=== PATIENT | female | born 1995 | race Caucasian/White ===

== ENCOUNTER → 2018-01-23 | Outpatient (CLI) | payer MEDICAID ==
--- NOTE | 2018-01-23 13:01 | Diagnostic Imaging Report ---
PROCEDURE: US OB SINGLE FETUS <14 WKS. TECHNIQUE: Multiple limited real-time grayscale images were obtained over the gravid uterus in various projections. INDICATION: Bleeding during . FINDINGS: Single intrauterine , currently in variable presentation. The cardiac activity is demonstrated at 176 beats per minute. No abnormal perigestational fluid collections. Imaging of the adnexa demonstrates nonvisualization of either ovary. Impression: Limited obstetrical sonogram imaging demonstrates a single viable intrauterine in variable presentation. No abnormal perigestational fluid collections or findings to account for the bleeding. Dictated by: Dictated on workstation # [id number]
== END ==
LOC: RAD 11:32
PROVIDERS: ATTEND Family Medicine
DX: O20.9 Hemorrhage in early pregnancy, unspecified (principal); Z3A.00 Weeks of gestation of pregnancy not specified
CPT/HCPCS: 76801

== ENCOUNTER → 2018-02-12 | Outpatient (CLI) | payer MEDICAID ==
--- NOTE | 2018-02-12 18:04 | Diagnostic Imaging Report ---
PROCEDURE: US Gallbladder. TECHNIQUE: Multiple real-time grayscale images were obtained over the right upper quadrant in various projections. INDICATION: Abdominal pain. FINDINGS: There are no prior studies available for comparison. There is no evidence for cholelithiasis or acute cholecystitis. The common bile duct is obscured by bowel gas as is the pancreas. The liver does not appear to be enlarged. There is no focal mass involving the liver and the biliary tree is not abnormally dilated. The right kidney is unremarkable. IMPRESSION: 1. There is no evidence for cholelithiasis or acute cholecystitis. The common bile duct was not visualized however. 2. If clinical concern regarding an underlying abnormality of the gallbladder persists and further imaging is desired, then a nuclear medicine hepatobiliary scan will be recommended. Dictated by: Dictated on workstation # [id number]
== END ==
LOC: RAD 09:17
PROVIDERS: ATTEND Family Medicine
DX: R10.11 Right upper quadrant pain (principal)
CPT/HCPCS: 76705

== ENCOUNTER → 2018-04-08 | Outpatient (CLI) | payer MEDICAID ==
--- NOTE | 2018-04-08 15:20 | Diagnostic Imaging Report ---
INDICATION: survey. TECHNIQUE: Multiple real-time grayscale images were obtained over the gravid uterus. COMPARISON: 01/23/2018. FINDINGS: There is a single live fetus in a vertex presentation. heart rate was recorded at 152 beats per minute. Placenta is posterior. The amniotic fluid volume is normal. survey demonstrates the bladder and stomach to be unremarkable. brain is unremarkable. Kidneys were not well visualized. In addition, the four-chamber heart view, three vessel cord and spine were not well seen. Followup would be recommended. Biometrical measurements are as follows: Biparietal 5.10 cm, age 21 weeks 4 days. Head circumference 18.64 cm, age 21 weeks 0 days. Abdominal circumference 15.84 cm, age 21 weeks 0 days. Femur length 3.79 cm, age 22 weeks 1 days. Sonographic estimate age: 21 weeks 3 days. Sonographic estimated date of delivery: 08/16/18. Estimated Weight: 424 gm (+/- 62 gm). LMP percentile: 37%. heart rate: 152 beats per minute. number: 1 of 1. IMPRESSION: Single live IUP 21 weeks 3 days gestational age demonstrating normal interval growth compared with prior exam from 01/23/2018. survey is somewhat limited and followup would be recommended. Dictated by: Dictated on workstation # [id number]
== END ==
LOC: RAD 10:44
PROVIDERS: ATTEND Family Medicine
DX: Z36.89 Encounter for other specified antenatal screening (principal); Z3A.21 21 weeks gestation of pregnancy
CPT/HCPCS: 76805

== ENCOUNTER 2018-06-01 14:36 | Outpatient (CLI) | payer MEDICAID ==
--- NOTE | 2018-06-01 14:36 | NUR ---
BLAINE IVAN presented to unit via ambulation from home, accompanied by S.o. and mother, with c/o DECREASED MOVEMENT. BLAINE IVAN weighed, gowned, voided, and to bed. EFHM and TOCO applied, VS taken. BLAINE IVAN oriented to bed controls, call light, TV, heat, and A/C controls.
--- NOTE | 2018-06-01 15:08 | NUR ---
Dr. Ricci called and notified of pt arrival, c/o decreased movement. notified of fhr status, ctx pattern, vs, other assessment findings. OK to d/c pt home once reactive NST. .
[2018-06-01 15:30] VITALS: BP 127/60
--- NOTE | 2018-06-01 15:41 | NUR ---
Pt discharged, copy of discharge paperwork provided. Pt verbalizes understanding. Denies needs and concerns at this time. Ambulates off unit accompanied by family to private vehicle.
== END 2018-06-01 15:41 | disposition home or self-care (01) ==
LOC: LDRP 14:36 → WSo 14:36
PROVIDERS: ATTEND Family Medicine
DX: O36.8130 Decreased fetal movements, third trimester, not applicable or unspecified (principal); Z3A.29 29 weeks gestation of pregnancy
CPT/HCPCS: 59025; 99212

== ENCOUNTER 2018-06-14 14:43 | Outpatient (CLI) | payer MEDICAID ==
[~2018-06-14] VITALS: Ht 162.6 cm; Wt 126.1 kg
--- NOTE | 2018-06-14 14:50 | NUR ---
Arrived to unit via wheelchair per family from ED. Pt holding abd and grimacing. pt c/o " diarrhea every 20-30min since 0130 with abd cramping and back pain that started this afternoon. wt obtained and pt ambulates to room 315. Gowned and urine sample obtained. To bed and monitors on. oriented to room, call light and surroundings. pt's mother answering questions for pt. plan of care reviewed with pt and family at bedside.
[2018-06-14] MEDS ORDERED: RANI150T46 PO (15:03)
[2018-06-14] MEDS ORDERED: ASPI-999 PO (15:03)
[2018-06-14] MEDS ORDERED: PREN-37 PO (15:03)
[2018-06-14 15:05] VITALS: BP 131/76
[2018-06-14] MEDS ORDERED: NS IV 1000 ML 1,000 ML ONE (15:24)
--- NOTE | 2018-06-14 15:27 | NUR ---
Dr. Rosales called and notified of pt c/o, assessment, few contractions noted 40-50 sec duration, fhr pattern reactive, urine dipstick. New orders received and plan of care reviewed with pt.
[2018-06-14] MEDS ORDERED: NS IV 1000 ML 1,000 ML IV ONE ×2 (15:30→16:15)
[2018-06-14 16:50] VITALS: BP 132/60
--- NOTE | 2018-06-14 17:08 | NUR ---
Dr Rosales notified of iv fluids completed, pt reports "feeling better." No diarrhea stool or vomitting. New orders for discharge received
--- NOTE | 2018-06-14 17:15 | NUR ---
Discharge instructions explained, signed and copy to patient. pt verbalized understanding of instructions and denied questions.
--- NOTE | 2018-06-14 17:20 | NUR ---
Discharged off unit accompanied by s.o. ambulates self off unit to private vehicle with belongings in hand.
--- NOTE | 2018-06-15 14:57 | Physician Query-Final Dx ---
Clinic Account Progress/Dx Physician Query: Please give diagnosis Date of Service Jun 14, 2018 at 14:43 ROQUE FULLER Jun 15, 2018 14:57
== END 2018-06-14 17:20 | disposition home or self-care (01) ==
LOC: WSo 14:43 → LDRP 14:44 → WSo 17:20
PROVIDERS: ATTEND Family Medicine
CPT/HCPCS: 96360; 96361; 99214

== ENCOUNTER → 2018-07-22 | Outpatient (CLI) | payer MEDICAID ==
[~2018-07-22] MED LIST: ASPI-999 PO; PREN-37 PO; RANI150T46 PO
[2018-07-22 15:34] LABS: HEMOGLOBIN 12.5 G/DL (11.5-16.0); MEAN PLATELET VOLUME 8.3 FL (7.4-10.4); RED CELL DISTRIBUTION WIDTH 13.1 % (10.0-14.5); WHITE BLOOD COUNT 15.2 10^3/uL (4.3-11.0)
[2018-07-22 16:00] LABS: ALANINE AMINOTRANSFERASE 42 U/L (0-55); ALBUMIN 3.3 GM/DL (3.2-4.5); ALKALINE PHOSPHATASE 126 U/L (40-136); BILIRUBIN,TOTAL 0.2 MG/DL (0.1-1.0); BUN/CREATININE RATIO 21; CALCIUM 9.4 MG/DL (8.5-10.1); CARBON DIOXIDE 21 MMOL/L (21-32); CHLORIDE 111 MMOL/L (98-107); CREATININE SERUM 0.67 MG/DL (0.60-1.30); GFR ESTIMATED > 60; GLUCOSE 120 MG/DL (70-105); SODIUM 139 MMOL/L (135-145); TOTAL PROTEIN 6.7 GM/DL (6.4-8.2); URIC ACID 6.5 MG/DL (2.6-7.2)
== END ==
LOC: LAB 15:10
PROVIDERS: ATTEND Family Medicine
DX: O10.913 Unspecified pre-existing hypertension complicating pregnancy, third trimester (principal); O12.13 Gestational proteinuria, third trimester
CPT/HCPCS: 36415; 80053; 82570; 83615; 84156; 84550; 85027

== ENCOUNTER 2018-07-26 17:23 | Outpatient (CLI) | payer MEDICAID ==
[~2018-07-26] VITALS: Ht 162.6 cm; Wt 126.6 kg
--- NOTE | 2018-07-26 16:57 | NUR ---
Arrived to unit ambulates self accompanied by family. Pt c/o falling this afternoon on butt. Wt obtained and to room 318. Gowned and urine sample obtained. to bed and monitors on. Oriented to room, plan of care. pt verbalized understanding.
[2018-07-26 17:11] VITALS: BP 134/84
--- NOTE | 2018-07-26 18:36 | NUR ---
Dr Larsen notified of pt arrival, gestation, c/o, fhr reactive, some uterine irritability noted. Rn to increase pt oral fluid intake and check cervix.
--- NOTE | 2018-07-26 19:29 | NUR ---
Pt completed drinking 2 500 ml cups of water and denies UC, Dr Larsen called with report and discharge instructions given.
[2018-07-26 19:38] VITALS: BP 134/84
--- NOTE | 2018-07-27 17:32 | Physician Query-Final Dx ---
ROQUE FULLER 07/27/18 1732: Clinic Account Progress/Dx Physician Query: Please give diagnosis Date of Service Jul 26, 2018 at 17:23 GAVINO MADRID MD 08/09/18 1001: Clinic Account Progress/Dx DIAGNOSIS: Diagnosis Fall during third trimester ROQUE FULLER Jul 27, 2018 17:32 GAVINO MADRID MD Aug 09, 2018 10:01
== END 2018-07-26 19:34 | disposition home or self-care (01) ==
LOC: WSo 17:23 → LDRP 17:23 → WSo 19:34
PROVIDERS: ATTEND Family Medicine
DX: Z04.3 Encounter for examination and observation following other accident (principal)
CPT/HCPCS: 90471; 99213

== ENCOUNTER → 2018-07-30 | Outpatient (CLI) | payer MEDICAID ==
[2018-07-30 15:52] LABS: HEMOGLOBIN 12.5 G/DL (11.5-16.0); MEAN PLATELET VOLUME 8.2 FL (7.4-10.4); RED CELL DISTRIBUTION WIDTH 13.1 % (10.0-14.5); WHITE BLOOD COUNT 12.9 10^3/uL (4.3-11.0)
[2018-07-30 16:12] LABS: ALANINE AMINOTRANSFERASE 28 U/L (0-55); ALBUMIN 3.3 GM/DL (3.2-4.5); ALKALINE PHOSPHATASE 130 U/L (40-136); BILIRUBIN,TOTAL 0.2 MG/DL (0.1-1.0); BUN/CREATININE RATIO 16; CALCIUM 9.5 MG/DL (8.5-10.1); CARBON DIOXIDE 21 MMOL/L (21-32); CHLORIDE 109 MMOL/L (98-107); CREATININE SERUM 0.73 MG/DL (0.60-1.30); GFR ESTIMATED > 60; GLUCOSE 100 MG/DL (70-105); POTASSIUM 4.1 MMOL/L (3.6-5.0); SODIUM 138 MMOL/L (135-145); TOTAL PROTEIN 6.5 GM/DL (6.4-8.2); URIC ACID 6.8 MG/DL (2.6-7.2)
== END ==
LOC: LAB 15:36
PROVIDERS: ATTEND Family Medicine
DX: O10.919 Unspecified pre-existing hypertension complicating pregnancy, unspecified trimester (principal)
CPT/HCPCS: 36415; 80053; 82570; 83615; 84156; 84550; 85027

== ENCOUNTER 2018-08-01 20:56 | Inpatient (IN) | payer MEDICARE, MEDICAID ==
[~2018-08-01] VITALS: Ht 162.6 cm; Wt 129.4 kg
[2018-08-01] VITALS (17 sets, daily range): BP systolic 103–207; BP diastolic 56–99
--- NOTE | 2018-08-01 21:03 | NUR ---
BLAINE IVAN presented to unit via W/C from ED, accompanied by mother and SO, with c/o CONTRACTIONS. BLAINE IVAN weighed, gowned, voided, and to bed. EFHM and TOCO applied, VS taken. BLAINE IVAN oriented to bed controls, call light, TV, heat, and A/C controls.
[2018-08-01] MEDS ORDERED: D5 LR IV SOLUTION 1,000 ML IV ONE (21:27)
--- NOTE | 2018-08-01 21:27 | NUR ---
call to Dr Madrid and change of status ordered with labs.
[2018-08-01] MEDS ORDERED: MINERAL OIL CONCENTRATE 99.9% 15 ML UDC TOP PRN (21:30)
[2018-08-01] MEDS ORDERED: LIDOCAINE/EPI 1%-1:100,000 (XYLOCAINE) 20ML INJ ONE (21:30)
--- OUTSIDE RECORDS SUMMARY | 2018-08-01 21:37 | XMS REPORT ---
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 046482633 Problem Depression, unspecified depression type F32.9 Active 67850679 Problem Chronic hypertension affecting O10.919 Active 95065355 Problem Elevated blood pressure affecting in first trimester, antepartum O16.1 Active 70512252 Problem Miscarriage O03.9 Active 13551369 Problem Seasonal allergic rhinitis, unspecified allergic rhinitis trigger J30.2 Active 739506465 Problem BCP ( control pills) initiation Z30.011 Active 91545962 Problem Well woman exam with routine gynecological exam Z01.419 Active 869571259 Problem Essential hypertension I10 Active 23168596 Problem BMI 40.0-44.9, adult Z68.41 Active 422802756 Problem Mixed hyperlipidemia E78.2 Active 108145215 Problem Migraine without aura and without status migrainosus, not intractable G43.009 Active 640570847 Problem Generalized anxiety disorder F41.1 Active 605073496 Problem Female hirsutism L68.0 Active 24810514 ALLERGIES Substance Reaction Event Type Date Status Metformin HCl BS drops Drug Allergy Apr, Active ENCOUNTERS Encounter Location Date Diagnosis [facility] [address] [facility] [id number] [address] May, [facility] [address] [facility] [id number], [place] [address] Apr, 26 weeks gestation of Z3A.26 ; Chronic hypertension affecting O10.919 ; Depression, unspecified depression type F32.9 and Generalized anxiety disorder F41.1 [place] [id number] [place] [address] 39178- 2264 Apr, [place] [address] [address]- [address] Mar, Second trimester Z34.92 ; Evaluate anatomy not seen on prior sonogram Z04.89 and 23 weeks gestation of Z3A.23 [place] [address] [address]- [address] Mar, [facility] [id number] [place] [address] 56046- 3207 Mar, Second trimester Z34.92 ; Evaluate anatomy not seen on prior sonogram Z04.89 ; 23 weeks gestation of Z3A.23 and BMI 40.0-44.9, adult Z68.[address] [address]- [address] Feb, Second trimester Z34.92 ; BMI 40.0-44.9, adult Z68.41 ; Encounter for immunization Z23 and 18 weeks gestation of Z3A.18 [place] [address] [address]- [address]24 22 Feb, 2018 Normal in multigravida Z34.80 [facility] [id number] [place] [address] 23327- 4501 Feb, [facility] [id number] [place] [address] 81603- 9125 Jan, Second trimester Z34.92 ; BMI 40.0-44.9, adult Z68.41 and 14 weeks gestation of Z3A.14 [place] [address] 50154- 9566 Jan, [facility] [id number] [place] [address] 64809- 6680 Jan, Second trimester Z34.92 ; BMI 40.0-44.9, adult Z68.41 ; 12 weeks gestation of Z3A.12 ; Chronic hypertension affecting O10.919 ; Syncope, unspecified syncope type R55 ; Right upper quadrant pain R10.11 and First trimester bleeding O20.9 [place] [address] [address]- 7373 Jan, [facility] [address] 39966- 4872 Dec, [facility] [address] 6[address]25- 5636 Dec, Threatened miscarriage O20.[address] 24456- 1838 Dec, Normal in multigravida Z34.80 ; Prediabetes R73.03 ; Elevated blood pressure affecting in first trimester, antepartum O16.1 ; 12 weeks gestation of Z3A.12 and BMI 40.0-44.9, adult Z68.41 [place] [address] 45828- 6363 Dec, [address] [address]- 6276 Dec, Female hirsutism L68.0 ; Mixed hyperlipidemia E78.2 and Encounter for test, result unknown Z32.[address] 9[address]34- 3267 Oct, LGSIL on Pap smear of cervix R87.612 ; Exposure to STD Z20.2 and BMI 40.0-44.9, adult Z68.41 [place] [address] 38331- 6308 September, [facility] [address] 40455- 8880 September, Mixed hyperlipidemia E78.[address] 75509- 8933 September, Well woman exam with routine gynecological exam Z01.419 ; BCP ( control pills) initiation Z30.011 ; Essential hypertension I10 ; Miscarriage O03.9 and BMI 40.0-44.9, adult Z68.41 [facility] [id number] [place] [id number] Dec, Dental examination Z01.20 [facility] [address] [address] Dec, Acute non-recurrent pansinusitis J01.40 [facility] [address] [id number] Nov, Dental examination Z01.20 [facility] [address] [address] -3605 Oct, Missed period N92.6 ; Dysuria R30.0 and Seasonal allergic rhinitis, unspecified allergic rhinitis trigger J30.[address] 97736- 8054 Jul, Generalized anxiety disorder F41.1 ; BMI 40.0-44.9, adult Z68.41 ; Female hirsutism L68.0 ; Encounter for routine adult health examination with abnormal findings Z00.01 and Legg-Perthes disease, 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 [address]164- 3277 Jun, [address] 32406- 4016 Jun, Routine gynecological examination Z01.419 and Contraception , device intrauterine, checking Z30.[address] 01844- 2497 Jun, Morbid (severe) obesity due to excess calories E66.[address] 31580- 1043 May, Generalized anxiety disorder F41.1 ; Bipolar mood disorder F31.9 ; BMI 40.0-44.9, adult Z68.41 and Female hirsutism L68.0 [place] [id number] [place] [address] 18864- 5385 09 Apr, 2016 Morbid (severe) obesity due to excess calories E66.01 and Acute non-recurrent frontal sinusitis J01.10 [facility] [id number] [place] [address] 60294- 1134 11 Mar, 2016 Acute bronchitis, unspecified organism J20.9 ; Bipolar mood disorder F31.9 ; BMI 40.0-44.9, adult Z68.41 and Female hirsutism L68.0 [facility] [id number] [place] [address] 40149 -4106 04 Mar, 2016 Bronchitis J40 [facility] [id number] [place] [address] 47696- 2250 14 Feb, 2016 Morbid (severe) obesity due to excess calories E66.01 ; Bipolar mood disorder F31.9 and Female hirsutism L68.0 [facility] [id number] [place] [address] 61576- 6722 16 Jan, 2016 Morbid (severe) obesity due to excess calories E66.01 [facility] [id number] [place] [address] 86865- 9049 Dec, BMI 40.0-44.9, adult Z68.41 ; Bipolar mood disorder F31.9 ; Generalized anxiety disorder F41.1 ; Female hirsutism L68.0 and Non-compliant behavior R46.89 [facility] [id number] [place] [address] 73352- 8656 Nov, Morbid (severe) obesity due to excess calories E66.01 [facility] [facility] [address] 62029- 4226 Oct, BMI 40.0-44.9, adult Z68.41 ; Morbid (severe) obesity due to excess calories E66.01 and Bipolar mood disorder F31.9 [facility] [id number] [place] [address] 50269- 0197 September, [place] [facility] [address] 03816- 5705 September, Morbid (severe) obesity due to excess calories E66.01 [facility] [id number] [place] [address] 20251- 9074 Aug, Generalized anxiety disorder F41.1 ; Nondependent tobacco use disorder Z72.0 and BMI 40.0-44.9, adult Z68.41 [place] [id number] [place] [address] 18997- 4614 Aug, [place] [address] 98202- 8897 Jul, Bipolar mood disorder F31.9 [place] [address] 26508- 7193 Jul, Back pain M54.9 [facility] [id number] [place] [address] 67418 -9957 Jul, Pain in right knee M25.561 [facility] [id number] [place] [address] 66712- 5095 Jul, [facility] [id number] [place] [address] 86891- 1859 Jul, Generalized anxiety disorder F41.1 ; BMI 40.0-44.9, adult Z68.41 ; Female hirsutism L68.0 ; Morbid (severe) obesity due to excess calories E66.01 and Back injury, initial encounter S39.92XA [facility] [facility] [address] 30664- 9324 Jul, Female hirsutism L68.0 ; BMI 40.0-44.9, adult Z68.41 and Tobacco use Z72.0 [facility] [address] 64001- 7194 Jun, Family history of diabetes mellitus Z83.3 [facility] [place] [address] [place] [id number] [place] [address] 35649- 9687 Jun, Tobacco use Z72.0 ; Family history of hypertension Z82.49 ; BMI 40.0-44.9, adult Z68.41 ; Female hirsutism L68.0 ; Elevated blood pressure I10 ; Family history of diabetes mellitus Z83.3 ; High risk sexual behavior Z72.51 ; History of self-harm Z91.5 ; Family history of thalassemia Z83.2 and Anxiety F41.9 [place] [id number] [place] [address] 67359- 3643 Jun, Well woman exam Z01.419 ; BMI 40.0-44.9, adult Z68.41 ; Family history of diabetes mellitus Z83.3 and Other fatigue R53.83 [place] [id number] [place] [address] 66939- 1832 May, Well woman exam Z01.419 ; Surveillance for control, intrauterine device Z30.431 ; Tobacco use Z72.0 ; Routine screening for STI ( sexually transmitted infection) Z11.3 ; Family history of hypertension Z82.49 ; Elevated blood pressure I10 ; BMI 40.0-44.9, adult Z68.41 ; Female hirsutism L68.0 ; Migraine without aura and without status migrainosus, not intractable G43.009 ; Anxiety F41.9 ; Depression, unspecified depression type F32.9 ; Family history of diabetes mellitus Z83.3 ; Other fatigue R53.83 ; Morbid ( severe) obesity due to excess calories E66.01 ; Unprotected sexual intercourse Z72.51 ; High risk sexual behavior Z72.51 ; History of self-harm Z91.5 and Family history of thalassemia Z83.2 [place] [id number] [place] [address] 61974- 8981 May, Bipolar affective disorder F31.9 and NICHOLAS (generalized anxiety disorder) F41.1 [place] [id number] [place] [address] 00455- 8475 Mar, Bipolar affective disorder F31.9 ; Generalized anxiety disorder F41.1 and ADHD (attention deficit hyperactivity disorder), combined type F90.2 [facility] [address] [id number] Feb, Dental examination Z01.20 [facility] [address] [address]- [address] Jan, [facility] [id number] [place] [address] 67034- 2546 Jan, Rash 782.1 [facility] [id number] [place] [address] 856544- 8077 Jan, Bipolar mood disorder 296.80 ; Generalized anxiety disorder 300.02 and ADHD, 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 [facility] [id number] [address]- 0306 Nov, URI, acute 465.9 [facility] [id number] [place] [address] 56252- 9499 14 Aug, 2014 [facility] [id number] [place] [address] 67362- 1753 Aug, [facility] [id number] [place] [address] 59062- 2894 Jul, [facility] [address] [address]- 5722 Jul, [facility] [id number] [place] [address] 45153- 1347 Jul, [facility] [address] [place] [address]- 0760 Jul, [facility] [id number] [place] [address] 398260- 3042 Jul, [facility] [address] [address]82 Jul, [facility] [id number] [place] [address]- 3148 Jul, [facility] [place] [facility] [address] [id number] [place] [address]- 7055 Jul, [facility] [place] [facility] [address] [id number] [place] [address]- 5795 Jul, [facility] [place] [facility] [address] [id number] [place] [address]- 5563 Jul, [facility] [place] [facility] [address] [id number] [place] [address]- 1793 Jun, [facility] [place] [facility] [address] [id number] [place] [address]- 4793 Jun, [facility] [place] [facility] [address] [id number] [place] [address]- 1522 Jun, [facility] [place] [facility] [address] [id number] [place] [address]- 4816 Jun, [facility] [place] [facility] [address] [id number] [place] [address]- 3158 May, [facility] [place] [facility] [address] [id number] [place] [address]- 0685 May, [facility] [place] [facility] [address] [facility] [id number] [place] [address]- 0570 May, [facility] [place] [facility] [address] [id number] [place] [address]- 8717 May, [facility] [place] [facility] [address] [id number] [place] [address]- 9368 May, [facility] [place] [facility] [address] [id number] [place] [address]- 5082 May, [facility] [place] [facility] [address] [id number] [place] [address]- 8282 May, [facility] [place] [facility] [address] [id number] [place] [address]- 6634 May, [facility] [place] [facility] [address] [id number] [place] [address]- 1602 May, [facility] [place] [facility] [address] [id number] [place] [address]- 9501 May, [facility] [place] [facility] [address] [id number] [place] [address]- 7973 May, [facility] [place] [facility] [address] [id number] [place] [address]- 4515 May, [facility] [place] [facility] [address] [id number] [place] [address]- 3830 May, [facility] [place] [facility] [address] [id number] [place] [address]- 2541 May, [facility] [place] [facility] [address] [id number] [place] [address]- 5039 May, [facility] [place] [facility] [address] [id number] [place] [address]- 4283 May, [facility] [place] [facility] [address] [id number] [place] [address]- 1639 May, [facility] [place] [facility] [address] [id number] [place] [address]- 5108 May, [facility] [place] [facility] [address] [id number] [place] [address]- 6809 Apr, [facility] [place] [facility] [address] [id number], [place] [address]- 5854 Apr, [facility] [place] [facility] [address] [id number] [place] [address]- 0362 Mar, [facility] [place] [facility] [address] [id number] [place] [address]- 7896 Mar, [facility] [place] [facility] [address] [id number], [place] [address]- 1864 Mar, [facility] [place] [facility] [address] [id number], [place] [address]- 2611 Mar, [facility] [place] [facility] [address] [id number] [place] [address]- 8511 Mar, [facility] [place] [facility] [address] [id number] [place] [address]- 6721 Mar, [facility] [place] [facility] [address] [facility] [id number] [place] [address]- 6774 Mar, [facility] [place] [facility] [address] [id number] [place] [address]- 9394 Mar, [facility] [place] [facility] [address] [id number] [place] [address]- 8007 Mar, [facility] [place] [facility] [address] [id number] [place] [address]- 7685 Mar, [facility] [place] [facility] [address] [facility] [id number] [place] [address]- 6471 Feb, [facility] [place] [facility] [address] [facility] [id number] [place] [address]- 5679 Feb, [facility] [place] [facility] [address] [facility] [id number] [place] [address]- 1358 Feb, [facility] [place] [facility] [address] [facility] [id number] [place] [address]- 5926 Feb, [facility] [place] [facility] [address] [facility] [id number], [place] [address]- 3067 Dec, [facility] [place] [facility] [address] [id number], [place] [address]- 9273 Dec, [facility] [place] [facility] [address] [id number] [place] [address]- 5848 Oct, [facility] [place] [facility] [address] [id number] [place] [address]- 0492 Oct, [facility] [place] [facility] [address] [facility] [id number] [place] [address]- 3137 Oct, [facility] [place] [facility] [address] [id number] [place] [address]- 3086 Oct, [facility] [address] [id number] [place] [address]- 3768 September, [facility] [place] [facility] [address] [id number] [place] [address]- 4796 September, [facility] [place] [facility] [address] [id number] [place] [address]- 0795 Aug, [facility] [place] [facility] [address] [id number] [place] [address]- 8828 Aug, [facility] [place] [facility] [address] [id number] [place] [address]- 1800 Mar, [facility] [place] [facility] [address] [id number] [place] [address]- 7870 Mar, [facility] [place] [facility] [address] [id number] [place] [address]- 2224 Dec, [facility] [place] [facility] [address] [id number] [place] [address]- 6661 Nov, [facility] [place] [facility] [address] [id number] [place] [address]- 5246 Oct, [facility] [place] [facility] [address] [id number] [place] [address]- 8956 September, [facility] [place] [facility] [address] [id number] [place] [address]- 3696 September, [facility] [place] [facility] [address] [id number] [place] [address]- 1438 September, [facility] [place] [facility] [address] [id number] [place] [address]- 0906 Aug, [facility] [place] [facility] [address] [id number] [place] [address]- 2806 Aug, [facility] [place] [facility] [address] [id number] [place] [address]- 7000 Jul, [facility] [id number] [address]- 4094 05 Jul, 2012 [facility] [address], [place] [address]- 9586 Jul, [facility] [address], [place] [address]- 7861 Jun, [facility] [id number] [place] [address] 72559- 4187 May, [facility] [id number] [place] [address] 352041- 0211 Apr, [facility] [id number] [place] [address] 66471- 6251 Apr, [facility] [address], [place] [address]- 7473 Feb, IMMUNIZATIONS No Known Immunizations SOCIAL HISTORY Never Assessed REASON FOR VISIT OB 4wk f/u--tcuppettRN, bilateral ear drainage/pain x 2 weeks PLAN OF CARE Activity Details Follow Up 2 Weeks Reason: VITAL SIGNS Height 65 in 2018-05-14 Weight 270.7 lbs 2018-05-14 Temperature 98.3 degrees Fahrenheit 2018-05-14 Heart Rate 96 bpm 2018-05-14 Respiratory Rate 20 2018-05-14 BMI 45.047 kg/m2 2018-05-14 Blood pressure systolic 148 mmHg 2018-05-14 Blood pressure diastolic 82 mmHg 2018-05-14 MEDICATIONS Medication Instructions Dosage Frequency Start Date End Date Duration Status Vitamin 27-0.8 mg Orally Once a day 1 tablet 24h Mar, 30 day(s) Active Aspirin 81 MG Orally Once a day 1 tablet 24h Jan, 30 day(s) Active Ranitidine HCl 150 MG Orally Twice a day 1 tablet 12h Jan, 30 day(s) Active RESULTS Name Result Date Reference Range UA OB DIP (IN HOUSE) 2018-05-14 Glucose negative Protein trace PROCEDURES Procedure Date Ordered Result Body Site URINE-NO MICRO May 14, 2018 LAB NOT BILLED BY [facility] May 14, 2018 VENIPUNCT, ROUTINE* May 14, 2018 INSTRUCTIONS MEDICATIONS ADMINISTERED No Known Medications MEDICAL (GENERAL) HISTORY Type Description Date Medical History hypertension Medical History anger issues Medical History depression Medical History anxiety Medical History perthes disease Medical History Family history of hypertension Medical History Family history of diabetes mellitus Medical History High risk sexual behavior Medical History History of self-harm Medical History Family history of thalassemia Medical History miscarrige-march 2017 Surgical History left hip surgery x 2 2009/2010 Surgical History right knee surgery 2013 Surgical History wisdom teeth extraction Surgical History tonsilectomy Hospitalization History surgeries
--- OUTSIDE RECORDS SUMMARY | 2018-08-01 21:38 | XMS REPORT ---
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 385821094 Problem Depression, unspecified depression type F32.9 Active 75365875 Problem Chronic hypertension affecting O10.919 Active 88067879 Problem Elevated blood pressure affecting in first trimester, antepartum O16.1 Active 19667329 Problem Miscarriage O03.9 Active 20274436 Problem Seasonal allergic rhinitis, unspecified allergic rhinitis trigger J30.2 Active 651414686 Problem BCP ( control pills) initiation Z30.011 Active 47304236 Problem Well woman exam with routine gynecological exam Z01.419 Active 707816065 Problem Essential hypertension I10 Active 50284490 Problem BMI 40.0-44.9, adult Z68.41 Active 521549382 Problem Mixed hyperlipidemia E78.2 Active 541438772 Problem Migraine without aura and without status migrainosus, not intractable G43.009 Active 465233164 Problem Generalized anxiety disorder F41.1 Active 166699102 Problem Female hirsutism L68.0 Active 74453603 ALLERGIES No Information ENCOUNTERS Encounter Location Date Diagnosis [facility], [place] [address] [facility] [id number], [place] [address] Apr, [facility], [place] [address], [place] [address] Mar, [facility] [place] [address] [facility] [id number], [place] [address] Mar, Second trimester Z34.92 ; Evaluate anatomy not seen on prior sonogram Z04.89 and 23 weeks gestation of Z3A.23 [facility] [id number] [place] [address]- 5032 Feb, Second trimester Z34.92 ; BMI 40.0-44.9, adult Z68.41 ; Encounter for immunization Z23 and 18 weeks gestation of Z3A.18 [facility] [id number] [place] [address] 48080- 4604 Feb, Normal in multigravida Z34.80 [place] [address] [address]- [address]67 Feb, [facility] [address] [address]- [address] 27 Jan, 2018 Second trimester Z34.92 ; BMI 40.0-44.9, adult Z68.41 and 14 weeks gestation of Z3A.14 [place] [place] [id number] [place] [address] 10281- 5892 12 Jan, 2018 [place] [place] [id number] [place] [address] 23590- 3176 11 Jan, 2018 Second trimester Z34.92 ; BMI 40.0-44.9, adult Z68.41 ; 12 weeks gestation of Z3A.12 ; Chronic hypertension affecting O10.919 ; Syncope, unspecified syncope type R55 ; Right upper quadrant pain R10.11 and First trimester bleeding O20.9 [place] [place] [id number] [place] [address] 37651- 1762 Jan, [facility] [id number] [place] [address] 00657- 9967 Dec, [facility] [facility] [address] 16426- 1454 Dec, Threatened miscarriage O20.0 [place] [id number] [place] [address] 70833- 7386 Dec, Normal in multigravida Z34.80 ; Prediabetes R73.03 ; Elevated blood pressure affecting in first trimester, antepartum O16.1 ; 12 weeks gestation of Z3A.12 and BMI 40.0-44.9, adult Z68.[address] [address]- [address] Dec, [address] [address]- 9995 Dec, Female hirsutism L68.0 ; Mixed hyperlipidemia E78.2 and Encounter for test, result unknown Z32.[address] [address]- 2855 11 Oct, 2017 LGSIL on Pap smear of cervix R87.612 ; Exposure to STD Z20.2 and BMI 40.0-44.9, adult Z68.[address] [address]- [address]99 September, [address] 08[address]- 1817 September, Mixed hyperlipidemia E78.[address] [address]- 9277 September, Well woman exam with routine gynecological exam Z01.419 ; BCP ( control pills) initiation Z30.011 ; Essential hypertension I10 ; Miscarriage O03.9 and BMI 40.0-44.9, adult Z68.41 [facility] [id number] [place] [id number] Dec, Dental examination Z01.20 [facility] [address] [place] [address] -5041 Dec, Acute non-recurrent pansinusitis J01.40 [facility] [address] [id number] Nov, Dental examination Z01.20 [facility] [address] [address] Oct, Missed period N92.6 ; Dysuria R30.0 and Seasonal allergic rhinitis, unspecified allergic rhinitis trigger J30.2 [facility] [address] 53762- 8116 Jul, Generalized anxiety disorder F41.1 ; BMI 40.0-44.9, adult Z68.41 ; Female hirsutism L68.0 ; Encounter for routine adult health examination with abnormal findings Z00.01 and Legg-Perthes disease, 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 [place] [address] 29843- 3844 15 Jun, [address] 86865- 0051 07 Jun, 2016 Routine gynecological examination Z01.419 and Contraception , device intrauterine, checking Z30.[address] 68753- 1791 03 Jun, 2016 Morbid (severe) obesity due to excess calories E66.01 [place] [address] 40316- 5393 May, Generalized anxiety disorder F41.1 ; Bipolar mood disorder F31.9 ; BMI 40.0-44.9, adult Z68.41 and Female hirsutism L68.0 [place] [address] 93352- 3976 Apr, Morbid (severe) obesity due to excess calories E66.01 and Acute non-recurrent frontal sinusitis J01.10 [place] [address] 38424- 8604 11 Mar, 2016 Acute bronchitis, unspecified organism J20.9 ; Bipolar mood disorder F31.9 ; BMI 40.0-44.9, adult Z68.41 and Female hirsutism L68.0 [facility] [address] [address] 04 Mar, 2016 Bronchitis J40 [place] [address], [place] [address] 14 Feb, 2016 Morbid (severe) obesity due to excess calories E66.01 ; Bipolar mood disorder F31.9 and Female hirsutism L68.0 [facility] [place] [address], [place] [address] 16 Jan, 2016 Morbid (severe) obesity due to excess calories E66.01 [place] [id number] [place] [address] 73212- 1626 Dec, BMI 40.0-44.9, adult Z68.41 ; Bipolar mood disorder F31.9 ; Generalized anxiety disorder F41.1 ; Female hirsutism L68.0 and Non-compliant behavior R46.89 [place] [address], [place] [address] 90[address] Nov, Morbid (severe) obesity due to excess calories E66.01 [facility] [id number] [place] [address] 07572- 0259 Oct, BMI 40.0-44.9, adult Z68.41 ; Morbid (severe) obesity due to excess calories E66.01 and Bipolar mood disorder F31.9 [place] [address], [place] [address] September, [place] [id number] [place] [address] 95502- 7319 September, Morbid (severe) obesity due to excess calories E66.01 [facility] [address], [place] [address] 7067 Aug, Generalized anxiety disorder F41.1 ; Nondependent tobacco use disorder Z72.0 and BMI 40.0-44.9, adult Z68.41 [place] [address], [place] [address] Aug, [place] [id number] [place] [address] 75330- 4259 Jul, Bipolar mood disorder F31.9 [facility] [place] [id number] [place] [address] 28340- 8645 Jul, Back pain M54.9 [facility] [id number] [place] [address] 98867 -8129 Jul, Pain in right knee M25.561 [place] [address] 11452- 7177 Jul, [place] [id number] [place] [address] 24283- 7807 Jul, Generalized anxiety disorder F41.1 ; BMI 40.0-44.9, adult Z68.41 ; Female hirsutism L68.0 ; Morbid (severe) obesity due to excess calories E66.01 and Back injury, initial encounter S39.92XA [address] [address]88- 4719 Jul, Female hirsutism L68.0 ; BMI 40.0-44.9, adult Z68.41 and Tobacco use Z72.[address] 63967- 2921 Jun, Family history of diabetes mellitus Z83.3 [facility] [id number] [place] [address] 75989- 5193 Jun, Tobacco use Z72.0 ; Family history of hypertension Z82.49 ; BMI 40.0-44.9, adult Z68.41 ; Female hirsutism L68.0 ; Elevated blood pressure I10 ; Family history of diabetes mellitus Z83.3 ; High risk sexual behavior Z72.51 ; History of self-harm Z91.5 ; Family history of thalassemia Z83.2 and Anxiety F41.9 [place] [id number] [place] [address]15- 1937 Jun, Well woman exam Z01.419 ; BMI 40.0-44.9, adult Z68.41 ; Family history of diabetes mellitus Z83.3 and Other fatigue R53.83 [facility], [place] [id number] [place] [address] 19319- 8754 28 May, 2016 Well woman exam Z01.419 ; Surveillance for [...] Z91.5 and Family history of thalassemia Z83.2 [place] [id number] [place] [address] 32589- 4451 28 May, 2015 Bipolar affective disorder F31.9 and NICHOLAS (generalized anxiety disorder) F41.1 [place] [address] 495[address]- 3403 Mar, Bipolar affective disorder F31.9 ; Generalized anxiety disorder F41.1 and ADHD (attention deficit hyperactivity disorder), combined type F90.2 [facility] [id number] [place] [address] [id number] Feb, Dental examination Z01.20 [facility], [place] [id number] [place] [address] 42174- 5820 Jan, [place] [address] 67922- 4468 Jan, Rash 782.1 [facility], [place] [id number] [place] [address] 62812- 0868 Jan, Bipolar mood disorder 296.80 ; Generalized anxiety disorder 300.02 and ADHD, 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 [place] [address] [id number] [place] [address]- 8901 29 Nov, 2014 URI, acute 465.9 [facility] [place] [facility] [address] [id number] [place] [address]- 0716 14 Aug, 2014 [facility] [place] [facility] [address] [id number] [place] [address]- 7696 Aug, [facility] [place] [facility] [address] [id number] [place] [address]- 2604 Jul, [facility] [place] [facility] [address] [id number] [place] [address]- 8682 Jul, [facility] [place] [facility] [address] [id number] [place] [address]- 5283 Jul, [facility] [place] [facility] [address] [id number] [place] [address]- 0075 Jul, [facility] [place] [facility] [address] [id number] [place] [address]- 0994 Jul, [facility] [place] [facility] [address] [id number] [place] [address]- 6715 Jul, [facility] [place] [facility] [address] [facility] [id number] [place] [address]- 2644 Jul, [facility] [place] [facility] [address] [id number] [place] [address]- 9261 Jul, [facility] [place] [facility] [address] [id number] [place] [address]- 1431 Jul, [facility] [place] [facility] [address] [id number] [place] [address]- 7245 Jul, [facility] [place] [facility] [address] [id number] [place] [address]- 2509 Jun, [facility] [place] [facility] [address] [facility] [id number] [place] [address]- 5776 Jun, [facility] [place] [facility] [address] [facility] [id number] [place] [address]- 6918 Jun, [facility] [address] [id number] [place] [address]- 7542 Jun, [facility] [place] [facility] [address] [id number] [place] [address]- 3489 May, [facility] [place] [facility] [address] [id number] [place] [address]- 0769 May, [facility] [place] [facility] [address] [id number] [place] [address]- 6052 May, [facility] [place] [facility] [address] [id number] [place] [address]- 9951 May, [facility] [place] [facility] [address] [id number] [place] [address]- 2642 May, [facility] [place] [facility] [address] [id number] [place] [address]- 4623 May, [facility] [place] [facility] [address] [id number] [place] [address]- 8106 May, [facility] [place] [facility] [address] [id number] [place] [address]- 9764 May, [facility] [place] [facility] [address] [id number] [place] [address]- 6126 May, [facility] [place] [facility] [address] [id number] [place] [address]- 3665 May, [facility] [place] [facility] [address] [id number] [place] [address]- 4415 May, [facility] [place] [facility] [address] [id number] [place] [address]- 6722 May, [facility] [place] [facility] [address] [id number] [place] [address]- 2686 May, [facility] [place] [facility] [address] [id number] [place] [address]- 5600 May, [facility] [place] [facility] [address] [id number] [place] [address]- 5377 May, [facility] [place] [facility] [address] [id number] [place] [address]- 5845 May, [facility] [place] [facility] [address] [id number] [place] [address]- 1475 May, [facility] [place] [facility] [address] [id number] [place] [address]- 4061 May, [facility] [place] [facility] [address] [id number] [place] [address]- 9313 Apr, [facility] [place] [facility] [address] [id number] [place] [address]- 6540 Apr, [facility] [place] [facility] [address] [id number] [place] [address]- 1359 Mar, [facility] [place] [facility] [address] [id number] [place] [address]- 3061 Mar, [facility] [place] [facility] [address] [id number] [place] [address]- 3599 Mar, [facility] [place] [facility] [address] [id number] [place] [address]- 5787 Mar, [facility] [place] [facility] [address] [id number] [place] [address]- 7658 Mar, [facility] [place] [facility] [address] [id number] [place] [address]- 7787 Mar, [facility] [place] [facility] [address] [id number] [place] [address]- 6233 Mar, [facility] [place] [facility] [address] [id number] [place] [address]- 2874 Mar, [facility] [place] [facility] [address] [id number] [place] [address]- 0577 Mar, [facility] [place] [facility] [address] [id number] [place] [address]- 8427 Mar, [facility] [place] [facility] [address] [id number] [place] [address]- 2163 Feb, [facility] [place] [facility] [address] [id number] [place] [address]- 7979 Feb, [facility] [place] [facility] [address] [id number] [place] [address]- 8602 Feb, [facility] [place] [facility] [address] [id number] [place] [address]- 5184 Feb, [facility] [place] [facility] [address] [id number] [place] [address]- 0254 Dec, [facility] [place] [facility] [address] [id number] [place] [address]- 3356 Dec, [facility] [place] [facility] [address] [id number] [place] [address]- 8493 Oct, [facility] [place] [facility] [address] [id number] [place] [address]- 3393 Oct, [facility] [place] [facility] [address] [id number] [place] [address]- 5151 Oct, [facility] [place] [facility] [address] [id number] [place] [address]- 6020 Oct, [facility] [place] [facility] [address] [id number] [place] [address]- 9903 September, [facility] [place] [facility] [address] [id number] [place] [address]- 5496 September, [facility] [place] [facility] [address] [id number] [place] [address]- 5380 Aug, [facility] [place] [facility] [address] [id number] [place] [address]- 3715 Aug, [facility] [place] [facility] [address] [id number] [place] [address] Mar, [facility] [place] [facility] [address] [id number] [place] [address]- 2546 Mar, [facility] [address] [id number] [place] [address]- 8436 Dec, [facility] [address] [id number] [place] [address]- 2546 Nov, [facility] [address] [id number] [place] [address]- 2546 Oct, [facility] [address] [id number] [place] [address]- 2546 September, [facility] [address] [id number] [place] [address]- 2066 September, [facility] [address] [id number] [place] [address]- 7396 September, [facility] [address] [id number] [place] [address]- 4326 Aug, [facility] [address] [id number] [place] [address]- 4076 Aug, [facility] [address] [id number] [place] [address]- 4386 Jul, [facility] [address] [id number] [place] [address]- 2546 Jul, [facility] [address] [id number] [place] [address]- 2546 Jul, [facility] [address] [id number] [place] [address]- 2546 Jun, [facility] [address] [id number] [place] [address]- 2546 May, [facility] [address] [id number] [place] [address]- 2546 Apr, [facility] [address] [id number] [place] [address]- 2546 Apr, [facility] [place] [address] [facility] [id number] [place] [address]- 2640 Feb, IMMUNIZATIONS No Known Immunizations SOCIAL HISTORY Never Assessed REASON FOR VISIT PLAN OF CARE VITAL SIGNS MEDICATIONS Unknown Medications RESULTS No Results PROCEDURES No Known procedures INSTRUCTIONS MEDICATIONS ADMINISTERED No Known Medications MEDICAL (GENERAL) HISTORY Type Description Date Medical History hypertension Medical History anger issues Medical History depression Medical History anxiety Medical History perthes disease Medical History Family history of hypertension Medical History Family history of diabetes mellitus Medical History High risk sexual behavior Medical History History of self-harm Medical History Family history of thalassemia Medical History miscarrig-march 2017 Surgical History left hip surgery x 2 Surgical History right knee surgery 2013 Surgical History wisdom teeth extraction Surgical History tonsilectomy Hospitalization History surgeries
--- OUTSIDE RECORDS SUMMARY | 2018-08-01 21:38 | XMS REPORT ---
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 537805601 Problem Depression, unspecified depression type F32.9 Active 42488799 Problem Chronic hypertension affecting O10.919 Active 04514716 Problem Elevated blood pressure affecting in first trimester, antepartum O16.1 Active 55955770 Problem Miscarriage O03.9 Active 29352969 Problem Seasonal allergic rhinitis, unspecified allergic rhinitis trigger J30.2 Active 115838791 Problem BCP ( control pills) initiation Z30.011 Active 35250179 Problem Well woman exam with routine gynecological exam Z01.419 Active 901992994 Problem Essential hypertension I10 Active 84248410 Problem BMI 40.0-44.9, adult Z68.41 Active 455679099 Problem Mixed hyperlipidemia E78.2 Active 312667601 Problem Migraine without aura and without status migrainosus, not intractable G43.009 Active 773246860 Problem Generalized anxiety disorder F41.1 Active 223485484 Problem Female hirsutism L68.0 Active 86599995 ALLERGIES Substance Reaction Event Type Date Status Metformin HCl BS drops Drug Allergy Mar, Active ENCOUNTERS Encounter Location Date Diagnosis [facility] [address] [facility] [id number], [place] [address] Apr, [facility] [address] [facility] [id number], [place] [address] Mar, Second trimester Z34.92 ; Evaluate anatomy not seen on prior sonogram Z04.89 and 23 weeks gestation of Z3A.23 [place] [address] [id number] [place] [address]- 1185 Mar, [place] [address] [address] Mar, Second trimester Z34.92 ; Evaluate anatomy not seen on prior sonogram Z04.89 ; 23 weeks gestation of Z3A.23 and BMI 40.0-44.9, adult Z68.41 [place] [address] [address] Feb, Second trimester Z34.92 ; BMI 40.0-44.9, adult Z68.41 ; Encounter for immunization Z23 and 18 weeks gestation of Z3A.18 [place] [address] [address]- [address] 22 Feb, 2018 Normal in multigravida Z34.[address] [address]- [address] 16 Feb, 2018 [place] [address] [address]- [address] 27 Jan, 2018 Second trimester Z34.92 ; BMI 40.0-44.9, adult Z68.41 and 14 weeks gestation of Z3A.14 [place] [id number] [place] [address]273- 4680 Jan, [place] [address] 8[address]- [address] 11 Jan, 2018 Second trimester Z34.92 ; BMI 40.0-44.9, adult Z68.41 ; 12 weeks gestation of Z3A.12 ; Chronic hypertension affecting O10.919 ; Syncope, unspecified syncope type R55 ; Right upper quadrant pain R10.11 and First trimester bleeding O20.9 [place] [id number] [place] [address]64- 65[address] 10 Jan, [address] [address]- [address] Dec, [place] [address] [address]- [address] Dec, Threatened miscarriage O20.[address] [address]- 5800 Dec, Normal in multigravida Z34.80 ; Prediabetes R73.03 ; Elevated blood pressure affecting in first trimester, antepartum O16.1 ; 12 weeks gestation of Z3A.12 and BMI 40.0-44.9, adult Z68.[address] [address]- [address] Dec, [address] [address]- [address] Dec, Female hirsutism L68.0 ; Mixed hyperlipidemia E78.2 and Encounter for test, result unknown Z32.[address] [address]- [address] Oct, LGSIL on Pap smear of cervix R87.612 ; Exposure to STD Z20.2 and BMI 40.0-44.9, adult Z68.[address] [address]- 5728 September, [address] [address]- 6747 September, Mixed hyperlipidemia E78.[address] 9[address]- 14[address] September, Well woman exam with routine gynecological exam Z01.419 ; BCP ( control pills) initiation Z30.011 ; Essential hypertension I10 ; Miscarriage O03.9 and BMI 40.0-44.9, adult Z68.41 [facility] [address] [id number] Dec, 2016 Dental examination Z01.20 [facility] [address] [address] Dec, Acute non-recurrent pansinusitis J01.40 [facility] [address] [id number] Nov, Dental examination Z01.20 [facility] [id number] [place] [address]73 -3074 Oct, Missed period N92.6 ; Dysuria R30.0 and Seasonal allergic rhinitis, unspecified allergic rhinitis trigger J30.2 [place] [address] [address]- [address] 02 Jul, 2016 Generalized anxiety disorder F41.1 ; BMI 40.0-44.9, adult Z68.41 ; Female hirsutism L68.0 ; Encounter for routine adult health examination with abnormal findings Z00.01 and Legg-Perthes disease, 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 [place] [address] 13258- 4188 15 Jun, 2016 [place] [address] [address]- [address] 07 Jun, 2016 Routine gynecological examination Z01.419 and Contraception , device intrauterine, checking Z30.431 [place] [address] 13192- 1603 03 Jun, 2016 Morbid (severe) obesity due to excess calories E66.01 [place] [address] 98663- 4739 May, Generalized anxiety disorder F41.1 ; Bipolar mood disorder F31.9 ; BMI 40.0-44.9, adult Z68.41 and Female hirsutism L68.0 [place] [address] 86656- 3652 Apr, Morbid (severe) obesity due to excess calories E66.01 and Acute non-recurrent frontal sinusitis J01.10 [place] [address] 02[address]- 7[address] Mar, Acute bronchitis, unspecified organism J20.9 ; Bipolar mood disorder F31.9 ; BMI 40.0-44.9, adult Z68.41 and Female hirsutism L68.0 [facility] [address] [place] [address] -8270 04 Mar, 2016 Bronchitis J40 [facility] [address] [id number] [place] [address] 43182- 0138 14 Feb, 2016 Morbid (severe) obesity due to excess calories E66.01 ; Bipolar mood disorder F31.9 and Female hirsutism L68.0 [facility] [address] [id number] [place] [address] 75437- 8382 Jan, Morbid (severe) obesity due to excess calories E66.01 [facility] [address] [id number] [place] [address] 42835- 8868 Dec, BMI 40.0-44.9, adult Z68.41 ; Bipolar mood disorder F31.9 ; Generalized anxiety disorder F41.1 ; Female hirsutism L68.0 and Non-compliant behavior R46.89 [place] [id number] [place] [address] 19754- 7300 Nov, Morbid (severe) obesity due to excess calories E66.01 [facility] [address] [place] [address] 89011- 6478 Oct, BMI 40.0-44.9, adult Z68.41 ; Morbid (severe) obesity due to excess calories E66.01 and Bipolar mood disorder F31.9 [facility] [address] [address] September, [place] [address] [id number] [place] [address] 49931- 5590 September, Morbid (severe) obesity due to excess calories E66.01 [facility] [address] [id number] [place] [address] 92027- 3402 Aug, Generalized anxiety disorder F41.1 ; Nondependent tobacco use disorder Z72.0 and BMI 40.0-44.9, adult Z68.[address] 6[address]- 3179 Aug, [place] [address] [address] [id number] [place] [address] 83663- 6905 Jul, Bipolar mood disorder F31.[address] 05685- 4989 Jul, Back pain M54.9 [facility] [address] [place] [address] -0187 Jul, Pain in right knee M25.[address] 4[address]- 4473 Jul, [address] 70[address]- 9667 Jul, Generalized anxiety disorder F41.1 ; BMI 40.0-44.9, adult Z68.41 ; Female hirsutism L68.0 ; Morbid (severe) obesity due to excess calories E66.01 and Back injury, initial encounter S39.92XA [place] [id number] [place] [address] 46601- 7804 Jul, Female hirsutism L68.0 ; BMI 40.0-44.9, adult Z68.41 and Tobacco use Z72.0 [place] [id number] [place] [address] 96406- 4312 Jun, Family history of diabetes mellitus Z83.[address] 07194- 3556 05 Jun, 2015 Tobacco use Z72.0 ; Family history of hypertension Z82.49 ; BMI 40.0-44.9, adult Z68.41 ; Female hirsutism L68.0 ; Elevated blood pressure I10 ; Family history of diabetes mellitus Z83.3 ; High risk sexual behavior Z72.51 ; History of self-harm Z91.5 ; Family history of thalassemia Z83.2 and Anxiety F41.9 [place] [address] [place] [address] 94175- 5827 02 Jun, 2015 Well woman exam Z01.419 ; BMI 40.0-44.9, adult Z68.41 ; Family history of diabetes mellitus Z83.3 and Other fatigue R53.83 [place] [id number] [place] [address] 03748- 9563 28 May, 2015 Well woman exam Z01.419 ; Surveillance for [...] Z91.5 and Family history of thalassemia Z83.2 [place] [id number] [place] [address] 85580- 8744 May, Bipolar affective disorder F31.9 and NICHOLAS (generalized anxiety disorder) F41.1 [place] [id number] [place] [address] 22800- 4957 Mar, Bipolar affective disorder F31.9 ; Generalized anxiety disorder F41.1 and ADHD (attention deficit hyperactivity disorder), combined type F90.2 [facility] [address] [place] [address] [id number] Feb, Dental examination Z01.20 [place] [id number] [place] [address] 12780- 3213 Jan, [place] [address] [address]- 36[address] Jan, Rash 782.1 [facility] [id number] [place] [address] 99202- 3046 22 Jan, 2015 Bipolar mood disorder 296.80 ; Generalized anxiety disorder 300.02 and ADHD, 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 [facility] [address] [place] [address] 13102- 7800 Nov, URI, acute 465.9 [facility] [id number] [place] [address] 73739- 7082 Aug, [facility] [id number] [place] [address] 36613- 4456 Aug, [facility] [id number] [place] [address] 94819- 8861 Jul, [facility] [id number] [place] [address] 07036- 2690 Jul, [facility] [address] [address]- [address] Jul, [facility] [address], [place] [address]- 4454 Jul, [facility] [address] [address]- 0567 Jul, [facility] [address] [address]- 1451 Jul, [facility] [address], [place] [address]- 7959 Jul, [facility] [id number] [address]- 2926 Jul, [facility] [address], [place] [address]- 9316 Jul, [facility] [address] [address]- [address]28 Jul, [facility] [place] [facility] [address] [id number] [place] [address]- 3387 Jun, [facility] [place] [facility] [address] [id number] [place] [address]- 1826 Jun, [facility] [place] [facility] [address] [id number] [place] [address]- 8266 Jun, [facility] [place] [facility] [address] [id number] [place] [address]- 9668 Jun, [facility] [place] [facility] [address] [id number] [place] [address]- 6363 May, [facility] [place] [facility] [address] [id number] [place] [address]- 3033 May, [facility] [place] [facility] [address] [id number] [place] [address]- 1310 May, [facility] [place] [facility] [address] [id number] [place] [address]- 1150 May, [facility] [place] [facility] [address] [id number] [place] [address]- 6767 May, [facility] [place] [facility] [address] [id number] [place] [address]- 7040 May, [facility] [place] [facility] [address] [id number] [place] [address]- 5310 May, [facility] [place] [facility] [address] [id number], [place] [address]- 6611 May, [facility] [place] [facility] [address] [id number] [place] [address]- 7754 May, [facility] [place] [facility] [address] [id number] [place] [address]- 6378 May, [facility] [place] [facility] [address] [id number] [place] [address]- 0889 May, [facility] [place] [facility] [address] [id number] [place] [address]- 7439 May, [facility] [place] [facility] [address] [id number] [place] [address]- 3759 May, [facility] [place] [facility] [address] [id number] [place] [address]- 8969 May, [facility] [place] [facility] [address] [id number] [place] [address]- 9867 May, [facility] [place] [facility] [address] [id number] [place] [address]- 3272 May, [facility] [place] [facility] [address] [id number] [place] [address]- 6265 May, [facility] [place] [facility] [address] [id number] [place] [address]- 8390 May, [facility] [place] [facility] [address] [id number] [place] [address]- 1609 Apr, [facility] [place] [facility] [address] [id number] [place] [address]- 3245 Apr, [facility] [place] [facility] [address] [id number] [place] [address]- 0737 Mar, [facility] [place] [facility] [address] [id number] [place] [address]- 4916 Mar, [facility] [place] [facility] [address] [id number] [place] [address]- 0742 Mar, [facility] [place] [facility] [address] [id number] [place] [address]- 0234 Mar, [facility] [place] [facility] [address] [id number] [place] [address]- 5747 Mar, [facility] [place] [facility] [address] [id number] [place] [address]- 1567 Mar, [facility] [place] [facility] [address] [id number] [place] [address]- 0120 Mar, [facility] [place] [facility] [address] [id number] [place] [address]- 1529 Mar, [facility] [place] [facility] [address] [id number] [place] [address]- 6022 Mar, [facility] [place] [facility] [address] [id number] [place] [address]- 3286 Mar, [facility] [place] [facility] [address] [id number] [place] [address]- 4919 Feb, [facility] [place] [facility] [address] [id number] [place] [address]- 1715 Feb, [facility] [place] [facility] [address] [id number] [place] [address]- 2032 Feb, [facility] [place] [facility] [address] [id number] [place] [address]- 3487 Feb, [facility] [place] [facility] [address] [id number] [place] [address]- 8120 Dec, [facility] [place] [facility] [address] [id number] [place] [address]- 3345 Dec, [facility] [place] [facility] [address] [id number] [place] [address]- 3886 Oct, [facility] [place] [facility] [address] [id number], [place] [address]- 9752 Oct, [facility] [place] [facility] [address] [id number], [place] [address]- 2403 Oct, [facility] [place] [facility] [address] [id number] [place] [address]- 2291 Oct, [facility] [place] [facility] [address] [id number], [place] [address]- 2072 September, [facility] [place] [facility] [address] [id number] [place] [address]- 3552 September, [facility] [place] [facility] [address] [id number] [place] [address]- 9936 Aug, [facility] [address] [id number] [place] [address]- 8392 Aug, [facility] [address] [id number] [place] [address]- 0064 Mar, [facility] [address] [id number] [place] [address]- 9506 Mar, [facility] [address] [id number] [place] [address]- 3075 Dec, [facility] [address] [id number] [place] [address]- 9358 Nov, [facility] [address] [id number] [place] [address]- 6930 Oct, [facility] [address] [id number] [place] [address]- 5187 September, [facility] [address] [id number] [place] [address]- 0194 September, [facility] [address] [id number] [place] [address]- 1008 September, [facility] [address] [id number] [place] [address]- 7298 Aug, [facility] [address] [id number] [place] [address]- 7680 Aug, [facility] [address] [id number] [place] [address]- 8887 Jul, [facility] [place] [facility] [address] [id number] [place] [address]- 2241 Jul, [facility] [place] [facility] [address] [id number] [place] [address]- 2541 Jul, [facility] [address] [id number] [place] [address]- 6484 Jun, [facility] [address] [facility] [id number], [place] [address]- 2058 May, [facility] [address] [facility] [id number], [place] [address]- 1585 Apr, [facility] [address] [facility] [id number], [place] [address]- 1424 Apr, [facility] [address] [facility] [id number] [address]2 Feb, IMMUNIZATIONS No Known Immunizations SOCIAL HISTORY Never Assessed REASON FOR VISIT OB 4wk f/u. KBoleRN PLAN OF CARE Activity Details Follow Up 4 Weeks Reason: VITAL SIGNS Height 65 in 2018-04-20 Weight 265.7 lbs 2018-04-20 Temperature 98.1 degrees Fahrenheit 2018-04-20 Heart Rate 92 bpm 2018-04-20 Respiratory Rate 20 2018-04-20 BMI 44.215 kg/m2 2018-04-20 Blood pressure systolic 124 mmHg 2018-04-20 Blood pressure diastolic 72 mmHg 2018-04-20 MEDICATIONS Medication Instructions Dosage Frequency Start Date End Date Duration Status Ranitidine HCl 150 MG Orally Twice a day 1 tablet 12h Jan, 30 day(s) Active Vitamin 27-0.8 mg Orally Once a day 1 tablet 24h Mar, 30 day(s) Active Aspirin 81 MG Orally Once a day 1 tablet 24h Jan, 30 day(s) Active RESULTS Name Result Date Reference Range UA OB DIP (IN HOUSE) 2018-04-20 Glucose negative Protein negative PROCEDURES Procedure Date Ordered Result Body Site URINE-NO MICRO Apr 20, 2018 INSTRUCTIONS MEDICATIONS ADMINISTERED No Known Medications [...] x 2 Surgical History right knee surgery 2014 Surgical History wisdom teeth extraction Surgical History tonsilectomy Hospitalization History surgeries
--- OUTSIDE RECORDS SUMMARY | 2018-08-01 21:38 | XMS REPORT ---
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 096623586 Problem Depression, unspecified depression type F32.9 Active 39711225 Problem Chronic hypertension affecting O10.919 Active 07121162 Problem Elevated blood pressure affecting in first trimester, antepartum O16.1 Active 13156266 Problem Miscarriage O03.9 Active 37079726 Problem Seasonal allergic rhinitis, unspecified allergic rhinitis trigger J30.2 Active 208021742 Problem BCP ( control pills) initiation Z30.011 Active 40389146 Problem Well woman exam with routine gynecological exam Z01.419 Active 627907915 Problem Essential hypertension I10 Active 95620621 Problem BMI 40.0-44.9, adult Z68.41 Active 807209216 Problem Mixed hyperlipidemia E78.2 Active 978191384 Problem Migraine without aura and without status migrainosus, not intractable G43.009 Active 281520280 Problem Generalized anxiety disorder F41.1 Active 488960314 Problem Female hirsutism L68.0 Active 59454447 ALLERGIES No Information ENCOUNTERS Encounter Location Date Diagnosis [facility] [address] [facility] [id number] [address] Apr, [facility] [address] [address] Apr, [facility] [address] [facility] [id number] [address] Mar, Second trimester Z34.92 ; Evaluate anatomy not seen on prior sonogram Z04.89 and 23 weeks gestation of Z3A.23 [facility] [address] [id number] [place] [address] 76577- 4615 Mar, [facility] [id number] [place] [address] 83269- 1789 26 Mar, 2018 Second trimester Z34.92 ; Evaluate anatomy not seen on prior sonogram Z04.89 ; 23 weeks gestation of Z3A.23 and BMI 40.0-44.9, adult Z68.41 [facility] [id number] [place] [address] 82976- 8306 25 Feb, 2018 Second trimester Z34.92 ; BMI 40.0-44.9, adult Z68.41 ; Encounter for immunization Z23 and 18 weeks gestation of Z3A.18 [facility] [place] [id number] [place] [address] 72125- 5917 22 Feb, 2018 Normal in multigravida Z34.80 [facility] [address] 98956- 8461 16 Feb, 2018 [place] [place] [id number] [place] [address] 44853- 7589 27 Jan, 2018 Second trimester Z34.92 ; BMI 40.0-44.9, adult Z68.41 and 14 weeks gestation of Z3A.14 [place] [place] [id number] [place] [address] 30118- 8577 Jan, [facility] [address] 73313- 8874 11 Jan, 2018 Second trimester Z34.92 ; BMI 40.0-44.9, adult Z68.41 ; 12 weeks gestation of Z3A.12 ; Chronic hypertension affecting O10.919 ; Syncope, unspecified syncope type R55 ; Right upper quadrant pain R10.11 and First trimester bleeding O20.9 [place] [id number] [place] [address] 26121- 5012 10 Jan, 2018 [place] [place] [id number] [place] [address] 82321- 2016 Dec, [facility] [place] [address] 29301- 7230 Dec, Threatened miscarriage O20.0 [place] [address] 17038- 5412 Dec, Normal in multigravida Z34.80 ; Prediabetes R73.03 ; Elevated blood pressure affecting in first trimester, antepartum O16.1 ; 12 weeks gestation of Z3A.12 and BMI 40.0-44.9, adult Z68.41 [place] [address] 80359- 9574 Dec, [place] [address] 08055- 4892 Dec, Female hirsutism L68.0 ; Mixed hyperlipidemia E78.2 and Encounter for test, result unknown Z32.00 [facility] [id number] [place] [address] 33194- 0814 11 Oct, 2017 LGSIL on Pap smear of cervix R87.612 ; Exposure to STD Z20.2 and BMI 40.0-44.9, adult Z68.41 [facility] [place] [id number] [place] [address] 92771- 3050 September, [facility] [place] [address] 25259- 0627 September, Mixed hyperlipidemia E78.2 [facility] [place] [id number] [place] [address] 43629- 8108 September, Well woman exam with routine gynecological exam Z01.419 ; BCP ( control pills) initiation Z30.011 ; Essential hypertension I10 ; Miscarriage O03.9 and BMI 40.0-44.9, adult Z68.41 [facility] [address] [place] [address] [id number] 15 Aug, 2017 Dental examination Z01.20 [facility] [address] [place] [address] 44556 -2049 Dec, Acute non-recurrent pansinusitis J01.40 [facility] [address] [place] [address] [id number] Nov, Dental examination Z01.20 [facility] [id number] [place] [address] 78274 -9948 Oct, Missed period N92.6 ; Dysuria R30.0 and Seasonal allergic rhinitis, unspecified allergic rhinitis trigger J30.2 [place] [address] 70796- 8120 02 Jul, 2016 Generalized anxiety disorder F41.1 ; BMI 40.0-44.9, adult Z68.41 ; Female hirsutism L68.0 ; Encounter for routine adult health examination with abnormal findings Z00.01 and Legg-Perthes disease, 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 [place] [address] 73521- 9982 15 Jun, [address] 99463- 8670 07 Jun, 2016 Routine gynecological examination Z01.419 and Contraception , device intrauterine, checking Z30.[address] 32423- 5071 03 Jun, 2016 Morbid (severe) obesity due to excess calories E66.01 [place] [id number] [place] [address] 42753- 4411 May, Generalized anxiety disorder F41.1 ; Bipolar mood disorder F31.9 ; BMI 40.0-44.9, adult Z68.41 and Female hirsutism L68.0 [place] [address] 30317- 5597 Apr, Morbid (severe) obesity due to excess calories E66.01 and Acute non-recurrent frontal sinusitis J01.10 [place] [id number] [place] [address] 52173- 3121 11 Mar, 2016 Acute bronchitis, unspecified organism J20.9 ; Bipolar mood disorder F31.9 ; BMI 40.0-44.9, adult Z68.41 and Female hirsutism L68.0 [facility] [id number] [place] [address] 87662 -5399 04 Mar, 2016 Bronchitis J40 [facility] [address] 87290- 0331 14 Feb, 2016 Morbid (severe) obesity due to excess calories E66.01 ; Bipolar mood disorder F31.9 and Female hirsutism L68.0 [place] [id number] [place] [address] 06589- 4958 Jan, Morbid (severe) obesity due to excess calories E66.01 [place] [address] 42550- 6921 Dec, BMI 40.0-44.9, adult Z68.41 ; Bipolar mood disorder F31.9 ; Generalized anxiety disorder F41.1 ; Female hirsutism L68.0 and Non-compliant behavior R46.89 [place] [id number] [place] [address] 59785- 2365 Nov, Morbid (severe) obesity due to excess calories E66.01 [place] [id number] [place] [address] 80003- 3858 Oct, BMI 40.0-44.9, adult Z68.41 ; Morbid (severe) obesity due to excess calories E66.01 and Bipolar mood disorder F31.9 [place] [address] 05292- 1860 September, [place] [address] 93270- 9552 September, Morbid (severe) obesity due to excess calories E66.01 [place] [address] [place] [address]- 0267 Aug, Generalized anxiety disorder F41.1 ; Nondependent tobacco use disorder Z72.0 and BMI 40.0-44.9, adult Z68.41 [place] [id number] [place] [address] 06491- 1490 Aug, [place] [id number] [place] [address] 65642- 0925 Jul, Bipolar mood disorder F31.9 [place] [id number] [place] [address] 12966- 9759 Jul, Back pain M54.9 [facility] [place] [address] 44956 -9646 Jul, Pain in right knee M25.561 [facility] [place] [id number] [place] [address] 40221- 4083 Jul, [place] [id number] [place] [address] 42690- 4399 Jul, Generalized anxiety disorder F41.1 ; BMI 40.0-44.9, adult Z68.41 ; Female hirsutism L68.0 ; Morbid (severe) obesity due to excess calories E66.01 and Back injury, initial encounter S39.92XA [place] [id number] [place] [address] 20783- 1845 Jul, Female hirsutism L68.0 ; BMI 40.0-44.9, adult Z68.41 and Tobacco use Z72.0 [place] [id number] [place] [address] 91306- 9517 Jun, Family history of diabetes mellitus Z83.3 [place] [id number] [place] [address] 10948- 2446 Jun, Tobacco use Z72.0 ; Family history of hypertension Z82.49 ; BMI 40.0-44.9, adult Z68.41 ; Female hirsutism L68.0 ; Elevated blood pressure I10 ; Family history of diabetes mellitus Z83.3 ; High risk sexual behavior Z72.51 ; History of self-harm Z91.5 ; Family history of thalassemia Z83.2 and Anxiety F41.9 [place] [address] [place] [address] 82199- 1007 02 Jun, 2015 Well woman exam Z01.419 ; BMI 40.0-44.9, adult Z68.41 ; Family history of diabetes mellitus Z83.3 and Other fatigue R53.83 [place] [id number] [place] [address] 25850- 6908 28 May, 2015 Well woman exam Z01.419 [...] Z91.5 and Family history of thalassemia Z83.2 [place] [address] [place] [address] 17156- 9333 May, Bipolar affective disorder F31.9 and [place] (generalized anxiety disorder) F41.1 [address] [place] [address] 52910- 5870 Mar, Bipolar affective disorder F31.9 ; Generalized anxiety disorder F41.1 and ADHD (attention deficit hyperactivity disorder), combined type F90.2 [facility] [address] [place] [address] [id number] Feb, Dental examination Z01.20 [place] [id number] [place] [address] 51915- 3577 Jan, [facility] [address] [address]- 1336 Jan, Rash 782.1 [facility] [address] [address]- 0506 Jan, Bipolar mood disorder 296.80 ; Generalized anxiety disorder 300.02 and ADHD, 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 [facility] [address] [address]- 4428 Nov, URI, acute 465.9 [facility] [id number] [place] [address] 36416- 0226 14 Aug, 2014 [facility] [id number] [place] [address] 09005- 9044 Aug, [facility] [address] [address]- 0175 Jul, [facility] [address] [address]- 6415 Jul, [facility] [address] [address]- 6688 Jul, [facility] [address] [address]- 0736 Jul, [facility] [address] [address]- 3300 Jul, [facility] [address] [address] 2549 Jul, [facility] [address] [address]- 7021 Jul, [facility] [address] [address]- 7386 Jul, [facility] [address] [address]- 6396 Jul, [facility] [place] [facility] [address] [id number] [place] [address]- 6935 Jul, [facility] [place] [facility] [address] [id number] [place] [address]- 9559 Jun, [facility] [place] [facility] [address] [id number] [place] [address]- 3218 Jun, [facility] [place] [facility] [address] [id number] [place] [address]- 2215 Jun, [facility] [place] [facility] [address] [id number] [place] [address]- 0053 Jun, [facility] [place] [facility] [address] [id number] [place] [address]- 7286 May, [facility] [place] [facility] [address] [id number] [place] [address]- 0959 May, [facility] [place] [facility] [address] [id number] [place] [address]- 0879 May, [facility] [place] [facility] [address] [id number] [place] [address]- 7258 May, [facility] [place] [facility] [address] [id number] [place] [address]- 1005 May, [facility] [place] [facility] [address] [id number] [place] [address]- 9456 May, [facility] [place] [facility] [address] [id number] [place] [address]- 5074 May, [facility] [place] [facility] [address] [id number] [place] [address]- 0506 May, [facility] [place] [facility] [address] [id number] [place] [address]- 9797 May, [facility] [place] [facility] [address] [id number] [place] [address]- 2886 May, [facility] [place] [facility] [address] [id number] [address]- 8734 May, [facility] [place] [facility] [address] [id number] [place] [address]- 5107 May, [facility] [place] [facility] [address] [id number] [place] [address]- 3421 May, [facility] [place] [facility] [address] [id number] [place] [address]- 4055 May, [facility] [place] [facility] [address] [id number] [place] [address]- 7188 May, [facility] [place] [facility] [address] [id number] [place] [address]- 7757 May, [facility] [place] [facility] [address] [id number] [place] [address]- 0832 May, [facility] [place] [facility] [address] [id number] [place] [address]- 2996 May, [facility] [place] [facility] [address] [id number] [place] [address]- 0190 Apr, [facility] [place] [facility] [address] [id number] [place] [address]- 0365 Apr, [facility] [place] [facility] [address] [id number] [place] [address]- 1076 Mar, [facility] [place] [facility] [address] [id number] [address]- 1239 Mar, [facility] [place] [facility] [address] [id number] [place] [address]- 2281 Mar, [facility] [place] [facility] [address] [id number] [place] [address]- 2414 Mar, [facility] [place] [facility] [address] [id number] [place] [address]- 8279 Mar, [facility] [place] [facility] [address] [id number] [place] [address]- 5071 Mar, [facility] [place] [facility] [address] [id number] [place] [address]- 6458 Mar, [facility] [place] [facility] [address] [id number] [place] [address]- 9654 Mar, [facility] [place] [facility] [address] [id number] [place] [address]- 3902 Mar, [facility] [place] [facility] [address] [id number] [place] [address]- 0551 Mar, [facility] [place] [facility] [address] [id number] [place] [address]- 1201 Feb, [facility] [place] [facility] [address] [id number] [place] [address]- 2119 Feb, [facility] [place] [facility] [address] [id number] [place] [address]- 9849 Feb, [facility] [place] [facility] [address] [id number] [place] [address]- 1335 Feb, [facility] [place] [facility] [address] [id number] [place] [address]- 1189 Dec, [facility] [place] [facility] [address] [id number] [place] [address]- 8183 Dec, [facility] [place] [facility] [address] [id number] [place] [address]- 8004 Oct, [facility] [place] [facility] [address] [id number] [place] [address]- 5051 Oct, [facility] [place] [facility] [address] [id number] [place] [address]- 2173 Oct, [facility] [place] [facility] [address] [id number] [place] [address]- 5606 Oct, [facility] [place] [facility] [address] [id number] [place] [address]- 4338 September, [facility] [place] [facility] [address] [id number] [place] [address]- 1545 September, [facility] [address] [id number] [place] [address]- 0034 Aug, [facility] [place] [facility] [address] [id number] [place] [address]- 0832 Aug, [facility] [place] [facility] [address] [id number] [place] 0819 Mar, [facility] [place] [facility] [address] [id number] [place] [address]- 9408 Mar, [facility] [place] [facility] [address] [id number] [place] [address]- 9041 Dec, [facility] [place] [facility] [address] [id number] [place] [address]- 0888 Nov, [facility] [place] [facility] [address] [id number] [place] [address]- 4115 Oct, [facility] [place] [facility] [address] [id number] [place] [address]- 8811 September, [facility] [place] [facility] [address] [id number] [place] [address]- 6214 September, [facility] [place] [facility] [address] [id number] [place] [address]- 7957 September, [facility] [place] [facility] [address] [id number] [place] [address]- 2993 Aug, [facility] [place] [facility] [address] [id number] [address]- 6257 Aug, [facility] [place] [facility] [address] [id number] [place] [address]- 3297 Jul, [facility] [place] [facility] [address] [id number] [place] [address]- 4109 Jul, [facility] [place] [facility] [address] [id number] [place] [address]- 6996 Jul, [facility] [place] [facility] [address] [facility] [id number] [place] [address]- 7896 Jun, [facility] [address] [facility] [id number] [address]141 May, [facility] [address] [facility] [id number] [place] [address]- 2157 Apr, [facility] [address] [facility] [id number] [place] [address]- 3218 Apr, [facility] [address] [facility] [id number] [place] 6869 Feb, IMMUNIZATIONS No Known Immunizations SOCIAL HISTORY Never Assessed REASON FOR VISIT Requests return call PLAN OF CARE VITAL SIGNS MEDICATIONS Unknown [...]
--- OUTSIDE RECORDS SUMMARY | 2018-08-01 21:39 | XMS REPORT ---
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 209609987 Problem Depression, unspecified depression type F32.9 Active 35813122 Problem Chronic hypertension affecting O10.919 Active 87524082 Problem Elevated blood pressure affecting in first trimester, antepartum O16.1 Active 60481823 Problem Miscarriage O03.9 Active 22790724 Problem Seasonal allergic rhinitis, unspecified allergic rhinitis trigger J30.2 Active 769134766 Problem BCP ( control pills) initiation Z30.011 Active 02694106 Problem Well woman exam with routine gynecological exam Z01.419 Active 276979414 Problem Essential hypertension I10 Active 32797480 Problem BMI 40.0-44.9, adult Z68.41 Active 083507675 Problem Mixed hyperlipidemia E78.2 Active 118619560 Problem Migraine without aura and without status migrainosus, not intractable G43.009 Active 047585432 Problem Generalized anxiety disorder F41.1 Active 582515672 Problem Female hirsutism L68.0 Active 31552053 ALLERGIES No Information ENCOUNTERS Encounter Location Date Diagnosis [place] [id number] [facility] [id number] [address] Mar, [place] [address] [id number] Feb, Second trimester Z34.92 ; BMI 40.0-44.9, adult Z68.41 ; Encounter for immunization Z23 and 18 weeks gestation of Z3A.18 [place] [address] [place] [id number] [place] [address] 26918- 7376 Feb, Normal in multigravida Z34.80 [place] [address] [address]- 9448 16 Feb, 2018 [place] [address] [place] [id number] [place] [address] 16925- 4397 27 Jan, 2018 Second trimester Z34.92 ; BMI 40.0-44.9, adult Z68.41 and 14 weeks gestation of Z3A.14 [place] [address] [place] [id number] [place] [address] 94308- 3002 12 Jan, 2018 [place] [address] [address]- 6481 11 Jan, 2018 Second trimester Z34.92 ; BMI 40.0-44.9, adult Z68.41 ; 12 weeks gestation of Z3A.12 ; Chronic hypertension affecting O10.919 ; Syncope, unspecified syncope type R55 ; Right upper quadrant pain R10.11 and First trimester bleeding O20.9 [place] [address] [place] [id number] [place] [address] 69406- 5649 Jan, [place] [address] [place] [id number] [place] [address] 16514- 8933 Dec, [place] [address] [place] [id number] [place] [address] 76876- 4127 Dec, Threatened miscarriage O20.0 [place] [address] 09136- 3214 Dec, Normal in multigravida Z34.80 ; Prediabetes R73.03 ; Elevated blood pressure affecting in first trimester, antepartum O16.1 ; 12 weeks gestation of Z3A.12 and BMI 40.0-44.9, adult Z68.41 [place] [address] [place] [id number] [place] [address] 95247- 9731 Dec, [place] [address] [address]73- 2591 Dec, Female hirsutism L68.0 ; Mixed hyperlipidemia E78.2 and Encounter for test, result unknown Z32.00 [place] [address] 75886- 0198 Oct, LGSIL on Pap smear of cervix R87.612 ; Exposure to STD Z20.2 and BMI 40.0-44.9, adult Z68.41 [place] [address] 11680- 3703 September, [address] [address]- 9838 September, Mixed hyperlipidemia E78.[address] 17201- 8979 September, Well woman exam with routine gynecological exam Z01.419 ; BCP ( control pills) initiation Z30.011 ; Essential hypertension I10 ; Miscarriage O03.9 and BMI 40.0-44.9, adult Z68.41 [facility] [address] [id number] Dec, Dental examination Z01.20 [facility] [address] [address]2779 Dec, Acute non-recurrent pansinusitis J01.40 [facility] [address] [id number] Nov, Dental examination Z01.20 [facility] [address] 43[address]85 Oct, Missed period N92.6 ; Dysuria R30.0 and Seasonal allergic rhinitis, unspecified allergic rhinitis trigger J30.[address] 09709- 2398 Jul, Generalized anxiety disorder F41.1 ; BMI 40.0-44.9, adult Z68.41 ; Female hirsutism L68.0 ; Encounter for routine adult health examination with abnormal findings Z00.01 and Legg-Perthes disease, 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 [place] [address] [place] [id number] [place] [address] 20090- 8922 15 Jun, 2016 [place] [address] 91980- 0512 07 Jun, 2016 Routine gynecological examination Z01.419 and Contraception , device intrauterine, checking Z30.[address] 92686- 6197 03 Jun, 2016 Morbid (severe) obesity due to excess calories E66.01 [place] [address] 16917- 1525 May, Generalized anxiety disorder F41.1 ; Bipolar mood disorder F31.9 ; BMI 40.0-44.9, adult Z68.41 and Female hirsutism L68.0 [place] [address] 52202- 9486 09 Apr, 2016 Morbid (severe) obesity due to excess calories E66.01 and Acute non-recurrent frontal sinusitis J01.10 [place] [address] [place] [id number] [place] [address] 48023- 6791 11 Mar, 2016 Acute bronchitis, unspecified organism J20.9 ; Bipolar mood disorder F31.9 ; BMI 40.0-44.9, adult Z68.41 and Female hirsutism L68.0 [facility] [address] [place] [id number] [place] [address] 49237 -5610 04 Mar, 2016 Bronchitis J40 [place] [address] [place] [id number] [place] [address] 68899- 2268 14 Feb, 2016 Morbid (severe) obesity due to excess calories E66.01 ; Bipolar mood disorder F31.9 and Female hirsutism L68.0 [place] [address] [place] [id number] [place] [address] 54985- 1050 16 Jan, 2016 Morbid (severe) obesity due to excess calories E66.01 [facility] [address], [place] [address] 8[address] Dec, BMI 40.0-44.9, adult Z68.41 ; Bipolar mood disorder F31.9 ; Generalized anxiety disorder F41.1 ; Female hirsutism L68.0 and Non-compliant behavior R46.89 [place] [address] [place] [id number] [place] [address] 44220- 2001 Nov, Morbid (severe) obesity due to excess calories E66.01 [place] [address] [place] [id number] [place] [address] 75671- 3742 Oct, BMI 40.0-44.9, adult Z68.41 ; Morbid (severe) obesity due to excess calories E66.01 and Bipolar mood disorder F31.9 [place] [address] [place] [id number] [place] [address] 18001- 4934 September, [place] [address] [place] [id number] [place] [address] 10598- 7326 September, Morbid (severe) obesity due to excess calories E66.01 [place] [address] [place] [id number] [place] [address] 95678- 6935 Aug, Generalized anxiety disorder F41.1 ; Nondependent tobacco use disorder Z72.0 and BMI 40.0-44.9, adult Z68.41 [place] [address] [place] [id number] [place] [address] 25119- 2690 Aug, [facility] [address] [place] [id number] [place] [address] 96047- 7238 Jul, Bipolar mood disorder F31.9 [place] [address] [place] [id number] [place] [address] 27942- 2303 Jul, Back pain M54.9 [facility] [address], [place] [address] Jul, Pain in right knee M25.561 [place] [address] [place] [id number] [place] [address] 53014- 6668 Jul, [address] 33113- 8020 Jul, Generalized anxiety disorder F41.1 ; BMI 40.0-44.9, adult Z68.41 ; Female hirsutism L68.0 ; Morbid (severe) obesity due to excess calories E66.01 and Back injury, initial encounter S39.92XA [address] 56037- 9390 Jul, Female hirsutism L68.0 ; BMI 40.0-44.9, adult Z68.41 and Tobacco use Z72.[address] 02118- 1167 Jun, Family history of diabetes mellitus Z83.[address] 45520- 0068 Jun, Tobacco use Z72.0 ; Family history of hypertension Z82.49 ; BMI 40.0-44.9, adult Z68.41 ; Female hirsutism L68.0 ; Elevated blood pressure I10 ; Family history of diabetes mellitus Z83.3 ; High risk sexual behavior Z72.51 ; History of self-harm Z91.5 ; Family history of thalassemia Z83.2 and Anxiety F41.[address] 80772- 9546 Jun, Well woman exam Z01.419 ; BMI 40.0-44.9, adult Z68.41 ; Family history of diabetes mellitus Z83.3 and Other fatigue R53.83 [place] [id number] [place] [address] 38001- 7093 May, Well woman exam Z01.419 ; Surveillance [...] Z91.5 and Family history of thalassemia Z83.2 [place] [address] 87826- 1248 28 May, 2015 Bipolar affective disorder F31.9 and NICHOLAS (generalized anxiety disorder) F41.[address] 12567- 7667 Mar, Bipolar affective disorder F31.9 ; Generalized anxiety disorder F41.1 and ADHD (attention deficit hyperactivity disorder), combined type F90.2 [facility] [address] [id number] Feb, Dental examination Z01.[address] 74156- 7839 Jan, [place] [address] 65458- 9552 Jan, Rash 782.[address] 11676- 6979 Jan, Bipolar mood disorder 296.80 ; Generalized anxiety disorder 300.02 and ADHD, 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 45354- 3250 Nov, URI, acute 465.9 [place] [address] 73256- 8793 Aug, [address] 52168- 0963 Aug, [facility] [place] [facility] [address] [id number] [place] [address]- 5507 Jul, [facility] [place] [facility] [address] [id number] [place] [address]- 6390 Jul, [facility] [place] [facility] [address] [id number] [place] [address]- 5407 Jul, [facility] [place] [facility] [address] [id number] [place] [address]- 8353 Jul, [facility] [place] [facility] [address] [id number] [place] [address]- 1125 Jul, [facility] [place] [facility] [address] [id number] [place] [address]- 6813 Jul, [facility] [place] [facility] [address] [facility] [id number] [place] [address]- 5918 Jul, [facility] [place] [facility] [address] [id number] [place] [address]- 4462 Jul, [facility] [place] [facility] [address] [id number] [place] [address]- 3637 Jul, [facility] [place] [facility] [address] [facility] [id number] [place] [address]- 6944 Jul, [facility] [place] [facility] [address] [id number] [place] [address]- 5144 Jun, [facility] [place] [facility] [address] [id number], [place] [address]- 2203 Jun, [facility] [place] [facility] [address] [id number] [place] [address]- 8759 Jun, [facility] [place] [facility] [address] [id number] [place] [address]- 4619 Jun, [facility] [place] [facility] [address] [facility] [id number] [place] [address]- 0689 May, [facility] [place] [facility] [address] [id number] [place] [address]- 6686 May, [facility] [address] [id number] [place] [address]- 5712 May, [facility] [address] [id number] [place] [address]- 9407 May, [facility] [address] [id number] [place] [address]- 7959 May, [facility] [address] [id number] [place] [address]- 2773 May, [facility] [address] [id number] [place] [address]- 7262 May, [facility] [address] [id number] [place] [address]- 1504 May, [facility] [address] [id number] [place] [address]- 3836 May, [facility] [address] [id number] [place] [address]- 4406 May, [facility] [address] [id number] [place] [address]- 4853 May, [facility] [address] [id number] [place] [address]- 5898 May, [facility] [place] [facility] [address] [id number] [place] [address]- 4015 May, [facility] [address] [id number] [place] [address]- 5973 May, [facility] [place] [facility] [address] [id number] [place] [address]- 7013 May, [facility] [place] [facility] [address] [id number] [place] [address]- 2596 May, [facility] [place] [facility] [address] [id number] [place] [address]- 8858 May, [facility] [place] [facility] [address] [id number] [place] [address]- 5866 May, [facility] [place] [facility] [address] [id number] [place] [address]- 8737 Apr, [facility] [place] [facility] [address] [id number] [place] [address]- 6858 Apr, [facility] [place] [facility] [address] [id number] [place] [address]- 3361 Mar, [facility] [place] [facility] [address] [id number] [place] [address]- 7380 Mar, [facility] [place] [facility] [address] [id number] [place] [address]- 9134 Mar, [facility] [place] [facility] [address] [id number] [place] [address]- 8807 Mar, [facility] [place] [facility] [address] [id number] [place] [address]- 8865 Mar, [facility] [place] [facility] [address] [id number] [place] [address]- 4866 Mar, [facility] [place] [facility] [address] [id number], [place] [address]- 2660 Mar, [facility] [place] [facility] [address] [id number], [place] [address]- 5593 Mar, [facility] [place] [facility] [address] [id number], [place] [address]- 9465 Mar, [facility] [place] [facility] [address] [id number], [place] [address]- 2192 Mar, [facility] [place] [facility] [address] [id number], [place] [address]- 5198 Feb, [facility] [place] [facility] [address] [id number], [place] [address]- 1938 Feb, [facility] [place] [facility] [address] [id number], [place] [address]- 0499 Feb, [facility] [place] [facility] [address] [id number] [place] [address]- 0643 Feb, [facility] [place] [facility] [address] [id number] [place] [address]- 8821 Dec, [facility] [place] [facility] [address] [id number] [place] [address]- 6963 Dec, [facility] [place] [facility] [address] [id number] [place] [address]- 6678 Oct, [facility] [place] [facility] [address] [id number] [place] [address]- 9758 Oct, [facility] [place] [facility] [address] [id number] [place] [address]- 6174 Oct, [facility] [place] [facility] [address] [id number] [place] [address]- 3648 Oct, [facility] [place] [facility] [address] [id number] [place] [address]- 9650 September, [facility] [place] [facility] [address] [id number] [place] [address]- 7079 September, [facility] [place] [facility] [address] [facility] [id number] [place] [address]- 3103 Aug, [facility] [place] [facility] [address] [id number] [place] [address]- 8192 Aug, [facility] [place] [facility] [address] [id number] [place] [address]- 2848 Mar, [facility] [place] [facility] [address] [id number] [place] [address]- 8330 Mar, [facility] [place] [facility] [address] [id number] [place] [address]- 4691 Dec, [facility] [place] [facility] [address] [facility] [id number] [place] [address]- 2116 Nov, [facility] [place] [facility] [address] [place] [id number], [place] [address]- 2546 Oct, [facility] [address], [place] [address]- 1636 September, [facility] [address], [place] [address]- 2546 September, [facility] [address], [place] [address]- 0666 September, [facility] [address], [place] [address]- 4511 Aug, [facility] [address], [place] [address]- 7766 Aug, [facility] [address], [place] [address]- 7056 Jul, [facility] [address], [place] [address]- 2716 Jul, [facility] [address], [place] [address]- 6572 Jul, [facility] [address], [place] [address]- 6426 Jun, [facility] [address], [place] [address]- 0254 May, [facility] [address] [place] [id number], [place] [address]- 3726 Apr, [facility] [id number], [place] [address]- 4962 Apr, [facility] [address] [place] [id number], [place] [address]- 4416 Feb, IMMUNIZATIONS Vaccine Route Administration Date Status FLULAVAL QUAD 0.5ML (6 MO & UP) 2018 IM Intramuscular Mar 19, 2018 Administered SOCIAL HISTORY Never Assessed REASON FOR VISIT OB 4wk f/u, ob urine dip, flu shot-awoods PLAN OF CARE Activity Details Follow Up 4 Weeks Reason: Pending Test Ultrasound : OB, Complete >14 WEEKS Pending Test PENTA SCREEN VITAL SIGNS Height 65 in 2018-03-19 Weight 262.5 lbs 2018-03-19 Temperature 98.6 degrees Fahrenheit 2018-03-19 Heart Rate 90 bpm 2018-03-19 Respiratory Rate 20 2018-03-19 BMI 43.682 kg/m2 2018-03-19 Blood pressure systolic 138 mmHg 2018-03-19 Blood pressure diastolic 78 mmHg 2018-03-19 MEDICATIONS Medication Instructions Dosage Frequency Start Date End Date Duration Status + Complete Multi Orally Once a day 1 tablet 24h Active Ranitidine HCl 150 MG Orally Twice a day 1 tablet 12h Jan, 30 day(s) Active Aspirin 81 MG Orally Once a day 1 tablet 24h Jan, 30 day(s) Active RESULTS Name Result Date Reference Range UA OB DIP (IN HOUSE) 2018-03-19 Glucose neg Protein neg PROCEDURES Procedure Date Ordered Result Body Site URINE-NO MICRO Mar 19, 2018 CHEMILUMINESCENT ASSAY Mar 19, 2018 [facility] Mar 19, 2018 SINGLE IMMUNIZATION ADMIN Mar 19, 2018 FLULAVAL QUAD 0.5ML (6 MO AND UP) 2017Mar 19, 2018 INSTRUCTIONS MEDICATIONS ADMINISTERED No Known Medications [...] 2 2009/2010 Surgical History right knee surgery 2014 Surgical History wisdom teeth extraction Surgical History tonsilectomy Hospitalization History surgeries
--- OUTSIDE RECORDS SUMMARY | 2018-08-01 21:39 | XMS REPORT ---
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 440627003 Problem Depression, unspecified depression type F32.9 Active 81166240 Problem Chronic hypertension affecting O10.919 Active 92449452 Problem Elevated blood pressure affecting in first trimester, antepartum O16.1 Active 20843377 Problem Miscarriage O03.9 Active 37165923 Problem Seasonal allergic rhinitis, unspecified allergic rhinitis trigger J30.2 Active 438376079 Problem BCP ( control pills) initiation Z30.011 Active 05278274 Problem Well woman exam with routine gynecological exam Z01.419 Active 571476857 Problem Essential hypertension I10 Active 77954982 Problem BMI 40.0-44.9, adult Z68.41 Active 229354993 Problem Mixed hyperlipidemia E78.2 Active 312047372 Problem Migraine without aura and without status migrainosus, not intractable G43.009 Active 528236036 Problem Generalized anxiety disorder F41.1 Active 473509034 Problem Female hirsutism L68.0 Active 19090064 ALLERGIES No Information ENCOUNTERS Encounter Location Date Diagnosis [facility] [address] [facility] [id number] [address] Feb, [facility] [address] [id number] [address] Jan, Second trimester Z34.92 ; BMI 40.0-44.9, adult Z68.41 and 14 weeks gestation of Z3A.14 [facility] [address] [place] [address] 19917- 6947 Jan, [place] [address] [place] [address] 94932- 6673 11 Jan, 2018 Second trimester Z34.92 ; BMI 40.0-44.9, adult Z68.41 ; 12 weeks gestation of Z3A.12 ; Chronic hypertension affecting O10.919 ; Syncope, unspecified syncope type R55 ; Right upper quadrant pain R10.11 and First trimester bleeding O20.9 [place] [id number] [place] [address]21- 1974 Jan, [place] [id number] [place] [address] 75566- 4870 Dec, [place] [id number] [place] [address] 92665- 5321 Dec, Threatened miscarriage O20.0 [place] [id number] [place] [address] 93706- 5842 Dec, Normal in multigravida Z34.80 ; Prediabetes R73.03 ; Elevated blood pressure affecting in first trimester, antepartum O16.1 ; 12 weeks gestation of Z3A.12 and BMI 40.0-44.9, adult Z68.41 [place] [id number] [place] [address] 29364- 1939 Dec, [place] [id number] [place] [address] 54292- 0142 Dec, Female hirsutism L68.0 ; Mixed hyperlipidemia E78.2 and Encounter for test, result unknown Z32.00 [place] [id number] [place] [address] 64070- 7605 Oct, LGSIL on Pap smear of cervix R87.612 ; Exposure to STD Z20.2 and BMI 40.0-44.9, adult Z68.41 [place] [id number] [place] [address] 72033- 7157 September, [place] [id number] [place] [address] 84763- 0960 September, Mixed hyperlipidemia E78.[address] [address]- [address] September, Well woman exam with routine gynecological exam Z01.419 ; BCP ( control pills) initiation Z30.011 ; Essential hypertension I10 ; Miscarriage O03.9 and BMI 40.0-44.9, adult Z68.41 [facility] [address] [id number] Dec, Dental examination Z01.20 [facility] [address] [address] Dec, Acute non-recurrent pansinusitis J01.40 [facility] [address] [id number] Nov, Dental examination Z01.20 [facility] [address] [address] Oct, Missed period N92.6 ; Dysuria R30.0 and Seasonal allergic rhinitis, unspecified allergic rhinitis trigger J30.[address] [address]- 2456 Jul, Generalized anxiety disorder F41.1 ; BMI 40.0-44.9, adult Z68.41 ; Female hirsutism L68.0 ; Encounter for routine adult health examination with abnormal findings Z00.01 and Legg-Perthes disease, 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 [address]- 9481 Jun, [address] 76992- 1869 Jun, Routine gynecological examination Z01.419 and Contraception , device intrauterine, checking Z30.[address] [address]77- 5084 Jun, Morbid (severe) obesity due to excess calories E66.01 [place] [address] [place] [address] 63314- 3147 May, Generalized anxiety disorder F41.1 ; Bipolar mood disorder F31.9 ; BMI 40.0-44.9, adult Z68.41 and Female hirsutism L68.0 [place] [id number] [place] [address] 17267- 9368 Apr, Morbid (severe) obesity due to excess calories E66.01 and Acute non-recurrent frontal sinusitis J01.10 [place] [id number] [place] [address] 00237- 3284 Mar, Acute bronchitis, unspecified organism J20.9 ; Bipolar mood disorder F31.9 ; BMI 40.0-44.9, adult Z68.41 and Female hirsutism L68.0 [facility] [id number] [place] [address] 27015 -1835 Mar, Bronchitis J40 [place] [id number] [place] [address] 56171- 4795 14 Feb, 2016 Morbid (severe) obesity due to excess calories E66.01 ; Bipolar mood disorder F31.9 and Female hirsutism L68.0 [place] [id number] [place] [address] 21003- 1910 Jan, Morbid (severe) obesity due to excess calories E66.01 [place] [id number] [place] [address] 11604- 5907 Dec, BMI 40.0-44.9, adult Z68.41 ; Bipolar mood disorder F31.9 ; Generalized anxiety disorder F41.1 ; Female hirsutism L68.0 and Non-compliant behavior R46.89 [facility] [id number] [place] [address] 21768- 2184 Nov, Morbid (severe) obesity due to excess calories E66.01 [place] [address] [address] 1091 Oct, BMI 40.0-44.9, adult Z68.41 ; Morbid (severe) obesity due to excess calories E66.01 and Bipolar mood disorder F31.9 [place] [address] [address] September, [place] [id number] [place] [address] 97809- 4895 September, Morbid (severe) obesity due to excess calories E66.01 [place] [id number] [place] [address] 82572- 9003 Aug, Generalized anxiety disorder F41.1 ; Nondependent tobacco use disorder Z72.0 and BMI 40.0-44.9, adult Z68.41 [place] [id number] [place] [address] 16389- 4164 Aug, [place] [id number] [place] [address] 18598- 1846 Jul, Bipolar mood disorder F31.9 [place] [id number] [place] [address] 17217- 8915 Jul, Back pain M54.9 [facility] [address] [place] [address] 27587 -3463 Jul, Pain in right knee M25.561 [place] [id number] [place] [address] 65771- 7071 Jul, [place] [address] [place] [address] 03699- 1132 Jul, Generalized anxiety disorder F41.1 ; BMI 40.0-44.9, adult Z68.41 ; Female hirsutism L68.0 ; Morbid (severe) obesity due to excess calories E66.01 and Back injury, initial encounter S39.92XA [facility] [id number] [place] [address] 04291- 6404 Jul, Female hirsutism L68.0 ; BMI 40.0-44.9, adult Z68.41 and Tobacco use Z72.[address] 14280- 7958 Jun, Family history of diabetes mellitus Z83.[address] 01397- 3786 Jun, Tobacco use Z72.0 ; Family history of hypertension Z82.49 ; BMI 40.0-44.9, adult Z68.41 ; Female hirsutism L68.0 ; Elevated blood pressure I10 ; Family history of diabetes mellitus Z83.3 ; High risk sexual behavior Z72.51 ; History of self-harm Z91.5 ; Family history of thalassemia Z83.2 and Anxiety F41.[address] [address]269- 6626 02 Jun, 2015 Well woman exam Z01.419 ; BMI 40.0-44.9, adult Z68.41 ; Family history of diabetes mellitus Z83.3 and Other fatigue R53.[address] 27760- 4483 May, Well woman exam Z01.419 ; Surveillance [...] Z91.5 and Family history of thalassemia Z83.[address] [place] [address]- 4208 May, Bipolar affective disorder F31.9 and NICHOLAS (generalized anxiety disorder) F41.1 [facility] [id number] [place] [address] 74385- 0009 Mar, Bipolar affective disorder F31.9 ; Generalized anxiety disorder F41.1 and ADHD (attention deficit hyperactivity disorder), combined type F90.2 [facility] [id number] [place] [address] [id number] Feb, Dental examination Z01.20 [facility] [id number] [place] [address] 58117- 3317 Jan, [facility] [id number] [place] [address] 16233- 9771 Jan, Rash 782.1 [facility] [id number] [place] [address] 82016- 2421 Jan, Bipolar mood disorder 296.80 ; Generalized anxiety disorder 300.02 and ADHD, 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 [facility] [id number] [place] [address] 09263- 4089 Nov, URI, acute 465.9 [facility] [id number] [place] [address] 50220- 2951 14 Aug, 2014 [facility] [address] [address]- 5671 Aug, [facility] [id number] [place] [address] 33462- 8590 Jul, [facility] [id number] [place] [address] 45910- 8663 Jul, [facility] [id number] [place] [address] 049837- 7868 Jul, [facility] [address] [address] 0692 Jul, [facility] [id number] [place] [address]- 3063 Jul, [facility] [place] [facility] [address] [id number] [place] [address]- 2663 Jul, [facility] [place] [facility] [address] [id number] [place] [address]- 8610 Jul, [facility] [place] [facility] [address] [id number] [place] [address]- 1597 Jul, [facility] [place] [facility] [address] [id number] [place] [address]- 7273 Jul, [facility] [place] [facility] [address] [id number] [place] [address]- 4254 Jul, [facility] [place] [facility] [address] [id number] [place] [address]- 8424 Jun, [facility] [place] [facility] [address] [id number] [place] [address]- 9139 Jun, [facility] [place] [facility] [address] [id number] [place] [address]- 2893 Jun, [facility] [place] [facility] [address] [id number] [place] [address]- 8436 Jun, [facility] [place] [facility] [address] [id number] [place] [address]- 5808 May, [facility] [place] [facility] [address] [id number] [place] [address]- 8031 May, [facility] [place] [facility] [address] [id number] [place] [address]- 1827 May, [facility] [place] [facility] [address] [id number] [place] [address]- 2383 May, [facility] [place] [facility] [address] [id number] [place] [address]- 8669 May, [facility] [place] [facility] [address] [id number] [place] [address]- 5255 May, [facility] [place] [facility] [address] [id number] [place] [address]- 7552 May, [facility] [place] [facility] [address] [id number] [place] [address]- 5400 May, [facility] [place] [facility] [address] [id number] [place] [address]- 5987 May, [facility] [place] [facility] [address] [id number] [place] [address]- 9383 May, [facility] [place] [facility] [address] [id number] [place] [address]- 6613 May, [facility] [place] [facility] [address] [id number] [place] [address]- 4123 May, [facility] [place] [facility] [address] [id number] [place] [address]- 9783 May, [facility] [place] [facility] [address] [id number] [place] [address]- 6182 May, [facility] [place] [facility] [address] [id number] [place] [address]- 4509 May, [facility] [place] [facility] [address] [id number] [place] [address]- 8580 May, [facility] [place] [facility] [address] [id number] [place] [address]- 8485 May, [facility] [place] [facility] [address] [id number] [place] [address]- 9740 May, [facility] [place] [facility] [address] [id number] [place] [address]- 3786 Apr, [facility] [place] [facility] [address] [id number] [place] [address]- 4434 Apr, [facility] [place] [facility] [address] [id number] [place] [address]- 5197 Mar, [facility] [place] [facility] [address] [id number] [place] [address]- 2215 Mar, [facility] [place] [facility] [address] [id number] [place] [address]- 4856 Mar, [facility] [place] [facility] [address] [id number] [place] [address]- 6991 Mar, [facility] [place] [facility] [address] [id number] [place] [address]- 0345 Mar, [facility] [place] [facility] [address] [id number] [place] [address]- 5967 Mar, [facility] [place] [facility] [address] [id number] [place] [address]- 1733 Mar, [facility] [place] [facility] [address] [id number] [place] [address]- 1197 Mar, [facility] [place] [facility] [address] [id number] [place] [address]- 8936 Mar, [facility] [place] [facility] [address] [id number] [place] [address]- 8123 Mar, [facility] [place] [facility] [address] [id number] [place] [address]- 9521 Feb, [facility] [place] [facility] [address] [facility] [id number] [place] [address]- 7600 Feb, [facility] [place] [facility] [address] [id number] [place] [address]- 7228 Feb, [facility] [place] [facility] [address] [id number] [address]- 7756 Feb, [facility] [place] [facility] [address] [id number] [place] [address]- 0099 Dec, [facility] [place] [facility] [address] [id number] [place] [address]- 4244 Dec, [facility] [place] [facility] [address] [id number], [place] [address]- 1406 Oct, [facility] [place] [facility] [address] [id number] [place] [address]- 8184 Oct, [facility] [place] [facility] [address] [id number] [place] [address]- 4324 Oct, [facility] [place] [facility] [address] [id number] [place] [address]- 6384 Oct, [facility] [place] [facility] [address] [id number] [place] [address]- 6264 September, [facility] [place] [facility] [address] [id number] [place] [address]- 3978 September, [facility] [place] [facility] [address] [id number] [place] [address]- 5734 Aug, [facility] [place] [facility] [address] [id number] [place] [address]- 4019 Aug, [facility] [place] [facility] [address] [id number] [place] [address]- 5780 Mar, [facility] [place] [facility] [address] [id number] [place] [address]- 3917 Mar, [facility] [place] [facility] [address] [id number] [place] [address]- 2224 Dec, [facility] [place] [facility] [address] [id number] [place] [address]- 0630 Nov, [facility] [place] [facility] [address] [id number] [place] [address]- 4385 Oct, [facility] [place] [facility] [address] [id number] [place] [address]- 3462 September, [facility] [place] [facility] [address] [id number] [place] [address]- 4702 September, [facility] [place] [facility] [address] [id number] [place] [address]- 0276 September, [facility] [place] [facility] [address] [id number] [place] [address]- 7119 Aug, [facility] [id number] [address]- 0016 Aug, [facility] [address] [address]- 2546 Jul, [facility] [address] [place] [address] 50466 2546 Jul, [facility] [id number] [place] [address] 71563 2546 Jul, [facility] [address] [place] [address] 18344- 6052 Jun, [facility] [address] [place] [address] 93273- 3886 May, [facility] [address] [place] [address] 40667- 7316 Apr, [facility] [address] [place] [address] 28984- 5476 Apr, [facility] [address] [address]- 4464 Feb, IMMUNIZATIONS No Known Immunizations SOCIAL HISTORY Never Assessed REASON FOR VISIT Abdominal pain/spotting-awoods PLAN OF CARE Activity Details Follow Up 4 Weeks Reason: VITAL SIGNS Height 65 in 2018-02-03 Weight 254.3 lbs 2018-02-03 Temperature 98.6 degrees Fahrenheit 2018-02-03 Heart Rate standin bpm 2018-02-03 Respiratory Rate 18 2018-02-03 BMI 42.318 kg/m2 2018-02-03 Blood pressure systolic 118 mmHg 2018-02-03 Blood pressure diastolic 84 mmHg 2018-02-03 MEDICATIONS Medication Instructions Dosage Frequency Start Date End Date Duration Status Ranitidine HCl 150 MG Orally Twice a day 1 tablet 12h Jan, 30 day(s) Active + Complete Multi Orally Once a day 1 tablet 24h Active Aspirin 81 MG Orally Once a day 1 tablet 24h Jan, 30 day(s) Active RESULTS Name Result Date Reference Range UA OB DIP (IN HOUSE) 2018-02-03 Glucose neg Protein neg Ultrasound : Gallbladder 2018-02-12 PROCEDURES Procedure Date Ordered Result Body Site EKG, TRACING (IN-HOUSE) 2018-02-03 N/A URINE-NO MICRO Feb 03, 2018 ELECTROCARDIOGRAM, TRACING Feb 03, 2018 INSTRUCTIONS MEDICATIONS ADMINISTERED No Known Medications [...]
--- OUTSIDE RECORDS SUMMARY | 2018-08-01 21:40 | XMS REPORT ---
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 616202222 Problem Depression, unspecified depression type F32.9 Active 90465444 Problem Chronic hypertension affecting O10.919 Active 42619223 Problem Elevated blood pressure affecting in first trimester, antepartum O16.1 Active 38078409 Problem Miscarriage O03.9 Active 59547799 Problem Seasonal allergic rhinitis, unspecified allergic rhinitis trigger J30.2 Active 429804437 Problem BCP ( control pills) initiation Z30.011 Active 99891272 Problem Well woman exam with routine gynecological exam Z01.419 Active 532275834 Problem Essential hypertension I10 Active 38771506 Problem BMI 40.0-44.9, adult Z68.41 Active 651795916 Problem Mixed hyperlipidemia E78.2 Active 531968395 Problem Migraine without aura and without status migrainosus, not intractable G43.009 Active 773895702 Problem Generalized anxiety disorder F41.1 Active 569376313 Problem Female hirsutism L68.0 Active 32226493 ALLERGIES No Information ENCOUNTERS Encounter Location Date Diagnosis [facility] [address] [facility] [id number] [address] Feb, [facility] [address] [id number] [address] Jan, Second trimester Z34.92 ; BMI 40.0-44.9, adult Z68.41 and 14 weeks gestation of Z3A.14 [facility] [id number] [place] [address]50- 1701 Jan, [place] [address] [place] [address] 58544- 3808 11 Jan, 2018 Second trimester Z34.92 ; BMI 40.0-44.9, adult Z68.41 ; 12 weeks gestation of Z3A.12 ; Chronic hypertension affecting O10.919 ; Syncope, unspecified syncope type R55 ; Right upper quadrant pain R10.11 and First trimester bleeding O20.9 [place] [id number] [place] [address] 84662- 8758 Jan, [place] [id number] [place] [address] 24742- 5714 Dec, [place] [id number] [place] [address] 19349- 7051 Dec, Threatened miscarriage O20.0 [place] [id number] [place] [address] 53233- 3048 Dec, Normal in multigravida Z34.80 ; Prediabetes R73.03 ; Elevated blood pressure affecting in first trimester, antepartum O16.1 ; 12 weeks gestation of Z3A.12 and BMI 40.0-44.9, adult Z68.41 [place] [address] [place] [address] 79345- 3552 Dec, [place] [id number] [place] [address] 06661- 9260 Dec, Female hirsutism L68.0 ; Mixed hyperlipidemia E78.2 and Encounter for test, result unknown Z32.00 [place] [id number] [place] [address] 78880- 2815 Oct, LGSIL on Pap smear of cervix R87.612 ; Exposure to STD Z20.2 and BMI 40.0-44.9, adult Z68.41 [place] [id number] [place] [address] 50706- 2993 September, [place] [id number] [place] [address] 63025- 9279 September, Mixed hyperlipidemia E78.[address] [address]- 0008 September, Well woman exam with routine gynecological exam Z01.419 ; BCP ( control pills) initiation Z30.011 ; Essential hypertension I10 ; Miscarriage O03.9 and BMI 40.0-44.9, adult Z68.41 [facility] [address] [id number] Dec, Dental examination Z01.20 [facility] [address] [address] Dec, Acute non-recurrent pansinusitis J01.40 [facility] [address] [id number] Nov, Dental examination Z01.20 [facility] [address] [address] Oct, Missed period N92.6 ; Dysuria R30.0 and Seasonal allergic rhinitis, unspecified allergic rhinitis trigger J30.[address] 72226- 8873 Jul, Generalized anxiety disorder F41.1 ; BMI 40.0-44.9, adult Z68.41 ; Female hirsutism L68.0 ; Encounter for routine adult health examination with abnormal findings Z00.01 and Legg-Perthes disease, 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 [address]- 7613 Jun, [address] [address]04- 3451 Jun, Routine gynecological examination Z01.419 and Contraception , device intrauterine, checking Z30.[address] 64539- 0733 Jun, Morbid (severe) obesity due to excess calories E66.01 [place] [address] [place] [address] 74843- 3808 May, Generalized anxiety disorder F41.1 ; Bipolar mood disorder F31.9 ; BMI 40.0-44.9, adult Z68.41 and Female hirsutism L68.0 [place] [id number] [place] [address] 06595- 1883 Apr, Morbid (severe) obesity due to excess calories E66.01 and Acute non-recurrent frontal sinusitis J01.10 [place] [id number] [place] [address] 03550- 7753 Mar, Acute bronchitis, unspecified organism J20.9 ; Bipolar mood disorder F31.9 ; BMI 40.0-44.9, adult Z68.41 and Female hirsutism L68.0 [facility] [id number] [place] [address] 38138 -9766 Mar, Bronchitis J40 [place] [id number] [place] [address] 63014- 7612 14 Feb, 2016 Morbid (severe) obesity due to excess calories E66.01 ; Bipolar mood disorder F31.9 and Female hirsutism L68.0 [place] [id number] [place] [address] 90462- 2455 Jan, Morbid (severe) obesity due to excess calories E66.01 [place] [id number] [place] [address] 00828- 9721 Dec, BMI 40.0-44.9, adult Z68.41 ; Bipolar mood disorder F31.9 ; Generalized anxiety disorder F41.1 ; Female hirsutism L68.0 and Non-compliant behavior R46.89 [facility] [id number] [place] [address] 88673- 8883 Nov, Morbid (severe) obesity due to excess calories E66.01 [place] [address] [address] 9714 Oct, BMI 40.0-44.9, adult Z68.41 ; Morbid (severe) obesity due to excess calories E66.01 and Bipolar mood disorder F31.9 [place] [address] [address] September, [place] [id number] [place] [address] 94294- 0787 September, Morbid (severe) obesity due to excess calories E66.01 [place] [id number] [place] [address] 13399- 7437 Aug, Generalized anxiety disorder F41.1 ; Nondependent tobacco use disorder Z72.0 and BMI 40.0-44.9, adult Z68.41 [place] [id number] [place] [address] 09710- 7226 Aug, [place] [id number] [place] [address] 46939- 3666 Jul, Bipolar mood disorder F31.9 [place] [id number] [place] [address] 41133- 8499 Jul, Back pain M54.9 [facility] [address] [place] [address] 33866 -2049 Jul, Pain in right knee M25.561 [place] [id number] [place] [address] 00528- 0985 Jul, [place] [address] [place] [address] 19576- 6401 Jul, Generalized anxiety disorder F41.1 ; BMI 40.0-44.9, adult Z68.41 ; Female hirsutism L68.0 ; Morbid (severe) obesity due to excess calories E66.01 and Back injury, initial encounter S39.92XA [facility] [id number] [place] [address] 02007- 1902 Jul, Female hirsutism L68.0 ; BMI 40.0-44.9, adult Z68.41 and Tobacco use Z72.[address] 91089- 6172 Jun, Family history of diabetes mellitus Z83.[address] 81802- 3841 Jun, Tobacco use Z72.0 ; Family history of hypertension Z82.49 ; BMI 40.0-44.9, adult Z68.41 ; Female hirsutism L68.0 ; Elevated blood pressure I10 ; Family history of diabetes mellitus Z83.3 ; High risk sexual behavior Z72.51 ; History of self-harm Z91.5 ; Family history of thalassemia Z83.2 and Anxiety F41.[address] 68218- 8351 02 Jun, 2015 Well woman exam Z01.419 ; BMI 40.0-44.9, adult Z68.41 ; Family history of diabetes mellitus Z83.3 and Other fatigue R53.[address] 13771- 3306 May, Well woman exam Z01.419 ; Surveillance [...] Z91.5 and Family history of thalassemia Z83.2 [address] [place] [address]- 4065 May, Bipolar affective disorder F31.9 and NICHOLAS (generalized anxiety disorder) F41.1 [facility] [id number] [place] [address] 56668- 6524 Mar, Bipolar affective disorder F31.9 ; Generalized anxiety disorder F41.1 and ADHD (attention deficit hyperactivity disorder), combined type F90.2 [facility] [id number] [place] [address] [id number] Feb, Dental examination Z01.20 [facility] [id number] [place] [address] 74290- 4217 Jan, [facility] [id number] [place] [address] 90546- 1312 Jan, Rash 782.1 [facility] [id number] [place] [address] 87194- 1519 Jan, Bipolar mood disorder 296.80 ; Generalized anxiety disorder 300.02 and ADHD, 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 [facility] [id number] [place] [address] 32571- 1904 Nov, URI, acute 465.9 [facility] [id number] [place] [address] 64915- 3775 14 Aug, 2014 [facility] [address] [address]- 7255 Aug, [facility] [id number] [place] [address] 95724- 1043 Jul, [facility] [id number] [place] [address] 01962- 9450 Jul, [facility] [id number] [place] [address] 744217- 4439 Jul, [facility] [address] 4637 Jul, [facility] [id number] [place] [address]- 9176 Jul, [facility] [place] [facility] [address] [id number] [place] [address]- 0612 Jul, [facility] [place] [facility] [address] [id number] [place] [address]- 0164 Jul, [facility] [place] [facility] [address] [id number] [place] [address]- 9343 Jul, [facility] [place] [facility] [address] [id number] [place] [address]- 8590 Jul, [facility] [place] [facility] [address] [id number] [place] [address]- 9621 Jul, [facility] [place] [facility] [address] [id number] [place] [address]- 6160 Jun, [facility] [place] [facility] [address] [id number] [place] [address]- 8834 Jun, [facility] [place] [facility] [address] [id number] [place] [address]- 9779 Jun, [facility] [place] [facility] [address] [id number] [place] [address]- 7540 Jun, [facility] [place] [facility] [address] [id number] [place] [address]- 7512 May, [facility] [place] [facility] [address] [id number] [place] [address]- 8893 May, [facility] [place] [facility] [address] [id number] [place] [address]- 0443 May, [facility] [place] [facility] [address] [id number] [place] [address]- 6252 May, [facility] [place] [facility] [address] [id number] [place] [address]- 2521 May, [facility] [place] [facility] [address] [id number] [place] [address]- 2415 May, [facility] [place] [facility] [address] [id number] [place] [address]- 1080 May, [facility] [place] [facility] [address] [id number] [place] [address]- 5093 May, [facility] [place] [facility] [address] [id number] [place] [address]- 3976 May, [facility] [place] [facility] [address] [id number] [place] [address]- 4215 May, [facility] [place] [facility] [address] [id number] [place] [address]- 6500 May, [facility] [place] [facility] [address] [id number] [place] [address]- 8859 May, [facility] [place] [facility] [address] [id number] [place] [address]- 7858 May, [facility] [place] [facility] [address] [id number] [place] [address]- 6027 May, [facility] [place] [facility] [address] [id number] [place] [address]- 6896 May, [facility] [place] [facility] [address] [id number] [place] [address]- 3304 May, [facility] [place] [facility] [address] [id number] [place] [address]- 8247 May, [facility] [place] [facility] [address] [id number] [place] [address]- 9624 May, [facility] [place] [facility] [address] [id number] [place] [address]- 8551 Apr, [facility] [place] [facility] [address] [id number] [place] [address]- 9996 Apr, [facility] [place] [facility] [address] [id number] [place] [address]- 4283 Mar, [facility] [place] [facility] [address] [id number] [place] [address]- 2732 Mar, [facility] [place] [facility] [address] [id number] [place] [address]- 5035 Mar, [facility] [place] [facility] [address] [id number] [place] [address]- 8678 Mar, [facility] [place] [facility] [address] [id number] [place] [address]- 7684 Mar, [facility] [place] [facility] [address] [id number] [place] [address]- 5590 Mar, [facility] [place] [facility] [address] [id number] [place] [address]- 0172 Mar, [facility] [place] [facility] [address] [id number] [place] [address]- 1091 Mar, [facility] [place] [facility] [address] [id number] [place] [address]- 5190 Mar, [facility] [place] [facility] [address] [id number] [place] [address]- 8628 Mar, [facility] [place] [facility] [address] [id number] [place] [address]- 4782 Feb, [facility] [place] [facility] [address] [facility] [id number] [place] [address]- 1515 Feb, [facility] [place] [facility] [address] [id number] [place] [address]- 5830 Feb, [facility] [place] [facility] [address] [id number], [place] [address]- 5639 Feb, [facility] [place] [facility] [address] [id number] [place] [address]- 8962 Dec, [facility] [place] [facility] [address] [id number] [place] [address]- 4659 Dec, [facility] [place] [facility] [address] [id number], [place] [address]- 8225 Oct, [facility] [place] [facility] [address] [id number] [place] [address]- 7680 Oct, [facility] [place] [facility] [address] [id number] [place] [address]- 9712 Oct, [facility] [place] [facility] [address] [id number] [place] [address]- 8130 Oct, [facility] [place] [facility] [address] [id number] [place] [address]- 8197 September, [facility] [place] [facility] [address] [id number] [place] [address]- 7504 September, [facility] [place] [facility] [address] [id number] [place] [address]- 3390 Aug, [facility] [place] [facility] [address] [id number] [place] [address]- 1350 Aug, [facility] [place] [facility] [address] [id number] [place] [address]- 3575 Mar, [facility] [place] [facility] [address] [id number] [place] [address]- 0405 Mar, [facility] [place] [facility] [address] [id number] [place] [address]- 2018 Dec, [facility] [place] [facility] [address] [id number] [place] [address]- 8540 Nov, [facility] [place] [facility] [address] [id number] [place] [address]- 0078 Oct, [facility] [place] [facility] [address] [id number] [place] [address]- 6277 September, [facility] [place] [facility] [address] [id number] [place] [address]- 5023 September, [facility] [place] [facility] [address] [id number] [place] [address]- 0686 September, [facility] [place] [facility] [address] [id number] [place] [address]- 7158 Aug, [facility] [id number] [address]- 2893 Aug, [facility] [address], [place] [address]- 2546 Jul, [facility] [address], [place] [address]- 2546 05 Jul, 2012 [facility] [address], [place] [address]- 2546 Jul, [facility] [address] [address]- 0389 Jun, [facility] [id number] [place] [address] 67430- 7816 May, [facility] [address], [place] [address]- 5726 Apr, [facility] [address], [place] [address]- 7745 Apr, [facility] [id number] [address]- 6043 Feb, IMMUNIZATIONS No Known Immunizations SOCIAL HISTORY Never Assessed REASON FOR VISIT bleeding PLAN OF CARE VITAL SIGNS MEDICATIONS Unknown Medications RESULTS Name Result Date Reference Range Ultrasound : OB, Early <14 WEEKS 2018-01-23 PROCEDURES No Known procedures INSTRUCTIONS MEDICATIONS ADMINISTERED [...]
--- OUTSIDE RECORDS SUMMARY | 2018-08-01 21:40 | XMS REPORT ---
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 995128800 Problem Depression, unspecified depression type F32.9 Active 82229852 Problem Chronic hypertension affecting O10.919 Active 87563697 Problem Elevated blood pressure affecting in first trimester, antepartum O16.1 Active 27075074 Problem Miscarriage O03.9 Active 97918030 Problem Seasonal allergic rhinitis, unspecified allergic rhinitis trigger J30.2 Active 274845384 Problem BCP ( control pills) initiation Z30.011 Active 91712198 Problem Well woman exam with routine gynecological exam Z01.419 Active 564636275 Problem Essential hypertension I10 Active 07667028 Problem BMI 40.0-44.9, adult Z68.41 Active 163947230 Problem Mixed hyperlipidemia E78.2 Active 357171906 Problem Migraine without aura and without status migrainosus, not intractable G43.009 Active 650487712 Problem Generalized anxiety disorder F41.1 Active 418293034 Problem Female hirsutism L68.0 Active 70348176 ALLERGIES No Information ENCOUNTERS Encounter Location Date Diagnosis [facility] [place] [address] [facility] [id number], [place] [address] Feb, [facility] [place] [address] [id number] [address] Jan, Second trimester Z34.92 ; BMI 40.0-44.9, adult Z68.41 and 14 weeks gestation of Z3A.14 [facility] [place] [id number] [place] [address]105- 2326 Jan, [place] [address] [place] [address] 29476- 0473 11 Jan, 2018 Second trimester Z34.92 ; BMI 40.0-44.9, adult Z68.41 ; 12 weeks gestation of Z3A.12 ; Chronic hypertension affecting O10.919 ; Syncope, unspecified syncope type R55 ; Right upper quadrant pain R10.11 and First trimester bleeding O20.9 [place] [address] [place] [id number] [place] [address] 04766- 6608 Jan, [place] [id number] [place] [address] 34069- 3263 Dec, [place] [id number] [place] [address] 66522- 3190 Dec, Threatened miscarriage O20.0 [place] [id number] [place] [address] 13934- 6387 Dec, Normal in multigravida Z34.80 ; Prediabetes R73.03 ; Elevated blood pressure affecting in first trimester, antepartum O16.1 ; 12 weeks gestation of Z3A.12 and BMI 40.0-44.9, adult Z68.41 [place] [address] [place] [address] 73837- 9032 Dec, [place] [address] [address] [id number] [place] [address] 46061- 2678 Dec, Female hirsutism L68.0 ; Mixed hyperlipidemia E78.2 and Encounter for test, result unknown Z32.00 [place] [address] [id number] [place] [address] 49044- 7778 Oct, LGSIL on Pap smear of cervix R87.612 ; Exposure to STD Z20.2 and BMI 40.0-44.9, adult Z68.41 [place] [address] [address] [id number] [place] [address] 76323- 8154 September, [place] [address] [id number] [place] [address] 87553- 1776 September, Mixed hyperlipidemia E78.[address] [address]21- 2567 September, Well woman exam with routine gynecological exam Z01.419 ; BCP ( control pills) initiation Z30.011 ; Essential hypertension I10 ; Miscarriage O03.9 and BMI 40.0-44.9, adult Z68.41 [facility] [address] [id number] Dec, Dental examination Z01.20 [facility] [address] [address] Dec, Acute non-recurrent pansinusitis J01.40 [facility] [address] [id number] Nov, Dental examination Z01.20 [facility] [address] [address] Oct, Missed period N92.6 ; Dysuria R30.0 and Seasonal allergic rhinitis, unspecified allergic rhinitis trigger J30.[address] 17047- 9651 Jul, Generalized anxiety disorder F41.1 ; BMI 40.0-44.9, adult Z68.41 ; Female hirsutism L68.0 ; Encounter for routine adult health examination with abnormal findings Z00.01 and Legg-Perthes disease, 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 43677- 8461 Jun, [address] 67[address]- 1509 Jun, Routine gynecological examination Z01.419 and Contraception , device intrauterine, checking Z30.[address] 92923- 1654 Jun, Morbid (severe) obesity due to excess calories E66.01 [place] [address] [address] 31746- 3269 May, Generalized anxiety disorder F41.1 ; Bipolar mood disorder F31.9 ; BMI 40.0-44.9, adult Z68.41 and Female hirsutism L68.0 [place] [address] [address] [id number] [place] [address] 12320- 3312 Apr, Morbid (severe) obesity due to excess calories E66.01 and Acute non-recurrent frontal sinusitis J01.10 [place] [address] [address] [id number] [address] 19413- 6940 Mar, Acute bronchitis, unspecified organism J20.9 ; Bipolar mood disorder F31.9 ; BMI 40.0-44.9, adult Z68.41 and Female hirsutism L68.0 [facility] [id number] [place] [address] 19986 -0504 Mar, Bronchitis J40 [place] [address] [address] [id number] [place] [address] 64177- 1050 14 Feb, 2016 Morbid (severe) obesity due to excess calories E66.01 ; Bipolar mood disorder F31.9 and Female hirsutism L68.0 [place] [address] [address] [id number] [place] [address] 76419- 4435 Jan, Morbid (severe) obesity due to excess calories E66.01 [place] [address] [address] [id number] [place] [address] 84450- 4979 Dec, BMI 40.0-44.9, adult Z68.41 ; Bipolar mood disorder F31.9 ; Generalized anxiety disorder F41.1 ; Female hirsutism L68.0 and Non-compliant behavior R46.89 [facility] [place] [address] [id number] [place] [address] 48872- 8731 Nov, Morbid (severe) obesity due to excess calories E66.01 [place] [address] [address] 9007 Oct, BMI 40.0-44.9, adult Z68.41 ; Morbid (severe) obesity due to excess calories E66.01 and Bipolar mood disorder F31.9 [place] [address], [place] [address]- 4777 September, [place] [address] [address] [id number] [place] [address] 43729- 7405 September, Morbid (severe) obesity due to excess calories E66.01 [place] [address] [address] [id number] [place] [address] 27096- 7949 Aug, Generalized anxiety disorder F41.1 ; Nondependent tobacco use disorder Z72.0 and BMI 40.0-44.9, adult Z68.41 [place] [address] [place] [id number] [place] [address] 26008- 5942 Aug, [place] [address] [address] [id number] [place] [address] 96978- 9450 Jul, Bipolar mood disorder F31.9 [place] [address] [address] [id number] [place] [address] 23975- 9061 Jul, Back pain M54.9 [facility] [address] [place] [address] 50843 -9338 Jul, Pain in right knee M25.561 [place] [address] [place] [id number] [place] [address] 53225- 0658 Jul, [place] [address] [facility] [place] [address] 17184- 0052 Jul, Generalized anxiety disorder F41.1 ; BMI 40.0-44.9, adult Z68.41 ; Female hirsutism L68.0 ; Morbid (severe) obesity due to excess calories E66.01 and Back injury, initial encounter S39.92XA [facility] [place] [id number] [place] [address] 83378- 5845 Jul, Female hirsutism L68.0 ; BMI 40.0-44.9, adult Z68.41 and Tobacco use Z72.[address] 80072- 5144 Jun, Family history of diabetes mellitus Z83.[address] 13703- 0224 Jun, Tobacco use Z72.0 ; Family history of hypertension Z82.49 ; BMI 40.0-44.9, adult Z68.41 ; Female hirsutism L68.0 ; Elevated blood pressure I10 ; Family history of diabetes mellitus Z83.3 ; High risk sexual behavior Z72.51 ; History of self-harm Z91.5 ; Family history of thalassemia Z83.2 and Anxiety F41.[address] 38471- 7704 02 Jun, 2015 Well woman exam Z01.419 ; BMI 40.0-44.9, adult Z68.41 ; Family history of diabetes mellitus Z83.3 and Other fatigue R53.[address] 66015- 2860 May, Well woman exam Z01.419 ; Surveillance [...] Z91.5 and Family history of thalassemia Z83.[address] [place] [address]- 4116 May, Bipolar affective disorder F31.9 and NICHOLAS (generalized anxiety disorder) F41.1 [facility] [place] [id number] [place] [address] 41495- 5438 Mar, Bipolar affective disorder F31.9 ; Generalized anxiety disorder F41.1 and ADHD (attention deficit hyperactivity disorder), combined type F90.2 [facility] [id number] [place] [address] [id number] Feb, Dental examination Z01.20 [facility] [place] [address] [address] [id number] [place] [address] 53549- 5496 Jan, [facility] [place] [address] [id number] [place] [address] 11105- 0000 Jan, Rash 782.1 [facility] [place] [address] [address] [id number] [place] [address] 68618- 7297 Jan, Bipolar mood disorder 296.80 ; Generalized anxiety disorder 300.02 and ADHD, 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 [facility] [place] [address] [address] [id number] [place] [address] 39912- 2622 Nov, URI, acute 465.9 [facility] [place] [address] [id number] [place] [address] 31933- 9993 14 Aug, 2014 [facility] [place] [address] [address]- 6978 Aug, [facility] [place] [id number] [place] [address] 38844- 3255 Jul, [facility] [place] [id number] [place] [address] 42463- 3970 Jul, [facility] [place] [id number] [place] [address] 942434- 5383 Jul, [facility] [place] [address]- 1211 Jul, [facility] [place] [id number] [address]- 5084 Jul, [facility] [place] [facility] [address] [id number] [place] [address]- 6867 Jul, [facility] [place] [facility] [address] [id number] [place] [address]- 6728 Jul, [facility] [place] [facility] [address] [id number] [place] [address]- 0525 Jul, [facility] [place] [facility] [address] [id number] [place] [address]- 1119 Jul, [facility] [place] [facility] [address] [id number] [place] [address]- 0537 Jul, [facility] [place] [facility] [address] [id number] [place] [address]- 1948 Jun, [facility] [place] [facility] [address] [id number] [place] [address]- 6300 Jun, [facility] [place] [facility] [address] [id number] [place] [address]- 9176 Jun, [facility] [place] [facility] [address] [id number] [place] [address]- 5918 Jun, [facility] [place] [facility] [address] [id number] [place] [address]- 4060 May, [facility] [place] [facility] [address] [id number] [place] [address]- 9745 May, [facility] [place] [facility] [address] [id number] [place] [address]- 3700 May, [facility] [place] [facility] [address] [id number] [place] [address]- 2635 May, [facility] [place] [facility] [address] [id number] [place] [address]- 6018 May, [facility] [place] [facility] [address] [id number] [place] [address]- 5298 May, [facility] [place] [facility] [address] [id number] [place] [address]- 7877 May, [facility] [place] [facility] [address] [id number] [place] [address]- 6643 May, [facility] [place] [facility] [address] [id number] [place] [address]- 9768 May, [facility] [place] [facility] [address] [id number] [place] [address]- 5821 May, [facility] [place] [facility] [address] [id number] [place] [address]- 7126 May, [facility] [place] [facility] [address] [id number] [place] [address]- 8145 May, [facility] [place] [facility] [address] [id number] [place] [address]- 9618 May, [facility] [place] [facility] [address] [id number] [place] [address]- 5464 May, [facility] [place] [facility] [address] [id number] [place] [address]- 9282 May, [facility] [place] [facility] [address] [id number] [place] [address]- 3901 May, [facility] [place] [facility] [address] [id number] [place] [address]- 7148 May, [facility] [place] [facility] [address] [id number] [place] [address]- 7184 May, [facility] [place] [facility] [address] [id number] [place] [address]- 1481 Apr, [facility] [place] [facility] [address] [id number] [place] [address]- 7241 Apr, [facility] [place] [facility] [address] [id number] [place] [address]- 6273 Mar, [facility] [place] [facility] [address] [id number] [place] [address]- 7855 Mar, [facility] [place] [facility] [address] [id number] [place] [address]- 5407 Mar, [facility] [place] [facility] [address] [id number] [place] [address]- 6393 Mar, [facility] [place] [facility] [address] [id number] [place] [address]- 4937 Mar, [facility] [place] [facility] [address] [id number] [place] [address]- 3973 Mar, [facility] [place] [facility] [address] [id number] [place] [address]- 0829 Mar, [facility] [place] [facility] [address] [id number] [place] [address]- 1086 Mar, [facility] [place] [facility] [address] [id number] [place] [address]- 2014 Mar, [facility] [place] [facility] [address] [id number] [place] [address]- 4654 Mar, [facility] [place] [facility] [address] [id number] [place] [address]- 3649 Feb, [facility] [place] [facility] [address] [facility] [id number] [place] [address]- 6035 Feb, [facility] [place] [facility] [address] [id number] [place] [address]- 0642 Feb, [facility] [place] [facility] [address] [id number], [place] [address]- 4929 Feb, [facility] [place] [facility] [address] [id number] [place] [address]- 1570 Dec, [facility] [place] [facility] [address] [id number] [place] [address]- 2643 Dec, [facility] [place] [facility] [address] [id number], [place] [address]- 7484 Oct, [facility] [place] [facility] [address] [id number] [place] [address]- 7619 Oct, [facility] [place] [facility] [address] [id number] [place] [address]- 8725 Oct, [facility] [place] [facility] [address] [id number] [place] [address]- 5233 Oct, [facility] [place] [facility] [address] [id number] [place] [address]- 8457 September, [facility] [place] [facility] [address] [id number] [place] [address]- 8839 September, [facility] [place] [facility] [address] [id number] [place] [address]- 2148 Aug, [facility] [place] [facility] [address] [id number] [place] [address]- 6720 Aug, [facility] [place] [facility] [address] [id number] [place] [address]- 7712 Mar, [facility] [place] [facility] [address] [id number] [place] [address]- 6623 Mar, [facility] [place] [facility] [address] [id number] [place] [address]- 7041 Dec, [facility] [place] [facility] [address] [id number] [place] [address]- 7781 Nov, [facility] [place] [facility] [address] [id number] [place] [address]- 5524 Oct, [facility] [place] [facility] [address] [id number] [place] [address]- 0613 September, [facility] [place] [facility] [address] [id number] [place] [address]- 5864 September, [facility] [place] [facility] [address] [id number] [place] [address]- 6395 September, [facility] [place] [facility] [address] [id number] [place] [address]- 2565 Aug, [facility] [place] [id number], [place] [address]- 7208 Aug, [facility] [place] [address], [place] [address]- 3596 Jul, [facility] [place] [address], [place] [address]- 2546 Jul, [facility] [place] [address], [place] [address]- 2546 Jul, [facility] [place] [address], [place] [address]- 6473 Jun, [facility] [place] [id number] [place] [address] 68142- 3520 May, [facility] [place] [address], [place] [address]- 7252 Apr, [facility] [place] [address], [place] [address]- 7924 Apr, [facility] [place] [address], [place] [address]- 4609 Feb, IMMUNIZATIONS No Known Immunizations SOCIAL HISTORY Never Assessed REASON FOR VISIT Returned call/labs PLAN OF CARE VITAL SIGNS MEDICATIONS Unknown [...]
--- OUTSIDE RECORDS SUMMARY | 2018-08-01 21:40 | XMS REPORT ---
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 430055898 Problem Depression, unspecified depression type F32.9 Active 48443206 Problem Chronic hypertension affecting O10.919 Active 04130674 Problem Elevated blood pressure affecting in first trimester, antepartum O16.1 Active 92093985 Problem Miscarriage O03.9 Active 15292064 Problem Seasonal allergic rhinitis, unspecified allergic rhinitis trigger J30.2 Active 113250880 Problem BCP ( control pills) initiation Z30.011 Active 56221063 Problem Well woman exam with routine gynecological exam Z01.419 Active 131146886 Problem Essential hypertension I10 Active 07285857 Problem BMI 40.0-44.9, adult Z68.41 Active 269714916 Problem Mixed hyperlipidemia E78.2 Active 420745659 Problem Migraine without aura and without status migrainosus, not intractable G43.009 Active 033845276 Problem Generalized anxiety disorder F41.1 Active 413906857 Problem Female hirsutism L68.0 Active 09138604 ALLERGIES No Information ENCOUNTERS Encounter Location Date Diagnosis [facility] [address] [facility] [id number] [address] Feb, [facility] [address] [id number], [place] [address] Jan, Second trimester Z34.92 ; BMI 40.0-44.9, adult Z68.41 and 14 weeks gestation of Z3A.14 [facility] [address] [place] [address] 98159- 0516 Jan, [place] [address] [place] [address] 70375- 8103 11 Jan, 2018 Second trimester Z34.92 ; BMI 40.0-44.9, adult Z68.41 ; 12 weeks gestation of Z3A.12 ; Chronic hypertension affecting O10.919 ; Syncope, unspecified syncope type R55 ; Right upper quadrant pain R10.11 and First trimester bleeding O20.9 [place] [id number] [place] [address] 41901- 8058 Jan, [place] [id number] [place] [address] 98471- 8598 Dec, [place] [id number] [place] [address] 77352- 4275 Dec, Threatened miscarriage O20.0 [place] [id number] [place] [address] 17526- 5634 Dec, Normal in multigravida Z34.80 ; Prediabetes R73.03 ; Elevated blood pressure affecting in first trimester, antepartum O16.1 ; 12 weeks gestation of Z3A.12 and BMI 40.0-44.9, adult Z68.41 [place] [address] [place] [address] 90647- 4189 Dec, [place] [id number] [place] [address] 06349- 0189 Dec, Female hirsutism L68.0 ; Mixed hyperlipidemia E78.2 and Encounter for test, result unknown Z32.00 [place] [id number] [place] [address] 76786- 6771 Oct, LGSIL on Pap smear of cervix R87.612 ; Exposure to STD Z20.2 and BMI 40.0-44.9, adult Z68.41 [place] [id number] [place] [address] 50199- 3390 September, [place] [id number] [place] [address] 12570- 4017 September, Mixed hyperlipidemia E78.[address] [address]- [address] September, Well woman exam with routine gynecological exam Z01.419 ; BCP ( control pills) initiation Z30.011 ; Essential hypertension I10 ; Miscarriage O03.9 and BMI 40.0-44.9, adult Z68.41 [facility] [place] [facility] [address] [id number] Dec, Dental examination Z01.20 [facility] [address] [address] Dec, Acute non-recurrent pansinusitis J01.40 [facility] [address] [id number] Nov, Dental examination Z01.20 [facility] [address] [address] Oct, Missed period N92.6 ; Dysuria R30.0 and Seasonal allergic rhinitis, unspecified allergic rhinitis trigger J30.[address] 96240- 8859 Jul, Generalized anxiety disorder F41.1 ; BMI 40.0-44.9, adult Z68.41 ; Female hirsutism L68.0 ; Encounter for routine adult health examination with abnormal findings Z00.01 and Legg-Perthes disease, 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 [address]- [address]353 Jun, [address] [address] Jun, Routine gynecological examination Z01.419 and Contraception , device intrauterine, checking Z30.[address] 7[address]63- 5778 Jun, Morbid (severe) obesity due to excess calories E66.01 [place] [address] [place] [address] 86396- 8553 May, Generalized anxiety disorder F41.1 ; Bipolar mood disorder F31.9 ; BMI 40.0-44.9, adult Z68.41 and Female hirsutism L68.0 [place] [id number] [place] [address] 85481- 1253 Apr, Morbid (severe) obesity due to excess calories E66.01 and Acute non-recurrent frontal sinusitis J01.10 [place] [id number] [place] [address] 55127- 8716 Mar, Acute bronchitis, unspecified organism J20.9 ; Bipolar mood disorder F31.9 ; BMI 40.0-44.9, adult Z68.41 and Female hirsutism L68.0 [facility] [id number] [place] [address] 98964 -5019 Mar, Bronchitis J40 [place] [id number] [place] [address] 18120- 4274 14 Feb, 2016 Morbid (severe) obesity due to excess calories E66.01 ; Bipolar mood disorder F31.9 and Female hirsutism L68.0 [place] [id number] [place] [address] 46102- 0031 Jan, Morbid (severe) obesity due to excess calories E66.01 [place] [id number] [place] [address] 65891- 2917 Dec, BMI 40.0-44.9, adult Z68.41 ; Bipolar mood disorder F31.9 ; Generalized anxiety disorder F41.1 ; Female hirsutism L68.0 and Non-compliant behavior R46.89 [facility] [id number] [place] [address] 91634- 6789 Nov, Morbid (severe) obesity due to excess calories E66.01 [place] [address], [place] [address] Oct, BMI 40.0-44.9, adult Z68.41 ; Morbid (severe) obesity due to excess calories E66.01 and Bipolar mood disorder F31.9 [place] [address], [place] [address] September, [place] [id number] [place] [address] 46490- 5005 September, Morbid (severe) obesity due to excess calories E66.01 [place] [id number] [place] [address] 28326- 2497 Aug, Generalized anxiety disorder F41.1 ; Nondependent tobacco use disorder Z72.0 and BMI 40.0-44.9, adult Z68.41 [place] [id number] [place] [address] 90653- 8656 Aug, [place] [id number] [place] [address] 78589- 3924 Jul, Bipolar mood disorder F31.9 [place] [id number] [place] [address] 99742- 7825 Jul, Back pain M54.9 [facility] [address] [place] [address] 68714 -8023 Jul, Pain in right knee M25.561 [place] [id number] [place] [address] 68403- 1724 Jul, [place] [address] [place] [address] 02792- 1229 Jul, Generalized anxiety disorder F41.1 ; BMI 40.0-44.9, adult Z68.41 ; Female hirsutism L68.0 ; Morbid (severe) obesity due to excess calories E66.01 and Back injury, initial encounter S39.92XA [facility] [id number] [place] [address] 76561- 2736 Jul, Female hirsutism L68.0 ; BMI 40.0-44.9, adult Z68.41 and Tobacco use Z72.[address] 38241- 0151 Jun, Family history of diabetes mellitus Z83.[address] 32674- 4457 Jun, Tobacco use Z72.0 ; Family history of hypertension Z82.49 ; BMI 40.0-44.9, adult Z68.41 ; Female hirsutism L68.0 ; Elevated blood pressure I10 ; Family history of diabetes mellitus Z83.3 ; High risk sexual behavior Z72.51 ; History of self-harm Z91.5 ; Family history of thalassemia Z83.2 and Anxiety F41.[address] 68960- 8273 02 Jun, 2015 Well woman exam Z01.419 ; BMI 40.0-44.9, adult Z68.41 ; Family history of diabetes mellitus Z83.3 and Other fatigue R53.[address] 22473- 4128 May, Well woman exam Z01.419 ; Surveillance [...] Z91.5 and Family history of thalassemia Z83.[address] [place] [address]- 3275 May, Bipolar affective disorder F31.9 and NICHOLAS (generalized anxiety disorder) F41.1 [facility] [id number] [place] [address] 21310- 5099 Mar, Bipolar affective disorder F31.9 ; Generalized anxiety disorder F41.1 and ADHD (attention deficit hyperactivity disorder), combined type F90.2 [facility] [place] [id number] [place] [address] [id number] Feb, Dental examination Z01.20 [facility] [id number] [place] [address] 42251- 4221 Jan, [facility] [id number] [place] [address] 88603- 1689 Jan, Rash 782.1 [facility] [id number] [place] [address] 94088- 8289 Jan, Bipolar mood disorder 296.80 ; Generalized anxiety disorder 300.02 and ADHD, 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 [facility] [id number] [place] [address] 67221- 9190 Nov, URI, acute 465.9 [facility] [id number] [place] [address] 92476- 5593 14 Aug, 2014 [facility] [address], [place] [address]- 6261 Aug, [facility] [id number] [place] [address] 70387- 4900 Jul, [facility] [id number] [place] [address] 84477- 8199 Jul, [facility] [id number] [place] [address] 423692- 0238 Jul, [facility] [address] 3[address] Jul, [facility] [id number] [place] [address]- 0609 Jul, [facility] [place] [facility] [address] [id number] [place] [address]- 9958 Jul, [facility] [place] [facility] [address] [id number] [place] [address]- 4177 Jul, [facility] [place] [facility] [address] [id number] [place] [address]- 4788 Jul, [facility] [place] [facility] [address] [id number] [place] [address]- 7332 Jul, [facility] [place] [facility] [address] [id number] [place] [address]- 0035 Jul, [facility] [place] [facility] [address] [id number] [place] [address]- 6663 Jun, [facility] [place] [facility] [address] [id number] [place] [address]- 0300 Jun, [facility] [place] [facility] [address] [id number] [place] [address]- 8644 Jun, [facility] [place] [facility] [address] [id number] [place] [address]- 1107 Jun, [facility] [place] [facility] [address] [id number] [place] [address]- 9325 May, [facility] [place] [facility] [address] [id number] [place] [address]- 3088 May, [facility] [place] [facility] [address] [id number] [place] [address]- 0832 May, [facility] [place] [facility] [address] [id number] [place] [address]- 2881 May, [facility] [place] [facility] [address] [id number] [place] [address]- 1031 May, [facility] [place] [facility] [address] [id number] [place] [address]- 0266 May, [facility] [place] [facility] [address] [id number] [place] [address]- 8235 May, [facility] [place] [facility] [address] [id number] [place] [address]- 4479 May, [facility] [place] [facility] [address] [id number] [place] [address]- 9226 May, [facility] [place] [facility] [address] [id number] [place] [address]- 6218 May, [facility] [place] [facility] [address] [id number] [place] [address]- 7068 May, [facility] [place] [facility] [address] [id number] [place] [address]- 8765 May, [facility] [place] [facility] [address] [id number] [place] [address]- 2901 May, [facility] [place] [facility] [address] [id number] [place] [address]- 2386 May, [facility] [place] [facility] [address] [id number] [place] [address]- 4166 May, [facility] [place] [facility] [address] [id number] [place] [address]- 6824 May, [facility] [place] [facility] [address] [id number] [place] [address]- 7905 May, [facility] [place] [facility] [address] [id number] [place] [address]- 9291 May, [facility] [place] [facility] [address] [id number] [place] [address]- 0410 Apr, [facility] [place] [facility] [address] [id number] [place] [address]- 9493 Apr, [facility] [place] [facility] [address] [id number] [place] [address]- 3364 Mar, [facility] [place] [facility] [address] [id number] [place] [address]- 0594 Mar, [facility] [place] [facility] [address] [id number] [place] [address]- 1044 Mar, [facility] [place] [facility] [address] [id number] [place] [address]- 5708 Mar, [facility] [place] [facility] [address] [id number] [place] [address]- 0259 Mar, [facility] [place] [facility] [address] [id number] [place] [address]- 5731 Mar, [facility] [place] [facility] [address] [id number] [place] [address]- 5594 Mar, [facility] [place] [facility] [address] [id number] [place] [address]- 8286 Mar, [facility] [place] [facility] [address] [id number] [place] [address]- 1957 Mar, [facility] [place] [facility] [address] [id number] [place] [address]- 3839 Mar, [facility] [place] [facility] [address] [id number] [place] [address]- 1166 Feb, [facility] [place] [facility] [address] [facility] [id number] [place] [address]- 9812 Feb, [facility] [place] [facility] [address] [id number] [place] [address]- 7025 Feb, [facility] [place] [facility] [address] [id number], [place] [address]- 7098 Feb, [facility] [place] [facility] [address] [id number] [place] [address]- 4430 Dec, [facility] [place] [facility] [address] [id number] [place] [address]- 1954 Dec, [facility] [place] [facility] [address] [id number], [place] [address]- 3376 Oct, [facility] [place] [facility] [address] [id number] [place] [address]- 4640 Oct, [facility] [place] [facility] [address] [id number] [place] [address]- 5648 Oct, [facility] [place] [facility] [address] [id number] [place] [address]- 4513 Oct, [facility] [place] [facility] [address] [id number] [place] [address]- 8341 September, [facility] [place] [facility] [address] [id number] [place] [address]- 9192 September, [facility] [place] [facility] [address] [id number] [place] [address]- 8460 Aug, [facility] [place] [facility] [address] [id number] [place] [address]- 4686 Aug, [facility] [place] [facility] [address] [id number] [place] [address]- 7669 Mar, [facility] [place] [facility] [address] [id number] [place] [address]- 9013 Mar, [facility] [place] [facility] [address] [id number] [place] [address]- 3680 Dec, [facility] [place] [facility] [address] [id number] [place] [address]- 8557 Nov, [facility] [place] [facility] [address] [id number] [place] [address]- 4042 Oct, [facility] [place] [facility] [address] [id number] [place] [address]- 2266 September, [facility] [place] [facility] [address] [id number] [place] [address]- 4182 September, [facility] [place] [facility] [address] [id number] [place] [address]- 7201 September, [facility] [place] [facility] [address] [id number] [place] [address]- 4776 Aug, [facility] [id number] [address]- 3085 Aug, [facility] [address], [place] [address]- 2356 Jul, [facility] [address], [place] [address] 2541 Jul, [facility] [address], [place] [address]- 2540 Jul, [facility] [address], [place] [address]- 5274 Jun, [facility] [address] [place] [address] 65676- 8030 May, [facility] [address], [place] [address]- 8729 Apr, [facility] [address], [place] [address]- 2778 Apr, [facility] [address], [place] [address]- 2336 Feb, IMMUNIZATIONS No Known Immunizations SOCIAL HISTORY Never Assessed REASON FOR VISIT Phone call PLAN OF CARE VITAL SIGNS MEDICATIONS [...]
--- OUTSIDE RECORDS SUMMARY | 2018-08-01 21:41 | XMS REPORT ---
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 112735515 Problem Depression, unspecified depression type F32.9 Active 78998297 Problem Chronic hypertension affecting O10.919 Active 31317807 Problem Elevated blood pressure affecting in first trimester, antepartum O16.1 Active 66701428 Problem Miscarriage O03.9 Active 15057980 Problem Seasonal allergic rhinitis, unspecified allergic rhinitis trigger J30.2 Active 110374120 Problem BCP ( control pills) initiation Z30.011 Active 28501459 Problem Well woman exam with routine gynecological exam Z01.419 Active 341624695 Problem Essential hypertension I10 Active 01989742 Problem BMI 40.0-44.9, adult Z68.41 Active 605659620 Problem Mixed hyperlipidemia E78.2 Active 246482669 Problem Migraine without aura and without status migrainosus, not intractable G43.009 Active 424174885 Problem Generalized anxiety disorder F41.1 Active 794919182 Problem Female hirsutism L68.0 Active 53453558 ALLERGIES No Information ENCOUNTERS Encounter Location Date Diagnosis [facility] [address] [facility] [id number] [address] Jan, [facility] [address] [id number] [address] Jan, [facility] [address] [id number], [place] [address] Jan, Second trimester Z34.92 ; BMI 40.0-44.9, adult Z68.41 ; 12 weeks gestation of Z3A.12 ; Chronic hypertension affecting O10.919 ; Syncope, unspecified syncope type R55 ; Right upper quadrant pain R10.11 and First trimester bleeding O20.9 [place] [address] [address] Jan, [place] [address] [address] Dec, [place] [address] [address] Dec, Threatened miscarriage O20.[address] [address] Dec, Normal in multigravida Z34.80 ; Prediabetes R73.03 ; Elevated blood pressure affecting in first trimester, antepartum O16.1 ; 12 weeks gestation of Z3A.12 and BMI 40.0-44.9, adult Z68.41 [place] [address] [address] Dec, [address] [address] Dec, Female hirsutism L68.0 ; Mixed hyperlipidemia E78.2 and Encounter for test, result unknown Z32.[address] [address] Oct, LGSIL on Pap smear of cervix R87.612 ; Exposure to STD Z20.2 and BMI 40.0-44.9, adult Z68.[address] [address] September, [address] [address] September, Mixed hyperlipidemia E78.[address] [address]- [address] September, Well woman exam with routine gynecological exam Z01.419 ; BCP ( control pills) initiation Z30.011 ; Essential hypertension I10 ; Miscarriage O03.9 and BMI 40.0-44.9, adult Z68.41 [facility] [id number] [place] [id number] Dec, Dental examination Z01.20 [facility] [address] [address] Dec, Acute non-recurrent pansinusitis J01.40 [facility] [address] [id number] Nov, Dental examination Z01.20 [facility] [id number] [place] [address] Oct, Missed period N92.6 ; Dysuria R30.0 and Seasonal allergic rhinitis, unspecified allergic rhinitis trigger J30.[address] [address]- [address] Jul, Generalized anxiety disorder F41.1 ; BMI 40.0-44.9, adult Z68.41 ; Female hirsutism L68.0 ; Encounter for routine adult health examination with abnormal findings Z00.01 and Legg-Perthes disease, 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 [place] [id number] [place] [address]- 4770 Jun, [address] [address] Jun, Routine gynecological examination Z01.419 and Contraception , device intrauterine, checking Z30.[address] [address]- [address] Jun, Morbid (severe) obesity due to excess calories E66.[address] [address]- [address] May, Generalized anxiety disorder F41.1 ; Bipolar mood disorder F31.9 ; BMI 40.0-44.9, adult Z68.41 and Female hirsutism L68.0 [place] [id number] [place] [address]- 4134 09 Apr, 2016 Morbid (severe) obesity due to excess calories E66.01 and Acute non-recurrent frontal sinusitis J01.10 [place] [id number] [place] [address]88- 1878 11 Mar, 2016 Acute bronchitis, unspecified organism J20.9 ; Bipolar mood disorder F31.9 ; BMI 40.0-44.9, adult Z68.41 and Female hirsutism L68.0 [facility] [id number] [place] [address] 04 Mar, 2016 Bronchitis J40 [place] [address] [address]- [address] 14 Feb, 2016 Morbid (severe) obesity due to excess calories E66.01 ; Bipolar mood disorder F31.9 and Female hirsutism L68.0 [place] [id number] [place] [address]- 2849 Jan, Morbid (severe) obesity due to excess calories E66.01 [place] [id number] [place] [address]143- 9480 Dec, BMI 40.0-44.9, adult Z68.41 ; Bipolar mood disorder F31.9 ; Generalized anxiety disorder F41.1 ; Female hirsutism L68.0 and Non-compliant behavior R46.89 [place] [id number] [place] [address]676- 6204 Nov, Morbid (severe) obesity due to excess calories E66.01 [place] [id number] [place] [address]16- 3151 Oct, BMI 40.0-44.9, adult Z68.41 ; Morbid (severe) obesity due to excess calories E66.01 and Bipolar mood disorder F31.9 [place] [id number] [place] [address]- [address] September, [facility] [address] [address]- [address] September, Morbid (severe) obesity due to excess calories E66.01 [place] [id number] [place] [address]- 7158 Aug, Generalized anxiety disorder F41.1 ; Nondependent tobacco use disorder Z72.0 and BMI 40.0-44.9, adult Z68.41 [place] [address] [address]- 7[address] Aug, [place] [address] [address]- 9[address] Jul, Bipolar mood disorder F31.9 [place] [address] [address]- 74[address] Jul, Back pain M54.9 [facility] [id number] [place] [address] -0741 Jul, Pain in right knee M25.561 [place] [address] 16432- 305[address] Jul, [place] [id number] [place] [address] 10968- 5774 Jul, Generalized anxiety disorder F41.1 ; BMI 40.0-44.9, adult Z68.41 ; Female hirsutism L68.0 ; Morbid (severe) obesity due to excess calories E66.01 and Back injury, initial encounter S39.92XA [place] [address] [address]- [address] Jul, Female hirsutism L68.0 ; BMI 40.0-44.9, adult Z68.41 and Tobacco use Z72.0 [place] [address] [address]- [address] Jun, Family history of diabetes mellitus Z83.3 [place] [address] [place] [address]- 3851 Jun, Tobacco use Z72.0 ; Family history of hypertension Z82.49 ; BMI 40.0-44.9, adult Z68.41 ; Female hirsutism L68.0 ; Elevated blood pressure I10 ; Family history of diabetes mellitus Z83.3 ; High risk sexual behavior Z72.51 ; History of self-harm Z91.5 ; Family history of thalassemia Z83.2 and Anxiety F41.9 [place] [id number] [place] [address]56- 4553 Jun, Well woman exam Z01.419 ; BMI 40.0-44.9, adult Z68.41 ; Family history of diabetes mellitus Z83.3 and Other fatigue R53.83 [place] [id number] [place] [address]3714- 6634 May, Well woman exam Z01.419 ; Surveillance [...] Z91.5 and Family history of thalassemia Z83.[address] [place] [address] 04778- 5629 May, Bipolar affective disorder F31.9 and NICHOLAS (generalized anxiety disorder) F41.[address] [place] [address] 18431- 5149 Mar, Bipolar affective disorder F31.9 ; Generalized anxiety disorder F41.1 and ADHD (attention deficit hyperactivity disorder), combined type F90.2 [facility] [address] [id number] Feb, Dental examination Z01.20 [facility] [address], [place] [address] Jan, [facility] [id number] [place] [address]01- 5056 Jan, Rash 782.1 [facility] [id number] [place] [address] 666748- 4446 Jan, Bipolar mood disorder 296.80 ; Generalized anxiety disorder 300.02 and ADHD, 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 [facility] [address] [id number] [address] Nov, URI, acute 465.9 [facility] [id number] [place] [address] 39097- 9371 Aug, [facility] [id number] [place] [address] 32860- 7356 Aug, [facility] [id number] [place] [address] 58050- 2135 Jul, [facility] [address], [place] [address]- [address] Jul, [facility] [id number] [place] [address] 03339553- 4916 Jul, [facility] [address], [place] [address]- 4116 Jul, [facility] [id number] [place] [address] 35050- 6136 Jul, [facility] [address] [address] Jul, [facility] [address] [place] [address]- [address] Jul, [facility] [place] [facility] [address] [id number] [place] [address]- 6941 Jul, [facility] [place] [facility] [address] [id number] [place] [address]- 5685 Jul, [facility] [place] [facility] [address] [id number] [place] [address]- 0697 Jul, [facility] [place] [facility] [address] [id number] [place] [address]- 1271 Jun, [facility] [place] [facility] [address] [id number] [place] [address]- 2722 Jun, [facility] [place] [facility] [address] [id number] [place] [address]- 2081 Jun, [facility] [place] [facility] [address] [id number] [place] [address]- 1512 Jun, [facility] [place] [facility] [address] [id number] [place] [address]- 9490 May, [facility] [place] [facility] [address] [id number] [place] [address]- 2703 May, [facility] [place] [facility] [address] [id number] [place] [address]- 9561 May, [facility] [place] [facility] [address] [id number] [place] [address]- 8012 May, [facility] [place] [facility] [address] [id number] [place] [address]- 6788 May, [facility] [place] [facility] [address] [id number] [place] [address]- 6231 May, [facility] [place] [facility] [address] [id number] [place] [address]- 6190 May, [facility] [place] [facility] [address] [id number] [place] [address]- 5725 May, [facility] [place] [facility] [address] [id number] [place] [address]- 3357 May, [facility] [place] [facility] [address] [id number] [place] [address]- 5573 May, [facility] [place] [facility] [address] [id number] [place] [address]- 4416 May, [facility] [place] [facility] [address] [id number] [place] [address]- 4211 May, [facility] [place] [facility] [address] [id number] [place] [address]- 7360 May, [facility] [place] [facility] [address] [id number] [place] [address]- 6888 May, [facility] [place] [facility] [address] [id number] [place] [address]- 5894 May, [facility] [place] [facility] [address] [id number] [place] [address]- 2693 May, [facility] [place] [facility] [address] [id number] [place] [address]- 3491 May, [facility] [place] [facility] [address] [id number], [place] [address]- 9950 May, [facility] [place] [facility] [address] [id number], [place] [address]- 3407 Apr, [facility] [place] [facility] [address] [id number], [place] [address]- 9558 Apr, [facility] [place] [facility] [address] [id number] [place] [address]- 6620 Mar, [facility] [place] [facility] [address] [id number] [place] [address] [address] Mar, [facility] [place] [facility] [address] [id number] [address] Mar, [facility] [place] [facility] [address] [id number], [place] [address]- 0741 Mar, [facility] [place] [facility] [address] [id number] [place] [address]- 2030 Mar, [facility] [place] [facility] [address] [id number] [place] [address]- 5664 Mar, [facility] [place] [facility] [address] [facility] [id number] [place] [address]- 0125 Mar, [facility] [place] [facility] [address] [id number] [place] [address]- 9061 Mar, [facility] [place] [facility] [address] [id number] [place] [address]- 8850 Mar, [facility] [place] [facility] [address] [facility] [id number] [place] [address]- 6409 Mar, [facility] [place] [facility] [address] [facility] [id number], [place] [address]- 6630 Feb, [facility] [place] [facility] [address] [facility] [id number] [place] [address]- 2845 Feb, [facility] [place] [facility] [address] [facility] [id number] [place] [address]- 4087 Feb, [facility] [place] [facility] [address] [facility] [id number], [place] [address]- 4838 Feb, [facility] [place] [facility] [address] [facility] [id number], [place] [address]- 4379 Dec, [facility] [place] [facility] [address] [id number], [place] [address]- 8991 Dec, [facility] [place] [facility] [address] [id number], [place] [address]- 0372 Oct, [facility] [place] [facility] [address] [facility] [id number], [place] [address]- 6451 Oct, [facility] [place] [facility] [address] [facility] [id number], [place] [address]- 1521 Oct, [facility] [place] [facility] [address] [id number] [place] [address]- 6185 Oct, [facility] [place] [facility] [address] [id number] [place] [address]- 8343 September, [facility] [place] [facility] [address] [id number] [place] [address]- 5716 September, [facility] [place] [facility] [address] [id number] [place] [address]- 9835 Aug, [facility] [place] [facility] [address] [id number] [place] [address]- 7035 Aug, [facility] [place] [facility] [address] [id number] [place] [address]- 6046 Mar, [facility] [place] [facility] [address] [id number] [place] [address]- 1119 Mar, [facility] [place] [facility] [address] [id number] [place] [address]- 6086 Dec, [facility] [place] [facility] [address] [id number] [place] [address]- 6894 Nov, [facility] [place] [facility] [address] [id number] [place] [address]- 2805 Oct, [facility] [place] [facility] [address] [id number] [place] [address]- 5874 September, [facility] [place] [facility] [address] [id number] [place] [address]- 3329 September, [facility] [place] [facility] [address] [id number] [place] [address]- 3544 September, [facility] [place] [facility] [address] [id number] [place] [address]- 6938 Aug, [facility] [place] [facility] [address] [id number] [place] [address]- 3006 Aug, [facility] [place] [facility] [address] [id number] [place] [address]- 8423 Jul, [facility] [address] [facility] [id number], [place] [address]- 6927 Jul, [facility] [id number], [place] [address]- 4[address] Jul, [facility] [id number], [place] [address]- 90[address] Jun, [facility] [address], [place] [address]- 8765 May, [facility] [id number], [place] [address]- 7297 Apr, [facility] [id number], [place] [address]- 4062 Apr, [facility] [id number], [place] [address]- 8457 Feb, IMMUNIZATIONS No Known Immunizations SOCIAL HISTORY Never Assessed REASON FOR VISIT ER Call PLAN OF CARE VITAL SIGNS MEDICATIONS Unknown [...]
--- OUTSIDE RECORDS SUMMARY | 2018-08-01 21:41 | XMS REPORT ---
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 452089435 Problem Depression, unspecified depression type F32.9 Active 91924955 Problem Chronic hypertension affecting O10.919 Active 98063788 Problem Elevated blood pressure affecting in first trimester, antepartum O16.1 Active 68933587 Problem Miscarriage O03.9 Active 61131684 Problem Seasonal allergic rhinitis, unspecified allergic rhinitis trigger J30.2 Active 588781507 Problem BCP ( control pills) initiation Z30.011 Active 74005765 Problem Well woman exam with routine gynecological exam Z01.419 Active 487437323 Problem Essential hypertension I10 Active 64273452 Problem BMI 40.0-44.9, adult Z68.41 Active 011499692 Problem Mixed hyperlipidemia E78.2 Active 507342064 Problem Migraine without aura and without status migrainosus, not intractable G43.009 Active 390122595 Problem Generalized anxiety disorder F41.1 Active 996454591 Problem Female hirsutism L68.0 Active 99048997 ALLERGIES No Information ENCOUNTERS Encounter Location Date Diagnosis [facility] [address] [facility] [id number] [address] Jan, [facility] [id number] [place] [address] Jan, [facility] [address] [id number], [place] [address] Jan, Second trimester Z34.92 ; BMI 40.0-44.9, adult Z68.41 ; 12 weeks gestation of Z3A.12 ; Chronic hypertension affecting O10.919 ; Syncope, unspecified syncope type R55 ; Right upper quadrant pain R10.11 and First trimester bleeding O20.9 [place] [id number] [place] [address]14- 7893 Jan, [place] [address] [address] Dec, [place] [address] [address]- [address]21 Dec, Threatened miscarriage O20.[address] [address]- [address] Dec, Normal in multigravida Z34.80 ; Prediabetes R73.03 ; Elevated blood pressure affecting in first trimester, antepartum O16.1 ; 12 weeks gestation of Z3A.12 and BMI 40.0-44.9, adult Z68.41 [place] [address] [address]- 8696 Dec, [place] [address] [address]- [address] Dec, Female hirsutism L68.0 ; Mixed hyperlipidemia E78.2 and Encounter for test, result unknown Z32.00 [place] [id number] [place] [address] 99420- 7759 Oct, LGSIL on Pap smear of cervix R87.612 ; Exposure to STD Z20.2 and BMI 40.0-44.9, adult Z68.41 [place] [address] [address]- 4768 September, [place] [address] [address]- 6641 September, Mixed hyperlipidemia E78.[address] [address]- [address] September, Well woman exam with routine gynecological exam Z01.419 ; BCP ( control pills) initiation Z30.011 ; Essential hypertension I10 ; Miscarriage O03.9 and BMI 40.0-44.9, adult Z68.41 [facility] [address] [id number] Dec, Dental examination Z01.20 [facility] [address] [address] Dec, Acute non-recurrent pansinusitis J01.40 [facility] [address] [id number] Nov, Dental examination Z01.20 [facility] [address] [place] [address] Oct, Missed period N92.6 ; Dysuria R30.0 and Seasonal allergic rhinitis, unspecified allergic rhinitis trigger J30.[address] [address] Jul, Generalized anxiety disorder F41.1 ; BMI 40.0-44.9, adult Z68.41 ; Female hirsutism L68.0 ; Encounter for routine adult health examination with abnormal findings Z00.01 and Legg-Perthes disease, 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 [address]- [address] Jun, [address] [address]- 6062 Jun, Routine gynecological examination Z01.419 and Contraception , device intrauterine, checking Z30.[address] [address]- 7076 Jun, Morbid (severe) obesity due to excess calories E66.[address] [address]- 5592 May, Generalized anxiety disorder F41.1 ; Bipolar mood disorder F31.9 ; BMI 40.0-44.9, adult Z68.41 and Female hirsutism L68.0 [place] [id number] [place] [address] 67198- 7509 09 Apr, 2016 Morbid (severe) obesity due to excess calories E66.01 and Acute non-recurrent frontal sinusitis J01.10 [place] [id number] [place] [address] 33552- 4806 11 Mar, 2016 Acute bronchitis, unspecified organism J20.9 ; Bipolar mood disorder F31.9 ; BMI 40.0-44.9, adult Z68.41 and Female hirsutism L68.0 [facility] [id number] [place] [address]35 -5695 04 Mar, 2016 Bronchitis J40 [place] [address] [address]- 8954 14 Feb, 2016 Morbid (severe) obesity due to excess calories E66.01 ; Bipolar mood disorder F31.9 and Female hirsutism L68.0 [place] [id number] [place] [address] 31934- 5099 16 Jan, 2016 Morbid (severe) obesity due to excess calories E66.01 [place] [id number] [place] [address] 14623- 6284 Dec, BMI 40.0-44.9, adult Z68.41 ; Bipolar mood disorder F31.9 ; Generalized anxiety disorder F41.1 ; Female hirsutism L68.0 and Non-compliant behavior R46.89 [place] [id number] [place] [address]34- 1980 Nov, Morbid (severe) obesity due to excess calories E66.01 [place] [address] [address]- 0821 Oct, BMI 40.0-44.9, adult Z68.41 ; Morbid (severe) obesity due to excess calories E66.01 and Bipolar mood disorder F31.9 [place] [id number] [place] [address] 84330- 6842 September, [place] [address] 23[address]- 5684 September, Morbid (severe) obesity due to excess calories E66.01 [place] [id number] [place] [address] 18617- 2177 Aug, Generalized anxiety disorder F41.1 ; Nondependent tobacco use disorder Z72.0 and BMI 40.0-44.9, adult Z68.41 [place] [id number] [place] [address] 95384- 2743 Aug, [place] [address] 9[address]63- 3920 Jul, Bipolar mood disorder F31.9 [place] [id number] [place] [address] 27594- 2693 Jul, Back pain M54.9 [facility] [id number] [place] [address] 21655 -2386 Jul, Pain in right knee M25.561 [place] [id number] [place] [address] 23739- 4555 Jul, [place] [id number] [place] [address] 56375- 6411 Jul, Generalized anxiety disorder F41.1 ; BMI 40.0-44.9, adult Z68.41 ; Female hirsutism L68.0 ; Morbid (severe) obesity due to excess calories E66.01 and Back injury, initial encounter S39.92XA [place] [address] 8[address]- 3167 Jul, Female hirsutism L68.0 ; BMI 40.0-44.9, adult Z68.41 and Tobacco use Z72.0 [place] [id number] [place] [address] 53974- 9499 Jun, Family history of diabetes mellitus Z83.3 [place] [address] [place] [address] 13063- 3918 Jun, Tobacco use Z72.0 ; Family history of hypertension Z82.49 ; BMI 40.0-44.9, adult Z68.41 ; Female hirsutism L68.0 ; Elevated blood pressure I10 ; Family history of diabetes mellitus Z83.3 ; High risk sexual behavior Z72.51 ; History of self-harm Z91.5 ; Family history of thalassemia Z83.2 and Anxiety F41.9 [place] [id number] [place] [address] 38218- 7704 Jun, Well woman exam Z01.419 ; BMI 40.0-44.9, adult Z68.41 ; Family history of diabetes mellitus Z83.3 and Other fatigue R53.83 [place] [id number] [place] [address] 42100- 1596 May, Well woman exam Z01.419 ; Surveillance [...] Z91.5 and Family history of thalassemia Z83.2 [place] [id number] [place] [address] 03258- 9666 May, Bipolar affective disorder F31.9 and NICHOLAS (generalized anxiety disorder) F41.1 [place] [id number] [place] [address] 28635- 9704 Mar, Bipolar affective disorder F31.9 ; Generalized anxiety disorder F41.1 and ADHD (attention deficit hyperactivity disorder), combined type F90.2 [facility] [address] [address] Feb, Dental examination Z01.20 [facility] [address], [place] [address] Jan, [facility] [id number] [place] [address] 54792- 2026 Jan, Rash 782.1 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 [address] [id number], [place] [address]- 2358 Nov, URI, acute 465.9 [facility] [id number] [place] [address] 70121- 3405 Aug, [facility] [id number] [place] [address] 54064- 3511 Aug, [facility] [id number] [place] [address] 02212- 3589 Jul, [facility] [address] [address]12 Jul, [facility] [address], [place] [address]- 1472 Jul, [facility] [address], [place] [address]- 7351 Jul, [facility] [id number] [place] [address] 221236- 3600 Jul, [facility] [address]489- [address] Jul, [facility] [id number] [place] [address], [place] [address]- 2738 Jul, [facility] [place] [facility] [address] [id number] [place] [address]- 8291 Jul, [facility] [place] [facility] [address] [id number] [place] [address]- 0612 Jul, [facility] [place] [facility] [address] [id number] [place] [address]- 5836 Jul, [facility] [place] [facility] [address] [id number] [place] [address]- 0471 Jun, [facility] [place] [facility] [address] [id number] [place] [address]- 5536 Jun, [facility] [place] [facility] [address] [id number] [place] [address]- 9640 Jun, [facility] [place] [facility] [address] [id number] [place] [address]- 9377 Jun, [facility] [place] [facility] [address] [id number] [place] [address]- 7454 May, [facility] [place] [facility] [address] [id number] [place] [address]- 9948 May, [facility] [place] [facility] [address] [id number] [place] [address]- 9732 May, [facility] [place] [facility] [address] [id number] [place] [address]- 7759 May, [facility] [place] [facility] [address] [id number] [place] [address]- 2503 May, [facility] [place] [facility] [address] [id number] [place] [address]- 3672 May, [facility] [place] [facility] [address] [id number] [place] [address]- 4933 May, [facility] [place] [facility] [address] [id number] [place] [address]- 9257 May, [facility] [place] [facility] [address] [id number] [place] [address]- 7991 May, [facility] [place] [facility] [address] [id number] [place] [address]- 0321 May, [facility] [place] [facility] [address] [id number] [place] [address]- 0438 May, [facility] [place] [facility] [address] [id number] [place] [address]- 4649 May, [facility] [place] [facility] [address] [id number] [place] [address]- 0436 May, [facility] [place] [facility] [address] [id number] [place] [address]- 5495 May, [facility] [place] [facility] [address] [id number] [place] [address]- 9555 May, [facility] [place] [facility] [address] [id number] [place] [address]- 7286 May, [facility] [place] [facility] [address] [id number] [place] [address]- 5891 May, [facility] [place] [facility] [address] [id number] [place] [address]- 8381 May, [facility] [place] [facility] [address] [id number] [place] [address]- 7798 Apr, [facility] [place] [facility] [address] [id number] [place] [address]- 5578 Apr, [facility] [place] [facility] [address] [id number] [place] [address]- 2597 Mar, [facility] [place] [facility] [address] [id number] [place] [address]- 8619 Mar, [facility] [place] [facility] [address] [id number] [place] [address]- 1346 Mar, [facility] [place] [facility] [address] [id number], [place] [address]- 2214 Mar, [facility] [place] [facility] [address] [id number] [place] [address]- 5242 Mar, [facility] [place] [facility] [address] [id number] [place] [address]- 2884 Mar, [facility] [place] [facility] [address] [id number] [place] [address]- 3773 Mar, [facility] [place] [facility] [address] [id number] [place] [address]- 2816 Mar, [facility] [place] [facility] [address] [id number] [place] [address]- 9459 Mar, [facility] [place] [facility] [address] [id number] [place] [address]- 0870 Mar, [facility] [place] [facility] [address] [id number] [place] [address]- 5483 Feb, [facility] [place] [facility] [address] [id number] [place] [address]- 9302 Feb, [facility] [place] [facility] [address] [id number] [place] [address]- 7525 Feb, [facility] [place] [facility] [address] [id number] [place] [address]- 7573 Feb, [facility] [place] [facility] [address] [id number], [place] [address]- 0177 Dec, [facility] [place] [facility] [address] [id number], [place] [address]- 1785 Dec, [facility] [place] [facility] [address] [id number] [place] [address]- 9590 Oct, [facility] [place] [facility] [address] [id number] [place] [address]- 4144 Oct, [facility] [place] [facility] [address] [id number] [place] [address]- 3822 Oct, [facility] [place] [facility] [address] [id number] [place] [address]- 8276 Oct, [facility] [address] [id number] [place] [address]- 2187 September, [facility] [address] [id number] [place] [address]- 5046 September, [facility] [address] [id number] [place] [address]- 5933 Aug, [facility] [address] [id number] [place] [address]- 5993 Aug, [facility] [address] [id number] [place] [address]- 8106 Mar, [facility] [address] [id number] [place] [address]- 4351 Mar, [facility] [address] [id number] [place] [address]- 6514 Dec, [facility] [address] [id number] [place] [address]- 4108 Nov, [facility] [address] [id number] [place] [address]- 4433 Oct, [facility] [address] [id number] [place] [address]- 5432 September, [facility] [address] [id number] [place] [address]- 8026 September, [facility] [address] [id number] [place] [address]- 1984 September, [facility] [place] [facility] [address] [id number] [place] [address]- 1706 Aug, [facility] [place] [facility] [address] [id number] [place] [address]- 2546 Aug, [facility] [place] [facility] [address] [id number] [place] [address]- 6816 Jul, [facility] [address] [facility] [id number] [address]- 2546 Jul, [facility] [address] [id number] [address] 2546 04 Jul, [address] [facility] [address] [id number] [address] 1416 Jun, [facility] [address] [address] 2546 May, [facility] [id number] [address] 3146 Apr, [facility] [address], [place] [address]- 4866 Apr, [facility] [address] [id number], [place] [address]- 8296 Feb, IMMUNIZATIONS No Known Immunizations SOCIAL HISTORY Never Assessed REASON FOR VISIT Lab (walk-in) PLAN OF CARE VITAL SIGNS MEDICATIONS Unknown Medications RESULTS Name Result Date Reference Range TEST, URINE (IN HOUSE) 2018-01-09 RESULTS Positive Lot # [id number] Control + Exp date 05/2019 PROCEDURES Procedure Date Ordered Result Body Site URINE TEST Jan 09, 2018 INSTRUCTIONS MEDICATIONS ADMINISTERED No Known Medications [...]
--- OUTSIDE RECORDS SUMMARY | 2018-08-01 21:41 | XMS REPORT ---
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 418044214 Problem Depression, unspecified depression type F32.9 Active 43453725 Problem Chronic hypertension affecting O10.919 Active 83622392 Problem Elevated blood pressure affecting in first trimester, antepartum O16.1 Active 53918047 Problem Miscarriage O03.9 Active 80563205 Problem Seasonal allergic rhinitis, unspecified allergic rhinitis trigger J30.2 Active 801151438 Problem BCP ( control pills) initiation Z30.011 Active 57782668 Problem Well woman exam with routine gynecological exam Z01.419 Active 855470887 Problem Essential hypertension I10 Active 25884561 Problem BMI 40.0-44.9, adult Z68.41 Active 608445366 Problem Mixed hyperlipidemia E78.2 Active 155766334 Problem Migraine without aura and without status migrainosus, not intractable G43.009 Active 148976451 Problem Generalized anxiety disorder F41.1 Active 249372809 Problem Female hirsutism L68.0 Active 13896492 ALLERGIES Substance Reaction Event Type Date Status Metformin HCl BS drops Drug Allergy Dec, Active ENCOUNTERS Encounter Location Date Diagnosis [facility] [address] [facility] [id number] [address] Jan, [facility] [address] [id number] [address] Jan, [facility] [address] [facility] [id number] [address] Jan, Second trimester Z34.92 ; BMI 40.0-44.9, adult Z68.41 ; 12 weeks gestation of Z3A.12 ; Chronic hypertension affecting O10.919 ; Syncope, unspecified syncope type R55 ; Right upper quadrant pain R10.11 and First trimester bleeding O20.9 [place] [id number] [place] [address]- [address] Jan, [place] [address] [address] Dec, [place] [address] [address]227 Dec, Threatened miscarriage O20.[address] [address] Dec, Normal in multigravida Z34.80 ; Prediabetes R73.03 ; Elevated blood pressure affecting in first trimester, antepartum O16.1 ; 12 weeks gestation of Z3A.12 and BMI 40.0-44.9, adult Z68.[address] [address]- [address] Dec, [place] [id number] [place] [address]- 9985 Dec, Female hirsutism L68.0 ; Mixed hyperlipidemia E78.2 and Encounter for test, result unknown Z32.00 [place] [id number] [place] [address]- [address] Oct, LGSIL on Pap smear of cervix R87.612 ; Exposure to STD Z20.2 and BMI 40.0-44.9, adult Z68.41 [place] [id number] [place] [address]23- 1532 September, [address] [address]- [address] September, Mixed hyperlipidemia E78.2 [place] [id number] [place] [address] September, Well woman exam with routine gynecological exam Z01.419 ; BCP ( control pills) initiation Z30.011 ; Essential hypertension I10 ; Miscarriage O03.9 and BMI 40.0-44.9, adult Z68.41 [facility] [place] [facility] [address] [id number] Dec, Dental examination Z01.20 [facility] [address] [address] Dec, Acute non-recurrent pansinusitis J01.40 [facility] [place] [facility] [address] [id number] Nov, Dental examination Z01.20 [facility] [address] [address] Oct, Missed period N92.6 ; Dysuria R30.0 and Seasonal allergic rhinitis, unspecified allergic rhinitis trigger J30.[address] [address]- 8913 Jul, Generalized anxiety disorder F41.1 ; BMI 40.0-44.9, adult Z68.41 ; Female hirsutism L68.0 ; Encounter for routine adult health examination with abnormal findings Z00.01 and Legg-Perthes disease, 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 [address]- [address] 15 Jun, [address] [address]- 289[address] 07 Jun, 2016 Routine gynecological examination Z01.419 and Contraception , device intrauterine, checking Z30.[address] [address]- [address] 03 Jun, 2016 Morbid (severe) obesity due to excess calories E66.[address] [address]- 91[address] May, Generalized anxiety disorder F41.1 ; Bipolar mood disorder F31.9 ; BMI 40.0-44.9, adult Z68.41 and Female hirsutism L68.0 [facility] [address] [address] [id number] [place] [address]74- 4003 Apr, Morbid (severe) obesity due to excess calories E66.01 and Acute non-recurrent frontal sinusitis J01.10 [place] [address] [address] Mar, Acute bronchitis, unspecified organism J20.9 ; Bipolar mood disorder F31.9 ; BMI 40.0-44.9, adult Z68.41 and Female hirsutism L68.0 [facility] [address] [address] 04 Mar, 2016 Bronchitis J40 [place] [address] [address]- [address] 14 Feb, 2016 Morbid (severe) obesity due to excess calories E66.01 ; Bipolar mood disorder F31.9 and Female hirsutism L68.0 [place] [address] [address]- 12[address] Jan, Morbid (severe) obesity due to excess calories E66.01 [place] [id number] [place] [address]2499- 7987 Dec, BMI 40.0-44.9, adult Z68.41 ; Bipolar mood disorder F31.9 ; Generalized anxiety disorder F41.1 ; Female hirsutism L68.0 and Non-compliant behavior R46.89 [place] [address] [address]- 2668 Nov, Morbid (severe) obesity due to excess calories E66.01 [place] [address] [address]- 9388 Oct, BMI 40.0-44.9, adult Z68.41 ; Morbid (severe) obesity due to excess calories E66.01 and Bipolar mood disorder F31.9 [facility] [id number] [place] [address]19- 5215 September, [facility] [address] [address]- 3[address] September, Morbid (severe) obesity due to excess calories E66.01 [place] [address] 58[address]- 0798 Aug, Generalized anxiety disorder F41.1 ; Nondependent tobacco use disorder Z72.0 and BMI 40.0-44.9, adult Z68.41 [place] [address] [address]- 12[address] Aug, [place] [address] [id number] [place] [address] 30206- 6360 Jul, Bipolar mood disorder F31.9 [place] [address] [address] [id number] [place] [address] 83898- 9358 Jul, Back pain M54.9 [facility] [id number] [place] [address]60 -8038 Jul, Pain in right knee M25.561 [place] [address] [address] [id number] [place] [address] 64647- 0323 Jul, [place] [address] [address] [id number] [place] [address] 61534- 2651 Jul, Generalized anxiety disorder F41.1 ; BMI 40.0-44.9, adult Z68.41 ; Female hirsutism L68.0 ; Morbid (severe) obesity due to excess calories E66.01 and Back injury, initial encounter S39.92XA [place] [address] [address]- [address] Jul, Female hirsutism L68.0 ; BMI 40.0-44.9, adult Z68.41 and Tobacco use Z72.0 [address] [place] [address]- [address] 09 Jun, 2015 Family history of diabetes mellitus Z83.3 [place] [address] [address] [id number] [place] [address] 01210- 2777 05 Jun, 2015 Tobacco use Z72.0 ; Family history of hypertension Z82.49 ; BMI 40.0-44.9, adult Z68.41 ; Female hirsutism L68.0 ; Elevated blood pressure I10 ; Family history of diabetes mellitus Z83.3 ; High risk sexual behavior Z72.51 ; History of self-harm Z91.5 ; Family history of thalassemia Z83.2 and Anxiety F41.[address] [address]- [address] 02 Jun, 2015 Well woman exam Z01.419 ; BMI 40.0-44.9, adult Z68.41 ; Family history of diabetes mellitus Z83.3 and Other fatigue R53.83 [place] [id number] [place] [address] 67397- 7579 May, Well woman exam Z01.419 ; Surveillance [...] Z91.5 and Family history of thalassemia Z83.[address] [place] [address] 98553- 4556 May, Bipolar affective disorder F31.9 and NICHOLAS (generalized anxiety disorder) F41.[address] [place] [address] Mar, Bipolar affective disorder F31.9 ; Generalized anxiety disorder F41.1 and ADHD (attention deficit hyperactivity disorder), combined type F90.2 [facility] [place] [facility] [address] [id number] Feb, Dental examination Z01.20 [facility] [id number] [place] [address] 82566- 9236 Jan, [facility] [id number] [place] [address] 19467- 254 Jan, Rash 782.1 [facility] [address] 135730- 9153 Jan, Bipolar mood disorder 296.80 ; Generalized anxiety disorder 300.02 and ADHD, 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 [facility] [id number] [place] [address]60- 4930 Nov, URI, acute 465.9 [facility] [id number] [place] [address] 84284- 4855 14 Aug, 2014 [facility] [id number] [place] [address] 11577- 0777 Aug, [facility] [id number] [place] [address] 19597- 3667 Jul, [facility] [id number] [place] [address] 46786 2543 Jul, [facility] [id number] [place] [address] 28835 2543 Jul, [facility] [id number] [place] [address] 97395- 0256 Jul, [facility] [id number] [place] [address] 68808 2546 Jul, [facility] [id number] [place] [address] 90633- 1450 Jul, [facility] [place] [facility] [address] [id number] [place] [address]- 8875 Jul, [facility] [place] [facility] [address] [id number] [place] [address]- 2118 Jul, [facility] [place] [facility] [address] [id number] [place] [address]- 4788 Jul, [facility] [place] [facility] [address] [id number] [place] [address]- 9573 Jul, [facility] [place] [facility] [address] [id number] [place] [address]- 1509 Jun, [facility] [place] [facility] [address] [id number] [place] [address]- 3665 Jun, [facility] [place] [facility] [address] [id number] [place] [address]- 7933 Jun, [facility] [place] [facility] [address] [id number] [place] [address]- 4934 Jun, [facility] [place] [facility] [address] [id number] [place] [address]- 5174 May, [facility] [place] [facility] [address] [id number] [place] [address]- 7915 May, [facility] [place] [facility] [address] [id number] [place] [address]- 9958 May, [facility] [place] [facility] [address] [id number] [place] [address]- 3585 May, [facility] [place] [facility] [address] [id number] [place] [address]- 9216 May, [facility] [place] [facility] [address] [id number] [place] [address]- 9184 May, [facility] [place] [facility] [address] [id number] [place] [address]- 6188 May, [facility] [place] [facility] [address] [id number] [place] [address]- 6408 May, [facility] [address] [id number] [place] [address]- 5350 May, [facility] [place] [facility] [address] [id number] [place] [address]- 3387 May, [facility] [place] [facility] [address] [id number] [place] [address]- 8096 May, [facility] [place] [facility] [address] [id number] [place] [address]- 8654 May, [facility] [place] [facility] [address] [id number] [place] [address]- 6364 May, [facility] [place] [facility] [address] [id number] [place] [address]- 8625 May, [facility] [place] [facility] [address] [id number] [place] [address]- 4551 May, [facility] [place] [facility] [address] [id number] [place] [address]- 1719 May, [facility] [place] [facility] [address] [id number] [place] [address]- 7473 May, [facility] [place] [facility] [address] [id number] [place] [address]- 6040 May, [facility] [place] [facility] [address] [id number] [place] [address]- 8748 Apr, [facility] [place] [facility] [address] [id number] [place] [address]- 8931 Apr, [facility] [place] [facility] [address] [id number] [place] [address]- 8966 Mar, [facility] [place] [facility] [address] [id number] [place] [address] [address]134 Mar, [facility] [place] [facility] [address] [id number] [place] [address]- 3594 Mar, [facility] [place] [facility] [address] [id number] [place] [address]- 1645 Mar, [facility] [place] [facility] [address] [id number] [place] [address]- 3786 Mar, [facility] [place] [facility] [address] [id number] [place] [address]- 7586 Mar, [facility] [place] [facility] [address] [id number] [place] [address]- 8164 Mar, [facility] [place] [facility] [address] [id number] [place] [address]- 7044 Mar, [facility] [place] [facility] [address] [id number] [place] [address]- 9127 Mar, [facility] [place] [facility] [address] [id number] [place] [address]- 9417 Mar, [facility] [place] [facility] [address] [id number] [place] [address]- 7245 Feb, [facility] [place] [facility] [address] [id number] [place] [address]- 2023 Feb, [facility] [place] [facility] [address] [id number] [place] [address]- 1790 Feb, [facility] [place] [facility] [address] [id number] [place] [address]- 0488 Feb, [facility] [place] [facility] [address] [id number] [address]- 0326 Dec, [facility] [place] [facility] [address] [id number] [place] [address]- 7584 Dec, [facility] [place] [facility] [address] [id number] [place] [address]- 9419 Oct, [facility] [place] [facility] [address] [id number] [place] [address]- 1428 Oct, [facility] [place] [facility] [address] [id number], [place] [address]- 7538 Oct, [facility] [place] [facility] [address] [id number] [place] [address]- 1149 Oct, [facility] [place] [facility] [address] [id number] [place] 5945 September, [facility] [place] [facility] [address] [id number] [place] [address]- 9707 September, [facility] [place] [facility] [address] [id number] [place] [address]- 4087 Aug, [facility] [place] [facility] [address] [id number] [place] [address]- 2156 Aug, [facility] [place] [facility] [address] [id number] [place] [address]- 1227 Mar, [facility] [place] [facility] [address] [id number] [place] [address]- 7214 Mar, [facility] [place] [facility] [address] [id number] [place] [address]- 8849 Dec, [facility] [place] [facility] [address] [id number] [place] [address]- 4669 Nov, [facility] [place] [facility] [address] [id number] [place] [address]- 9123 Oct, [facility] [place] [facility] [address] [id number] [place] [address]- 2291 September, [facility] [place] [facility] [address] [id number] [place] [address]- 3101 September, [facility] [place] [facility] [address] [id number] [place] [address] September, [facility] [place] [facility] [address] [id number] [place]- 2150 Aug, [facility] [place] [facility] [address] [id number] [place]- 8780 Aug, [facility] [place] [facility] [address] [facility] [id number] [address]- 2266 Jul, [facility] [address] [id number] [address]- 6253 05 Jul, 2012 [facility] [address] [id number] [address]- 7906 Jul, [facility] [address] [id number] [address]- 9144 Jun, [facility] [address] [address]- 4517 May, [facility] [address] [address]- 6360 Apr, [facility] [address] [address]- 0205 Apr, [facility] [address] [id number] [address]- 4509 Feb, IMMUNIZATIONS No Known Immunizations SOCIAL HISTORY Never Assessed REASON FOR VISIT OB-intake PLAN OF CARE Activity Details Follow Up 4W, 4 Weeks, 4 Weeks Reason: VITAL SIGNS Height 65 in 2018-01-20 Weight 256.8 lbs 2018-01-20 Temperature 98.4 degrees Fahrenheit 2018-01-20 Heart Rate 84 bpm 2018-01-20 Respiratory Rate 18 2018-01-20 BMI 42.734 kg/m2 2018-01-20 Blood pressure systolic 156 mmHg 2018-01-20 Blood pressure diastolic 80 , 138 mmHg 2018-01-20 MEDICATIONS Medication Instructions Dosage Frequency Start Date End Date Duration Status + Complete Multi Orally Once a day 1 tablet 24h Active RESULTS No Results PROCEDURES Procedure Date Ordered Result Body Site CULTURE, BACTERIA, OTHER Jan 20, 2018 COMPLETE CBC W/AUTO DIFF WBC Jan 20, 2018 ASSAY THYROID STIM HORMONE Jan 20, 2018 URINE CULTURE/COLONY COUNT Jan 20, 2018 RBC ANTIBODY SCREEN Jan 20, 2018 BLOOD TYPING, ABO Jan 20, 2018 BLOOD TYPING, RH (D) Jan 20, 2018 RUBELLA ANTIBODY Jan 20, 2018 COMPREHEN METABOLIC PANEL Jan 20, 2018 No Charge Jan 20, 2018 LACTATE (LD) (LDH) ENZYME Jan 20, 2018 ASSAY OF BLOOD/URIC ACID Jan 20, 2018 TRICHOMONAS ASSAY W/OPTIC Jan 20, 2018 Hemoglobin Test Send Out 0 dollar Jan 20, 2018 VENIPUNCT, ROUTINE* Jan 20, 2018 URINALYSIS, AUTO, W/O SCOPE Jan 20, 2018 DRUG TEST PRSMV DIR OPT OBS Jan 20, 2018 INSTRUCTIONS MEDICATIONS ADMINISTERED No Known [...]
--- OUTSIDE RECORDS SUMMARY | 2018-08-01 21:42 | XMS REPORT ---
Author Author MARGARET RIZVI [facility] Address [address] [place] [address] Care Team Providers Care Automotive Manager Name Role Phone MARGARET RIZVI Unavailable PROBLEMS Type Condition ICD9-CM Code GYM58-EA Code Onset Dates Condition Status SNOMED Code Problem Migraine without aura and without status migrainosus, not intractable G43.009 Active 991311446 Problem Bipolar mood disorder F31.9 Active 64935024 Problem Female hirsutism L68.0 Active 96240308 Problem Mixed hyperlipidemia E78.2 Active 856319179 Problem Generalized anxiety disorder F41.1 Active 762334226 Problem Essential hypertension I10 Active 29296028 Problem BMI 40.0-44.9, adult Z68.41 Active 735270538 Problem Well woman exam with routine gynecological exam Z01.419 Active 711395592 Problem Miscarriage O03.9 Active 08291280 Problem Legg-Perthes disease, 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 464161959 Problem Depression, unspecified depression type F32.9 Active 22176906 Problem BCP ( control pills) initiation Z30.011 Active 23165579 Problem Seasonal allergic rhinitis, unspecified allergic rhinitis trigger J30.2 Active 051712066 ALLERGIES Substance Reaction Event Type Date Status Metformin HCl BS drops Drug Allergy September, Active ENCOUNTERS Encounter Location Date Diagnosis [facility] [id number] [place] [address]1394- 6561 Jan, [facility] [id number] [place] [address] 54149- 3374 Oct, LGSIL on Pap smear of cervix R87.612 ; Exposure to STD Z20.2 and BMI 40.0-44.9, adult Z68.41 [facility] [id number] [place] [address] 80198- 0831 September, [place] [id number] [place] [address] 83478- 1950 September, Mixed hyperlipidemia E78.[address] [address] September, Well woman exam with routine gynecological exam Z01.419 ; BCP ( control pills) initiation Z30.011 ; Essential hypertension I10 ; Miscarriage O03.9 and BMI 40.0-44.9, adult Z68.41 [facility] [address] [id number] Dec, Dental examination Z01.20 [facility] [address] [address] Dec, Acute non-recurrent pansinusitis J01.40 [facility] [address] [id number] Nov, Dental examination Z01.20 [facility] [address] [address] Oct, Missed period N92.6 ; Dysuria R30.0 and Seasonal allergic rhinitis, unspecified allergic rhinitis trigger J30.[address] [address]- 3293 Jul, Generalized anxiety disorder F41.1 ; BMI 40.0-44.9, adult Z68.41 ; Female hirsutism L68.0 ; Encounter for routine adult health examination with abnormal findings Z00.01 and Legg-Perthes disease, 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 [place] [id number] [place] [address] 02546- 5558 Jun, [address] [address]- [address] Jun, Routine gynecological examination Z01.419 and Contraception , device intrauterine, checking Z30.[address] [address]- 6485 Jun, Morbid (severe) obesity due to excess calories E66.01 [facility] [address] [place] [address] 88325- 2029 May, Generalized anxiety disorder F41.1 ; Bipolar mood disorder F31.9 ; BMI 40.0-44.9, adult Z68.41 and Female hirsutism L68.0 [place] [id number] [place] [address] 16016- 0679 Apr, Morbid (severe) obesity due to excess calories E66.01 and Acute non-recurrent frontal sinusitis J01.10 [place] [id number] [place] [address] 15901- 2421 Mar, Acute bronchitis, unspecified organism J20.9 ; Bipolar mood disorder F31.9 ; BMI 40.0-44.9, adult Z68.41 and Female hirsutism L68.0 [facility] [id number] [place] [address]81 -4377 Mar, Bronchitis J40 [place] [id number] [place] [address] 79015- 8751 14 Feb, 2016 Morbid (severe) obesity due to excess calories E66.01 ; Bipolar mood disorder F31.9 and Female hirsutism L68.0 [place] [address] [place] [address] 05121- 6320 Jan, Morbid (severe) obesity due to excess calories E66.01 [place] [id number] [place] [address] 04012- 9065 Dec, BMI 40.0-44.9, adult Z68.41 ; Bipolar mood disorder F31.9 ; Generalized anxiety disorder F41.1 ; Female hirsutism L68.0 and Non-compliant behavior R46.89 [facility] [address] [place] [address] 12814- 0521 Nov, Morbid (severe) obesity due to excess calories E66.01 [place] [id number] [address] 0343 Oct, BMI 40.0-44.9, adult Z68.41 ; Morbid (severe) obesity due to excess calories E66.01 and Bipolar mood disorder F31.9 [place] [address] [address] 49[address] September, [place] [id number] [place] [address] 70846- 8471 September, Morbid (severe) obesity due to excess calories E66.01 [place] [id number] [place] [address] 55838- 4409 Aug, Generalized anxiety disorder F41.1 ; Nondependent tobacco use disorder Z72.0 and BMI 40.0-44.9, adult Z68.41 [place] [id number] [place] [address] 29815- 0020 Aug, [place] [id number] [place] [address] 61973- 7270 Jul, Bipolar mood disorder F31.9 [place] [id number] [place] [address] 28431- 9930 Jul, Back pain M54.9 [facility] [address] [place] [address] 39781 -5381 Jul, Pain in right knee M25.561 [place] [id number] [place] [address] 54305- 7026 Jul, [place] [address] [place] [address] 46779- 6787 Jul, Generalized anxiety disorder F41.1 ; BMI 40.0-44.9, adult Z68.41 ; Female hirsutism L68.0 ; Morbid (severe) obesity due to excess calories E66.01 and Back injury, initial encounter S39.92XA [facility] [id number] [place] [address] 13953- 8580 Jul, Female hirsutism L68.0 ; BMI 40.0-44.9, adult Z68.41 and Tobacco use Z72.[address] 83065- 2844 Jun, Family history of diabetes mellitus Z83.[address] 75274- 8108 Jun, Tobacco use Z72.0 ; Family history of hypertension Z82.49 ; BMI 40.0-44.9, adult Z68.41 ; Female hirsutism L68.0 ; Elevated blood pressure I10 ; Family history of diabetes mellitus Z83.3 ; High risk sexual behavior Z72.51 ; History of self-harm Z91.5 ; Family history of thalassemia Z83.2 and Anxiety F41.[address] 60219- 3437 Jun, Well woman exam Z01.419 ; BMI 40.0-44.9, adult Z68.41 ; Family history of diabetes mellitus Z83.3 and Other fatigue R53.[address] 43540- 9336 May, Well woman exam Z01.419 ; Surveillance [...] Z91.5 and Family history of thalassemia Z83.[address] [place] [address]- 4383 May, Bipolar affective disorder F31.9 and NICHOLAS (generalized anxiety disorder) F41.1 [facility] [id number] [place] [address] 47180- 5239 Mar, Bipolar affective disorder F31.9 ; Generalized anxiety disorder F41.1 and ADHD (attention deficit hyperactivity disorder), combined type F90.2 [facility] [address] [id number] Feb, Dental examination Z01.20 [facility] [id number] [place] [address] 32412- 6540 Jan, [facility] [id number] [place] [address] 26831- 1532 Jan, Rash 782.1 [facility] [id number] [place] [address] 59618- 4552 Jan, Bipolar mood disorder 296.80 ; Generalized anxiety disorder 300.02 and ADHD, 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 [facility] [id number] [place] [address] 89956- 6914 Nov, URI, acute 465.9 [facility] [id number] [place] [address] 58745- 4848 14 Aug, 2014 [facility] [address] [id number] [address]- 7823 Aug, [facility] [id number] [place] [address] 73802- 3078 Jul, [facility] [id number] [address]- 5511 Jul, [facility] [id number] [place] [address] 645778- 9224 Jul, [facility] [id number] [address] 3963 Jul, [facility] [address] [address] [place] [address]- 7426 Jul, [facility] [place] [facility] [address] [id number] [place] [address]- 7592 Jul, [facility] [place] [facility] [address] [id number] [place] [address]- 0371 Jul, [facility] [place] [facility] [address] [id number] [place] [address]- 7561 Jul, [facility] [place] [facility] [address] [id number] [place] [address]- 8467 Jul, [facility] [place] [facility] [address] [id number] [place] [address]- 4962 Jul, [facility] [place] [facility] [address] [id number] [place] [address]- 5737 Jun, [facility] [place] [facility] [address] [id number] [place] [address]- 6433 Jun, [facility] [place] [facility] [address] [id number] [place] [address]- 7511 Jun, [facility] [place] [facility] [address] [id number] [place] [address]- 3725 Jun, [facility] [place] [facility] [address] [id number] [place] [address]- 5232 May, [facility] [place] [facility] [address] [id number] [place] [address]- 6675 May, [facility] [place] [facility] [address] [id number] [place] [address]- 6599 May, [facility] [place] [facility] [address] [id number] [place] 9259 May, [facility] [place] [facility] [address] [id number] [place] 7813 May, [facility] [place] [facility] [address] [id number] [place] 7090 May, [facility] [place] [facility] [address] [id number] [place] [address]- 0542 May, [facility] [place] [facility] [address] [id number] [place] [address]- 5354 May, [facility] [place] [facility] [address] [id number] [place] [address]- 5269 May, [facility] [place] [facility] [address] [id number] [place] [address]- 6422 May, [facility] [place] [facility] [address] [id number] [place] [address]- 8165 May, [facility] [place] [facility] [address] [id number] [place] [address]- 6417 May, [facility] [place] [facility] [address] [id number] [place] [address]- 0444 May, [facility] [place] [facility] [address] [id number] [place] [address]- 8703 May, [facility] [place] [facility] [address] [id number] [place] [address]- 5225 May, [facility] [place] [facility] [address] [id number] [place] [address]- 9731 May, [facility] [place] [facility] [address] [id number] [place] [address]- 9198 May, [facility] [place] [facility] [address] [id number] [place] [address]- 1547 May, [facility] [place] [facility] [address] [id number] [place] [address]- 1930 Apr, [facility] [place] [facility] [address] [id number] [place] [address]- 7367 Apr, [facility] [place] [facility] [address] [id number] [place] [address]- 9280 Mar, [facility] [place] [facility] [address] [id number] [place] [address]- 4501 Mar, [facility] [place] [facility] [address] [id number] [place] [address]- 3006 Mar, [facility] [place] [facility] [address] [id number] [place] [address]- 3331 Mar, [facility] [place] [facility] [address] [id number] [place] [address]- 3645 Mar, [facility] [place] [facility] [address] [id number] [place] [address]- 1147 Mar, [facility] [place] [facility] [address] [id number] [place] [address]- 7627 Mar, [facility] [place] [facility] [address] [id number] [place] [address]- 3042 Mar, [facility] [place] [facility] [address] [id number] [place] [address]- 8185 Mar, [facility] [place] [facility] [address] [id number] [address]- 1952 Mar, [facility] [place] [facility] [address] [id number] [place] [address]- 7194 Feb, [facility] [place] [facility] [address] [id number] [address]- 7828 Feb, [facility] [place] [facility] [address] [id number] [address]- 0550 Feb, [facility] [place] [facility] [address] [id number] [address]- 6125 Feb, [facility] [place] [facility] [address] [id number] [address]- 1612 Dec, [facility] [place] [facility] [address] [id number] [address]- 3384 Dec, [facility] [place] [facility] [address] [id number], [place] [address]- 8837 Oct, [facility] [place] [facility] [address] [id number] [place] [address]- 1916 Oct, [facility] [place] [facility] [address] [id number] [place] [address]- 9846 Oct, [facility] [place] [facility] [address] [id number] [place] [address]- 7166 Oct, [facility] [place] [facility] [address] [id number] [place] [address]- 8644 September, [facility] [place] [facility] [address] [id number] [place] [address]- 7182 September, [facility] [place] [facility] [address] [id number] [place] [address]- 5636 Aug, [facility] [place] [facility] [address] [id number] [place] [address]- 9027 Aug, [facility] [place] [facility] [address] [id number] [place] [address]- 3439 Mar, [facility] [place] [facility] [address] [id number] [place] [address]- 9063 Mar, [facility] [place] [facility] [address] [id number] [place] [address]- 7715 Dec, [facility] [place] [facility] [address] [id number] [place] [address]- 1554 Nov, [facility] [place] [facility] [address] [id number] [place] [address]- 4622 Oct, [facility] [place] [facility] [address] [id number] [place] [address]- 8566 September, [facility] [place] [facility] [address] [id number] [place] [address]- 6565 September, [facility] [place] [facility] [address] [id number] [place] [address]- 0417 September, [facility] [place] [facility] [address] [id number] [place] [address]- 5875 Aug, [facility] [id number] [address]- 7776 Aug, [facility] [address] [address]- 6286 Jul, [facility] [address] [address] 2546 Jul, [facility] [id number] [place] [address] 11617- 0786 Jul, [facility] [address] [address]- 3926 Jun, [facility] [address] [place] [address] 37883- 8216 May, [facility] [address] [address]- 6946 Apr, [facility] [address] [address]- 4356 Apr, [facility] [address] [address]- 0536 Feb, IMMUNIZATIONS No Known Immunizations SOCIAL HISTORY Never Assessed REASON FOR VISIT Annual physical (female) - Due for Pap today - [place], am, requesting control PLAN OF CARE Activity Details Follow Up 3 Months, prn Reason:HTN VITAL SIGNS Height 65 in 2017-09-29 Weight 251.4 lbs 2017-09-29 Temperature 97.9 degrees Fahrenheit 2017-09-29 Heart Rate 81 bpm 2017-09-29 Respiratory Rate 20 2017-09-29 BMI 41.83 kg/m2 2017-09-29 Blood pressure systolic 150 mmHg 2017-09-29 Blood pressure diastolic 88 mmHg 2017-09-29 MEDICATIONS Medication Instructions Dosage Frequency Start Date End Date Duration Status Ortho Tri-Cyclen (28) 0.18/0.215/0.25 MG-35 MCG Orally Once a day 1 tablet 24h September, 28 day(s) Active Ibuprofen 800 MG Orally Three times a day 1 tablet 8h Jul, Active Spironolactone 100 MG Orally Once a day 1 tablet 24h 28 May, 2015 Active RESULTS No Results PROCEDURES Procedure Date Ordered Result Body Site CULTURE, BACTERIA, OTHER September 29, 2017 No Charge September 29, 2017 URINE TEST September 29, 2017 SPECIMEN HANDLING September 29, 2017 Bacterial Vaginosis In House September 29, 2017 TRICHOMONAS ASSAY W/OPTIC September 29, 2017 CHORIONIC GONADOTROPIN TEST September 29, 2017 ASSAY THYROID STIM HORMONE September 29, 2017 VENIPUNCT, ROUTINE* September 29, 2017 COMPREHEN METABOLIC PANEL September 29, 2017 Hemoglobin Test Send Out 0 dollar September 29, 2017 LIPID PANEL September 29, 2017 COMPLETE CBC W/AUTO DIFF WBC September 29, 2017 INSTRUCTIONS MEDICATIONS ADMINISTERED No Known Medications MEDICAL [...]
--- OUTSIDE RECORDS SUMMARY | 2018-08-01 21:42 | XMS REPORT ---
Author Author TRICE [place] [facility] Address [address] [place] [address] Care Team Providers Care Flight Service Agent Name Role Phone ADRIANOESCOBARTRICE Unavailable PROBLEMS Type Condition ICD9-CM Code FJR08-QH Code Onset Dates Condition Status SNOMED Code Problem Migraine without aura and without status migrainosus, not intractable G43.009 Active 179341226 Problem Bipolar mood disorder F31.9 Active 07876645 Problem Female hirsutism L68.0 Active 47835684 Problem Mixed hyperlipidemia E78.2 Active 753430278 Problem Generalized anxiety disorder F41.1 Active 802430965 Problem Essential hypertension I10 Active 67269852 Problem BMI 40.0-44.9, adult Z68.41 Active 239538132 Problem Well woman exam with routine gynecological exam Z01.419 Active 444621810 Problem Miscarriage O03.9 Active 96901581 Problem Legg-Perthes disease, 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 056439793 Problem Depression, unspecified depression type F32.9 Active 75874413 Problem BCP ( control pills) initiation Z30.011 Active 14595163 Problem Seasonal allergic rhinitis, unspecified allergic rhinitis trigger J30.2 Active 554107322 ALLERGIES Substance Reaction Event Type Date Status Metformin HCl BS drops Drug Allergy Oct, Active ENCOUNTERS Encounter Location Date Diagnosis [facility] [address] [facility] [id number] [address] Jan, [facility] [address] [id number] [address] Dec, [facility] [id number] [address] Dec, [facility] [address] [id number] [address] Dec, Female hirsutism L68.0 ; Mixed hyperlipidemia E78.2 and Encounter for test, result unknown Z32.[address] [address] 11 Oct, 2017 LGSIL on Pap smear of cervix R87.612 ; Exposure to STD Z20.2 and BMI 40.0-44.9, adult Z68.[address] [address] September, [place] [address] [address] September, Mixed hyperlipidemia E78.[address] [address] September, Well woman exam with routine gynecological exam Z01.419 ; BCP ( control pills) initiation Z30.011 ; Essential hypertension I10 ; Miscarriage O03.9 and BMI 40.0-44.9, adult Z68.41 [facility] [address] [id number] Dec, Dental examination Z01.20 [facility] [address] [address] Dec, Acute non-recurrent pansinusitis J01.40 [facility] [address] [id number] Nov, Dental examination Z01.20 [facility] [address] [address] Oct, Missed period N92.6 ; Dysuria R30.0 and Seasonal allergic rhinitis, unspecified allergic rhinitis trigger J30.[address] [address] 02 Jul, 2016 Generalized anxiety disorder F41.1 ; BMI 40.0-44.9, adult Z68.41 ; Female hirsutism L68.0 ; Encounter for routine adult health examination with abnormal findings Z00.01 and Legg-Perthes disease, 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 [place] [address] [place] [id number] [place] [address] 15 Jun, 2016 [place] [address] [address] 07 Jun, 2016 Routine gynecological examination Z01.419 and Contraception , device intrauterine, checking Z30.[address] [address] 03 Jun, 2016 Morbid (severe) obesity due to excess calories E66.01 [place] [address] [address] May, Generalized anxiety disorder F41.1 ; Bipolar mood disorder F31.9 ; BMI 40.0-44.9, adult Z68.41 and Female hirsutism L68.[address] [address] Apr, Morbid (severe) obesity due to excess calories E66.01 and Acute non-recurrent frontal sinusitis J01.10 [place] [address] [address] 11 Mar, 2016 Acute bronchitis, unspecified organism J20.9 ; Bipolar mood disorder F31.9 ; BMI 40.0-44.9, adult Z68.41 and Female hirsutism L68.0 [facility] [id number] [place] [address] 04 Mar, 2016 Bronchitis J40 [place] [address] [address] [id number] [place] [address] 14 Feb, 2016 Morbid (severe) obesity due to excess calories E66.01 ; Bipolar mood disorder F31.9 and Female hirsutism L68.0 [place] [address] [address] [id number] [place] [address] 16 Jan, 2016 Morbid (severe) obesity due to excess calories E66.01 [place] [address] [place] [place] [address] Dec, BMI 40.0-44.9, adult Z68.41 ; Bipolar mood disorder F31.9 ; Generalized anxiety disorder F41.1 ; Female hirsutism L68.0 and Non-compliant behavior R46.89 [place] [id number] [place] [address] Nov, Morbid (severe) obesity due to excess calories E66.01 [place] [address] [place] [address] [id number] [place] [address] Oct, BMI 40.0-44.9, adult Z68.41 ; Morbid (severe) obesity due to excess calories E66.01 and Bipolar mood disorder F31.9 [place] [address] [place] [id number] [place] [address] September, [place] [address] [place] [address] [id number] [place] [address] September, Morbid (severe) obesity due to excess calories E66.01 [place] [address] [place] [address] [id number] [place] [address] Aug, Generalized anxiety disorder F41.1 ; Nondependent tobacco use disorder Z72.0 and BMI 40.0-44.9, adult Z68.41 [place] [address] [address] Aug, [facility] [address] [place] [address] [id number] [place] [address] Jul, Bipolar mood disorder F31.9 [facility] [address] [place] [id number] [place] [address] Jul, Back pain M54.9 [facility] [address] [place] [address] Jul, Pain in right knee M25.561 [facility] [address] [place] [id number] [place] [address] Jul, [place] [id number] [place] [address] Jul, Generalized anxiety disorder F41.1 ; BMI 40.0-44.9, adult Z68.41 ; Female hirsutism L68.0 ; Morbid (severe) obesity due to excess calories E66.01 and Back injury, initial encounter S39.92XA [address] [address] Jul, Female hirsutism L68.0 ; BMI 40.0-44.9, adult Z68.41 and Tobacco use Z72.[address] [address] Jun, Family history of diabetes mellitus Z83.[address] [address] Jun, Tobacco use Z72.0 ; Family history of hypertension Z82.49 ; BMI 40.0-44.9, adult Z68.41 ; Female hirsutism L68.0 ; Elevated blood pressure I10 ; Family history of diabetes mellitus Z83.3 ; High risk sexual behavior Z72.51 ; History of self-harm Z91.5 ; Family history of thalassemia Z83.2 and Anxiety F41.9 [place] [id number] [place] [address] Jun, Well woman exam Z01.419 ; BMI 40.0-44.9, adult Z68.41 ; Family history of diabetes mellitus Z83.3 and Other fatigue R53.[address] [address] May, Well woman exam Z01.419 ; Surveillance [...] Z91.5 and Family history of thalassemia Z83.2 [place] [address] [address] 28 May, 2015 Bipolar affective disorder F31.9 and NICHOLAS (generalized anxiety disorder) F41.1 [place] [address] [address] Mar, Bipolar affective disorder F31.9 ; Generalized anxiety disorder F41.1 and ADHD (attention deficit hyperactivity disorder), combined type F90.2 [facility] [address] [id number] Feb, Dental examination Z01.20 [facility] [address] [address] Jan, [place] [address] [address] Jan, Rash 782.1 [place] [address] [address] Jan, Bipolar mood disorder 296.80 ; Generalized anxiety disorder 300.02 and ADHD, 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 [facility] [address] [place] [id number] [place] [address] Nov, URI, acute 465.9 [facility] [address] [address] Aug, [facility] [address] [address] Aug, [facility] [address] [place] [address] Jul, [facility] [place] [facility] [address] [id number] [place] [address] Jul, [facility] [place] [facility] [address] [id number] [place] [address] Jul, [facility] [place] [facility] [address] [id number] [place] [address]- [address]35 Jul, [facility] [place] [facility] [address] [id number] [place] [address] Jul, [facility] [place] [facility] [address] [id number] [place] [address]- 6[address] Jul, [facility] [place] [facility] [address] [id number] [place] [address]- 6741 Jul, [facility] [place] [facility] [address] [id number] [place] [address]- 2139 Jul, [facility] [place] [facility] [address] [id number] [place] [address]- 9084 Jul, [facility] [place] [facility] [address] [id number] [place] [address]- [address] Jul, [facility] [place] [facility] [address] [id number] [place] [address]- 65[address] Jun, [facility] [place] [facility] [address] [id number] [place] [address]- 4603 Jun, [facility] [place] [facility] [address] [id number] [place] [address]- 3102 Jun, [facility] [place] [facility] [address] [id number] [place] [address]- 1996 Jun, [facility] [place] [facility] [address] [id number] [place] [address]- 37[address] May, [facility] [place] [facility] [address] [id number] [place] [address]- 04[address] May, [facility] [place] [facility] [address] [id number] [place] [address]- 7254 May, [facility] [place] [facility] [address] [id number] [place] [address]- 3275 May, [facility] [place] [facility] [address] [id number] [place] [address]- 9211 May, [facility] [place] [facility] [address] [id number] [place] [address]- 8042 May, [facility] [address] [id number] [place] [address]- 3397 May, [facility] [place] [facility] [address] [id number] [place] [address]- 2189 May, [facility] [place] [facility] [address] [id number] [place] [address]- 2178 May, [facility] [place] [facility] [address] [id number] [place] [address]- 5722 May, [facility] [place] [facility] [address] [id number] [place] [address]- 9146 May, [facility] [place] [facility] [address] [id number] [place] [address]- 9218 May, [facility] [place] [facility] [address] [id number] [place] [address]- 7823 May, [facility] [place] [facility] [address] [id number] [place] [address]- 1750 May, [facility] [place] [facility] [address] [id number] [place] [address]- 3659 May, [facility] [place] [facility] [address] [id number] [place] [address]- 6701 May, [facility] [place] [facility] [address] [id number] [place] [address]- 5276 May, [facility] [place] [facility] [address] [id number] [place] [address]- [address]993 May, [facility] [place] [facility] [address] [id number] [place] [address]- 2917 Apr, [facility] [place] [facility] [address] [id number] [place] [address]- 5298 Apr, [facility] [place] [facility] [address] [id number] [place] [address]- 2941 Mar, [facility] [place] [facility] [address] [id number] [place] [address]- 3124 Mar, [facility] [place] [facility] [address] [id number] [place] [address]- 0850 Mar, [facility] [place] [facility] [address] [id number] [place] [address]- 8319 Mar, [facility] [place] [facility] [address] [id number] [place] [address]- 8313 Mar, [facility] [place] [facility] [address] [id number] [place] [address]- 4110 Mar, [facility] [place] [facility] [address] [id number] [place] [address]- 0774 Mar, [facility] [place] [facility] [address] [id number] [place] [address]- 7263 Mar, [facility] [place] [facility] [address] [id number] [place] [address]- 3328 Mar, [facility] [place] [facility] [address] [id number] [place] [address]- 3828 Mar, [facility] [place] [facility] [address] [id number] [place] [address]- 1661 Feb, [facility] [place] [facility] [address] [id number] [place] [address]- 6569 Feb, [facility] [place] [facility] [address] [id number] [place] [address]- 0839 Feb, [facility] [place] [facility] [address] [id number] [place] [address]- 1421 Feb, [facility] [place] [facility] [address] [id number] [place] [address]- 3710 Dec, [facility] [place] [facility] [address] [id number] [place] [address]- 1206 Dec, [facility] [place] [facility] [address] [id number] [place] [address]- 3111 Oct, [facility] [place] [facility] [address] [id number] [place] [address]- 0937 Oct, [facility] [place] [facility] [address] [id number] [place] [address]- 7707 Oct, [facility] [place] [facility] [address] [id number] [place] [address]- 1937 Oct, [facility] [place] [facility] [address] [id number] [place] [address]- 1185 September, [facility] [place] [facility] [address] [id number] [place] [address]- 4962 September, [facility] [place] [facility] [address] [id number] [place] [address]- 1954 Aug, [facility] [place] [facility] [address] [id number] [place] [address]- 3376 Aug, [facility] [place] [facility] [address] [id number] [place] [address]- 4616 Mar, [facility] [place] [facility] [address] [id number] [place] [address]- 0377 Mar, [facility] [place] [facility] [address] [id number] [place] [address]- 7335 Dec, [facility] [place] [facility] [address] [id number] [place] [address]- 2246 Nov, [facility] [place] [facility] [address] [id number] [place] [address]- 7231 Oct, [facility] [address] [id number] [address]- [address] September, [facility] [address] [address]- 25[address] September, [facility] [address] [id number] [address]- 25[address] September, [facility] [address] [address]- [address] Aug, [facility] [id number] [address]- 9106 Aug, [facility] [address] [address]- [address] Jul, [facility] [address] [address]- 2546 Jul, [facility] [address] [address]- 85[address] Jul, [facility] [id number] [address]- [address] Jun, [facility] [address] [address]- 6[address] May, [facility] [id number] [address]- 7226 Apr, [facility] [id number] [address]- 1756 Apr, [facility] [id number] [address]- 1366 Feb, IMMUNIZATIONS No Known Immunizations SOCIAL HISTORY Never Assessed REASON FOR VISIT colposcopy LSIL -- migue butterfield, consent signed PLAN OF CARE Activity Details Follow Up 1 Year Reason:repeat pap VITAL SIGNS Height 65 in 2017-11-03 Weight 250.0 lbs 2017-11-03 Temperature 98.0 degrees Fahrenheit 2017-11-03 Heart Rate 80 bpm 2017-11-03 Respiratory Rate 22 2017-11-03 BMI 41.60 kg/m2 2017-11-03 Blood pressure systolic 166 mmHg 2017-11-03 Blood pressure diastolic 92 mmHg 2017-11-03 MEDICATIONS Medication Instructions Dosage Frequency Start Date End Date Duration Status Ortho Tri-Cyclen (28) 0.18/0.215/0.25 MG-35 MCG Orally Once a day 1 tablet 24h September, 28 day(s) Active Spironolactone 100 MG Orally Once a day 1 tablet 24h May, Active Ibuprofen 800 MG Orally Three times a day 1 tablet 8h Jul, Active RESULTS Name Result Date Reference Range HEP C ANTIBODY (STATE) 2017-11-03 RESULTS non-reactive SYPHILIS (STATE) 2017-11-03 HIV (STATE) 2017-11-03 HEP B SURFACE ANTIGEN (STATE) 2017-11-03 HEP B ANTIBODY non-reactive HEP B ANTIBODY (RML) HEP B ANTIBODY (STATE) PROCEDURES Procedure Date Ordered Result Body Site No Charge November 03, 2017 VENIPUNCT, ROUTINE* November 03, 2017 INSTRUCTIONS MEDICATIONS ADMINISTERED No Known Medications MEDICAL (GENERAL) HISTORY Type Description Date Medical History hypertension Medical History anger issues Medical History depression Medical History anxiety Medical History perthes disease Medical History Family history of hypertension Medical History Family history of diabetes mellitus Medical History High risk sexual behavior Medical History History of self-harm Medical History Family history of thalassemia Medical History -march 2017 Surgical History left hip surgery x 2 2009/2010 Surgical History right knee surgery 2013 Surgical History wisdom teeth extraction Surgical History tonsilectomy Hospitalization History surgeries
--- OUTSIDE RECORDS SUMMARY | 2018-08-01 21:42 | XMS REPORT ---
Author Author NIMA DEL ANGEL Organization [facility] Address [address] [place] [address] Care Team Providers Care Chief Operator Name Role Phone DEL ANGELYANIRA MckeonELE Unavailable PROBLEMS Type Condition ICD9-CM Code JNT01-YI Code Onset Dates Condition Status SNOMED Code Problem Migraine without aura and without status migrainosus, not intractable G43.009 Active 190043894 Problem Bipolar mood disorder F31.9 Active 45872712 Problem Female hirsutism L68.0 Active 10385164 Problem Mixed hyperlipidemia E78.2 Active 740785788 Problem Generalized anxiety disorder F41.1 Active 979366572 Problem Essential hypertension I10 Active 00082881 Problem BMI 40.0-44.9, adult Z68.41 Active 286892370 Problem Well woman exam with routine gynecological exam Z01.419 Active 631645179 Problem Miscarriage O03.9 Active 38338907 Problem Legg-Perthes disease, 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 821209519 Problem Depression, unspecified depression type F32.9 Active 21163273 Problem BCP ( control pills) initiation Z30.011 Active 71482242 Problem Seasonal allergic rhinitis, unspecified allergic rhinitis trigger J30.2 Active 100780771 ALLERGIES No Information ENCOUNTERS Encounter Location Date Diagnosis [facility] [address] [place] [address] 1155 Jan, [facility] [address] [place] [id number] [place] [address] 69792- 2898 Oct, LGSIL on Pap smear of cervix R87.612 ; Exposure to STD Z20.2 and BMI 40.0-44.9, adult Z68.41 [facility] [address] [id number] [address] September, [facility] [address] [place] [address] 89368- 9076 September, Mixed hyperlipidemia E78.2 [place] [address] [address] September, Well woman exam with routine gynecological exam Z01.419 ; BCP ( control pills) initiation Z30.011 ; Essential hypertension I10 ; Miscarriage O03.9 and BMI 40.0-44.9, adult Z68.41 [facility] [address] [id number] Dec, Dental examination Z01.20 [facility] [place] [address] [address] Dec, Acute non-recurrent pansinusitis J01.40 [facility] [address] [id number] Nov, Dental examination Z01.20 [facility] [address] [address] Oct, Missed period N92.6 ; Dysuria R30.0 and Seasonal allergic rhinitis, unspecified allergic rhinitis trigger J30.[address] [address] Jul, Generalized anxiety disorder F41.1 ; BMI 40.0-44.9, adult Z68.41 ; Female hirsutism L68.0 ; Encounter for routine adult health examination with abnormal findings Z00.01 and Legg-Perthes disease, 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 [place] [address] [place] [id number] [place] [address] 19859- 9809 15 Jun, [address] [address] 84[address] Jun, Routine gynecological examination Z01.419 and Contraception , device intrauterine, checking Z30.[address] [address] 03 Jun, 2016 Morbid (severe) obesity due to excess calories E66.01 [place] [address] [place] [address]17- 8839 May, Generalized anxiety disorder F41.1 ; Bipolar mood disorder F31.9 ; BMI 40.0-44.9, adult Z68.41 and Female hirsutism L68.0 [place] [id number] [place] [address] 11239- 1131 Apr, Morbid (severe) obesity due to excess calories E66.01 and Acute non-recurrent frontal sinusitis J01.10 [place] [id number] [place] [address] 31992- 7552 11 Mar, 2016 Acute bronchitis, unspecified organism J20.9 ; Bipolar mood disorder F31.9 ; BMI 40.0-44.9, adult Z68.41 and Female hirsutism L68.0 [facility] [id number] [place] [address] 19776 -0563 04 Mar, 2016 Bronchitis J40 [place] [id number] [place] [address] 80980- 0998 14 Feb, 2016 Morbid (severe) obesity due to excess calories E66.01 ; Bipolar mood disorder F31.9 and Female hirsutism L68.0 [place] [address] [place] [address] 26387- 0333 16 Jan, 2016 Morbid (severe) obesity due to excess calories E66.01 [place] [id number] [place] [address] 92393- 8671 Dec, BMI 40.0-44.9, adult Z68.41 ; Bipolar mood disorder F31.9 ; Generalized anxiety disorder F41.1 ; Female hirsutism L68.0 and Non-compliant behavior R46.89 [place] [id number] [place] [address] 27171- 6838 Nov, Morbid (severe) obesity due to excess calories E66.01 [place] [id number] [place] [address] 20615- 0127 Oct, BMI 40.0-44.9, adult Z68.41 ; Morbid (severe) obesity due to excess calories E66.01 and Bipolar mood disorder F31.9 [place] [address] [place] [address] 82336- 6296 September, [facility] [id number] [place] [address] 97947- 4423 September, Morbid (severe) obesity due to excess calories E66.01 [place] [id number] [place] [address] 07245- 8335 Aug, Generalized anxiety disorder F41.1 ; Nondependent tobacco use disorder Z72.0 and BMI 40.0-44.9, adult Z68.41 [place] [id number] [place] [address] 49061- 1904 Aug, [place] [id number] [place] [address] 17367- 0047 Jul, Bipolar mood disorder F31.9 [place] [id number] [place] [address] 60263- 1946 Jul, Back pain M54.9 [facility] [address] [place] [address]46 -0534 Jul, Pain in right knee M25.561 [place] [address] [place] [address] 92149- 5890 Jul, [facility] [address] [place] [address] 43108- 6982 Jul, Generalized anxiety disorder F41.1 ; BMI 40.0-44.9, adult Z68.41 ; Female hirsutism L68.0 ; Morbid (severe) obesity due to excess calories E66.01 and Back injury, initial encounter S39.92XA [facility] [address] [place] [address] 85779- 2384 Jul, Female hirsutism L68.0 ; BMI 40.0-44.9, adult Z68.41 and Tobacco use Z72.0 [address] [place] [address] 39480- 4775 09 Jun, 2015 Family history of diabetes mellitus Z83.3 [place] [id number] [place] [address] 44835- 0717 05 Jun, 2015 Tobacco use Z72.0 ; Family history of hypertension Z82.49 ; BMI 40.0-44.9, adult Z68.41 ; Female hirsutism L68.0 ; Elevated blood pressure I10 ; Family history of diabetes mellitus Z83.3 ; High risk sexual behavior Z72.51 ; History of self-harm Z91.5 ; Family history of thalassemia Z83.2 and Anxiety F41.9 [place] [id number] [place] [address] 39358- 7854 02 Jun, 2015 Well woman exam Z01.419 ; BMI 40.0-44.9, adult Z68.41 ; Family history of diabetes mellitus Z83.3 and Other fatigue R53.83 [place] [id number] [place] [address] 22816- 9783 May, Well woman exam Z01.419 ; Surveillance [...] Z91.5 and Family history of thalassemia Z83.2 [place] [id number] [place] [address] 32880- 7340 May, Bipolar affective disorder F31.9 and NICHOLAS (generalized anxiety disorder) F41.1 [facility] [id number] [place] [address] 43989- 4012 Mar, Bipolar affective disorder F31.9 ; Generalized anxiety disorder F41.1 and ADHD (attention deficit hyperactivity disorder), combined type F90.2 [facility] [address] [address] Feb, Dental examination Z01.20 [facility] [id number] [place] [address] 67950- 9996 Jan, [facility] [id number] [place] [address] 67683- 9526 Jan, Rash 782.1 [facility] [id number] [place] [address] 20300- 1174 Jan, Bipolar mood disorder 296.80 ; Generalized anxiety disorder 300.02 and ADHD, 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 [facility] [id number] [place] [address] 48406- 1905 Nov, URI, acute 465.9 [facility] [id number] [place] [address] 12734- 9706 14 Aug, 2014 [facility] [id number] [place] [address] 99078- 5108 Aug, [facility] [id number] [place] [address] 66429- 4466 Jul, [facility] [id number] [place] [address] 57666 2544 Jul, [facility] [id number] [place] [address] 40296- 5636 Jul, [facility] [id number] [place] [address] 547481- 0826 Jul, [facility] [id number] [place] [address] 09130- 9796 Jul, [facility] [place] [facility] [address] [id number] [place] [address]- 5554 Jul, [facility] [place] [facility] [address] [id number] [place] [address]- 7451 Jul, [facility] [place] [facility] [address] [id number] [place] [address]- 6985 Jul, [facility] [place] [facility] [address] [id number] [place] [address]- 8279 Jul, [facility] [place] [facility] [address] [id number] [place] [address]- 8739 Jul, [facility] [place] [facility] [address] [id number] [place] [address]- 6088 Jun, [facility] [place] [facility] [address] [id number] [place] [address]- 0340 Jun, [facility] [place] [facility] [address] [id number] [place] [address]- 2080 Jun, [facility] [place] [facility] [address] [id number] [place] [address]- 4451 Jun, [facility] [place] [facility] [address] [id number] [place] [address]- 9330 May, [facility] [place] [facility] [address] [id number] [place] [address]- 8903 May, [facility] [place] [facility] [address] [id number] [place] [address]- 3502 May, [facility] [place] [facility] [address] [id number] [place] [address]- 0521 May, [facility] [place] [facility] [address] [id number] [place] [address]- 3232 May, [facility] [place] [facility] [address] [id number] [place] [address]- 7530 May, [facility] [place] [facility] [address] [id number] [place] [address]- 1759 May, [facility] [place] [facility] [address] [id number] [place] [address]- 6790 May, [facility] [place] [facility] [address] [id number] [place] [address]- 3051 May, [facility] [place] [facility] [address] [id number] [place] [address]- 2831 May, [facility] [place] [facility] [address] [id number] [place] [address]- 1285 May, [facility] [place] [facility] [address] [id number] [place] [address]- 2847 May, [facility] [place] [facility] [address] [id number] [place] [address]- 3033 May, [facility] [place] [facility] [address] [id number] [place] [address]- 0858 May, [facility] [place] [facility] [address] [id number] [place] [address]- 2942 May, [facility] [place] [facility] [address] [id number] [place] [address]- 2557 May, [facility] [place] [facility] [address] [id number] [place] [address]- 9624 May, [facility] [place] [facility] [address] [id number] [place] [address]- 2966 May, [facility] [place] [facility] [address] [id number] [place] [address]- 2070 Apr, [facility] [place] [facility] [address] [id number] [place] [address]- 7280 Apr, [facility] [place] [facility] [address] [id number] [place] 7159 Mar, [facility] [place] [facility] [address] [id number] [place] [address]- 4423 Mar, [facility] [place] [facility] [address] [id number] [place] [address]- 7336 Mar, [facility] [place] [facility] [address] [id number] [place] [address]- 9342 Mar, [facility] [place] [facility] [address] [id number] [place] [address]- 2604 Mar, [facility] [place] [facility] [address] [id number] [place] [address]- 0835 Mar, [facility] [place] [facility] [address] [id number] [place] [address]- 6125 Mar, [facility] [place] [facility] [address] [id number] [place] [address]- 2197 Mar, [facility] [place] [facility] [address] [id number] [place] [address]- 5157 Mar, [facility] [place] [facility] [address] [id number] [place] [address]- 5753 Mar, [facility] [place] [facility] [address] [id number] [place] [address]- 4595 Feb, [facility] [place] [facility] [address] [id number] [place] [address]- 0071 Feb, [facility] [place] [facility] [address] [id number] [place] [address]- 5138 Feb, [facility] [place] [facility] [address] [id number] [address]- 4705 Feb, [facility] [place] [facility] [address] [id number] [place] [address]- 0327 Dec, [facility] [place] [facility] [address] [id number] [place] [address]- 5091 Dec, [facility] [place] [facility] [address] [id number] [place] [address]- 8233 Oct, [facility] [place] [facility] [address] [id number] [place] [address]- 9376 Oct, [facility] [place] [facility] [address] [id number] [place] [address]- 7489 Oct, [facility] [place] [facility] [address] [id number] [place] [address]93 Oct, [facility] [place] [facility] [address] [id number] [place] [address]- 6344 September, [facility] [place] [facility] [address] [id number] [place] [address]- 7800 September, [facility] [place] [facility] [address] [id number] [place] [address]- 5593 Aug, [facility] [place] [facility] [address] [id number] [place] [address]- 3328 Aug, [facility] [place] [facility] [address] [id number] [place] [address]- 0298 Mar, [facility] [place] [facility] [address] [id number] [place] [address]- 0310 Mar, [facility] [place] [facility] [address] [id number] [place] [address]- 3333 Dec, [facility] [place] [facility] [address] [id number] [place] [address]- 3369 Nov, [facility] [place] [facility] [address] [id number] [place] [address]- 7020 Oct, [facility] [place] [facility] [address] [id number] [place] [address]- 4723 September, [facility] [place] [facility] [address] [id number] [place] [address]- 1197 September, [facility] [place] [facility] [address] [id number] [place] [address]- 3874 September, [facility] [place] [facility] [address] [id number] [place] [address]- 2636 Aug, [facility] [place] [facility] [address] [id number] [address]- 2546 05 Aug, 2012 [facility] [id number] [address]- 5412 18 Jul, 2012 [facility] [address] [address]- 2546 05 Jul, 2012 [facility] [id number] [address]- 4850 Jul, [facility] [address] [address]- 6057 Jun, [facility] [id number] [place] [address] 77786- 9805 May, [facility] [address] [place] [address]- 3702 Apr, [facility] [address] [address]- 1983 Apr, [facility] [id number] [address]- 5362 Feb, IMMUNIZATIONS No Known Immunizations SOCIAL HISTORY Never Assessed REASON FOR VISIT Requests return call/labs PLAN OF CARE VITAL SIGNS MEDICATIONS [...]
--- OUTSIDE RECORDS SUMMARY | 2018-08-01 21:43 | XMS REPORT ---
Author Author NIMA DEL ANGEL [facility] e[employer] Address Unknown Phone Unavailable Care Team Providers Care Municipal Maintenance Worker Name Role Phone NIMA DEL ANGEL CP Unavailable Allergies, Adverse Reactions, Alerts Substance Reaction Event Type Metformin HCl BS drops Drug Allergy Problems Problem Type Condition Code Onset Dates Condition Status Problem Migraine without aura and without status migrainosus, not intractable G43.009 Active Problem BMI 40.0-44.9, adult Z68.41 Active Problem Female hirsutism L68.0 Active Problem Non-compliant behavior R46.89 Active Problem Essential hypertension I10 Active Problem Legg-Perthes disease, 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 Problem Bipolar mood disorder F31.9 Active Problem Surveillance for control, intrauterine device Z30.431 Active Problem Nondependent tobacco use disorder Z72.0 Active Problem Generalized anxiety disorder F41.1 Active Assessment Bipolar mood disorder F31.9 Active Assessment Morbid (severe) obesity due to excess calories E66.01 Active Problem Morbid (severe) obesity due to excess calories E66.01 Active Assessment Female hirsutism L68.0 Active Problem Depression, unspecified depression type F32.9 Active Medications Medication Code System Code Instructions Start Date End Date Status Dosage Mirena NDC 0 20 mcg/24 hr (5 years) Jun 16, 2014 not defined Vitamin B Complex [facility] [address] Jun 08, 2014 1 capsule by Oral route 1 time per day Diethylpropion HCl [facility] [address]-48 75 MG Orally Once a day Jan 11, 2016 Take one tablet mid morning after sensible breakfast Sertraline HCl [facility] [address]-17 25 MG Orally Once a day November 16, 2015 1 tablet Multi-Vitamin Daily [facility] 86209-07260 Orally Once a day 1 tablet Spironolactone [facility] [address]-84 100 MG Orally Once a day Jun 22, 2015 1 tablet Wellbutrin NDC 0 100 MG Orally Twice a day 1 tablet Procedures Procedure Coding System Code Date Office Visit, Est Pt., Level 3 CPT-4 60644 Mar 08, 2016 Vital Signs Date/Time: Mar 08, 2016 Cardiac Monitoring Heart Rate 70 bpm Weight 249.4 lbs Height 65 in Wt Percentile 99.39 % BMI 41.50 Index Blood Pressure Diastolic 82 mmHg Blood Pressure Systolic 128 mmHg BMIPercentile 98.57 % Results No Known Results Summary Purpose eClinicalWorks Submission
--- OUTSIDE RECORDS SUMMARY | 2018-08-01 21:43 | XMS REPORT ---
Author BERNARD Kauffman e[employer] Address Unknown Phone Unavailable Care Team Providers Care Back Stayer Name Role Phone BERNARD ROOT CP Unavailable Allergies No Known Allergies Problems Problem Type Condition Code Onset Dates Condition Status Problem Contact dermatitis and other eczema, due to unspecified cause 692.9 Active Problem Other general counseling and advice for contraceptive management V25.09 Active Problem Encounter for insertion of intrauterine contraceptive device V25.11 Active Problem Encounter for long-term (current) use of other medications V58.69 Active Problem Routine or child health check V20.2 Active Problem Bipolar mood disorder 296.80 Active Problem Surveillance of previously prescribed intrauterine contraceptive device V25.42 Active Problem Screening examination for venereal disease V74.5 Active Problem Essential hypertension, benign 401.1 Active Problem Acute sinusitis, unspecified 461.9 Active Assessment Generalized anxiety disorder F41.1 Active Assessment Bipolar affective disorder F31.9 Active Problem Generalized anxiety disorder 300.02 Active Assessment ADHD (attention deficit hyperactivity disorder), combined type F90.2 Active Problem Nondependent tobacco use disorder 305.1 Active Medications Medication Code System Code Instructions Start Date End Date Status Dosage Zoloft [facility] [address]-92 50 MG Orally Once a day Apr 19, 2014 1 Tablet by Oral route 1 time per day Mirena [facility] [address]-89 20 mcg/24 hr (5 years) Jun 16, 2014 not defined Vitamin B Complex [facility] 97653-[address]882 Jun 08, 2014 1 capsule by Oral route 1 time per day Lamictal [facility] [address]-21 100 MG Orally at HS August 11, 2014 1 Tablets Procedures Procedure Coding System Code Date Office Visit, Est Pt., Level 4 CPT-4 13562 Mar 30, 2015 Vital Signs Date/Time: Mar 30, 2015 Cardiac Monitoring Heart Rate 74 bpm Weight 260.6 lbs Height 65 in Wt Percentile 99.45 % BMI 43.36 Index Blood Pressure Diastolic 72 mmHg Blood Pressure Systolic 138 mmHg BMIPercentile 98.98 % Results No Known Results Summary Purpose eClinicalWorks Submission
--- OUTSIDE RECORDS SUMMARY | 2018-08-01 21:43 | XMS REPORT ---
Author Author LUTHER PINZON Organization [facility] Address [address] [place] [address] Care Team Providers Care Air Traffic Controller Name Role Phone LYDIA PINZONICE Unavailable PROBLEMS Type Condition ICD9-CM Code [id number] Code Onset Dates Condition Status SNOMED Code Problem Bipolar mood disorder F31.9 Active 87417755 Problem BMI 40.0-44.9, adult Z68.41 Active 866249150 Problem Depression, unspecified depression type F32.9 Active 94436092 Problem Missed period N92.6 Active 65765134 Problem Seasonal allergic rhinitis, unspecified allergic rhinitis trigger J30.2 Active 246071004 Problem Legg-Perthes disease, 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 103380698 Problem Surveillance for control, intrauterine device Z30.431 Active 668232397 Problem Encounter for routine adult health examination with abnormal findings Z00.01 Active 742725141 Problem Non-compliant behavior R46.89 Active 016936175 Problem Female hirsutism L68.0 Active 18474486 Problem Essential hypertension I10 Active 38445610 Problem Nondependent tobacco use disorder Z72.0 Active 79676329 Problem Generalized anxiety disorder F41.1 Active 456736054 Problem Migraine without aura and without status migrainosus, not intractable G43.009 Active 100949477 Problem Morbid (severe) obesity due to excess calories E66.01 Active 538721210 ALLERGIES Substance Reaction Event Type Date Status Metformin HCl BS drops Drug Allergy Oct, Active SOCIAL HISTORY Never Assessed PLAN OF CARE Activity Details Follow Up prn Reason: VITAL SIGNS Height 65 in 2016-10-24 Weight 255.8 lbs 2016-10-24 Temperature 97.6 degrees Fahrenheit 2016-10-24 Heart Rate 88 bpm 2016-10-24 Respiratory Rate 20 2016-10-24 BMI 42.56 kg/m2 2016-10-24 Blood pressure systolic 124 mmHg 2016-10-24 Blood pressure diastolic 78 mmHg 2016-10-24 MEDICATIONS Medication Instructions Dosage Frequency Start Date End Date Duration Status Wellbutrin 100 MG Orally Twice a day 1 tablet 12h 90 days Active Spironolactone 100 MG Orally Once a day 1 tablet 24h May, 90 days Active Microgestin 1/20 1-20 MG-MCG as directed Jun, 28 days Active Sertraline HCl 25 MG Orally Once a day 1 tablet 24h 23 Oct, 2015 90 days Active RESULTS Name Result Date Reference Range TEST, URINE (IN HOUSE) 2016-10-24 RESULTS negative Lot # [id number] Control + Exp date 2017 10 31 UA LONG DIP (IN HOUSE) 2016-10-24 Lot # [id number] Exp date 2017 04 30 Clarity clear Color yellow Odor none GLU negative BRETT negative KET negative SG 1.020 BLO negative pH 5.5 Protein negative URO 0.2 NIT negative MAGDY 1+ Lot # [id number] Exp date 2017 02 PROCEDURES Procedure Date Ordered Result Body Site URINE TEST October 24, 2016 DEPO MEDROL 40 MG/ML October 24, 2016 DEXAMETHASONE 4MG/ML (PER 1 MG) October 24, 2016 THER/PROPH/DIAG INJ, SC/IM October 24, 2016 IMMUNIZATIONS Vaccine Route Administration Date Status DEXAMETHASONE 4MG/ML (PER 1 MG) IM Intramuscular October 24, 2016 Administered DEPO MEDROL 40 MG/ML IM Intramuscular October 24, 2016 Administered MEDICAL (GENERAL) HISTORY Type Description Date Medical History hypertension Medical History anger issues Medical History depression Medical History anxiety Medical History perthes disease Medical History Family history of hypertension Medical History Family history of diabetes mellitus Medical History High risk sexual behavior Medical History History of self-harm Medical History Family history of thalassemia Surgical History left hip surgery x 2 2009/2010 Surgical History right knee surgery 2014 Surgical History wisdom teeth extraction Surgical History tonsilectomy Hospitalization History surgeries
--- OUTSIDE RECORDS SUMMARY | 2018-08-01 21:43 | XMS REPORT ---
Author Author SUJIT Leal Organization [facility] Address [address] [place] [address] Care Team Providers Care Civil Process Server Name Role Phone SUJIT Leal Unavailable PROBLEMS Type Condition ICD9-CM Code AEH77-UR Code Onset Dates Condition Status SNOMED Code Problem Bipolar mood disorder F31.9 Active 11261450 Problem BMI 40.0-44.9, adult Z68.41 Active 184687181 Problem Depression, unspecified depression type F32.9 Active 42410916 Problem Missed period N92.6 Active 44726127 Problem Seasonal allergic rhinitis, unspecified allergic rhinitis trigger J30.2 Active 804490717 Problem Legg-Perthes disease, 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 376885239 Problem Surveillance for control, intrauterine device Z30.431 Active 397977851 Problem Encounter for routine adult health examination with abnormal findings Z00.01 Active 186195095 Problem Non-compliant behavior R46.89 Active 175514354 Problem Female hirsutism L68.0 Active 74006428 Problem Essential hypertension I10 Active 72942215 Problem Nondependent tobacco use disorder Z72.0 Active 37297242 Problem Generalized anxiety disorder F41.1 Active 106968229 Problem Migraine without aura and without status migrainosus, not intractable G43.009 Active 948209891 Problem Morbid (severe) obesity due to excess calories E66.01 Active 798455842 ALLERGIES Substance Reaction Event Type Date Status Metformin HCl BS drops Drug Allergy Dec, Active ENCOUNTERS Encounter Location Date Diagnosis [facility] [id number] [id number] Dec, Dental examination Z01.20 [facility] [id number], [place] [address] Dec, Acute non-recurrent pansinusitis J01.40 [facility] [address] [id number] [id number] Nov, Dental examination Z01.20 [facility] [id number] [place] [address] Oct, Missed period N92.6 ; Dysuria R30.0 and Seasonal allergic rhinitis, unspecified allergic rhinitis trigger J30.2 [id number] [place] [address]85[address] 39[address] Jul, Generalized anxiety disorder F41.1 ; BMI 40.0-44.9, adult Z68.41 ; Female hirsutism L68.0 ; Encounter for routine adult health examination with abnormal findings Z00.01 and Legg-Perthes disease, 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 [place] [id number] [place] [address]138- 9013 15 Jun, [address] [address] 07 Jun, 2016 Routine gynecological examination Z01.419 and Contraception , device intrauterine, checking Z30.431 [id number] [place] [address]- [address] 03 Jun, 2016 Morbid (severe) obesity due to excess calories E66.01 [facility] [address] [place] [address] 27878- 6797 May, Generalized anxiety disorder F41.1 ; Bipolar mood disorder F31.9 ; BMI 40.0-44.9, adult Z68.41 and Female hirsutism L68.0 [id number] [place] [address] 80391- 0[address] Apr, Morbid (severe) obesity due to excess calories E66.01 and Acute non-recurrent frontal sinusitis J01.10 [place] [address] [place] [address]402- 0189 Mar, Acute bronchitis, unspecified organism J20.9 ; Bipolar mood disorder F31.9 ; BMI 40.0-44.9, adult Z68.41 and Female hirsutism L68.0 [facility] [address], [place] [address] 04 Mar, 2016 Bronchitis J40 [facility] [address] [place] [address] 31141- 6568 14 Feb, 2016 Morbid (severe) obesity due to excess calories E66.01 ; Bipolar mood disorder F31.9 and Female hirsutism L68.0 [facility] [address] [place] [address] 88154- 0100 16 Jan, 2016 Morbid (severe) obesity due to excess calories E66.01 [place] [address] [place] [address] 25235- 4789 Dec, BMI 40.0-44.9, adult Z68.41 ; Bipolar mood disorder F31.9 ; Generalized anxiety disorder F41.1 ; Female hirsutism L68.0 and Non-compliant behavior R46.89 [facility] [address] [place] [address] 41265- 8024 Nov, Morbid (severe) obesity due to excess calories E66.01 [place] [address] [place] [address]60- 2392 Oct, BMI 40.0-44.9, adult Z68.41 ; Morbid (severe) obesity due to excess calories E66.01 and Bipolar mood disorder F31.9 [place] [address], [place] [address] September, [place] [address] [place] [address] 88991- 8290 September, Morbid (severe) obesity due to excess calories E66.01 [place] [address] [place] [address] 85845[address] 4259 Aug, Generalized anxiety disorder F41.1 ; Nondependent tobacco use disorder Z72.0 and BMI 40.0-44.9, adult Z68.41 [place] [address] [place] [address] 08602- 5909 Aug, [place] [id number] [place] [address] 52061- 2648 Jul, Bipolar mood disorder F31.9 [place] [id number] [place] [address] 45195- 7938 Jul, Back pain M54.9 [facility] [id number] [place] [address] Jul, Pain in right knee M25.561 [place] [id number] [place] [address] 20803- 9862 Jul, [place] [id number] [place] [address] 39683- 4361 Jul, Generalized anxiety disorder F41.1 ; BMI 40.0-44.9, adult Z68.41 ; Female hirsutism L68.0 ; Morbid (severe) obesity due to excess calories E66.01 and Back injury, initial encounter S39.92XA [place] [id number] [place] [address] 65881- 7454 Jul, Female hirsutism L68.0 ; BMI 40.0-44.9, adult Z68.41 and Tobacco use Z72.0 [place] [id number] [place] [address] 02189- 0275 Jun, Family history of diabetes mellitus Z83.3 [place] [id number] [place] [address] 99027- 0580 05 Jun, 2016 Tobacco use Z72.0 ; Family history of hypertension Z82.49 ; BMI 40.0-44.9, adult Z68.41 ; Female hirsutism L68.0 ; Elevated blood pressure I10 ; Family history of diabetes mellitus Z83.3 ; High risk sexual behavior Z72.51 ; History of self-harm Z91.5 ; Family history of thalassemia Z83.2 and Anxiety F41.9 [place] [address] [place] [address] 17632- 5445 02 Jun, 2015 Well woman exam Z01.419 ; BMI 40.0-44.9, adult Z68.41 ; Family history of diabetes mellitus Z83.3 and Other fatigue R53.83 [facility] [id number] [place] [address] 35392- 0442 28 May, 2015 Well woman exam Z01.419 [...] Z91.5 and Family history of thalassemia Z83.2 [place] [id number] [place] [address] 25516- 8499 May, Bipolar affective disorder F31.9 and NICHOLAS (generalized anxiety disorder) F41.1 [place] [id number] [place] [address] 10245- 9375 Mar, Bipolar affective disorder F31.9 ; Generalized anxiety disorder F41.1 and ADHD (attention deficit hyperactivity disorder), combined type F90.2 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 [facility] [address] [address] 29 Nov, 2014 URI, acute 465.9 [facility] [id number] [place] [address], [place] [address] 80[address] 14 Aug, 2014 [facility] [address] [facility] [id number] [place] [address] Aug, [facility] [id number] [place] [address], [place] [address] Jul, [facility] [id number] Jul, [facility] [id number] [place] [address] 30677- 6778 Jul, [facility] [address], [place] [address] Jul, [facility] [address], [place] [address] Jul, [facility] [address], [place] [address] Jul, [facility] [address], [place] [address] 8[address] Jul, [facility] [address], [place] [address] Jul, [facility] [id number] [address] 6[address] Jul, [facility] [id number], [place] [address] Jul, [facility] [address], [place] [address] Jun, [facility] [place] [facility] [address] [id number] [place] [address] 8[address] Jun, [facility] [place] [facility] [address] [id number] [place] [address] 4831 Jun, [facility] [place] [facility] [address] [id number] [place] [address]- 7363 Jun, [facility] [place] [facility] [address] [id number] [place] [address]- 4187 May, [facility] [place] [facility] [address] [id number] [place] [address]- 0632 May, [facility] [place] [facility] [address] [id number] [place] [address]- 2422 May, [facility] [place] [facility] [address] [id number] [place] [address]- 5475 May, [facility] [place] [facility] [address] [id number] [place] [address] May, [facility] [place] [facility] [address] [id number] [place] [address]- 8969 May, [facility] [place] [facility] [address] [id number] [place] [address]- 5946 May, [facility] [place] [facility] [address] [id number] [place] [address]- 4146 May, [facility] [place] [facility] [address] [id number] [place] [address]- 4012 May, [facility] [place] [facility] [address] [id number] [place] [address]- 7645 May, [facility] [place] [facility] [address] [id number] [place] [address]- 8405 May, [facility] [place] [facility] [address] [id number] [place] [address]- 6117 May, [facility] [place] [facility] [address] [id number] [place] [address]- 2708 May, [facility] [address] [id number] [place] [address]- 7774 May, [facility] [place] [facility] [address] [id number] [place] [address]- 5326 May, [facility] [place] [facility] [address] [id number] [place] [address]- 2045 May, [facility] [place] [facility] [address] [id number] [place] [address]- 7281 May, [facility] [place] [facility] [address] [id number] [place] [address]- 8988 May, [facility] [place] [facility] [address] [id number] [place] [address]- 9040 Apr, [facility] [place] [facility] [address] [id number] [place] [address]- 6359 Apr, [facility] [place] [facility] [address] [id number] [place] [address]- 5011 Mar, [facility] [place] [facility] [address] [id number] [place] [address]- 1039 Mar, [facility] [place] [facility] [address] [id number] [place] [address]- 7237 Mar, [facility] [place] [facility] [address] [id number] [place] [address]- 1920 Mar, [facility] [place] [facility] [address] [id number] [place] [address]- 9866 Mar, [facility] [place] [facility] [address] [id number] [place] [address]- 6703 Mar, [facility] [place] [facility] [address] [id number] [place] [address]- 0249 Mar, [facility] [place] [facility] [address] [id number] [place] [address]- 5391 Mar, [facility] [place] [facility] [address] [id number] [place] [address]- 3089 Mar, [facility] [place] [facility] [address] [id number] [place] [address]- 1210 Mar, [facility] [place] [facility] [address] [id number] [place] [address]- 3114 Feb, [facility] [place] [facility] [address] [id number] [place] [address]- 4694 Feb, [facility] [place] [facility] [address] [id number] [place] [address] Feb, [facility] [place] [facility] [address] [id number] [place] [address]- 7540 Feb, [facility] [place] [facility] [address] [id number] [place] [address]- 2301 Dec, [facility] [place] [facility] [address] [id number] [place] [address]- 8082 Dec, [facility] [place] [facility] [address] [id number] [place] [address]- 7497 Oct, [facility] [place] [facility] [address] [id number] [place] [address]- 0923 Oct, [facility] [place] [facility] [address] [id number] [place] [address]- 4017 Oct, [facility] [place] [facility] [address] [id number], [place] [address]- 6531 Oct, [facility] [place] [facility] [address] [id number] [place] [address]- 0696 September, [facility] [place] [facility] [address] [id number] [place] [address]- 6631 September, [facility] [place] [facility] [address] [id number] [place] [address] Aug, [facility] [place] [facility] [address] [id number] [place] [address]- 0951 Aug, [facility] [address] [id number] [place] [address]- 1869 Mar, [facility] [address] [id number] [place] [address]- 3689 Mar, [facility] [address] [id number] [place] [address]- 8756 Dec, [facility] [address] [id number] [place] [address]- 8812 Nov, [facility] [address] [id number] [place] [address]- 2899 Oct, [facility] [address] [id number] [place] [address]- 6106 September, [facility] [address] [id number] [place] [address]- 8725 September, [facility] [address] [id number] [place] [address]- 2352 September, [facility] [address] [id number] [place] [address]- 3628 Aug, [facility] [address] [id number] [place] [address]- 8338 Aug, [facility] [address] [id number] [place] [address]- 1369 Jul, [facility] [place] [facility] [address] [id number] [place] [address]- 2545 Jul, [facility] [place] [facility] [address] [id number] [place] [address]- 5827 Jul, [facility] [place] [facility] [address] [id number] [place] [address]- 6266 Jun, [facility] [place] [facility] [address] [id number] [place] [address]- 5845 May, [facility] [address] [facility] [id number] [place] [address]- 8961 Apr, [facility] [address] [facility] [id number], [place] [address]- 3243 Apr, [facility] [address] [facility] [id number] [place] [address]- 4312 Feb, IMMUNIZATIONS No Known Immunizations SOCIAL HISTORY Never Assessed REASON FOR VISIT Left ear pain for over 1 week JStrasserRN PLAN OF CARE Activity Details Follow Up 2 - 3 Days, prn Reason: VITAL SIGNS Height 65 in 2017-01-04 Weight 244.8 lbs 2017-01-04 Temperature 98.7 degrees Fahrenheit 2017-01-04 Heart Rate 100 bpm 2017-01-04 Respiratory Rate 20 2017-01-04 BMI 40.73 kg/m2 2017-01-04 Blood pressure systolic 122 mmHg 2017-01-04 Blood pressure diastolic 84 mmHg 2017-01-04 MEDICATIONS Medication Instructions Dosage Frequency Start Date End Date Duration Status Wellbutrin 100 MG Orally Twice a day 1 tablet 12h 90 days Active Amoxicillin 875 MG Orally every 12 hrs 1 tablet 12h 12 Dec, 2016 Dec, 10 day(s) Active PredniSONE 20 mg Orally twice a day 1 tablet 12h 12 Dec, 2016 Dec, 05 days Active Spironolactone 100 MG Orally Once a day 1 tablet 24h 28 May, 2015 90 days Active Sertraline HCl 25 MG Orally Once a day 1 tablet 24h Oct, 90 days Active RESULTS No Results PROCEDURES No Known procedures [...]
--- OUTSIDE RECORDS SUMMARY | 2018-08-01 21:43 | XMS REPORT ---
Author Author NIMA DEL ANGEL Organization [facility] Address [address] [place] [address] Care Team Providers Care Washer And Capper Machine Operator Name Role Phone NIMA DEL ANGEL Unavailable PROBLEMS Type Condition ICD9-CM Code AWH30-ZG Code Onset Dates Condition Status SNOMED Code Problem Bipolar mood disorder F31.9 Active 80354678 Problem BMI 40.0-44.9, adult Z68.41 Active 610140294 Problem Depression, unspecified depression type F32.9 Active 31883751 Problem Missed period N92.6 Active 94221844 Problem Seasonal allergic rhinitis, unspecified allergic rhinitis trigger J30.2 Active 934255296 Problem Legg-Perthes disease, 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 119074405 Problem Surveillance for control, intrauterine device Z30.431 Active 827944489 Problem Encounter for routine adult health examination with abnormal findings Z00.01 Active 564029463 Problem Non-compliant behavior R46.89 Active 493115151 Problem Female hirsutism L68.0 Active 23633688 Problem Essential hypertension I10 Active 52641544 Problem Nondependent tobacco use disorder Z72.0 Active 07909479 Problem Generalized anxiety disorder F41.1 Active 399467751 Problem Migraine without aura and without status migrainosus, not intractable G43.009 Active 156346597 Problem Morbid (severe) obesity due to excess calories E66.01 Active 998710992 ALLERGIES Substance Reaction Event Type Date Status Metformin HCl BS drops Drug Allergy Jun, Active SOCIAL HISTORY Never Assessed PLAN OF CARE Activity Details Follow Up 4 Weeks Reason:weight management VITAL SIGNS Height 65 in 2016-06-28 Weight 257.0 lbs 2016-06-28 Temperature 98.0 degrees Fahrenheit 2016-06-28 BMI 42.76 kg/m2 2016-06-28 Blood pressure systolic 136 mmHg 2016-06-28 Blood pressure diastolic 86 mmHg 2016-06-28 MEDICATIONS Medication Instructions Dosage Frequency Start Date End Date Duration Status Spironolactone 100 MG Orally Once a day 1 tablet 24h May, 90 days Active Wellbutrin 100 MG Orally Twice a day 1 tablet 12h 90 days Active Sertraline HCl 25 MG Orally Once a day 1 tablet 24h Oct, 90 days Active Mirena 20 mcg/24 hr (5 years) May, Active Diethylpropion HCl ER 75 MG Orally Once a day 1 tablet 24h Jun, Jul, 30 days Active RESULTS No Results PROCEDURES No Known procedures IMMUNIZATIONS No Known Immunizations MEDICAL (GENERAL) HISTORY Type Description Date Medical [...]
--- OUTSIDE RECORDS SUMMARY | 2018-08-01 21:43 | XMS REPORT ---
Author Author ROBYN MCDONALD e[employer] Address Unknown Phone Unavailable Care Team Providers Care Latrine Cleaner Name Role Phone ROBYN MCDONALD Unavailable Allergies, Adverse Reactions, Alerts Substance Reaction Event Type Metformin HCl BS drops Drug Allergy Problems Problem Type Condition Code Onset Dates Condition Status Assessment Unprotected sexual intercourse Z72.51 Active Assessment High risk sexual behavior Z72.51 Active Assessment Other fatigue R53.83 Active Assessment Morbid (severe) obesity due to excess calories E66.01 Active Assessment Family history of diabetes mellitus Z83.3 Active Assessment Depression, unspecified depression type F32.9 Active Assessment Anxiety F41.9 Active Assessment Migraine without aura and without status migrainosus, not intractable G43.009 Active Assessment Female hirsutism L68.0 Active Problem Anxiety F41.9 Active Assessment BMI 40.0-44.9, adult Z68.41 Active Problem Migraine without aura and without status migrainosus, not intractable G43.009 Active Assessment Elevated blood pressure I10 Active Problem Female hirsutism L68.0 Active Problem Family history of hypertension Z82.49 Active Problem BMI 40.0-44.9, adult Z68.41 Active Problem Nondependent tobacco use disorder Z72.0 Active Problem Generalized anxiety disorder F41.1 Active Assessment Tobacco use Z72.0 Active Assessment Routine screening for STI (sexually transmitted infection) Z11.3 Active Problem Essential hypertension I10 Active Assessment Family history of hypertension Z82.49 Active Problem Surveillance for control, intrauterine device Z30.431 Active Problem Tobacco use Z72.0 Active Problem Bipolar mood disorder F31.9 Active Problem Elevated blood pressure I10 Active Assessment Family history of thalassemia Z83.2 Active Problem Family history of thalassemia Z83.2 Active Assessment History of self-harm Z91.5 Active Problem History of self-harm Z91.5 Active Assessment Surveillance for control, intrauterine device Z30.431 Active Assessment Well woman exam Z01.419 Active Problem Family history of diabetes mellitus Z83.3 Active Problem Depression, unspecified depression type F32.9 Active Problem High risk sexual behavior Z72.51 Active Problem Morbid (severe) obesity due to excess calories E66.01 Active Medications Medication Code System Code Instructions Start Date End Date Status Dosage Mirena [facility] [address]-85 20 mcg/24 hr (5 years) Jun 16, 2014 not defined Vitamin B Complex [facility] [address] Jun 08, 2014 1 capsule by Oral route 1 time per day Lamictal [facility] [address]-14 100 MG Orally at HS August 11, 2014 1 Tablets Spironolactone [facility] [address]-25 50 MG Orally Once a day Jun 22, 2015 1 tablet Zoloft [facility] [address]-86 50 MG Orally Once a day at bedtime Apr 19, 2014 1 Tablet by Oral route 1 time per day Procedures Procedure Coding System Code Date TRICHOMONAS ASSAY W/OPTIC CPT-4 20689 Jun 22, 2015 Preventive Care Est Pt. Age 18-39 CPT-4 98763 Jun 22, 2015 No Charge CPT-4 97979 Jun 22, 2015 Vital Signs Date/Time: Jun 22, 2015 Temperature 98.0 F Weight 265.2 lbs Height 65 in BMI 44.13 Index Blood Pressure Diastolic 90 mmHg Blood Pressure Systolic 120 mmHg Cardiac Monitoring Heart Rate 104 bpm BMIPercentile 98.99 % Wt Percentile 99.52 % Results No Known Results Summary Purpose eClinicalWorks Submission
--- OUTSIDE RECORDS SUMMARY | 2018-08-01 21:43 | XMS REPORT ---
Author Author NIMA DEL ANGEL [facility] eClinicalWorks Address Unknown Phone Unavailable Care Team Providers Care Rod Puller Name Role Phone NIMA DEL ANGEL CP Unavailable Allergies, Adverse Reactions, Alerts Substance Reaction Event Type Metformin HCl BS drops Drug Allergy Problems Problem Type Condition Code Onset Dates Condition Status Assessment Anxiety F41.9 Active Assessment Family history of thalassemia Z83.2 Active Assessment History of self-harm Z91.5 Active Problem Anxiety F41.9 Active Assessment High risk sexual behavior Z72.51 Active Problem Migraine without aura and without status migrainosus, not intractable G43.009 Active Assessment Family history of diabetes mellitus Z83.3 Active Problem Female hirsutism L68.0 Active Problem Family history of hypertension Z82.49 Active Problem BMI 40.0-44.9, adult Z68.41 Active Problem Nondependent tobacco use disorder Z72.0 Active Problem Generalized anxiety disorder F41.1 Active Assessment BMI 40.0-44.9, adult Z68.41 Active Assessment Female hirsutism L68.0 Active Problem Essential hypertension I10 Active Assessment Elevated blood pressure I10 Active Problem Surveillance for control, intrauterine device Z30.431 Active Problem Tobacco use Z72.0 Active Problem Bipolar mood disorder F31.9 Active Problem Elevated blood pressure I10 Active Problem Family history of thalassemia Z83.2 Active Problem History of self-harm Z91.5 Active Assessment Family history of hypertension Z82.49 Active Assessment Tobacco use Z72.0 Active Problem Family history of diabetes mellitus Z83.3 Active Problem Depression, unspecified depression type F32.9 Active Problem High risk sexual behavior Z72.51 Active Problem Morbid (severe) obesity due to excess calories E66.01 Active Medications Medication Code System Code Instructions Start Date End Date Status Dosage Lamictal [facility] [address]-20 100 MG Orally at HS August 11, 2014 1 Tablets Vitamin B Complex [facility] [address] Jun 08, 2014 1 capsule by Oral route 1 time per day Zoloft [facility] [address]-28 50 MG Orally Once a day at bedtime Apr 19, 2014 1 Tablet by Oral route 1 time per day Spironolactone [facility] [address]-74 50 MG Orally Once a day Jun 22, 2015 1 tablet Mirena [facility] [address]-84 20 mcg/24 hr (5 years) Jun 16, 2014 not defined Procedures Procedure Coding System Code Date Office Visit, Est Pt., Level 3 CPT-4 13364 Jun 30, 2015 Vital Signs Date/Time: Jun 30, 2015 Temperature 98.1 F Weight 256.4 lbs Height 65 in BMI 42.66 Index Blood Pressure Diastolic 84 mmHg Blood Pressure Systolic 122 mmHg Cardiac Monitoring Heart Rate 92 bpm BMIPercentile 98.87 % Wt Percentile 99.43 % Results No Known Results Summary Purpose eClinicalWorks Submission
--- OUTSIDE RECORDS SUMMARY | 2018-08-01 21:43 | XMS REPORT ---
Author Author SUNNY TERRELL Organization e[employer] Address Unknown Phone Unavailable Care Team Providers Care Parts Cataloger Name Role Phone SUNNY TERRELL CP Unavailable Allergies, Adverse Reactions, Alerts Substance Reaction Event Type Metformin HCl pt passes out Drug Allergy Problems Problem Type Condition Code Onset Dates Condition Status Problem Contact dermatitis and other eczema, due to unspecified cause 692.9 Active Problem Other general counseling and advice for contraceptive management V25.09 Active Problem Encounter for insertion of intrauterine contraceptive device V25.11 Active Problem Encounter for long-term (current) use of other medications V58.69 Active Problem Routine infant or child health check V20.2 Active Problem Bipolar mood disorder 296.80 Active Problem Surveillance of previously prescribed intrauterine contraceptive device V25.42 Active Problem Screening examination for venereal disease V74.5 Active Problem Essential hypertension, benign 401.1 Active Problem Acute sinusitis, unspecified 461.9 Active Assessment Dental examination Z01.20 Active Problem Generalized anxiety disorder 300.02 Active Problem Nondependent tobacco use disorder 305.1 Active Medications Medication Code System Code Instructions Start Date End Date Status Dosage Lamictal [facility] [address]-04 25 MG Orally 2 tabs at HS August 11, 2014 2 Tablets Mirena [facility] [address]-64 20 mcg/24 hr (5 years) Jun 16, 2014 not defined Procedures Procedure Coding System Code Date INTRAORL-PERIAPICAL 1 FILM 27509 CPT-4 D0220 Mar 22, 2015 BITEWING - SINGLE FILM CPT-4 D0270 Mar 22, 2015 LTD ORAL EVALUATION - PROBLEM FOCUS CPT-4 D0140 Mar 22, 2015 OCCLUSAL ADJUSTMENT - LIMITED CPT-4 D9951 Mar 22, 2015 Vital Signs Date/Time: Mar 22, 2015 Blood Pressure Diastolic 82 mmHg Blood Pressure Systolic 132 mmHg Height 65 in Results No Known Results Summary Purpose eClinicalWorks Submission
--- OUTSIDE RECORDS SUMMARY | 2018-08-01 21:44 | XMS REPORT ---
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 Name Role Phone ELIEZER LOZANO Unavailable Unavailable PROBLEMS Type Condition ICD9-CM Code UXM65-ZT Code Onset Dates Condition Status SNOMED Code Problem Bipolar mood disorder F31.9 Active 15480855 Problem BMI 40.0-44.9, adult Z68.41 Active 925307934 Problem Depression, unspecified depression type F32.9 Active 52883914 Problem Missed period N92.6 Active 61011447 Problem Seasonal allergic rhinitis, unspecified allergic rhinitis trigger J30.2 Active 265996708 Problem Legg-Perthes disease, 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 732699165 Problem Surveillance for control, intrauterine device Z30.431 Active 604503470 Problem Encounter for routine adult health examination with abnormal findings Z00.01 Active 655080674 Problem Non-compliant behavior R46.89 Active 207443950 Problem Female hirsutism L68.0 Active 20355505 Problem Essential hypertension I10 Active 13298860 Problem Nondependent tobacco use disorder Z72.0 Active 51110690 Problem Generalized anxiety disorder F41.1 Active 568393996 Problem Migraine without aura and without status migrainosus, not intractable G43.009 Active 609087403 Problem Morbid (severe) obesity due to excess calories E66.01 Active 521167932 ALLERGIES Substance Reaction Event Type Date Status Metformin HCl BS drops Drug Allergy Nov, Active ENCOUNTERS Encounter Location Date Diagnosis [facility] [address] [facility] [id number] [id number] Dec, Dental examination Z01.20 [facility] [address] [facility] [id number] [id number] Dec, Acute non-recurrent pansinusitis J01.40 [facility] [address] [id number] [id number] Nov, Dental examination Z01.20 [facility] [place] [id number] [place] [address] Oct, Missed period N92.6 ; Dysuria R30.0 and Seasonal allergic rhinitis, unspecified allergic rhinitis trigger J30.[address] [address] Jul, Generalized anxiety disorder F41.1 ; BMI 40.0-44.9, adult Z68.41 ; Female hirsutism L68.0 ; Encounter for routine adult health examination with abnormal findings Z00.01 and Legg-Perthes disease, 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 [place] [address] [address] 15 Jun, [address] [address] 07 Jun, 2016 Routine gynecological examination Z01.419 and Contraception , device intrauterine, checking Z30.[address] [address] 03 Jun, 2016 Morbid (severe) obesity due to excess calories E66.01 [place] [address] [address] May, Generalized anxiety disorder F41.1 ; Bipolar mood disorder F31.9 ; BMI 40.0-44.9, adult Z68.41 and Female hirsutism L68.0 [place] [address] [address] Apr, Morbid (severe) obesity due to excess calories E66.01 and Acute non-recurrent frontal sinusitis J01.10 [place] [address] [address] Mar, Acute bronchitis, unspecified organism J20.9 ; Bipolar mood disorder F31.9 ; BMI 40.0-44.9, adult Z68.41 and Female hirsutism L68.0 [facility] [place] [address] [address] 04 Mar, 2016 Bronchitis J40 [place] [id number] [place] [address] 14 Feb, 2016 Morbid (severe) obesity due to excess calories E66.01 ; Bipolar mood disorder F31.9 and Female hirsutism L68.0 [place] [id number] [place] [address] 16 Jan, 2016 Morbid (severe) obesity due to excess calories E66.01 [place] [id number] [place] [address]847[address] 0[address] Dec, BMI 40.0-44.9, adult Z68.41 ; Bipolar mood disorder F31.9 ; Generalized anxiety disorder F41.1 ; Female hirsutism L68.0 and Non-compliant behavior R46.89 [place] [id number] [place] [address] 6[address] Nov, Morbid (severe) obesity due to excess calories E66.01 [place] [id number] [place] [address] Oct, BMI 40.0-44.9, adult Z68.41 ; Morbid (severe) obesity due to excess calories E66.01 and Bipolar mood disorder F31.9 [place] [address] [place] [address] September, [place] [id number] [place] [address] September, Morbid (severe) obesity due to excess calories E66.01 [place] [id number] [place] [address]- 69[address] Aug, Generalized anxiety disorder F41.1 ; Nondependent tobacco use disorder Z72.0 and BMI 40.0-44.9, adult Z68.41 [place] [id number] [place] [address]- [address] Aug, [place] [address] [place] [address]- 360[address] Jul, Bipolar mood disorder F31.9 [place] [id number] [place] [address] 18555- 5172 Jul, Back pain M54.9 [facility] [address] [address] Jul, Pain in right knee M25.561 [place] [address] [address]- [address] Jul, [place] [address] [address]- [address] Jul, Generalized anxiety disorder F41.1 ; BMI 40.0-44.9, adult Z68.41 ; Female hirsutism L68.0 ; Morbid (severe) obesity due to excess calories E66.01 and Back injury, initial encounter S39.92XA [place] [id number] [place] [address]- 98[address] Jul, Female hirsutism L68.0 ; BMI 40.0-44.9, adult Z68.41 and Tobacco use Z72.0 [place] [id number] [place] [address]96- [address]142 Jun, Family history of diabetes mellitus Z83.3 [place] [id number] [place] [address]- 4147 Jun, Tobacco use Z72.0 ; Family history of hypertension Z82.49 ; BMI 40.0-44.9, adult Z68.41 ; Female hirsutism L68.0 ; Elevated blood pressure I10 ; Family history of diabetes mellitus Z83.3 ; High risk sexual behavior Z72.51 ; History of self-harm Z91.5 ; Family history of thalassemia Z83.2 and Anxiety F41.9 [place] [address] [address]- [address] Jun, Well woman exam Z01.419 ; BMI 40.0-44.9, adult Z68.41 ; Family history of diabetes mellitus Z83.3 and Other fatigue R53.83 [facility] [address] [place] [address] May, Well woman exam Z01.419 ; Surveillance [...] Z91.5 and Family history of thalassemia Z83.2 [facility] [address] [address]- [address] May, Bipolar affective disorder F31.9 and NICHOLAS (generalized anxiety disorder) F41.1 [place] [id number] [place] [address] Mar, Bipolar affective disorder F31.9 ; Generalized anxiety disorder F41.1 and ADHD (attention deficit hyperactivity disorder), combined type F90.2 [facility] [address] [place] [id number] Feb, Dental examination Z01.20 [facility] [address] [address] Jan, [place] [id number] [place] [address]80[address] Jan, Rash 782.[address] [address]- [address] Jan, Bipolar mood disorder 296.80 ; Generalized anxiety disorder 300.02 and ADHD, 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 [facility] [address] [id number] [address] Nov, URI, acute 465.9 [facility] [address] [address] Aug, [facility] [id number] [place] [address]90- 7716 Aug, [facility] [address] [address] Jul, [facility] [id number] [place] [address] 76606- 7556 Jul, [facility] [address] [address]- [address] Jul, [facility] [address] [place] [address]90- 5536 Jul, [facility] [address] [address]- 8[address] Jul, [facility] [address] [id number] [address] Jul, [facility] [address] [address] Jul, [facility] [address] [address] Jul, [facility] [address] [address]- [address] Jul, [facility] [address] [address]- [address] Jul, [facility] [address] [id number] [address] Jun, [facility] [id number] [place] [address]- [address] Jun, [facility] [address] [id number] [place] [address]- 3926 Jun, [facility] [place] [facility] [address] [id number] [place] [address]- 2546 Jun, [facility] [place] [facility] [address] [id number] [place] [address]- 9326 May, [facility] [place] [facility] [address] [id number] [place] [address]- 5426 May, [facility] [place] [facility] [address] [id number] [place] [address]- 2301 May, [facility] [place] [facility] [address] [id number] [place] [address]- 0405 May, [facility] [place] [facility] [address] [id number] [place] [address]- 4052 May, [facility] [address] [id number] [place] [address]- 5566 May, [facility] [place] [facility] [address] [id number] [place] [address]- 1811 May, [facility] [place] [facility] [address] [id number] [place] [address]- 3758 May, [facility] [place] [facility] [address] [id number] [place] [address]- 4827 May, [facility] [place] [facility] [address] [id number] [place] [address]- 1332 May, [facility] [place] [facility] [address] [id number] [place] [address]- 8004 May, [facility] [place] [facility] [address] [id number] [place] [address]- 1476 May, [facility] [place] [facility] [address] [id number] [place] [address]- 4288 May, [facility] [place] [facility] [address] [id number] [place] [address]- 4137 May, [facility] [place] [facility] [address] [id number] [place] [address]- 7657 May, [facility] [place] [facility] [address] [id number] [place] [address]- 5231 May, [facility] [place] [facility] [address] [id number] [place] [address]- 8875 May, [facility] [place] [facility] [address] [id number] [place] [address]- 8653 May, [facility] [place] [facility] [address] [id number] [place] [address]- 4133 Apr, [facility] [place] [facility] [address] [id number] [place] [address]- 4494 Apr, [facility] [place] [facility] [address] [id number] [place] [address]- 5833 Mar, [facility] [place] [facility] [address] [id number] [place] [address]- 9272 Mar, [facility] [place] [facility] [address] [id number] [place] [address]- 9384 Mar, [facility] [place] [facility] [address] [id number] [place] [address]- 5000 Mar, [facility] [place] [facility] [address] [id number] [place] [address]- 3960 Mar, [facility] [place] [facility] [address] [id number] [place] [address]- 3879 Mar, [facility] [place] [facility] [address] [id number] [place] [address]- 0948 Mar, [facility] [place] [facility] [address] [id number] [place] [address]- 3778 Mar, [facility] [place] [facility] [address] [id number] [place] [address]- 8899 Mar, [facility] [place] [facility] [address] [id number] [place] [address]- 0922 Mar, [facility] [place] [facility] [address] [id number] [place] [address]- 8021 Feb, [facility] [place] [facility] [address] [id number] [place] [address]- 6616 Feb, [facility] [place] [facility] [address] [id number] [place] [address]- 2616 Feb, [facility] [place] [facility] [address] [id number] [place] [address]- 8809 Feb, [facility] [place] [facility] [address] [id number] [place] [address]- 2632 Dec, [facility] [place] [facility] [address] [id number] [place] [address]- 8605 Dec, [facility] [place] [facility] [address] [id number] [place] [address]- 6463 Oct, [facility] [place] [facility] [address] [id number] [place] [address]- 1966 Oct, [facility] [place] [facility] [address] [id number] [place] [address]- 2780 Oct, [facility] [place] [facility] [address] [id number] [place] [address]- 1076 Oct, [facility] [place] [facility] [address] [id number] [address]- 9290 September, [facility] [place] [facility] [address] [id number] [place] [address]- 9796 September, [facility] [place] [facility] [address] [id number] [place] [address]- 8169 Aug, [facility] [place] [facility] [address] [id number] [place] [address]- 2934 Aug, [facility] [place] [facility] [address] [id number] [place] [address]- 6454 Mar, [facility] [address] [id number] [place] [address]- 8165 Mar, [facility] [place] [facility] [address] [id number] [place] [address]- 8226 Dec, [facility] [place] [facility] [address] [id number] [place] [address]- 6521 Nov, [facility] [place] [facility] [address] [id number] [place] [address]- 1876 Oct, [facility] [place] [facility] [address] [id number] [place] [address]- 4777 September, [facility] [address] [id number] [place] [address]- 7442 September, [facility] [address] [id number] [place] [address]- 5398 September, [facility] [address] [id number] [place] [address]- 2466 Aug, [facility] [address] [id number] [place] [address]- 2663 Aug, [facility] [address] [id number] [place] [address]- 0908 Jul, [facility] [place] [facility] [address] [id number] [place] [address]- 6839 Jul, [facility] [place] [facility] [address] [id number] [place] [address]- 3592 Jul, [facility] [place] [facility] [address] [id number] [place] [address]- 3533 Jun, [facility] [place] [facility] [address] [id number] [place] [address]- 2545 May, [facility] [place] [facility] [address] [id number] [place] [address]- 6008 Apr, [facility] [address] [facility] [id number] [place] [address]- 2546 Apr, [facility] [address] [facility] [id number] [place] [address]- 2546 Feb, IMMUNIZATIONS No Known Immunizations SOCIAL HISTORY Never Assessed REASON FOR VISIT prophy renato PLAN OF CARE Activity Details Follow Up lucero Reason:renato VITAL SIGNS Blood pressure systolic 126 mmHg 2016-12-18 Blood pressure diastolic 90 mmHg 2016-12-18 MEDICATIONS Medication Instructions Dosage Frequency Start Date End Date Duration Status Sertraline HCl 25 MG Orally Once a day 1 tablet 24h 23 Oct, 2015 90 days Active Spironolactone 100 MG Orally Once a day 1 tablet 24h May, 90 days Active Wellbutrin 100 MG Orally Twice a day 1 tablet 12h 90 days Active RESULTS No Results PROCEDURES Procedure Date Ordered Result Body Site INTRAORL-PERIAPICAL 1 FILM 79933 December 18, 2016 INTRAORL-PERIAPICAL EA ADD FILM December 18, 2016 BITEWINGS - FOUR FILMS December 18, 2016 INTRAORL-PERIAPICAL EA ADD FILM December 18, 2016 TOPICAL FLUORIDE VARNISH December 18, 2016 PROPHYLAXIS - ADULT December 18, 2016 INSTRUCTIONS MEDICATIONS ADMINISTERED No Known Medications MEDICAL [...]
--- OUTSIDE RECORDS SUMMARY | 2018-08-01 21:44 | XMS REPORT ---
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 Problem Nondependent tobacco use disorder 305.1 Active Medications Medication Code System Code Instructions Start Date End Date Status Dosage Mirena [facility] [address]-26 20 mcg/24 hr (5 years) Jun 16, 2014 not defined Lamictal [facility] [address]-22 25 MG Orally 1 tab at HS for 14 nights, then increase to 2 tabs at HS and continue August 11, 2014 1 Tablet Procedures Procedure Coding System Code Date Office Visit, Est Pt., Level 4 CPT-4 31560 Feb 14, 2015 Vital Signs Date/Time: Feb 14, 2015 Temperature 98.0 F Weight 261.6 lbs Height 65 in BMI 43.53 Index Blood Pressure Diastolic 82 mmHg Blood Pressure Systolic 142 mmHg Cardiac Monitoring Heart Rate 92 bpm BMIPercentile 99.01 % Wt Percentile 99.46 % Results No Known Results Summary Purpose [employer] Submission
--- OUTSIDE RECORDS SUMMARY | 2018-08-01 21:44 | XMS REPORT ---
Author Author FRANCISCA JIMENEZ 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 670702173 Problem Surveillance for control, intrauterine device Z30.431 Active 433072714 Problem Encounter for routine adult health examination with abnormal findings Z00.01 Active 081799509 Problem Non-compliant behavior R46.89 Active 824630876 Problem Female hirsutism L68.0 Active 38740438 Problem Essential hypertension I10 Active 69145429 Problem Nondependent tobacco use disorder Z72.0 Active 12289089 Problem Generalized anxiety disorder F41.1 Active 687844873 Problem Migraine without aura and without status migrainosus, not intractable G43.009 Active 681579020 Problem Morbid (severe) obesity due to excess calories E66.01 Active 945188487 ALLERGIES No Information ENCOUNTERS Encounter Location Date Diagnosis [facility] [address], [place] [address] September, [facility] [address] [place] [id number] [place] [address] Aug, [facility] [address] [id number] Dec, Dental examination Z01.20 [facility] [address] [place] [address] Dec, Acute non-recurrent pansinusitis J01.40 [facility] [address] [place] [id number] Nov, Dental examination Z01.20 [facility] [address] [place] [address] Oct, Missed period N92.6 ; Dysuria R30.0 and Seasonal allergic rhinitis, unspecified allergic rhinitis trigger J30.2 [place] [address] [address] 02 Jul, 2016 Generalized anxiety disorder F41.1 ; BMI 40.0-44.9, adult Z68.41 ; Female hirsutism L68.0 ; Encounter for routine adult health examination with abnormal findings Z00.01 and Legg-Perthes disease, 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 [address] 15 Jun, [address] [address] 07 Jun, 2016 Routine gynecological examination Z01.419 and Contraception , device intrauterine, checking Z30.431 [place] [id number] [place] [address] 23[address]- 6[address] 03 Jun, 2016 Morbid (severe) obesity due to excess calories E66.01 [place] [id number] [place] [address] 25741- 7367 May, Generalized anxiety disorder F41.1 ; Bipolar mood disorder F31.9 ; BMI 40.0-44.9, adult Z68.41 and Female hirsutism L68.[address] [address] Apr, Morbid (severe) obesity due to excess calories E66.01 and Acute non-recurrent frontal sinusitis J01.[address] [address] Mar, Acute bronchitis, unspecified organism J20.9 ; Bipolar mood disorder F31.9 ; BMI 40.0-44.9, adult Z68.41 and Female hirsutism L68.0 [facility] [address] [place] [address] 04 Mar, 2016 Bronchitis J40 [facility] [id number] [place] [address] 47573- 4651 14 Feb, 2016 Morbid (severe) obesity due to excess calories E66.01 ; Bipolar mood disorder F31.9 and Female hirsutism L68.0 [facility] [id number] [place] [address] 26400- 3935 16 Jan, 2016 Morbid (severe) obesity due to excess calories E66.01 [place] [id number] [place] [address] 31178- 7277 Dec, BMI 40.0-44.9, adult Z68.41 ; Bipolar mood disorder F31.9 ; Generalized anxiety disorder F41.1 ; Female hirsutism L68.0 and Non-compliant behavior R46.89 [place] [id number] [place] [address] 89541- 9738 Nov, Morbid (severe) obesity due to excess calories E66.01 [facility] [id number] [place] [address] 87832- 4301 Oct, BMI 40.0-44.9, adult Z68.41 ; Morbid (severe) obesity due to excess calories E66.01 and Bipolar mood disorder F31.9 [facility] [address], [place] [address] September, [place] [id number] [place] [address] 97346- 9[address] September, Morbid (severe) obesity due to excess calories E66.01 [facility] [id number] [place] [address] 45892- 0715 Aug, Generalized anxiety disorder F41.1 ; Nondependent tobacco use disorder Z72.0 and BMI 40.0-44.9, adult Z68.41 [place] [address] [address]- [address] Aug, [place] [address] [address] Jul, Bipolar mood disorder F31.9 [place] [address] [address] Jul, Back pain M54.9 [facility] [address] [address] Jul, Pain in right knee M25.561 [place] [address] [address] 6[address] Jul, [address] [address] Jul, Generalized anxiety disorder F41.1 ; BMI 40.0-44.9, adult Z68.41 ; Female hirsutism L68.0 ; Morbid (severe) obesity due to excess calories E66.01 and Back injury, initial encounter S39.92XA [place] [id number] [place] [address] 29141- 3731 Jul, Female hirsutism L68.0 ; BMI 40.0-44.9, adult Z68.41 and Tobacco use Z72.0 [place] [id number] [place] [address] 45692- 3049 Jun, Family history of diabetes mellitus Z83.[address] [address]- 1349 Jun, 2016 Tobacco use Z72.0 ; Family history of hypertension Z82.49 ; BMI 40.0-44.9, adult Z68.41 ; Female hirsutism L68.0 ; Elevated blood pressure I10 ; Family history of diabetes mellitus Z83.3 ; High risk sexual behavior Z72.51 ; History of self-harm Z91.5 ; Family history of thalassemia Z83.2 and Anxiety F41.9 [place] [address] [place] [address] 05228- 7381 02 Jun, 2015 Well woman exam Z01.419 ; BMI 40.0-44.9, adult Z68.41 ; Family history of diabetes mellitus Z83.3 and Other fatigue R53.83 [place] [id number] [place] [address] 31753- 2067 28 May, 2015 Well woman exam Z01.419 [...] Z91.5 and Family history of thalassemia Z83.[address] [place] [address] 09056- 8275 May, Bipolar affective disorder F31.9 and NICHOLAS (generalized anxiety disorder) F41.1 [address] [place] [address] 24717- 6731 Mar, Bipolar affective disorder F31.9 ; Generalized anxiety disorder F41.1 and ADHD (attention deficit hyperactivity disorder), combined type F90.2 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 [facility] [address], [place] [address] Nov, URI, acute 465.9 [facility] [id number] [place] [address] 82203 2546 14 Aug, 2014 [facility] [id number] [place] [address] 68128- 7096 Aug, [facility] [id number] [place] [address] Jul, [facility] [id number] [place] [address] 43667- 0726 Jul, [facility] [address], [place] [address] Jul, [facility] [address] [place] [address] Jul, [facility] [address], [place] [address] Jul, [facility] [address], [place] [address] Jul, [facility] [address], [place] [address] Jul, [facility] [address] [place] [address] Jul, [facility] [address], [place] [address] Jul, [facility] [address], [place] [address] Jul, [facility] [place] [facility] [address] [id number] [place] [address] 3[address] Jun, [facility] [place] [facility] [address] [id number] [place] [address]- 2212 Jun, [facility] [place] [facility] [address] [id number] [place] [address]- 5566 Jun, [facility] [place] [facility] [address] [id number] [place] [address]- 5924 Jun, [facility] [place] [facility] [address] [id number] [place] [address]- 6428 May, [facility] [place] [facility] [address] [id number] [place] [address]- 0892 May, [facility] [place] [facility] [address] [id number] [place] [address]- 6338 May, [facility] [place] [facility] [address] [id number] [place] [address]- 4525 May, [facility] [place] [facility] [address] [id number] [place] [address]- 8910 May, [facility] [place] [facility] [address] [id number] [place] [address]- 2469 May, [facility] [place] [facility] [address] [id number] [place] [address]- 2524 May, [facility] [place] [facility] [address] [id number] [place] [address]- 7605 May, [facility] [place] [facility] [address] [id number] [place] [address]- 2861 May, [facility] [place] [facility] [address] [id number] [place] [address]- 0777 May, [facility] [place] [facility] [address] [id number] [place] [address]- 6135 May, [facility] [place] [facility] [address] [id number] [place] [address]- 2166 May, [facility] [place] [facility] [address] [id number] [place] [address]- 9855 May, [facility] [place] [facility] [address] [id number] [place] [address]- 0306 May, [facility] [place] [facility] [address] [id number] [place] [address]- 2605 May, [facility] [place] [facility] [address] [id number] [place] [address]- 1076 May, [facility] [place] [facility] [address] [id number] [place] [address]- 6546 May, [facility] [place] [facility] [address] [id number] [place] [address]- 5568 May, [facility] [place] [facility] [address] [id number] [place] [address]- 0994 Apr, [facility] [place] [facility] [address] [id number] [place] [address]- 1922 Apr, [facility] [place] [facility] [address] [id number] [place] [address]- 3540 Mar, [facility] [place] [facility] [address] [id number] [place] [address]- 1519 Mar, [facility] [place] [facility] [address] [id number] [place] [address]- 0523 Mar, [facility] [place] [facility] [address] [id number] [place] [address]- 3384 Mar, [facility] [place] [facility] [address] [id number] [place] [address]- 5960 Mar, [facility] [place] [facility] [address] [id number] [place] [address]- 7174 Mar, [facility] [place] [facility] [address] [id number] [place] [address]- 1901 Mar, [facility] [place] [facility] [address] [id number] [place] [address]- 7564 Mar, [facility] [place] [facility] [address] [id number] [place] [address]- 1170 Mar, [facility] [place] [facility] [address] [id number] [place] [address]- 3452 Mar, [facility] [place] [facility] [address] [id number] [place] [address]- 0047 Feb, [facility] [place] [facility] [address] [id number] [place] [address]- 8859 Feb, [facility] [place] [facility] [address] [id number] [place] [address]- 5589 Feb, [facility] [place] [facility] [address] [id number] [place] [address]- 1749 Feb, [facility] [place] [facility] [address] [id number] [place] [address]- 1856 Dec, [facility] [place] [facility] [address] [id number] [place] [address]- 8506 Dec, [facility] [place] [facility] [address] [id number] [place] [address]- 3574 Oct, [facility] [place] [facility] [address] [id number] [place] [address]- 7991 Oct, [facility] [place] [facility] [address] [id number] [place] [address]- 0708 Oct, [facility] [place] [facility] [address] [id number] [place] [address]- 1735 Oct, [facility] [place] [facility] [address] [id number] [place] [address]- 2816 September, [facility] [place] [facility] [address] [id number] [place] [address]- 7242 September, [facility] [place] [facility] [address] [id number] [place] [address]- 0110 Aug, [facility] [address] [id number] [place] [address]- 4293 Aug, [facility] [place] [facility] [address] [id number] [place] [address]- 1342 Mar, [facility] [place] [facility] [address] [id number] [place] [address]- 0053 Mar, [facility] [place] [facility] [address] [id number] [place] [address]- 6627 Dec, [facility] [place] [facility] [address] [id number] [place] [address] Nov, [facility] [place] [facility] [address] [id number] [place] [address]- 6933 Oct, [facility] [place] [facility] [address] [id number] [place] [address]- 7006 September, [facility] [place] [facility] [address] [id number] [place] [address]- 4778 September, [facility] [place] [facility] [address] [id number] [place] [address]- 6541 September, [facility] [place] [facility] [address] [id number] [place] [address]- 1703 Aug, [facility] [place] [facility] [address] [id number] [place] [address]- 5401 Aug, [facility] [place] [facility] [address] [id number] [place] [address]- 9875 Jul, [facility] [place] [facility] [address] [id number] [place] [address]- 1856 Jul, [facility] [place] [facility] [address] [id number] [place] [address]- 4863 Jul, [facility] [place] [facility] [address] [id number] [place] [address]- 4560 Jun, [facility] [place] [facility] [address] [facility] [id number] [place] [address]- 5053 May, [facility] [address] [facility] [id number] [place] [address] Apr, [facility] [address] [facility] [id number] [place] [address]- 9391 Apr, [facility] [address] [facility] [id number] Feb, IMMUNIZATIONS No Known Immunizations SOCIAL HISTORY Never Assessed REASON FOR VISIT EMORY PLAN OF CARE VITAL SIGNS MEDICATIONS Unknown Medications RESULTS No Results PROCEDURES Procedure Date Ordered Result Body Site COMP ORAL EVALUATION - NEW/EST PT Jan 07, 2017 INSTRUCTIONS MEDICATIONS ADMINISTERED No Known Medications [...]
--- OUTSIDE RECORDS SUMMARY | 2018-08-01 21:44 | XMS REPORT ---
Author Author NIMA DEL ANGEL [facility] eClinicalWorks Address Unknown Phone Unavailable Care Team Providers Care Interpretative Dancer Name Role Phone NIMA DEL ANGEL CP [...] Problem Generalized anxiety disorder F41.1 Active Assessment Non-compliant behavior R46.89 Active Assessment Bipolar mood disorder F31.9 Active Assessment BMI 40.0-44.9, adult Z68.41 Active Assessment Female hirsutism L68.0 Active Problem Morbid (severe) obesity due to excess calories E66.01 Active Assessment Generalized anxiety disorder F41.1 Active Problem Depression, unspecified depression type F32.9 Active Medications Medication Code System Code Instructions Start Date End Date Status Dosage Diethylpropion HCl [facility] [address]-28 75 MG Orally Once a day Jan 11, 2016 Take one tablet mid morning after sensible breakfast Vitamin B Complex [facility] 44869-81548 Jun 08, 2014 1 capsule by Oral route 1 time per day Multi-Vitamin Daily [facility] 54909-28379 Orally Once a day 1 tablet Spironolactone [facility] [address]-11 100 MG Orally Once a day Jun 22, 2015 1 tablet Sertraline HCl [facility] [address]-89 25 MG Orally Once a day November 16, 2015 1 tablet Mirena ND 0 20 mcg/24 hr (5 years) Jun 16, 2014 not defined Wellbutrin [facility] [address]-98 100 MG Orally Twice a day 1 tablet Procedures Procedure Coding System Code Date Office Visit, Est Pt., Level 3 CPT-4 76697 Jan 11, 2016 Vital Signs Date/Time: Jan 11, 2016 Blood Pressure Systolic 140 mmHg Weight 255.1 lbs Height 65 in BMIPercentile 98.72 % Wt Percentile 99.46 % BMI 42.45 Index Blood Pressure Diastolic 86 mmHg Results No Known Results Summary Purpose eClinicalWorks Submission
--- OUTSIDE RECORDS SUMMARY | 2018-08-01 21:44 | XMS REPORT ---
Author Author GEOVANY GREEN [facility] eClinicalWorks Address Unknown Phone Unavailable Care Team Providers Care Legal Recovery Specialist Name Role Phone GEOVANY GREEN CP Unavailable Allergies, Adverse Reactions, Alerts Substance [...] Problem Generalized anxiety disorder F41.1 Active Assessment Bronchitis J40 Active Problem Morbid (severe) obesity due to excess calories E66.01 Active Problem Depression, unspecified depression type F32.9 Active Medications Medication Code System Code Instructions Start Date End Date Status Dosage Vitamin B Complex [facility] [address]898 Jun 08, 2014 1 capsule by Oral route 1 time per day Wellbutrin NDC 0 100 MG Orally Twice a day 1 tablet Sertraline HCl [facility] [address]-07 25 MG Orally Once a day November 16, 2015 1 tablet Mirena NDC 0 20 mcg/24 hr (5 years) Jun 16, 2014 not defined PredniSONE [facility] [address]-92 20 MG Orally Once a day Mar 29, 2016 Apr 03, 2016 2 tablet Multi-Vitamin Daily [facility] 85097-46081 Orally Once a day 1 tablet Diethylpropion HCl [facility] [address]-47 75 MG Orally Once a day Jan 11, 2016 Take one tablet mid morning after sensible breakfast Spironolactone [facility] [address]-07 100 MG Orally Once a day Jun 22, [address] [facility] [address]-69 250 MG Orally Once a day Mar 29, 2016 Apr 03, 2016 2 tablets on the first day, then 1 tablet daily for 4 days Procedures Procedure Coding System Code Date Office Visit, Est Pt., Level 3 CPT-4 91473 Mar 29, 2016 Vital Signs Date/Time: Mar 29, 2016 Cardiac Monitoring Heart Rate 108 bpm Weight 248.8 lbs Height 65 in Wt Percentile 99.38 % BMI 41.40 Index Blood Pressure Diastolic 92 mmHg Blood Pressure Systolic 128 mmHg BMIPercentile 98.56 % Results No Known Results Summary Purpose eClinicalWorks Submission
--- OUTSIDE RECORDS SUMMARY | 2018-08-01 21:44 | XMS REPORT ---
Author Author NIMA DEL ANGEL Organization [facility] [place] [facility] Address [address] [place] [address] Care Team Providers Care Cleaning Staff Supervisor Name Role Phone NIMA DEL ANGEL Unavailable PROBLEMS Type Condition ICD9-CM Code UQO04-MX Code Onset Dates Condition Status SNOMED Code Problem Bipolar mood disorder F31.9 Active 51892585 Problem BMI 40.0-44.9, adult Z68.41 Active 337258517 Problem Depression, unspecified depression type F32.9 Active 24673458 Problem Missed period N92.6 Active 01761177 Problem Seasonal allergic rhinitis, unspecified allergic rhinitis trigger J30.2 Active 566955660 Problem Legg-Perthes disease, 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 199361077 Problem Surveillance for control, intrauterine device Z30.431 Active 532793505 Problem Encounter for routine adult health examination with abnormal findings Z00.01 Active 106080415 Problem Non-compliant behavior R46.89 Active 731476899 Problem Female hirsutism L68.0 Active 28697064 Problem Essential hypertension I10 Active 59810697 Problem Nondependent tobacco use disorder Z72.0 Active 06965204 Problem Generalized anxiety disorder F41.1 Active 090669018 Problem Migraine without aura and without status migrainosus, not intractable G43.009 Active 014945146 Problem Morbid (severe) obesity due to excess calories E66.01 Active 790376670 ALLERGIES Substance Reaction Event Type Date Status Metformin HCl BS drops Drug Allergy May, Active SOCIAL HISTORY No smoking Hx information available PLAN OF CARE Activity Details Follow Up 4 Weeks Reason:weight management VITAL SIGNS Height 65 in 2016-05-31 Weight 259 lbs 2016-05-31 Temperature 97.7 degrees Fahrenheit 2016-05-31 Heart Rate 90 bpm 2016-05-31 Respiratory Rate 20 2016-05-31 BMI 43.10 kg/m2 2016-05-31 Blood pressure systolic 130 mmHg 2016-05-31 Blood pressure diastolic 80 mmHg 2016-05-31 MEDICATIONS Medication Instructions Dosage Frequency Start Date End Date Duration Status Diethylpropion HCl 75 MG Orally Once a day Take one tablet mid morning after sensible breakfast 24h Dec, Jun, 30 days Active Spironolactone 100 MG Orally Once a day 1 tablet 24h May, 90 days Active Mirena 20 mcg/24 hr (5 years) May, Active Sertraline HCl 25 MG Orally Once a day 1 tablet 24h Oct, 90 days Active Wellbutrin 100 MG Orally Twice a day 1 tablet 12h 90 days Active RESULTS No Results PROCEDURES Procedure Date Ordered Related Diagnosis Body Site Office Visit, Est Pt., Level 3 May 31, 2016 IMMUNIZATIONS No Known Immunizations
--- OUTSIDE RECORDS SUMMARY | 2018-08-01 21:45 | XMS REPORT ---
Author Author NILA GALVAN Organization [facility] Address [address] [place] [address] Care Team Providers Care Wildlife Technician Name Role Phone NILA GALVAN Unavailable PROBLEMS Type Condition ICD9-CM Code LYX13-TD Code Onset Dates Condition Status SNOMED Code Problem Bipolar mood disorder F31.9 Active 42469929 Problem BMI 40.0-44.9, adult Z68.41 Active 429882580 Problem Depression, unspecified depression type F32.9 Active 73781038 Problem Missed period N92.6 Active 31138881 Problem Seasonal allergic rhinitis, unspecified allergic rhinitis trigger J30.2 Active 455623944 Problem Legg-Perthes disease, 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 305295417 Problem Surveillance for control, intrauterine device Z30.431 Active 124616786 Problem Encounter for routine adult health examination with abnormal findings Z00.01 Active 615837402 Problem Non-compliant behavior R46.89 Active 546993288 Problem Female hirsutism L68.0 Active 27112629 Problem Essential hypertension I10 Active 22308669 Problem Nondependent tobacco use disorder Z72.0 Active 94348616 Problem Generalized anxiety disorder F41.1 Active 252350274 Problem Migraine without aura and without status migrainosus, not intractable G43.009 Active 578397957 Problem Morbid (severe) obesity due to excess calories E66.01 Active 630532885 ALLERGIES Substance Reaction Event Type Date Status Metformin HCl BS drops Drug Allergy Jul, Active ENCOUNTERS Encounter Location Date Diagnosis [facility] [address] [id number] Dec, Dental examination Z01.20 [facility] [id number], [place] [address] 12 Dec, 2016 Acute non-recurrent pansinusitis J01.40 [facility] [address] [place] [id number] Nov, Dental examination Z01.20 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 [id number] [place] [address] 15 Jun, [address] [address] 07 Jun, 2016 Routine gynecological examination Z01.419 and Contraception , device intrauterine, checking Z30.[address] [address] 03 Jun, 2016 Morbid (severe) obesity due to excess calories E66.01 [address] [place] [address] May, Generalized anxiety disorder F41.1 ; Bipolar mood disorder F31.9 ; BMI 40.0-44.9, adult Z68.41 and Female hirsutism L68.0 [id number] [place] [address] Apr, Morbid (severe) obesity due to excess calories E66.01 and Acute non-recurrent frontal sinusitis J01.10 [place] [id number] [place] [address] Mar, Acute bronchitis, unspecified organism J20.9 ; Bipolar mood disorder F31.9 ; BMI 40.0-44.9, adult Z68.41 and Female hirsutism L68.0 [facility] [address], [place] [address] 04 Mar, 2016 Bronchitis J40 [facility] [address] [place] [address] 14 Feb, 2016 Morbid (severe) obesity due to excess calories E66.01 ; Bipolar mood disorder F31.9 and Female hirsutism L68.0 [facility] [address] [place] [address]- 2014 16 Jan, 2016 Morbid (severe) obesity due to excess calories E66.01 [place] [address] [place] [address] Dec, BMI 40.0-44.9, adult Z68.41 ; Bipolar mood disorder F31.9 ; Generalized anxiety disorder F41.1 ; Female hirsutism L68.0 and Non-compliant behavior R46.89 [facility] [address], [place] [address] Nov, Morbid (severe) obesity due to excess calories E66.01 [address] [address], [place] [address] Oct, BMI 40.0-44.9, adult Z68.41 ; Morbid (severe) obesity due to excess calories E66.01 and Bipolar mood disorder F31.9 [place] [address], [place] [address] September, [place] [address] [place] [address] September, Morbid (severe) obesity due to excess calories E66.01 [address] [address] [place] [address] 110[address] Aug, Generalized anxiety disorder F41.1 ; Nondependent tobacco use disorder Z72.0 and BMI 40.0-44.9, adult Z68.41 [place] [id number] [place] [address] Aug, [place] [id number] [place] [address] Jul, Bipolar mood disorder F31.9 [place] [id number] [place] [address]15[address] Jul, Back pain M54.9 [facility] [address] [address] Jul, Pain in right knee M25.561 [place] [address] [address] Jul, [place] [address] [address] Jul, Generalized anxiety disorder F41.1 ; BMI 40.0-44.9, adult Z68.41 ; Female hirsutism L68.0 ; Morbid (severe) obesity due to excess calories E66.01 and Back injury, initial encounter S39.92XA [place] [id number] [place] [address] Jul, Female hirsutism L68.0 ; BMI 40.0-44.9, adult Z68.41 and Tobacco use Z72.0 [place] [id number] [place] [address]- 77[address] Jun, Family history of diabetes mellitus Z83.3 [place] [id number] [place] [address]27- 68[address] 05 Jun, 2015 Tobacco use Z72.0 ; Family history of hypertension Z82.49 ; BMI 40.0-44.9, adult Z68.41 ; Female hirsutism L68.0 ; Elevated blood pressure I10 ; Family history of diabetes mellitus Z83.3 ; High risk sexual behavior Z72.51 ; History of self-harm Z91.5 ; Family history of thalassemia Z83.2 and Anxiety F41.9 [place] [id number] [place] [address] 02 Jun, 2015 Well woman exam Z01.419 ; BMI 40.0-44.9, adult Z68.41 ; Family history of diabetes mellitus Z83.3 and Other fatigue R53.83 [place] [id number] [place] [address] May, Well woman exam Z01.419 ; Surveillance [...] Z91.5 and Family history of thalassemia Z83.2 [place] [address] [address] May, Bipolar affective disorder F31.9 and NICHOLAS (generalized anxiety disorder) F41.1 [id number] [place] [address] Mar, Bipolar affective disorder F31.9 ; Generalized anxiety disorder F41.1 and ADHD (attention deficit hyperactivity disorder), combined type F90.2 [facility] [address] [place] [id number] Feb, Dental examination Z01.20 [place] [id number] [place] [address] Jan, [place] [id number] [place] [address]- [address] Jan, Rash 782.1 [place] [address] [place] [address] 22 Jan, 2015 Bipolar mood disorder 296.80 ; Generalized anxiety disorder 300.02 and ADHD, 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 [facility] [address] [address] 29 Nov, 2014 URI, acute 465.9 [facility] [address] [place] [address] 14 Aug, 2014 [facility] [id number] [place] [address] 2546 Aug, [facility] [id number] [place] [address], [place] [address] Jul, [facility] [address], [place] [address] Jul, [facility] [address], [place] [address] Jul, [facility] [address], [place] [address] Jul, [facility] [address], [place] [address] Jul, [facility] [address], [place] [address] Jul, [facility] [address], [place] [address] Jul, [facility] [address], [place] [address] Jul, [facility] [id number], [place] [address] Jul, [facility] [address], [place] [address] Jul, [facility] [address], [place] [address] Jun, [facility] [place] [facility] [address] [id number] [place] [address] Jun, [facility] [place] [facility] [address] [id number] [place] [address] 0151 Jun, [facility] [place] [facility] [address] [id number] [place] [address]- 3087 Jun, [facility] [place] [facility] [address] [id number] [place] [address]- 6131 May, [facility] [place] [facility] [address] [id number] [place] [address]- 1477 May, [facility] [place] [facility] [address] [id number] [place] [address]- 5273 May, [facility] [place] [facility] [address] [id number] [place] [address]- 7803 May, [facility] [place] [facility] [address] [id number] [place] [address]- 8301 May, [facility] [place] [facility] [address] [id number] [place] [address]- 2661 May, [facility] [place] [facility] [address] [id number] [place] [address]- 0136 May, [facility] [place] [facility] [address] [id number] [place] [address]- 3958 May, [facility] [place] [facility] [address] [id number] [address] May, [facility] [place] [facility] [address] [id number] [place] [address]- 4200 May, [facility] [place] [facility] [address] [id number] [place] [address]- 4630 May, [facility] [place] [facility] [address] [id number] [place] [address]- 7005 May, [facility] [place] [facility] [address] [id number] [place] [address]- 9142 May, [facility] [place] [facility] [address] [id number] [place] [address]- 1977 May, [facility] [place] [facility] [address] [id number] [place] [address]- 9367 May, [facility] [place] [facility] [address] [id number] [place] [address]- 3828 May, [facility] [place] [facility] [address] [id number] [place] [address]- 0817 May, [facility] [place] [facility] [address] [id number] [place] [address]- 2475 May, [facility] [place] [facility] [address] [id number] [place] [address]- 9824 Apr, [facility] [place] [facility] [address] [id number] [place] [address]- 1333 Apr, [facility] [place] [facility] [address] [id number] [place] [address]- 6487 Mar, [facility] [place] [facility] [address] [id number] [place] [address]- 1996 Mar, [facility] [place] [facility] [address] [id number] [place] [address]- 3204 Mar, [facility] [place] [facility] [address] [id number] [place] [address]- 0843 Mar, [facility] [place] [facility] [address] [id number] [place] [address]- 0697 Mar, [facility] [place] [facility] [address] [id number] [place] [address]- 9128 Mar, [facility] [place] [facility] [address] [id number] [place] [address]- 6082 Mar, [facility] [place] [facility] [address] [id number] [place] [address]- 7362 Mar, [facility] [place] [facility] [address] [id number] [place] [address]- 9004 Mar, [facility] [place] [facility] [address] [id number] [place] [address]- 5831 Mar, [facility] [place] [facility] [address] [id number] [place] [address]- 1250 Feb, [facility] [place] [facility] [address] [id number] [place] [address]- 1656 Feb, [facility] [place] [facility] [address] [id number] [place] [address]- 3952 Feb, [facility] [place] [facility] [address] [id number] [place] [address]- 4117 Feb, [facility] [place] [facility] [address] [id number] [place] [address]- 0635 Dec, [facility] [place] [facility] [address] [id number] [place] [address]- 9488 Dec, [facility] [place] [facility] [address] [id number] [place] [address]- 8123 Oct, [facility] [place] [facility] [address] [id number] [place] [address]- 7291 Oct, [facility] [place] [facility] [address] [id number] [place] [address]- 5631 Oct, [facility] [place] [facility] [address] [id number] [place] [address]- 6208 Oct, [facility] [place] [facility] [address] [id number] [place] [address]- 5789 September, [facility] [place] [facility] [address] [id number] [place] [address]- 5814 September, [facility] [place] [facility] [address] [id number] [place] [address]- 6331 Aug, [facility] [place] [facility] [address] [id number] [place] [address]- 5047 Aug, [facility] [address] [id number] [place] [address]- 6857 Mar, [facility] [place] [facility] [address] [id number] [place] [address]- 4728 Mar, [facility] [place] [facility] [address] [id number] [place] [address]- 5521 Dec, [facility] [place] [facility] [address] [id number] [place] [address]- 3811 Nov, [facility] [place] [facility] [address] [id number] [place] [address]- 2436 Oct, [facility] [place] [facility] [address] [id number] [place] [address]- 2952 September, [facility] [address] [id number] [place] [address]- 2218 September, [facility] [place] [facility] [address] [id number] [place] [address]- 7052 September, [facility] [place] [facility] [address] [id number] [place] [address]- 4794 Aug, [facility] [place] [facility] [address] [id number] [place] [address]- 2424 Aug, [facility] [place] [facility] [address] [id number] [place] [address]- 1001 Jul, [facility] [place] [facility] [address] [id number] [place] [address]- 0664 Jul, [facility] [place] [facility] [address] [id number] [place] [address]- 2889 Jul, [facility] [place] [facility] [address] [id number] [place] [address]- 5215 Jun, [facility] [place] [facility] [address] [id number] [place] [address]- 2952 May, [facility] [place] [facility] [address] [facility] [id number] [place] [address]- 0133 Apr, [facility] [address] [facility] [id number] [place] [address]- 9501 Apr, [facility] [address] [facility] [id number] [place] Feb, IMMUNIZATIONS No Known Immunizations SOCIAL HISTORY Never Assessed REASON FOR VISIT Pain in right knee since this afternoon. Patient tore right meniscus in 2013 and states that pain feels the same. PCP-Gregg Cartagena. Karina PLAN OF CARE Activity Details Follow Up prn Reason: VITAL SIGNS Height 65 in 2015-08-04 Weight 260.8 lbs 2015-08-04 Temperature 97.2 degrees Fahrenheit 2015-08-04 Heart Rate 92 bpm 2015-08-04 Respiratory Rate 24 2015-08-04 BMI 43.39 kg/m2 2015-08-04 Blood pressure systolic 132 mmHg 2015-08-04 Blood pressure diastolic 92 mmHg 2015-08-04 MEDICATIONS Medication Instructions Dosage Frequency Start Date End Date Duration Status Multi-Vitamin Daily Orally Once a day 1 tablet 24h Active Ibuprofen 800 MG Orally Three times a day 1 tablet 8h Jul, Active Cyclobenzaprine HCl 10 MG Orally Once a day at bedtime 1 tablet Jul, Active Mirena 20 mcg/24 hr (5 years) May, Active Zoloft 50 MG Orally Once a day at bedtime 1 Tablet by Oral route 1 time per day Mar, Active Spironolactone 100 MG Orally Once a day 1 tablet 24h May, Active Vitamin B Complex 1 capsule by Oral route 1 time per day May, Active Lamictal 100 MG Orally at HS 1 Tablets Jul, Active RESULTS No Results PROCEDURES No Known [...]
--- OUTSIDE RECORDS SUMMARY | 2018-08-01 21:45 | XMS REPORT ---
Author Author NIMA DEL ANGEL Organization [facility] Address [address] [place] [address] Care Team Providers Care Retail Visual Merchandiser Name Role Phone NIMA DEL ANGEL Unavailable PROBLEMS Type Condition ICD9-CM Code QSG69-IY Code Onset Dates Condition Status SNOMED Code Problem Female hirsutism L68.0 Active 66660244 Problem Surveillance for control, intrauterine device Z30.431 Active 884380287 Problem BMI 40.0-44.9, adult Z68.41 Active 510630905 Assessment Morbid (severe) obesity due to excess calories E66.01 Jan, Active 288043522 Problem Morbid (severe) obesity due to excess calories E66.01 Active 531530274 Problem Depression, unspecified depression type F32.9 Active 76865997 Problem Migraine without aura and without status migrainosus, not intractable G43.009 Active 670783020 Problem Legg-Perthes disease, 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 470822426 Problem Non-compliant behavior R46.89 Active 244814458 Problem Generalized anxiety disorder F41.1 Active 228894679 Problem Bipolar mood disorder F31.9 Active 51763133 Problem Essential hypertension I10 Active 78643247 Problem Nondependent tobacco use disorder Z72.0 Active 89669844 ALLERGIES Substance Reaction Event Type Date Status Metformin HCl BS drops Drug Allergy Jan, Active SOCIAL HISTORY No smoking Hx information available PLAN OF CARE VITAL SIGNS Height 65 in 2016-02-09 Weight 248 lbs 2016-02-09 Heart Rate 72 bpm 2016-02-09 Respiratory Rate 20 2016-02-09 BMI 41.26 kg/m2 2016-02-09 Blood pressure systolic 132 mmHg 2016-02-09 Blood pressure diastolic 90 mmHg 2016-02-09 MEDICATIONS Medication Instructions Dosage Frequency Start Date End Date Duration Status Mirena 20 mcg/24 hr (5 years) May, Active Vitamin B Complex 1 capsule by Oral route 1 time per day May, Active Diethylpropion HCl 75 MG Orally Once a day Take one tablet mid morning after sensible breakfast 24h 18 Dec, 2015 Active Multi-Vitamin Daily Orally Once a day 1 tablet 24h Active Spironolactone 100 MG Orally Once a day 1 tablet 24h May, Active Sertraline HCl 25 MG Orally Once a day 1 tablet 24h Oct, Active Wellbutrin 100 MG Orally Twice a day 1 tablet 12h Active RESULTS No Results PROCEDURES Procedure Date Ordered Related Diagnosis Body Site Office Visit, Est Pt., Level 3 Feb 09, 2016 IMMUNIZATIONS No Known Immunizations
--- OUTSIDE RECORDS SUMMARY | 2018-08-01 21:45 | XMS REPORT ---
Author Author NIMA DEL ANGEL Organization [facility] Address [address] [place] [address] Care Team Providers Care Staff Nurse Midwife Name Role Phone NIMA DEL ANGEL Unavailable PROBLEMS Type Condition ICD9-CM Code PDM23-WA Code Onset Dates Condition Status SNOMED Code Problem Bipolar mood disorder F31.9 Active 18107450 Problem BMI 40.0-44.9, adult Z68.41 Active 574382693 Problem Depression, unspecified depression type F32.9 Active 96999453 Problem Missed period N92.6 Active 21238448 Problem Seasonal allergic rhinitis, unspecified allergic rhinitis trigger J30.2 Active 279747566 Problem Legg-Perthes disease, 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 553710580 Problem Surveillance for control, intrauterine device Z30.431 Active 550421296 Problem Encounter for routine adult health examination with abnormal findings Z00.01 Active 272501778 Problem Non-compliant behavior R46.89 Active 127371196 Problem Female hirsutism L68.0 Active 96442182 Problem Essential hypertension I10 Active 10738361 Problem Nondependent tobacco use disorder Z72.0 Active 50977962 Problem Generalized anxiety disorder F41.1 Active 242521102 Problem Migraine without aura and without status migrainosus, not intractable G43.009 Active 123851442 Problem Morbid (severe) obesity due to excess calories E66.01 Active 163545044 ALLERGIES Substance Reaction Event Type Date Status Metformin HCl BS drops Drug Allergy Jul, Active SOCIAL HISTORY Never Assessed PLAN OF CARE Activity Details Follow Up 4 Weeks Reason:weight management VITAL SIGNS Height 65 in 2016-07-25 Weight 255.9 lbs 2016-07-25 Temperature 97.8 degrees Fahrenheit 2016-07-25 Heart Rate 88 bpm 2016-07-25 Respiratory Rate 18 2016-07-25 BMI 42.58 kg/m2 2016-07-25 Blood pressure systolic 132 mmHg 2016-07-25 Blood pressure diastolic 83 mmHg 2016-07-25 MEDICATIONS Medication Instructions Dosage Frequency Start Date End Date Duration Status Sertraline HCl 25 MG Orally Once a day 1 tablet 24h Oct, 90 days Active Diethylpropion HCl ER 75 MG Orally Once a day 1 tablet 24h Jun, Jul, 30 days Active Wellbutrin 100 MG Orally Twice a day 1 tablet 12h 90 days Active Spironolactone 100 MG Orally Once a day 1 tablet 24h 28 May, 2015 90 days Active Microgestin 1/20 1-20 MG-MCG as directed Jun, 28 days Active RESULTS Name Result Date Reference Range HSV 1/2 ANTIBODY IgG 2016-07-25 HSV 1 IgG, Type Spec <0.91 0.00-0.90 HSV 2 IgG, Type Spec <0.91 0.00-0.90 THYROID ANALYZER 2016-07-25 TSH 1.620 0.450-4.500 A1C 2016-07-25 Hemoglobin A1c 5.7 4.8-5.6 CBC 2016-07-25 WBC 8.3 3.4-10.8 RBC 5.18 3.77-5.28 Hemoglobin 14.4 11.1-15.9 Hematocrit 41.8 34.0-46.6 MCV 81 79-97 MCH 27.8 26.6-33.0 MCHC 34.4 31.5-35.7 RDW 13.0 12.3-15.4 Platelets 320 150-379 Neutrophils 64 Lymphs 29 Monocytes 6 Eos 1 Basos 0 Neutrophils (Absolute) 5.3 1.4-7.0 Lymphs (Absolute) 2.4 0.7-3.1 Monocytes(Absolute) 0.5 0.1-0.9 Eos (Absolute) 0.1 0.0-0.4 Baso (Absolute) 0.0 0.0-0.2 Immature Granulocytes 0 Immature Grans (Abs) 0.0 0.0-0.1 LIPID PANEL 2016-07-25 Cholesterol, Total 182 100-199 Triglycerides 135 0-149 HDL Cholesterol 36 >39 VLDL Cholesterol Girma 27 5-40 LDL Cholesterol Calc 119 0-99 CMP 2016-07-25 Glucose, Serum 84 65-99 BUN 15 6-20 Creatinine, Serum 0.81 0.57-1.00 eGFR If NonAfricn Am 105 >59 eGFR If Africn Am 121 >59 BUN/Creatinine Ratio 19 8-20 Sodium, Serum 139 134-144 Potassium, Serum 4.3 3.5-5.2 Chloride, Serum 103 96-106 Carbon Dioxide, Total 20 18-29 Calcium, Serum 9.6 8.7-10.2 Protein, Total, Serum 7.0 6.0-8.5 Albumin, Serum 4.4 3.5-5.5 Globulin, Total 2.6 1.5-4.5 A/G Ratio 1.7 1.1-2.5 Bilirubin, Total 0.3 0.0-1.2 Alkaline Phosphatase, S 91 39-117 AST (SGOT) 16 0-40 ALT (SGPT) 22 0-32 PROCEDURES Procedure Date Ordered Result Body Site VENIPUNCT, ROUTINE* July 25, 2016 GLYCATED HEMOGLOBIN TEST July 25, 2016 COMPLETE CBC W/AUTO DIFF WBC July 25, 2016 No Charge July 25, 2016 HERPES SIMPLEX TEST July 25, 2016 ASSAY THYROID STIM HORMONE July 25, 2016 COMPREHEN METABOLIC PANEL July 25, 2016 HERPES SIMPLEX TYPE 2 July 25, 2016 LIPID PANEL July 25, 2016 IMMUNIZATIONS No Known Immunizations MEDICAL (GENERAL) HISTORY [...]
--- OUTSIDE RECORDS SUMMARY | 2018-08-01 21:45 | XMS REPORT ---
Author Author NIMA DEL ANGEL [facility] [place] eClinicalWorks Address Unknown Phone Unavailable Care Team Providers Care Remelt Sugar Boiler Name Role Phone NIMA DEL ANGEL CP Unavailable Allergies, Adverse Reactions, Alerts Substance Reaction Event Type Metformin HCl BS drops Drug Allergy Problems Problem Type Condition Code Onset Dates Condition Status Problem Family history of diabetes mellitus Z83.3 Active Problem Migraine without aura and without status migrainosus, not intractable G43.009 Active Problem Depression, unspecified depression type F32.9 Active Problem Nondependent tobacco use disorder Z72.0 Active Problem Generalized anxiety disorder F41.1 Active Problem Essential hypertension I10 Active Problem BMI 40.0-44.9, adult Z68.41 Active Problem Female hirsutism L68.0 Active Problem Bipolar mood disorder F31.9 Active Problem Surveillance for control, intrauterine device Z30.431 Active Assessment BMI 40.0-44.9, adult Z68.41 Active Problem Family history of thalassemia Z83.2 Active Problem History of self-harm Z91.5 Active Assessment Nondependent tobacco use disorder Z72.0 Active Problem High risk sexual behavior Z72.51 Active Assessment Generalized anxiety disorder F41.1 Active Problem Morbid (severe) obesity due to excess calories E66.01 Active Medications Medication Code System Code Instructions Start Date End Date Status Dosage Vitamin B Complex [facility] [address] Jun 08, 2014 1 capsule by Oral route 1 time per day Contrave [facility] [address]-95 8-90 MG Orally Twice a day September 14, 2015 1 tab daily x1 wk, then 1 tab bid x 1 wk, then one tab in am and 2 tabs in pm x 1 wk, then 2 tabs bid Spironolactone [facility] [address]-51 100 MG Orally Once a day Jun 22, 2015 1 tablet Multi-Vitamin Daily [facility] [address] Orally Once a day 1 tablet Mirena [facility] [address]-68 20 mcg/24 hr (5 years) Jun 16, 2014 not defined Ibuprofen [facility] [address]-45 800 MG Orally Three times a day July 27, 2015 1 tablet Procedures Procedure Coding System Code Date Office Visit, Est Pt., Level 3 CPT-4 48657 September 14, 2015 Vital Signs Date/Time: September 14, 2015 Temperature 97.6 F Weight 263.7 lbs Height 65 in BMI 43.88 Index Blood Pressure Diastolic 86 mmHg Blood Pressure Systolic 134 mmHg Cardiac Monitoring Heart Rate 86 bpm BMIPercentile 98.92 % Wt Percentile 99.53 % Results No Known Results Summary Purpose eClinicalWorks Submission
--- OUTSIDE RECORDS SUMMARY | 2018-08-01 21:45 | XMS REPORT ---
Author Author ROBYN MCDONALD Organization eClinicalWorks Address Unknown Phone Unavailable Care Team Providers Care Melter Loader Name Role Phone ROBYN MCDONALD CP Unavailable Allergies No Known Allergies Problems Problem Type Condition Code Onset Dates Condition Status Problem Female hirsutism L68.0 Active Problem Family history of hypertension Z82.49 Active Problem BMI 40.0-44.9, adult Z68.41 Active Problem Nondependent tobacco use disorder Z72.0 Active Assessment Family history of diabetes mellitus Z83.3 Active Problem Generalized anxiety disorder F41.1 Active Assessment Other fatigue R53.83 Active Problem Essential hypertension I10 Active Problem Surveillance for control, intrauterine device Z30.431 Active Problem Tobacco use Z72.0 Active Problem Bipolar mood disorder F31.9 Active Problem Elevated blood pressure I10 Active Problem Family history of thalassemia Z83.2 Active Problem History of self-harm Z91.5 Active Assessment BMI 40.0-44.9, adult Z68.41 Active Assessment Well woman exam Z01.419 Active Problem Family history of diabetes mellitus Z83.3 Active Problem Depression, unspecified depression type F32.9 Active Problem High risk sexual behavior Z72.51 Active Problem Anxiety F41.9 Active Problem Morbid (severe) obesity due to excess calories E66.01 Active Problem Migraine without aura and without status migrainosus, not intractable G43.009 Active Medications No Known Medications Procedures Procedure Coding System Code Date COMPLETE CBC W/AUTO DIFF WBC CPT-4 04841 Jun 27, 2015 LIPID PANEL CPT-4 80275 Jun 27, 2015 GLYCATED HEMOGLOBIN TEST CPT-4 02254 Jun 27, 2015 ASSAY THYROID STIM HORMONE CPT-4 70607 Jun 27, 2015 COMPREHEN METABOLIC PANEL CPT-4 00311 Jun 27, 2015 VENIPUNCT, ROUTINE* CPT-4 03647 Jun 27, 2015 Results Name Result Date Reference Range Unit Abnormality Flag ROUTINE VENIPUNCTURE Summary Purpose eClinicalWorks Submission
--- OUTSIDE RECORDS SUMMARY | 2018-08-01 21:45 | XMS REPORT ---
Author Author GAVINO MADRID Organization [facility] Address [address] [place] [address] Care Team Providers Care Auditor Tax Name Role Phone GAVINO MADRID Unavailable PROBLEMS Type Condition ICD9-CM Code [id number] Code Onset Dates Condition Status SNOMED Code Problem Bipolar mood disorder F31.9 Active 07762598 Problem BMI 40.0-44.9, adult Z68.41 Active 477442784 Problem Depression, unspecified depression type F32.9 Active 56129851 Problem Missed period N92.6 Active 93911103 Problem Seasonal allergic rhinitis, unspecified allergic rhinitis trigger J30.2 Active 258019157 Problem Legg-Perthes disease, 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 679521028 Problem Surveillance for control, intrauterine device Z30.431 Active 050037964 Problem Encounter for routine adult health examination with abnormal findings Z00.01 Active 384571131 Problem Non-compliant behavior R46.89 Active 819405422 Problem Female hirsutism L68.0 Active 25543436 Problem Essential hypertension I10 Active 87323840 Problem Nondependent tobacco use disorder Z72.0 Active 86091002 Problem Generalized anxiety disorder F41.1 Active 092396882 Problem Migraine without aura and without status migrainosus, not intractable G43.009 Active 076982634 Problem Morbid (severe) obesity due to excess calories E66.01 Active 561551447 ALLERGIES No Information SOCIAL HISTORY Never Assessed PLAN OF CARE VITAL SIGNS MEDICATIONS Unknown [...]
--- OUTSIDE RECORDS SUMMARY | 2018-08-01 21:45 | XMS REPORT ---
Author Author NIMA DEL ANGEL [facility] eClinicalWorks Address Unknown Phone Unavailable Care Team Providers Care Medical Care Manager Name Role Phone NIMA DEL ANGEL CP [...] Assessment Bipolar mood disorder F31.9 Active Assessment Acute bronchitis, unspecified organism J20.9 Active Assessment Female hirsutism L68.0 Active Problem Morbid (severe) obesity due to excess calories E66.01 Active Assessment BMI 40.0-44.9, adult Z68.41 Active Problem Depression, unspecified depression type F32.9 Active Medications Medication Code System Code Instructions Start Date End Date Status Dosage Sertraline HCl [facility] [address]-74 25 MG Orally Once a day November 16, 2015 1 tablet Diethylpropion HCl [facility] [address]-55 75 MG Orally Once a day Jan 11, 2016 Take one tablet mid morning after sensible breakfast Mirena NDC 0 20 mcg/24 hr (5 years) Jun 16, 2014 not defined Wellbutrin NDC 0 100 MG Orally Twice a day 1 tablet Tessalon Perles [facility] [address]-28 100 MG Orally Three times a day Apr 05, 2016 Apr 15, 2016 1 capsule as needed Spironolactone [facility] [address]-85 100 MG Orally Once a day Jun 22, 2015 1 tablet Multi-Vitamin Daily [facility] [address] Orally Once a day 1 tablet Vitamin B Complex [facility] [address] Jun 08, 2014 1 capsule by Oral route 1 time per day Procedures Procedure Coding System Code Date Office Visit, Est Pt., Level 3 CPT-4 99310 Apr 05, 2016 Vital Signs Date/Time: Apr 05, 2016 Cardiac Monitoring Heart Rate 89 bpm Weight 248.7 lbs Height 65 in Wt Percentile 99.38 % BMI 41.38 Index Blood Pressure Diastolic 84 mmHg Blood Pressure Systolic 128 mmHg BMIPercentile 98.55 % Results No Known Results Summary Purpose eClinicalWorks Submission
--- OUTSIDE RECORDS SUMMARY | 2018-08-01 21:45 | XMS REPORT ---
Author Author NIMA DEL ANGEL [facility] eClinicalWorks Address Unknown Phone Unavailable Care Team Providers Care Senior Enlisted Advisor Name Role Phone NIMA DEL ANGEL CP [...] for control, intrauterine device Z30.431 Active Problem Family history of thalassemia Z83.2 Active Problem History of self-harm Z91.5 Active Problem High risk sexual behavior Z72.51 Active Assessment Morbid (severe) obesity due to excess calories E66.01 Active Problem Morbid (severe) obesity due to excess calories E66.01 Active Medications Medication Code System Code Instructions Start Date End Date Status Dosage Mirena [facility] [address]-64 20 mcg/24 hr (5 years) Jun 16, 2014 not defined Vitamin B Complex [facility] [address] Jun 08, 2014 1 capsule by Oral route 1 time per day Wellbutrin [facility] [address]-99 100 MG Orally Twice a day 1 tablet Multi-Vitamin Daily [facility] [address] Orally Once a day 1 tablet Contrave [facility] [address]-09 8-90 MG Orally Twice a day September 14, 2015 Jan 14, 2016 Take two tablets in the morning and one tablet in the evening for one week, then two tablets bid Sertraline HCl [facility] [address]-89 25 MG Orally Once a day November 16, 2015 1 tablet Procedures Procedure Coding System Code Date Office Visit, Est Pt., Level 3 CPT-4 04857 December 15, 2015 Vital Signs Date/Time: December 15, 2015 Cardiac Monitoring Heart Rate 80 bpm Weight 257.8 lbs Height 65 in BMIPercentile 98.78 % Wt Percentile 99.49 % Blood Pressure Diastolic 82 mmHg Blood Pressure Systolic 128 mmHg Results No Known Results Summary Purpose eClinicalWorks Submission
--- OUTSIDE RECORDS SUMMARY | 2018-08-01 21:46 | XMS REPORT | Continuity of Care Document ---
Author Author [facility] Address Unknown Phone Unavailable Allergies Active Description Code Type Severity Reaction Onset Reported/Identified Relationship to Patient Clinical Status Yes NO KNOWN DRUG ALLERGIES UNKNOWN NO KNOWN DRUG ALLERG Yes metformin 500 mg tablet Drug Allergy N/A N/A 04/24/2013 Yes No Known Drug Allergies [id number] Drug Allergy Unknown N/A 06/14/2018 Medications There is no data. Problems Date Dx Coded Attending Type Code Diagnosis Diagnosed By 02/05/2010 LARRY YOON PSYD 300.00 AN ANXIETY UNSPEC 02/05/2010 LARRY YOON PSYD 314.00 ADHD INATTENTIVE 02/05/2010 300.00 AN ANXIETY UNSPEC 02/05/2010 314.00 ADHD INATTENTIVE 02/05/2010 300.00 AN ANXIETY UNSPEC 02/05/2010 314.00 ADHD INATTENTIVE 02/05/2010 GASTON HU APRN 300.00 AN ANXIETY UNSPEC 02/05/2010 GASTON HU APRN 314.00 ADHD INATTENTIVE 02/05/2010 300.00 AN ANXIETY UNSPEC 02/05/2010 314.00 ADHD INATTENTIVE 02/05/2010 300.00 AN ANXIETY UNSPEC 02/05/2010 314.00 ADHD INATTENTIVE 02/05/2010 300.00 AN ANXIETY UNSPEC 02/05/2010 314.00 ADHD INATTENTIVE 02/05/2010 GASTON HU APRN 300.00 AN ANXIETY UNSPEC 02/05/2010 GASTON HU APRN 314.00 ADHD INATTENTIVE 02/05/2010 BERNARD ROOT APRN 300.00 AN ANXIETY UNSPEC 02/05/2010 BERNARD ROOT APRN 314.00 ADHD INATTENTIVE 02/05/2010 BERNARD ROOT APRN 300.00 AN ANXIETY UNSPEC 02/05/2010 BERNARD ROOT APRN 314.00 ADHD INATTENTIVE 02/05/2010 IVETT SLUBBER TENDER, BERNARD J 300.00 AN ANXIETY UNSPEC 02/05/2010 IVETT SLUBBER TENDER, BERNARD J 314.00 ADHD INATTENTIVE 02/05/2010 IVETT SLUBBER TENDER, BERNARD J 300.00 AN ANXIETY UNSPEC 02/05/2010 IVETT SLUBBER TENDER, BERNARD J 314.00 ADHD INATTENTIVE 02/05/2010 IVETT SLUBBER TENDER, BERNARD J 300.00 AN ANXIETY UNSPEC 02/05/2010 IVETT SLUBBER TENDER, BERNARD J 314.00 ADHD INATTENTIVE 02/05/2010 LORI SLUBBER TENDER, NILS A 300.00 AN ANXIETY UNSPEC 02/05/2010 LORI SLUBBER TENDER, NILS A 314.00 ADHD INATTENTIVE 02/05/2010 IVETT SLUBBER TENDER, BERNARD J 300.00 AN ANXIETY UNSPEC 02/05/2010 IVETT SLUBBER TENDER, BERNARD J 314.00 ADHD INATTENTIVE 02/05/2010 LORI SLUBBER TENDER, NILS A 300.00 AN ANXIETY UNSPEC 02/05/2010 LORI SLUBBER TENDER, NILS A 314.00 ADHD INATTENTIVE 02/05/2010 MADL SLUBBER TENDER, OZZIE L 300.00 AN ANXIETY UNSPEC 02/05/2010 MADL SLUBBER TENDER, OZZIE L 314.00 ADHD INATTENTIVE 02/05/2010 LORI SLUBBER TENDER, NILS A 300.00 AN ANXIETY UNSPEC 02/05/2010 LORI SLUBBER TENDER, NILS A 314.00 ADHD INATTENTIVE 02/05/2010 MADL SLUBBER TENDER, OZZIE L 300.00 AN ANXIETY UNSPEC 02/05/2010 MADL SLUBBER TENDER, OZZIE L 314.00 ADHD INATTENTIVE 02/05/2010 LORI SLUBBER TENDER, NILS A 300.00 AN ANXIETY UNSPEC 02/05/2010 LORI SLUBBER TENDER, NILS A 314.00 ADHD INATTENTIVE 02/05/2010 MADL SLUBBER TENDER, OZZIE L 300.00 AN ANXIETY UNSPEC 02/05/2010 MADL SLUBBER TENDER, OZZIE L 314.00 ADHD INATTENTIVE 02/05/2010 TERRELL DDS, SUNNY 300.00 AN ANXIETY UNSPEC 02/05/2010 TERRELL DDS, SUNNY 314.00 ADHD INATTENTIVE 02/05/2010 MADL SLUBBER TENDER, OZZIE L 300.00 AN ANXIETY UNSPEC 02/05/2010 MADL SLUBBER TENDER, OZZIE L 314.00 ADHD INATTENTIVE 08/07/2010 LARRY YOON PSYD L 296.90 MO MOOD DIS NOS 08/07/2010 296.90 MO MOOD DIS NOS 08/07/2010 296.90 MO MOOD DIS NOS 08/07/2010 FRITZ RUVALCABANGASTON 296.90 MO MOOD DIS NOS 08/07/2010 296.90 MO MOOD DIS NOS 08/07/2010 296.90 MO MOOD DIS NOS 08/07/2010 296.90 MO MOOD DIS NOS 08/07/2010 FRITZ RUVALCABANGASTON 296.90 MO MOOD DIS NOS 08/07/2010 IVETT SLUBBER TENDER, BERNARD J 296.90 MO MOOD DIS NOS 08/07/2010 IVETT SLUBBER TENDER, BERNARD J 296.90 MO MOOD DIS NOS 08/07/2010 IVETT SLUBBER TENDER, BERNARD J 296.90 MO MOOD DIS NOS 08/07/2010 IVETT SLUBBER TENDER, BERNARD J 296.90 MO MOOD DIS NOS 08/07/2010 IVETT SLUBBER TENDER, BERNARD J 296.90 MO MOOD DIS NOS 08/07/2010 LORI SLUBBER TENDER, NILS A 296.90 MO MOOD DIS NOS 08/07/2010 IVETT SLUBBER TENDER, BERNARD J 296.90 MO MOOD DIS NOS 08/07/2010 LORI SLUBBER TENDER, NILS A 296.90 MO MOOD DIS NOS 08/07/2010 MADL SLUBBER TENDER, OZZIE L 296.90 MO MOOD DIS NOS 08/07/2010 LORI SLUBBER TENDER, NILS A 296.90 MO MOOD DIS NOS 08/07/2010 MADL SLUBBER TENDER, OZZIE L 296.90 MO MOOD DIS NOS 08/07/2010 LORI SLUBBER TENDER, NILS A 296.90 MO MOOD DIS NOS 08/07/2010 MADL SLUBBER TENDER, OZZIE L 296.90 MO MOOD DIS NOS 08/07/2010 SUNNY TERRELL DDS 296.90 MO MOOD DIS NOS 08/07/2010 MADL SLUBBER TENDER, OZZIE L 296.90 MO MOOD DIS NOS 09/12/2010 LARRY YOON PSYD 311 MO DEPRESS NOS 09/12/2010 311 MO DEPRESS NOS 09/12/2010 311 MO DEPRESS NOS 09/12/2010 FRITZ CHIRINOS GASTON THRASHER 311 MO DEPRESS NOS 09/12/2010 311 MO DEPRESS NOS 09/12/2010 311 MO DEPRESS NOS 09/12/2010 311 MO DEPRESS NOS 09/12/2010 GASTON HU APRN 311 MO DEPRESS NOS 09/12/2010 IVETT SLUBBER TENDER, BERNARD J 311 MO DEPRESS NOS 09/12/2010 IVETT SLUBBER TENDER, BERNARD J 311 MO DEPRESS NOS 09/12/2010 IVETT SLUBBER TENDER, BERNARD J 311 MO DEPRESS NOS 09/12/2010 IVETT SLUBBER TENDER, BERNARD J 311 MO DEPRESS NOS 09/12/2010 IVETT SLUBBER TENDER, BERNARD J 311 MO DEPRESS NOS 09/12/2010 LORI SLUBBER TENDER, NILS A 311 MO DEPRESS NOS 09/12/2010 IVETT SLUBBER TENDER, BERNARD J 311 MO DEPRESS NOS 09/12/2010 LORI SLUBBER TENDER, NILS A 311 MO DEPRESS NOS 09/12/2010 MADL SLUBBER TENDER, OZZIE L 311 MO DEPRESS NOS 09/12/2010 LORI SLUBBER TENDER, NILS A 311 MO DEPRESS NOS 09/12/2010 MADL SLUBBER TENDER, OZZIE L 311 MO DEPRESS NOS 09/12/2010 LORI SLUBBER TENDER, NILS A 311 MO DEPRESS NOS 09/12/2010 STUARTL SLUBBER TENDER, OZZIE L 311 MO DEPRESS NOS 09/12/2010 SUNNY TERRELL DDS 311 MO DEPRESS NOS 09/12/2010 MAD SLUBBER TENDER, OZZIE L 311 MO DEPRESS NOS 09/22/2013 BERNARD ROOT APRN 300.02 AN GEN ANXIETY 09/22/2013 BERNARD ROOT APRN 300.02 AN GEN ANXIETY 09/22/2013 BERNARD ROOT APRN J 300.02 AN GEN ANXIETY 09/22/2013 ARCHIE ROOT APRNA J 300.02 AN GEN ANXIETY 09/22/2013 ARCHIE ROOT APRNA J 300.02 AN GEN ANXIETY 09/22/2013 NILS SANDOVAL APRN A 300.02 AN GEN ANXIETY 09/22/2013 BERNARD ROOT APRN J 300.02 AN GEN ANXIETY 09/22/2013 NILS SANDOVAL APRN A 300.02 AN GEN ANXIETY 09/22/2013 OZZIE SLOAN APRN 300.02 AN GEN ANXIETY 09/22/2013 LORI SLUBBER TENDER, NILS A 300.02 AN GEN ANXIETY 09/22/2013 SAL SLOAN APRNA L 300.02 AN GEN ANXIETY 09/22/2013 JH SANDOVAL APRNIDI A 300.02 AN GEN ANXIETY 09/22/2013 AMARJIT SLOAN APRNNYA L 300.02 AN GEN ANXIETY 09/22/2013 SUNNY TERRELL DDS 300.02 AN GEN ANXIETY 09/22/2013 AMARJIT SLOAN APRNNYA L 300.02 AN GEN ANXIETY 04/14/2014 JH SANDOVAL APRNIDI A V25.09 CONTRACEPTIVE COUNSELING - GENERAL 04/14/2014 JH SANDOVAL APRNIDI A V74.5 STD SCREEN 04/14/2014 IVETT TARANBERNARD J V25.09 CONTRACEPTIVE COUNSELING - GENERAL 04/14/2014 IVETT CHIRINOSBERNARD J V74.5 STD SCREEN 04/14/2014 JH SANDOVAL APRNIDI A V25.09 CONTRACEPTIVE COUNSELING - GENERAL 04/14/2014 JH SANDOVAL APRNIDI A V74.5 STD SCREEN 04/14/2014 NATHALIA CHIRINOS, OZZIE L V25.09 CONTRACEPTIVE COUNSELING - GENERAL 04/14/2014 PJ SLOAN APRNWNYA L V74.5 STD SCREEN 04/14/2014 JH SANDOVAL APRNIDI A V25.09 CONTRACEPTIVE COUNSELING - GENERAL 04/14/2014 JH SANDOVAL APRNIDI A V74.5 STD SCREEN 04/14/2014 NATHALIA CHIRINOS, OZZIE L V25.09 CONTRACEPTIVE COUNSELING - GENERAL 04/14/2014 PJ SLOAN APRNWNYA L V74.5 STD SCREEN 04/14/2014 JH SANDOVAL APRNIDI A V25.09 CONTRACEPTIVE COUNSELING - GENERAL 04/14/2014 JH SANDOVAL APRNIDI A V74.5 STD SCREEN 04/14/2014 NATHALIA CHIRINOS, OZZIE L V25.09 CONTRACEPTIVE COUNSELING - GENERAL 04/14/2014 NATHALIA CHIRINOS, OZZIE L V74.5 STD SCREEN 04/14/2014 TERRELL DDSSUNNY V25.09 CONTRACEPTIVE COUNSELING - GENERAL 04/14/2014 TERRELL DDSSUNNY V74.5 STD SCREEN 04/14/2014 NATHALIA CHIRINOS, OZZIE L V25.09 CONTRACEPTIVE COUNSELING - GENERAL 04/14/2014 NATHALIA CHIRINOS, OZZIE L V74.5 STD SCREEN 04/20/2014 LORI RUVALCABAN, NILS A V25.11 IUD INSERTION 04/20/2014 NATHALIA RUVALCABAN, OZZIE L V25.11 IUD INSERTION 04/20/2014 LORI CHIRINOS, NILS A V25.11 IUD INSERTION 04/20/2014 NATHALIA RUVALCABAN, OZZIE L V25.11 IUD INSERTION 04/20/2014 LORI RUVALCABAN, NILS A V25.11 IUD INSERTION 04/20/2014 NATHALIA CHIRINOS, OZZIE L V25.11 IUD INSERTION 04/20/2014 SUNNY TERRELL DDS V25.11 IUD INSERTION 04/20/2014 NATHALIA CHIRINOS, OZZIE L V25.11 IUD INSERTION 05/04/2014 NATHALIA CHIRINOS, OZZIE L 401.1 HYPERTENSION, BENIGN ESSENTIAL 05/04/2014 NATHALIA RUVALCABAN, OZZIE L 461.9 SINUSITIS ACUTE 05/04/2014 NATHALIA RUVALCABAN, OZZIE L V20.2 WELL CHILD (>28 DAYS OLD) 05/04/2014 LORI CHIRINOS, NILS A 401.1 HYPERTENSION, BENIGN ESSENTIAL 05/04/2014 LORI RUVALCABAN, NILS A 461.9 SINUSITIS ACUTE 05/04/2014 LORI CHIRINOS, NILS A V20.2 WELL CHILD (>28 DAYS OLD) 05/04/2014 NATHALIA RUVALCABAN, OZZIE L 401.1 HYPERTENSION, BENIGN ESSENTIAL 05/04/2014 STUART SLUBBER TENDER, OZZIE L 461.9 SINUSITIS ACUTE 05/04/2014 STUARTL SLUBBER TENDER, OZZIE L V20.2 WELL CHILD (>28 DAYS OLD) 05/04/2014 LORI SLUBBER TENDER, NILS A 401.1 HYPERTENSION, BENIGN ESSENTIAL 05/04/2014 LORI SLUBBER TENDER, NILS A 461.9 SINUSITIS ACUTE 05/04/2014 LORI SLUBBER TENDER, NILS A V20.2 WELL CHILD (>28 DAYS OLD) 05/04/2014 NATHALIA SLUBBER TENDER, OZZIE L 401.1 HYPERTENSION, BENIGN ESSENTIAL 05/04/2014 MADL SLUBBER TENDER, OZZIE L 461.9 SINUSITIS ACUTE 05/04/2014 MADL SLUBBER TENDER, OZZIE L V20.2 WELL CHILD (>28 DAYS OLD) 05/04/2014 TERRELL DDS, SUNNY 401.1 HYPERTENSION, BENIGN ESSENTIAL 05/04/2014 TERRELL DDS, SUNNY 461.9 SINUSITIS ACUTE 05/04/2014 TERRELL RADHAS, SUNNY V20.2 WELL CHILD (>28 DAYS OLD) 05/04/2014 MADL SLUBBER TENDER, OZZIE L 401.1 HYPERTENSION, BENIGN ESSENTIAL 05/04/2014 MADL SLUBBER TENDER, OZZIE L 461.9 SINUSITIS ACUTE 05/04/2014 MADL SLUBBER TENDER, OZZIE L V20.2 WELL CHILD (>28 DAYS OLD) 06/13/2014 NILS SANDOVAL APRN V25.42 CONTRACEPTION SURVEILLANCE (IUD) 06/13/2014 OZZIE SLOAN APRN V25.42 CONTRACEPTION SURVEILLANCE (IUD) 06/13/2014 TERRELL RADHASSUNNY V25.42 CONTRACEPTION SURVEILLANCE (IUD) 06/13/2014 NATHALIA SLUBBER TENDEROZZIE Miranda V25.42 CONTRACEPTION SURVEILLANCE (IUD) 06/22/2014 STUARTL SAL CHIRINOSA L 305.1 TOBACCO ABUSE 06/22/2014 SAL SLOAN APRNA Jhon 692.9 CONTACT DERMATITIS AND OTHER ECZEMA UNSPECIFIED CAUSE 06/22/2014 TERRELL RADHASSUNNY 305.1 TOBACCO ABUSE 06/22/2014 TERRELL DDS, SUNNY 692.9 CONTACT DERMATITIS AND OTHER ECZEMA UNSPECIFIED CAUSE 06/22/2014 STUARTL SLUBBER TENDERAMARJIT MirandaNYA L 305.1 TOBACCO ABUSE 06/22/2014 STUARTL SLUBBER TENDERSAL MirandaA Jhon 692.9 CONTACT DERMATITIS AND OTHER ECZEMA UNSPECIFIED CAUSE 07/21/2014 Ot 732.1 07/21/2014 Ot 715.95 07/25/2014 TERRELL RADHAS, SUNNY V58.69 LONG-TERM (CURRENT) USE OF OTHER MEDICATIONS 07/25/2014 OZZIE SLOAN APRN V58.69 LONG-TERM (CURRENT) USE OF OTHER MEDICATIONS 09/07/2014 OZZIE SLOAN APRN 683 ACUTE LYMPHADENITIS 02/09/2016 Ot 732.1 JUV OSTEOCHONDROS PELVIS 02/09/2016 Ot 715.95 OSTEOARTHROS NOS-PELVIS 01/22/2018 Paolo Coleman A 640.93 UNSPECIFIED HEMORRHAGE IN EARLY , ANTEPARTUM CONDITION OR COMPLICATION 01/22/2018 Paolo Coleman A O20.9 HEMORRHAGE IN EARLY , UNSPECIFIED 01/22/2018 Paolo Coleman Z3A.13 13 WEEKS GESTATION OF 01/26/2018 TRICE OH MD Ot O20.9 HEMORRHAGE IN EARLY , UNSPECIFI 01/26/2018 TRICE OH MD Ot Z3A.00 WEEKS OF GESTATION OF NOT SPEC 01/29/2018 TRICE OH MD Ot O20.9 HEMORRHAGE IN EARLY , UNSPECIFI 01/29/2018 TRICE OH MD Ot Z3A.00 WEEKS OF GESTATION OF NOT SPEC 02/06/2018 TRICE OH MD Ot O20.9 HEMORRHAGE IN EARLY , UNSPECIFI 02/06/2018 TRICE OH MD Ot Z3A.00 WEEKS OF GESTATION OF NOT SPEC 02/27/2018 TRICE OH MD Ot R10.11 RIGHT UPPER QUADRANT PAIN 03/27/2018 TRICE OH MD Ot O20.9 HEMORRHAGE IN EARLY , UNSPECIFI 03/27/2018 TRICE HO MD Ot Z3A.00 WEEKS OF GESTATION OF NOT SPEC 03/27/2018 TRICE OH MD Ot R10.11 RIGHT UPPER QUADRANT PAIN 04/09/2018 TRICE OH MD Ot Z36.89 ENCOUNTER FOR OTHER SPECIFIED 04/09/2018 TRICE OH MD Ot Z3A.21 21 WEEKS GESTATION OF 06/01/2018 TRICE OH MD, Ot O36.8130 DECREASED MOVEMENTS, THIRD TRIMEST 06/01/2018 TRICE OH MD Ot Z3A.29 29 WEEKS GESTATION OF 06/14/2018 AUSTEN KEYS MD Ot O99.89 OTH DISEASES AND CONDITIONS COMPL PREG/C 06/14/2018 AUSTEN KEYS MD, Ot R19.7 DIARRHEA, UNSPECIFIED 06/14/2018 AUSTEN KEYS MD, Ot Z3A.31 31 WEEKS GESTATION OF 06/20/2018 TRICE OH MD, Ot O20.9 HEMORRHAGE IN EARLY , UNSPECIFI 06/20/2018 TRICE OH MD, Ot Z3A.00 WEEKS OF GESTATION OF NOT SPEC 06/20/2018 TRICE OH MD, Ot R10.11 RIGHT UPPER QUADRANT PAIN 06/20/2018 TRICE OH MD, Ot Z36.89 ENCOUNTER FOR OTHER SPECIFIED 06/20/2018 TRICE OH MD, Ot Z3A.21 21 WEEKS GESTATION OF 07/02/2018 AUSTEN KEYS MD, Ot O99.89 OTH DISEASES AND CONDITIONS COMPL PREG/C 07/02/2018 AUSTEN KEYS MD, Ot R19.7 DIARRHEA, UNSPECIFIED 07/02/2018 AUSTEN KEYS MD, Ot Z3A.31 31 WEEKS GESTATION OF 07/23/2018 TRICE OH MD, Ot O10.913 UNSP PRE-EXISTING HTN COMP , TH 07/23/2018 TRICE OH MD, Ot O12.13 GESTATIONAL PROTEINURIA, THIRD TRIMESTER 07/31/2018 TRICE OH MD, Ot O10.919 UNSP PRE-EXISTING HTN COMP , UN Procedures Code Description [place] [address] PSYCH DIAG INTER EXAM 06/09/2012 66076 PSYTX PT&/FAMILY 45 MINUTES 06/09/2012 82256 PSYTX PT&/FAMILY 30 MINUTES 07/15/2012 67637 PSYTX PT&/FAMILY 45 MINUTES 07/28/2012 57165 PSYTX PT&/FAMILY 45 MINUTES 09/16/2012 11026 PSYTX PT&/FAMILY 45 MINUTES 10/08/2012 84262 TEST, URINE (IN- HOUSE) 04/14/2014 GC/CHLAM GC/CHLAMYDIA PROBE/URINE 04/16/2014 13420 TEST, URINE (IN- HOUSE) 04/20/2014 47462 IUD INSERTION 04/20/2014 J7302 LEVONORGESTREL IU CONTRACEPT 04/20/2014 90537 ROUTINE VENIPUNCTURE 05/04/2014 94920 CBC 05/04/2014 03889 CMP 05/04/2014 36983 ROUTINE VENIPUNCTURE 06/08/2014 [id number] GFR CALC (RESULT ONLY) 06/08/2014 87975 CMP 06/08/2014 09089 GC/CHLAM PROBE (STATE) 06/13/2014 07672 TRICHOMONAS (IN-HOUSE) 06/13/2014 01976 CULTURE UROGENITAL 06/15/2014 Results Test Result Range Pap Lb, rfx HPV ASCU - 07/02/16 15:56 DIAGNOSIS: Comment Recommendation: Comment Specimen adequacy: Comment Clinician provided ICD10: Comment Performed by: Comment Electronically signed by: Comment . . Pathologist provided ICD10: Comment Note: Comment . Comment Genital Culture, Routine - 07/02/16 15:56 Genital Culture, Routine Note CBC With Differential/Platelet - 07/25/16 09:58 WBC 8.3 x10E3/uL 3.4-10.8 RBC 5.18 x10E6/uL 3.77-5.28 Hemoglobin 14.4 g/dL 11.1-15.9 Hematocrit 41.8 % 34.0-46.6 MCV 81 fL 79-97 MCH 27.8 pg 26.6-33.0 MCHC 34.4 g/dL 31.5-35.7 RDW 13.0 % 12.3-15.4 Platelets 320 x10E3/uL 150-379 Neutrophils 64 % Lymphs 29 % Monocytes 6 % Eos 1 % Basos 0 % Neutrophils (Absolute) 5.3 x10E3/uL 1.4-7.0 Lymphs (Absolute) 2.4 x10E3/uL 0.7-3.1 Monocytes(Absolute) 0.5 x10E3/uL 0.1-0.9 Eos (Absolute) 0.1 x10E3/uL 0.0-0.4 Baso (Absolute) 0.0 x10E3/uL 0.0-0.2 Immature Granulocytes 0 % Immature Grans (Abs) 0.0 x10E3/uL 0.0-0.1 Comp. Metabolic Panel (14) - 07/25/16 09:58 Glucose, Serum 84 mg/dL 65-99 BUN 15 mg/dL 6-20 Creatinine, Serum 0.81 mg/dL 0.57-1.00 eGFR If NonAfricn Am 105 mL/min/1.73 >59 eGFR If Africn Am 121 mL/min/1.73 >59 BUN/Creatinine Ratio 19 8-20 Sodium, Serum 139 mmol/L 134-144 Potassium, Serum 4.3 mmol/L 3.5-5.2 Chloride, Serum 103 mmol/L 96-106 Carbon Dioxide, Total 20 mmol/L 18-29 Calcium, Serum 9.6 mg/dL 8.7-10.2 Protein, Total, Serum 7.0 g/dL 6.0-8.5 Albumin, Serum 4.4 g/dL 3.5-5.5 Globulin, Total 2.6 g/dL 1.5-4.5 A/G Ratio 1.7 1.1-2.5 Bilirubin, Total 0.3 mg/dL 0.0-1.2 Alkaline Phosphatase, S 91 IU/L 39-117 AST (SGOT) 16 IU/L 0-40 ALT (SGPT) 22 IU/L 0-32 Lipid Panel - 07/25/16 09:58 Cholesterol, Total 182 mg/dL 100-199 Triglycerides 135 mg/dL 0-149 HDL Cholesterol 36 mg/dL >39 VLDL Cholesterol Girma 27 mg/dL 5-40 LDL Cholesterol Calc 119 mg/dL 0-99 HSV 1 and 2-Specific Ab, IgG - 07/25/16 09:58 HSV 1 IgG, Type Spec <0.91 index 0.00-0.90 HSV 2 IgG, Type Spec <0.91 index 0.00-0.90 Hemoglobin A1c - 07/25/16 09:58 Hemoglobin A1c 5.7 % 4.8-5.6 Thyroid Ware Profile - 07/25/16 09:58 TSH 1.620 uIU/mL 0.450-4.500 A1C - 09/29/17 15:16 HEMOGLOBIN A1c 4.9 % of total Hgb <5.7 SUREPATH PAP RFX HPV mRNA E6/E7 - 09/29/17 17:15 CLINICAL INFORMATION: NRG LMP: 08/2017 NRG PREV. PAP: LGSIL NRG PREV. BX: N/A NRG SOURCE: Cervix NRG STATEMENT OF ADEQUACY: NRG INTERPRETATION/RESULT: NRG MEDICAL DETAIL REPRESENTATIVE: CHRIS GENERAL CATEGORIZATION: NRG COMMENT: NRG PATHOLOGIST: NRG COMMENT NRG A1C - 01/20/18 11:42 HEMOGLOBIN A1c 4.8 % of total Hgb <5.7 Beta HCG - 01/22/18 18:52 Beta HCG 18660 Result Verified by Repeat Analysis mIU/mL 10-17 Urinalysis - 01/22/18 18:52 Icotest N/A Negative Urine Volume Urine Volume Sufficient (10mL) Urine Yeast No Yeast present Urine-Appearance Slightly Cloudy Clear Urine-Bacteria Trace Urine-Bilirubin Negative Negative Urine-Blood 3+ Negative Urine-Color Red Colorless-Lt. Yellow Urine-Epithelial Cells 5-10/HPF Urine-Glucose Negative Negative Urine-Ketones Negative Negative Urine-Leukocytes Trace Negative Urine-Nitrite Negative Negative Urine-Other Urine Saved if Culture Needed (48hrs from time of collection) Urine-pH 7.0 5-8.5 Urine-Protein 2+ Negative Urine-RBC TNTC Urine-Specific [place] 1.020 1.000-1.030 Urine-WBC 2-5/HPF Urobilinogen 0.2 0.2-1.0 URINE PROTEIN 24 HOUR - 03/15/18 13:49 PROTEIN, TOTAL, 24 HR UR 180 mg/24 h <150 PENTA SCREEN - 03/19/18 14:46 Maternal Weight 262 lbs NRG Est'd Date of Delivery 08/15/2018 NRG NEHA Determined by ULTRASOUND NRG Mother's Ethnic Origin NRG Number of Fetuses 1 NRG Insulin Depend Diabetic NO NRG Repeat Specimen NO NRG Hx Of Neural Tube Defects NO NRG Prev Down Synd NO NRG Donor Egg NO NRG Donor Age: Egg Retrieval NOT GIVEN NRG Cigarette smoker NO NRG INTERPRETATION: SEE NOTE NRG Risk for ONTD <1:5000 NRG Age Risk Down Syndrome 1:1145 NRG LOLY Down Syndrome Risk 1:3304 <1:270 LOLY Trisomy 18 Risk <1:5000 <1:100 Calc'd Gestational Age 18.7 NRG AFP, Serum 38.7 ng/mL NRG AFP MoM 1.16 NRG hCG, Serum 23.1 IU/mL NRG hCG MoM 1.41 NRG Estriol, Free 1.01 ng/mL NRG Estriol MoM 0.85 NRG Inhibin A, Dimeric 210 pg/mL NRG Inhibin A MoM 1.56 NRG h-hCG, Serum 17.5 mcg/L NRG h-hCG MoM 1.44 NRG Date of 1995 NRG Collection Date 03/19/2018 [facility] Automated blood complete blood count (hemogram) panel - 07/22/18 15:25 Blood leukocytes automated count (number/volume) 15.2 10*3/uL 4.3-11.0 Blood erythrocytes automated count (number/volume) 4.65 10*6/uL 4.35-5.85 Venous blood hemoglobin measurement (mass/volume) 12.5 g/dL 11.5-16.0 Blood hematocrit (volume fraction) 38 % 35-52 Automated erythrocyte mean corpuscular volume 81 [foz_us] 80-99 Automated erythrocyte mean corpuscular hemoglobin (mass per erythrocyte) 27 pg 25-34 Automated erythrocyte mean corpuscular hemoglobin concentration measurement ( mass/volume) 33 g/dL 32-36 Automated erythrocyte distribution width ratio 13.1 % 10.0-14.5 Automated blood platelet count (count/volume) 362 10*3/uL 130-400 Automated blood platelet mean volume measurement 8.3 [foz_us] 7.4-10.4 Comprehensive metabolic panel - 07/22/18 15:25 Serum or plasma sodium measurement (moles/volume) 139 mmol/L 135-145 Serum or plasma potassium measurement (moles/volume) 4.0 mmol/L 3.6-5.0 Serum or plasma chloride measurement (moles/volume) 111 mmol/L 98-107 Carbon dioxide 21 mmol/L 21-32 Serum or plasma anion gap determination (moles/volume) 7 mmol/L 5-14 Serum or plasma urea nitrogen measurement (mass/volume) 14 mg/dL 7-18 Serum or plasma creatinine measurement (mass/volume) 0.67 mg/dL 0.60-1.30 Serum or plasma urea nitrogen/creatinine mass ratio 21 NRG Serum or plasma creatinine measurement with calculation of estimated glomerular filtration rate > NRG Serum or plasma glucose measurement (mass/volume) 120 mg/dL 70-105 Serum or plasma calcium measurement (mass/volume) 9.4 mg/dL 8.5-10.1 Serum or plasma total bilirubin measurement (mass/volume) 0.2 mg/dL 0.1-1.0 Serum or plasma alkaline phosphatase measurement (enzymatic activity/volume) 126 U/L 40-136 Serum or plasma aspartate aminotransferase measurement (enzymatic activity/ volume) 26 U/L 5-34 Serum or plasma alanine aminotransferase measurement (enzymatic activity/volume ) 42 U/L 0-55 Serum or plasma protein measurement (mass/volume) 6.7 g/dL 6.4-8.2 Serum or plasma albumin measurement (mass/volume) 3.3 g/dL 3.2-4.5 CALCIUM CORRECTED 10.0 mg/dL 8.5-10.1 Serum or plasma uric acid measurement (mass/volume) - 07/22/18 15:25 Serum or plasma uric acid measurement (mass/volume) 6.5 mg/dL 2.6-7.2 Lactate dehydrogenase 1 [enzymatic activity/volume] in serum or plasma - 15:25 Lactate dehydrogenase 1 [enzymatic activity/volume] in serum or plasma 162 U/L 125-220 Urine protein/creatinine mass ratio - 07/22/18 15:30 Urine protein measurement (mass/volume) 25 mg/dL 6-12 Urine creatinine measurement (mass/volume) 259 mg/dL 30- 125 Urine protein/creatinine mass ratio 0.10 NRG Automated blood complete blood count (hemogram) panel - 07/30/18 15:47 Blood leukocytes automated count (number/volume) 12.9 10*3/uL 4.3-11.0 Blood erythrocytes automated count (number/volume) 4.52 10*6/uL 4.35-5.85 Venous blood hemoglobin measurement (mass/volume) 12.5 g/dL 11.5-16.0 Blood hematocrit (volume fraction) 37 % 35-52 Automated erythrocyte mean corpuscular volume 81 [foz_us] 80-99 Automated erythrocyte mean corpuscular hemoglobin (mass per erythrocyte) 28 pg 25-34 Automated erythrocyte mean corpuscular hemoglobin concentration measurement ( mass/volume) 34 g/dL 32-36 Automated erythrocyte distribution width ratio 13.1 % 10.0-14.5 Automated blood platelet count (count/volume) 334 10*3/uL 130-400 Automated blood platelet mean volume measurement 8.2 [foz_us] 7.4-10.4 Comprehensive metabolic panel - 07/30/18 15:47 Serum or plasma sodium measurement (moles/volume) 138 mmol/L 135-145 Serum or plasma potassium measurement (moles/volume) 4.1 mmol/L 3.6-5.0 Serum or plasma chloride measurement (moles/volume) 109 mmol/L 98-107 Carbon dioxide 21 mmol/L 21-32 Serum or plasma anion gap determination (moles/volume) 8 mmol/L 5-14 Serum or plasma urea nitrogen measurement (mass/volume) 12 mg/dL 7-18 Serum or plasma creatinine measurement (mass/volume) 0.73 mg/dL 0.60-1.30 Serum or plasma urea nitrogen/creatinine mass ratio 16 NRG Serum or plasma creatinine measurement with calculation of estimated glomerular filtration rate > NRG Serum or plasma glucose measurement (mass/volume) 100 mg/dL 70-105 Serum or plasma calcium measurement (mass/volume) 9.5 mg/dL 8.5-10.1 Serum or plasma total bilirubin measurement (mass/volume) 0.2 mg/dL 0.1-1.0 Serum or plasma alkaline phosphatase measurement (enzymatic activity/volume) 130 U/L 40-136 Serum or plasma aspartate aminotransferase measurement (enzymatic activity/ volume) 19 U/L 5-34 Serum or plasma alanine aminotransferase measurement (enzymatic activity/volume ) 28 U/L 0-55 Serum or plasma protein measurement (mass/volume) 6.5 g/dL 6.4-8.2 Serum or plasma albumin measurement (mass/volume) 3.3 g/dL 3.2-4.5 CALCIUM CORRECTED 10.1 mg/dL 8.5-10.1 Serum or plasma uric acid measurement (mass/volume) - 07/30/18 15:47 Serum or plasma uric acid measurement (mass/volume) 6.8 mg/dL 2.6-7.2 Lactate dehydrogenase 1 [enzymatic activity/volume] in serum or plasma - 15:47 Lactate dehydrogenase 1 [enzymatic activity/volume] in serum or plasma 133 U/L 125-220 Urine protein/creatinine mass ratio - 07/30/18 15:50 Urine protein measurement (mass/volume) 17 mg/dL 6-12 Urine creatinine measurement (mass/volume) 193 mg/dL 30- 125 Urine protein/creatinine mass ratio 0.09 NRG Encounters ACCT No. Visit Date/Time Discharge Status Pt. Type Provider Facility Loc./Unit Complaint [id number] 09/07/2014 14:48:00 09/07/2014 23:59:59 CLS Outpatient AMARJIT SLOAN APRNNYRei Ferreira [id number] 07/12/2014 00:00:00 07/12/2014 23:59:59 CLS Outpatient SUNNY TERRELL DDS [id number] 06/22/2014 12:57:00 06/22/2014 23:59:59 CLS Outpatient OZZIE SLOAN APRN [id number] 06/13/2014 14:03:00 06/13/2014 23:59:59 CLS Outpatient NILS SANDOVAL APRN [id number] 06/08/2014 11:16:00 06/08/2014 23:59:59 CLS Outpatient OZZIE SLOAN APRN [id number] 05/04/2014 10:04:00 05/04/2014 23:59:59 CLS Outpatient OZZIE SLOAN APRN [id number] 04/20/2014 10:03:00 04/20/2014 23:59:59 CLS Outpatient NILS SANDOVAL APRN Rei [id number] 04/19/2014 16:08:00 04/19/2014 23:59:59 CLS Outpatient IVETT RUVALCABABERNARD Miranda [id number] 04/14/2014 16:27:00 04/14/2014 23:59:59 CLS Outpatient NILS SANDOVAL APRN A [id number] 04/14/2014 16:27:00 04/14/2014 23:59:59 CLS Outpatient NILS SANDOVAL APRN [id number] 03/03/2014 16:18:00 03/03/2014 23:59:59 CLS Outpatient IVETT RUVALCABARuth BERNARD J [id number] 11/10/2013 09:25:00 11/10/2013 23:59:59 CLS Outpatient IVETT SLUBBER TENDERBERNARD Miranda [id number] 11/10/2013 09:25:00 11/10/2013 23:59:59 CLS Outpatient IVETT SLUBBER TENDERBERNARD Miranda [id number] 10/06/2013 11:21:00 10/06/2013 23:59:59 CLS Outpatient ARCHIE ROOT APRNA Shama [id number] 09/22/2013 11:48:00 09/22/2013 23:59:59 CLS Outpatient IVETT SLUBBER TENDERBERNARD Miranda [id number] 04/24/2013 11:58:00 04/24/2013 23:59:59 CLS Outpatient GASTON HU APRN [id number] 07/28/2012 15:42:00 07/28/2012 23:59:59 CLS Outpatient GASTON HU APRN [id number] 07/27/2012 15:07:00 07/27/2012 23:59:59 CLS Outpatient [id number] 07/14/2012 16:04:00 07/14/2012 23:59:59 CLS Outpatient [id number] 06/09/2012 15:02:00 06/09/2012 23:59:59 CLS Outpatient LARRY YOON PSYD IVONE Ferreira [id number] 12/03/2012 15:04:00 Document Registration [id number] 10/07/2012 17:46:00 Document Registration [id number] 09/11/2012 15:51:00 Document Registration [id number] 07/30/2018 13:20:00 ACT Outpatient NIMA [facility] [id number] 03/19/2018 14:00:00 Document Registration [id number] 03/16/2018 13:40:00 Document Registration [id number] 01/20/2018 09:40:00 Document Registration [id number] 09/29/2017 14:00:00 Document Registration [id number] 07/27/2016 08:05:00 Document Registration [id number] 07/08/2016 15:08:00 Document Registration [id number] 07/05/2016 14:08:00 Document Registration [id number] 07/26/2018 17:23:00 07/26/2018 19:34:00 DIS Outpatient GAVINO MADRID MD [facility] FALL [id number] 07/22/2018 15:10:00 07/22/2018 23:59:59 CLS Outpatient TRICE OH MD [facility] LAB CHRONIC HYPERTENSION AFFECTING [id number] 06/14/2018 14:43:00 06/14/2018 17:20:00 DIS Outpatient AUSTEN KEYS MD [facility] N/V/D/ [id number] 06/01/2018 14:36:00 06/01/2018 15:41:00 DIS Outpatient TRICE OH MD [facility] DECREASED MOVEMENT [id number] 04/08/2018 10:44:00 04/08/2018 23:59:59 CLS Outpatient TRICE OH MD [facility] RAD SECOND TRIMESTER [id number] 02/12/2018 09:17:00 02/12/2018 23:59:59 CLS Outpatient TRICE OH MD [facility] RAD RIGHT UPPER QUAD PAIN R10.11 [id number] 01/23/2018 11:32:00 01/23/2018 23:59:59 CLS Outpatient TRICE OH MD [facility] RAD THREASTENED MISCARRIAGE O20.0 [id number] 01/21/2018 08:53:00 01/21/2018 23:59:59 CLS Preadmit TRICE OH MD [facility] RAD NORMAL IN MULTIGRAVIDA [id number] 07/30/2018 15:36:00 ACT Outpatient TRICE OH MD [facility] LAB O10.919 [id number] 07/22/2011 15:41:00 Document Registration [id number] 02/26/2011 16:49:00 Document Registration [id number] 01/22/2018 18:27:00 01/22/2018 20:27:00 DIS Outpatient [facility] ER
[2018-08-01 21:57] LABS: BASOPHILS % (AUTO) 0 % (0-10); EOSINOPHILS # (AUTO) 0.1 10^3/uL (0.0-0.3); EOSINOPHILS % (AUTO) 1 % (0-10); HEMATOCRIT 36 % (35-52); HEMOGLOBIN 12.1 G/DL (11.5-16.0); LYMPHOCYTES # (AUTO) 2.9 X 10^3 (1.0-4.0); LYMPHOCYTES % (AUTO) 19 % (12-44); MEAN CORPUSCULAR HEMOGLOBIN 27 PG (25-34); MEAN CORPUSCULAR HGB CONC 33 G/DL (32-36); MEAN CORPUSCULAR VOLUME 81 FL (80-99); MEAN PLATELET VOLUME 8.5 FL (7.4-10.4); MONOCYTES # (AUTO) 0.9 X 10^3 (0.0-1.0); MONOCYTES % (AUTO) 6 % (0-12); NEUTROPHILS # (AUTO) 11.1 X 10^3 (1.8-7.8); NEUTROPHILS % (AUTO) 74 % (42-75); PLATELET COUNT 359 10^3/uL (130-400); RED CELL DISTRIBUTION WIDTH 13.2 % (10.0-14.5)
[2018-08-01 21:59] LABS: BILIRUBIN,URINE NEGATIVE (NEGATIVE); CLARITY,URINE CLEAR; COLOR,URINE YELLOW; GLUCOSE, URINE (UA) NEGATIVE (NEGATIVE); KETONES,URINE NEGATIVE (NEGATIVE); LEUKOCYTE ESTERASE ,URINE 1+ (NEGATIVE); NITRITE,URINE NEGATIVE (NEGATIVE); PH,URINE 6.5 (5-9); PROTEIN,URINE 2+ (NEGATIVE); UROBILINOGEN,URINE 1 MG/DL (NORMAL)
[2018-08-01] MEDS ORDERED: CATHETER FLUSH 10 ML SYR IV SCH (22:00)
[2018-08-01] MEDS: D5 LR IV SOLUTION 1,000 ML IV SCH (22:01)
[2018-08-01 22:06] LABS: BACTERIA,URINE TRACE /HPF; RBC,URINE 0-2 /HPF; WBC,URINE 0-2 /HPF
[2018-08-01 22:18] LABS: ALANINE AMINOTRANSFERASE 24 U/L (0-55); ALBUMIN 3.2 GM/DL (3.2-4.5); ALKALINE PHOSPHATASE 130 U/L (40-136); BILIRUBIN,TOTAL 0.2 MG/DL (0.1-1.0); BUN/CREATININE RATIO 23; CALCIUM 9.1 MG/DL (8.5-10.1); CARBON DIOXIDE 18 MMOL/L (21-32); CHLORIDE 108 MMOL/L (98-107); CREATININE SERUM 0.71 MG/DL (0.60-1.30); GFR ESTIMATED > 60; GLUCOSE 93 MG/DL (70-105); POTASSIUM 4.1 MMOL/L (3.6-5.0); SODIUM 139 MMOL/L (135-145); TOTAL PROTEIN 6.4 GM/DL (6.4-8.2)
[2018-08-01] MEDS ORDERED: OXYTOCIN/NORMAL SALINE 500 ML IV ONE (22:24)
[2018-08-01] MEDS ORDERED: SUFENTA 0.6MCG/ML BUPIVA 0.125 100 ML ONE (22:25)
[2018-08-01] MEDS ORDERED: OXYTOCIN/NORMAL SALINE 500 ML IV SCH ×2 (22:26→22:30)
[2018-08-01] MEDS ORDERED: LIDOCAINE PF 2% 5 ML (XYLOCAINE) VIAL ONE (23:16)
[2018-08-01] MEDS ORDERED: BUPIVACAINE 0.25% 30 ML (SENSORCAINE) VIAL ONE (23:16)
[2018-08-01] MEDS ORDERED: fentaNYL INJECTION 100 MCG/2 ML AMP ONE (23:17)
[2018-08-01] MEDS ORDERED: LACTATED RINGERS 1,000 ML IV SCH (23:51)
[2018-08-02] VITALS (49 sets, daily range): BP systolic 102–154; BP diastolic 51–90
[2018-08-02] MEDS ORDERED: EPIDURAL (SUFENTA 0.6MCG/ML BUPIVA 0.125%) 100 ML BAG EPI PRN
[2018-08-02] MEDS ORDERED: diphenhydrAMINE 50 MG/ML INJ (BENADRYL) IV PRN
[2018-08-02] MEDS ORDERED: ONDANSETRON 4 MG/2 ML (SDV) Z0FRAN IV PRN
[2018-08-02] MEDS ORDERED: NALOXONE 0.4 MG/ML 1 ML (NARCAN) VIAL IV PRN
[2018-08-02] MEDS ORDERED: LIDOCAINE/EPI 2% 1:200,00 (XYLOCAINE) 10 ML VIAL ONE (06:23)
[2018-08-02] MEDS: D5 LR IV SOLUTION 1,000 ML IV SCH (06:29)
--- NOTE | 2018-08-02 07:05 | History & Physical-OB ---
OB - Chief Complaint & HPI Date/Time Date of Admission: Date of Admission: Aug 01, 2018 at 21:28 Date seen by a Provider: Aug 02, 2018 Time Seen by a Provider: 07:03 Chief Complaint/History OB-Reason for Admission/Chief: Rupture of Membranes Hx : 2 Hx Para: 0 Expected Date of Delivery: Aug 15, 2018 Gestational Age in Weeks: 38 Gestational Age in Days: 0 Other reason for admission: SROM at approx 8pm 08/01/18. No significant contractions. Was 4cm on admission, clear fluid noted on exam. History of Labs A+, antibody neg RI HIV/HepB/RPR NR GC/Chl neg Penta screen neg GBS neg Allergies and Home Medications Allergies Coded Allergies: No Known Drug Allergies (Unverified , 06/14/18) Home Medications Aspirin 81 Mg Tab.chew, 81 MG PO DAILY, (Reported) Vit/Iron Fumarate/FA 1 Each Tablet, 1 EACH PO DAILY, (Reported) Ranitidine HCl 150 Mg Tablet, 150 MG PO DAILY, (Reported) Patient Home Medication List Home Medication List Reviewed: Yes OB - History Hx of Present Care: Yes Ultrasounds: Normal mid trimester US Obstetrical Complications: None Medical Complications: Cardiovascular (Chronic Hypertension- on ASA for pre- eclampsia preventioin), Musculoskeletal (Uftk-Ztscs-Qjjvdoq s/p hip surgery) Information Induced Hypertension: Yes (Chronic Hypertensioin) Maternal Gestational Diabetes: No Hemorrhage: No Obstetrical History Hx : 2 Hx Para: 0 Hx Total # of Abortions (Spona: 1 Hx Multiple Gestation: No Hx Ectopic : No Hx Stillbirth: No Hx Complication: No Hx Maternal Gestational Diabet: No Hx Hemorrhage: No Patient Past Medical History Vwja-Lfqif-Ayejag s/p L hip surgical intervention Chronic Hypertension Social History/Family History Recent Infectious Disease Expo: No Alcohol Use: Denies Use Recreational Drug Use: No Immunizations Tetanus Booster (TDap): Less than 5yrs (06/12/18) Date of Influenza Vaccine: Feb 23, 2018 Rubella: immune RPR/VDRL: Negative GBS Status: Negative HBsAG: Negative OB - Admission Exam Physical Exam Vitals: Vital Signs 08/02/18 08/02/18 08/02/18 08/02/18 01:00 03:15 06:15 06:45 Temp 97.6 Pulse 85 Resp 20 B/P (MAP) 127/82 (97) Pulse Ox 96 O2 Delivery Room Air Cervical Dilatation: 10cm Station: +1 Membranes: Ruptured Heart Rate: 150's Decelerations: No Decelerations Longterm Variability: Average (6-25) Labs Laboratory Tests Test 08/01/18 21:40 Range/Units White Blood Count 15.0 H 4.3-11.0 10^3/uL Red Blood Count 4.50 4.35-5.85 10^6/uL Hemoglobin 12.1 11.5-16.0 G/DL Hematocrit 36 35-52 % Mean Corpuscular Volume 81 80-99 FL Mean Corpuscular Hemoglobin 27 25-34 PG Mean Corpuscular Hemoglobin Concent 33 32-36 G/DL Red Cell Distribution Width 13.2 10.0-14.5 % Platelet Count 359 130-400 10^3/uL Mean Platelet Volume 8.5 7.4-10.4 FL Neutrophils (%) (Auto) 74 42-75 % Lymphocytes (%) (Auto) 19 12-44 % Monocytes (%) (Auto) 6 0-12 % Eosinophils (%) (Auto) 1 0-10 % Basophils (%) (Auto) 0 0-10 % Neutrophils # (Auto) 11.1 H 1.8-7.8 X 10^3 Lymphocytes # (Auto) 2.9 1.0-4.0 X 10^3 Monocytes # (Auto) 0.9 0.0-1.0 X 10^3 Eosinophils # (Auto) 0.1 0.0-0.3 10^3/uL Basophils # (Auto) 0.0 0.0-0.1 10^3/uL Urine Color YELLOW Urine Clarity CLEAR Urine pH 6.5 5-9 Urine Specific [place] 1.015 L 1.016-1.022 Urine Protein 35 H 6-12 MG/DL Urine Glucose (UA) NEGATIVE NEGATIVE Urine Ketones NEGATIVE NEGATIVE Urine Nitrite NEGATIVE NEGATIVE Urine Bilirubin NEGATIVE NEGATIVE Urine Urobilinogen 1 NORMAL MG/DL Urine Leukocyte Esterase 1+ H NEGATIVE Urine RBC (Auto) 1+ H NEGATIVE Urine RBC 0-2 /HPF Urine WBC 0-2 /HPF Urine Squamous Epithelial Cells 10-25 H /HPF Urine Crystals NONE /LPF Urine Bacteria TRACE /HPF Urine Casts NONE /LPF Urine Mucus SMALL H /LPF Urine Culture Indicated NO Urine Creatinine 158 H 30-125 MG/DL Urine Protein/Creatinine Ratio 0.22 Sodium Level 139 135-145 MMOL/L Potassium Level 4.1 3.6-5.0 MMOL/L Chloride Level 108 H 98-107 MMOL/L Carbon Dioxide Level 18 L 21-32 MMOL/L Anion Gap 13 5-14 MMOL/L Blood Urea Nitrogen 16 7-18 MG/DL Creatinine 0.71 0.60-1.30 MG/DL Estimat Glomerular Filtration Rate > 60 BUN/Creatinine Ratio 23 Glucose Level 93 70-105 MG/DL Uric Acid 7.0 2.6-7.2 MG/DL Calcium Level 9.1 8.5-10.1 MG/DL Corrected Calcium 9.7 8.5-10.1 MG/DL Total Bilirubin 0.2 0.1-1.0 MG/DL Aspartate Amino Transf (AST/SGOT) 20 5-34 U/L Alanine Aminotransferase (ALT/SGPT) 24 0-55 U/L Alkaline Phosphatase 130 40-136 U/L Lactate Dehydrogenase 143 125-220 U/L Total Protein 6.4 6.4-8.2 GM/DL Albumin 3.2 3.2-4.5 GM/DL OB - Assessment/Plan/Diagnosis Assessment Assessment: rupture of membranes, other (Chronic hypertension w/o evidence of pre-eclampsia) Admission Dx 1. at 38w2d SROM 2. Chronic hypertension w/o evidence of pre-eclampsia 3. Scmv-Abgbc-Qczysdq L hip Admission Status: Inpatient Order (span 2 midnights) Reason for Inpatient Admission: labor and delivery Plan Plan: Expectant Management (augmentation w/ Pitocin) CLARKE AL DO Aug 02, 2018 07:05
[2018-08-02] MEDS ORDERED: IBUPROFEN 600 MG (MOTRIN) TAB PO ONE (08:48)
[2018-08-02] MEDS: IBUPROFEN 600 MG (MOTRIN) TAB PO SCH ×3 (08:50→22:01)
--- NOTE | 2018-08-02 08:59 | OB Labor & Delivery Record ---
Vag Delivery Note Vag Delivery Note Date of Delivery: 08/02/18 Preoperative Diagnosis: Risa Baxter is a (23 /Para 2 / 0, Gestational Age (wks)38w2d w/ SROM Postoperative Diagnosis: Same Surgeon: CLARKE AL Anesthesia: Epidural Delivery Type: Spontaneous Vaginal Findings: [] Viable female , apgars 8/9, weight 5#12 Lacerations: 2nd degree laceration repaired w/ 3-0 Vicryl Intact placenta with 3 vessel cord. Nuchal cord x1, No shoulder dystocia Estimated Blood Loss: 150 ml Complications: None Condition: Stable Description of Procedure: The patient is a 23 year old female who presented with SROM. She was admitted and informed consent was obtained. Her labor course was remarkable for augmentation with Pitocin. She progressed to complete dilatation and began to push. She was then set up for delivery. The 's head was delivered atraumatically in the SHAYLA position. The shoulders and remainder of the 's body were then delivered without difficulty. Upon delivery, the head was held below the level of the perineum and the mouth and nares were bulb suctioned. Infant was vigorous at brith and was placed on the maternal abdomen. After cessation of cord pulsations, the cord was doubly clamped and cut.. An intact placenta with 3-vessel cord delivered via Mer and there was found to be minimal bleeding.~150mL. Vigorous fundal massage was performed and the fundus was found to be firm. IV oxytocin was given. Examination of the vagina and perineum revealed a 2nd degree laceration repaired in the usual fashion with 3- 0 vicryl suture. Following the repair, sponge, instrument and needle counts were correct. Mom and baby were both in stable condition in the labor suite. Vitals - Labs Vital Signs - I&O Vital Signs Date Time Temp Pulse Resp B/P (MAP) Pulse Ox O2 Delivery O2 Flow Rate FiO2 08/02/18 07:00 104 20 134/73 (93) Room Air 08/02/18 06:45 85 20 127/82 (97) 08/02/18 06:30 94 20 124/74 (91) 08/02/18 06:15 97.6 103 20 133/89 (104) 08/02/18 06:00 85 20 130/61 (84) 08/02/18 05:45 86 20 112/65 (81) 08/02/18 05:30 75 20 113/55 (74) 08/02/18 05:15 94 20 115/56 (75) 08/02/18 05:00 78 20 102/51 (68) 08/02/18 04:45 86 20 115/55 (75) 08/02/18 04:30 95 20 154/65 (94) 08/02/18 04:15 95 20 137/63 (87) 08/02/18 04:00 106 20 130/66 (87) 08/02/18 03:45 102 20 127/69 (88) 08/02/18 03:30 93 20 123/65 (84) 08/02/18 03:15 95 20 134/69 (90) 08/02/18 03:15 98.6 95 20 134/69 (90) Room Air 08/02/18 03:00 94 20 134/63 (86) 08/02/18 01:45 100 20 130/90 (103) 08/02/18 01:30 95 20 120/68 (85) 08/02/18 01:15 96 20 118/66 (83) 08/02/18 01:00 100 20 120/64 (82) 96 08/02/18 00:45 94 20 125/58 (80) 96 08/02/18 00:37 104 20 123/58 (79) 96 08/02/18 00:33 102 20 127/62 (83) 98 08/02/18 00:25 105 20 132/66 (88) 98 08/02/18 00:22 114 20 130/73 (92) 97 08/02/18 00:19 106 20 117/57 (77) 96 08/02/18 00:16 104 20 128/60 (82) 96 08/02/18 00:13 90 20 129/61 (83) 96 08/02/18 00:10 93 20 130/60 (83) 96 08/01/18 23:55 113 20 103/56 (72) 97 08/01/18 23:50 125 20 126/60 (82) 97 08/01/18 23:45 130 20 154/89 (110) 97 08/01/18 23:40 122 20 159/92 (114) 96 08/01/18 23:35 120 20 154/93 (113) 96 08/01/18 23:30 119 20 207/77 (120) 97 08/01/18 23:25 98.9 113 20 141/80 (100) 100 Room Air 08/01/18 23:20 113 20 176/94 (121) 100 Room Air 08/01/18 23:15 109 20 164/99 (120) 98 Room Air 08/01/18 23:10 96 20 171/93 (119) 100 Room Air 08/01/18 23:00 92 20 170/94 (119) 08/01/18 22:45 90 20 148/76 (100) 08/01/18 22:30 100 20 144/84 (104) 08/01/18 22:15 93 20 141/71 (94) 08/01/18 21:50 97 20 200/89 (126) 08/01/18 21:25 111 20 141/84 (103) 08/01/18 21:10 97.3 126 20 167/93 (117) Labs Laboratory Tests 08/01/18 21:40: White Blood Count 15.0H, Red Blood Count 4.50, Hemoglobin 12.1, Hematocrit 36, Mean Corpuscular Volume 81, Mean Corpuscular Hemoglobin 27, Mean Corpuscular Hemoglobin Concent 33, Red Cell Distribution Width 13.2, Platelet Count 359, Mean Platelet Volume 8.5, Neutrophils (%) (Auto) 74, Lymphocytes (%) (Auto) 19, Monocytes (%) (Auto) 6, Eosinophils (%) (Auto) 1, Basophils (%) (Auto) 0, Neutrophils # (Auto) 11.1H, Lymphocytes # (Auto) 2.9, Monocytes # (Auto) 0.9, Eosinophils # (Auto) 0.1, Basophils # (Auto) 0.0, Urine Color YELLOW, Urine Clarity CLEAR, Urine pH 6.5, Urine Specific [place] 1.015L, Urine Protein 35H, Urine Glucose (UA) NEGATIVE, Urine Ketones NEGATIVE, Urine Nitrite NEGATIVE, Urine Bilirubin NEGATIVE, Urine Urobilinogen 1, Urine Leukocyte Esterase 1+H, Urine RBC (Auto) 1+H, Urine RBC 0-2, Urine WBC 0-2, Urine Squamous Epithelial Cells 10-25H, Urine Crystals NONE, Urine Bacteria TRACE, Urine Casts NONE, Urine Mucus SMALLH, Urine Culture Indicated NO, Urine Creatinine 158H, Urine Protein/Creatinine Ratio 0.22, Sodium Level 139, Potassium Level 4.1, Chloride Level 108H, Carbon Dioxide Level 18L, Anion Gap 13, Blood Urea Nitrogen 16, Creatinine 0.71, Estimat Glomerular Filtration Rate > 60, BUN/Creatinine Ratio 23, Glucose Level 93, Uric Acid 7.0, Calcium Level 9.1, Corrected Calcium 9.7, Total Bilirubin 0.2, Aspartate Amino Transf (AST/SGOT) 20, Alanine Aminotransferase (ALT/SGPT) 24, Alkaline Phosphatase 130, Lactate Dehydrogenase 143, Total Protein 6.4, Albumin 3.2 CLARKE AL DO Aug 02, 2018 08:59
[2018-08-02] MEDS ORDERED: BENZOCAINE/MENTHOL (DERMOPLAST) 56 ML CAN TP PRN (09:30)
[2018-08-02] MEDS ORDERED: WITCH HAZEL(TUCKS) 40 EA JAR TOP PRN (09:30)
[2018-08-02] MEDS ORDERED: OXYTOCIN/NORMAL SALINE 500 ML IV SCH (09:30)
--- NOTE | 2018-08-02 10:02 | NUR ---
MOTHER HOLDING IN ARMS, NO DISTRESS NOTED, FFU/2 LT LOCHIA NOTED, FAMILY AT BEDSIDE,
--- NOTE | 2018-08-02 10:05 | NUR ---
Report from Boyd Connors RN
--- NOTE | 2018-08-02 11:29 | NUR ---
FFU/1, light rubra lochia noted, pericare performed per Cas Macias RN
--- NOTE | 2018-08-02 12:00 | NUR ---
Pt still c/o slight numbness in R leg, will wait to transfer at this time. Pt desires to rest.
--- NOTE | 2018-08-02 12:56 | Anesthesia-Regional Post-Op ---
Regional Significant Intra-Op Events Notes right thigh numbness. however epidural has only been off for about 4 hours. will continue to evaluate Patient Condition Mental Status: Alert, Oriented x3 Circulation: Same as Pre-Op Headache: Absent Sensation: Full Recovery Motor Block: Absent Post Op Complications Complications None Follow Up Care/Instructions Patient Instructions None needed. Anesthesia/Patient Condition Patient is doing well, no complaints, stable vital signs, no apparent adverse anesthesia problems. No complications reported per nursing. ROBERT MILTON CRNA Aug 02, 2018 12:56
[2018-08-02] MEDS ORDERED: CATHETER FLUSH 10 ML SYR IV SCH (14:00)
--- NOTE | 2018-08-02 14:00 | NUR ---
Pericare performed, fresh gown on. Pt assisted to standing position at side of bed. Ambulates self to bathroom without incident. +void. Pericare performed, fresh vpad and underwear on. Pt assisted to wheelchair and wheeled to room 309. Pt oriented to room and call light. packet explained. Pt denies needs or concerns at this time.
--- NOTE | 2018-08-02 15:45 | NUR ---
To room for motrin admin and VS. Pt holding infant, whom is sleeping. Pt states hasn't eaten since 11am. Encouraged to wake infant to feed and call for assistance if needed.
--- NOTE | 2018-08-02 20:57 | NUR ---
pt requesting shower. assessment completed. iv dc'd. shower set up. family at bedside. pt denies any further needs at this time.
[2018-08-03] VITALS: BP 137/94
[2018-08-03 03:28] VITALS: BP 119/62
[2018-08-03 06:00] LABS: BASOPHILS % (AUTO) 0 % (0-10); EOSINOPHILS # (AUTO) 0.1 10^3/uL (0.0-0.3); EOSINOPHILS % (AUTO) 1 % (0-10); HEMATOCRIT 33 % (35-52); LYMPHOCYTES % (AUTO) 25 % (12-44); MEAN CORPUSCULAR HEMOGLOBIN 27 PG (25-34); MEAN CORPUSCULAR HGB CONC 33 G/DL (32-36); MEAN CORPUSCULAR VOLUME 82 FL (80-99); MEAN PLATELET VOLUME 8.3 FL (7.4-10.4); MONOCYTES % (AUTO) 6 % (0-12); NEUTROPHILS # (AUTO) 10.8 X 10^3 (1.8-7.8); NEUTROPHILS % (AUTO) 68 % (42-75); PLATELET COUNT 293 10^3/uL (130-400); RED CELL DISTRIBUTION WIDTH 13.5 % (10.0-14.5); WHITE BLOOD COUNT 15.9 10^3/uL (4.3-11.0)
[2018-08-03 08:00] VITALS: BP 122/64
--- NOTE | 2018-08-03 08:00 | NUR ---
A.M. ASSESSMENT COMPLETED. VSS.
--- NOTE | 2018-08-03 08:30 | NUR ---
DR. KEYS HERE TO SEE PT. PLAN FOR DISCHARGE TODAY.
[2018-08-03] MEDS ORDERED: IBUP-844 PO (08:36)
--- NOTE | 2018-08-03 08:38 | Discharge Instructions ---
Discharge Inst-Women's Serv Depart Medications New, Converted or Re-Newed RX: Call to Patients Pharmacy Final Diagnosis Term vaginal delivery at 38 1/7 wga. Follow Up/Instructions Goal/Follow Up: Dr. Larsen on Friday. Activity Activity: Activity as Tolerated Driving Instructions: You May Drive NO SMOKING: NO SMOKING Nothing Inside Vagina: No Douching, No [place], No Tampons Diet Discharge Diet: No Restrictions Symptoms to Report to : Bleeding Excessive, Fever Over 101 Degrees F, Pain/ Pressure in Chest, Vaginal Bleeding Increase, Lightheadedness AUSTEN KEYS MD Aug 03, 2018 08:38
--- NOTE | 2018-08-03 08:42 | Short Stay Summary ---
History of Present Illness History of Present Illness Reason for visit/HPI Term labor. Date of Admission Aug 01, 2018 at 21:28 Date of Discharge August 03, 2018 at noon. Time Seen by Provider: 08:40 Attending Physician Nikole Madrid DO Admitting Physician [place] Consult Allergies and Home Medications Allergies Coded Allergies: No Known Drug Allergies (Unverified , 06/14/18) Home Medications Aspirin 81 Mg Tab.chew, 81 MG PO DAILY, (Reported) Ibuprofen 600 Mg Tablet, 600 MG PO Q6H Prescribed by: AUSTEN KEYS on 08/03/18 0836 Vit/Iron Fumarate/FA 1 Each Tablet, 1 EACH PO DAILY, (Reported) Ranitidine HCl 150 Mg Tablet, 150 MG PO DAILY, (Reported) Patient Home Medication List Home Medication List Reviewed: Yes Past Jlakpsg-Qhzels-Yyerjr Hx Patient Social History Alcohol Use: Denies Use Recreational Drug Use: No Physical Abuse Screen: No Sexual Abuse: No Recent Foreign Travel: No Contact w/other who traveled: No Recent Hopitalizations: No Recent Infectious Disease Expo: No Immunizations Up To Date Tetanus Booster (TDap): Less than 5yrs (06/12/18) Date of Influenza Vaccine: Feb 23, 2018 Seasonal Allergies Seasonal Allergies: No Surgeries Yes (Lhip surgery 2010, R knee surgery 2013, wisdom teeth extraction) Cardiovascular Yes Neurological No Reproductive System Expected Date of Delivery: Aug 15, 2018 Hx : 2 Hx Para: 0 Hx Total # of Abortions (Spona: 1 Gastrointestinal No Musculoskeletal Yes (Born with Legg-Perthes ) HEENT History of HEENT Disorders: No Cancer No Psychosocial History of Psychiatric Problem: Yes Behavioral Health Disorders: Anxiety, Bipolar, Depression Integumentary History of Skin or Integumenta: No Blood Transfusions History of Blood Disorders: No Family Medical History Family Hx: Diabetes mellitus 19 MOTHER Hypertension 19 MOTHER Psychosocial problem 19 MOTHER Thalassemia 19 FATHER G8 BROTHER Review of Systems Constitutional: no symptoms reported Physical Exam Vital Signs Vital Signs - First Documented 08/01/18 08/01/18 21:10 23:10 Temp 97.3 Pulse 126 Resp 20 B/P (MAP) 167/93 (117) Pulse Ox 100 O2 Delivery Room Air Capillary Refill : Height, Weight, BMI Height: 5'4.00" Weight: 285lbs. 6.0oz. 129.216016tg; 49.0 BMI Method: General Appearance: No Apparent Distress, WD/WN Cardiovascular: Regular Rate, Rhythm Extremity: Other (1+ edema bilaterally) Skin: Normal Color Clinical Quality Measures Admission Status Admission Dx SP spontaneous vaginal delivery. Admission Status: Inpatient Order (span 2 midnights) Reason for Inpatient Admission: Term labor. DVT/VTE Risk/Contraindication: Risk Factor Score Per Nursin RFS Level Per Nursing on Admit: 3=High Short Stay Diagnosis Discharge Diagnosis-Short Stay Admission Diagnosis: Term labor. Final Discharge Diagnosis: Vaginal delivery at 38 1/7 wga. Conclusion Labs Laboratory Tests 08/03/18 05:49: White Blood Count 15.9H, Red Blood Count 4.01L, Hemoglobin 11.0L, Hematocrit 33L , Mean Corpuscular Volume 82, Mean Corpuscular Hemoglobin 27, Mean Corpuscular Hemoglobin Concent 33, Red Cell Distribution Width 13.5, Platelet Count 293, Mean Platelet Volume 8.3, Neutrophils (%) (Auto) 68, Lymphocytes (%) (Auto) 25, Monocytes (%) (Auto) 6, Eosinophils (%) (Auto) 1, Basophils (%) (Auto) 0, Neutrophils # (Auto) 10.8H, Lymphocytes # (Auto) 4.0, Monocytes # (Auto) 1.0, Eosinophils # (Auto) 0.1, Basophils # (Auto) 0.0 Conclusion/Plan Routine care. AUSTEN KEYS MD Aug 03, 2018 08:42
--- NOTE | 2018-08-03 09:00 | NUR ---
INFANT TO NURSERY FOR HEARING SCREEN AND 24 HOUR SCREENING.
--- NOTE | 2018-08-03 09:15 | NUR ---
LEFT EAR PASSED BUT RIGHT REFERRED. WILL TRY AGAIN BEFORE DISCHARGED.
[2018-08-03] MEDS: IBUPROFEN 600 MG (MOTRIN) TAB PO SCH ×2 (09:30→10:40)
--- NOTE | 2018-08-03 09:40 | NUR ---
LAB HERE TO DRAW BLOOD.
--- NOTE | 2018-08-03 10:00 | NUR ---
INFANT RETURNED TO MOM FOR BONDING.
--- NOTE | 2018-08-03 10:30 | NUR ---
THIS RN FED INFANT IN FRONT OF MOM TO EVALUATE SUCK/SWALLOW. DOING FAIRLY WELL BUT SLIGHTLY MESSY EATER. BUBBLES WELL. MEDICAL RECORDS HERE TO SEE PT REGARDING CERTIFICATE.
--- NOTE | 2018-08-03 10:45 | NUR ---
TO ROOM TO VISIT WITH MOM TO SE IF HAVING ANY QUESTIONS OR PLANNING TO PUMP.
--- NOTE | 2018-08-03 12:30 | NUR ---
EATING STORK MEAL.
--- NOTE | 2018-08-03 14:00 | NUR ---
DISCHARGE INSTRUCTIONS REVIEWED WITH COPY TO PT. STATES UNDERSTANDING OF ALL INSTRUCTIONS AND NEED TO F/U SCHEDULED AND NEEDED.
[2018-08-03 14:45] VITALS: BP 142/82
[2018-08-03 15:00] VITALS: BP 142/82
--- NOTE | 2018-08-03 15:00 | NUR ---
DISMISSED AMB FROM [facility] WITH INFANT TO FAMILY CAR IN STABLE CONDITION ACC BY Ahsan, MOTHER, AND LYLA ARMENTA.
== END 2018-08-03 15:00 | disposition home or self-care (01) | DRG 807 ==
LOC: WSo 20:56 → LDRP 20:56 → WSo 21:27 → LDRP 21:28
PROVIDERS: ADMIT Family Medicine; ATTEND Family Medicine
PROC: 10E0XZZ Delivery of Products of Conception, External Approach (ICD-10-PCS; principal; 2018-08-02)
PROC: 0KQM0ZZ Repair Perineum Muscle, Open Approach (ICD-10-PCS; 2018-08-02)
DX: O10.013 Pre-existing essential hypertension complicating pregnancy, third trimester (principal); O70.1 Second degree perineal laceration during delivery; O69.81X0 Labor and delivery complicated by cord around neck, without compression, not applicable or unspecified; O26.893 Other specified pregnancy related conditions, third trimester; M91.12 Juvenile osteochondrosis of head of femur [Legg-Calve-Perthes], left leg; O99.333 Smoking (tobacco) complicating pregnancy, third trimester; F17.210 Nicotine dependence, cigarettes, uncomplicated; O99.613 Diseases of the digestive system complicating pregnancy, third trimester; K21.9 Gastro-esophageal reflux disease without esophagitis; Z3A.38 38 weeks gestation of pregnancy; Z37.0 Single live birth
CPT/HCPCS: 36415; 80053; 81000; 82570; 83615; 84156; 84550; 85025; 86850; 86900; 86901; 99212

== ENCOUNTER → 2019-05-31 | Outpatient (CLI) | payer MEDICARE, MEDICAID ==
[~2019-05-31] MED LIST changes: +CATHETER FLUSH 10 ML SYR IV PRN; +IBUP-844 PO; +RANI-613 PO; -RANI150T46 PO
--- NOTE | 2019-05-31 13:12 | Diagnostic Imaging Report ---
INDICATION: Right upper quadrant pain. TECHNIQUE: The patient was administered 5.4 mCi of technetium 99m Choletec intravenously and imaging over the abdomen was performed. After 60 minutes, the patient ingested one can of Ensure and the gallbladder ejection fraction was calculated. FINDINGS: There is homogeneous uptake of activity by the liver. There is prompt excretion of activity into the gallbladder and common duct with normal passage into the small bowel. The gallbladder ejection fraction is abnormally low at 20%. Normal values are 33% or greater. IMPRESSION: 1. Patent cystic duct and common bile duct. 2. Abnormally low gallbladder ejection fraction of 20%. Dictated by: Dictated on workstation # [id number]
== END ==
LOC: RAD 09:43
PROVIDERS: ATTEND Family Medicine
DX: R10.11 Right upper quadrant pain (principal); R19.7 Diarrhea, unspecified
CPT/HCPCS: 78227

== ENCOUNTER 2019-06-10 05:35 | Outpatient (CLI) | payer MEDICARE, MEDICAID ==
[~2019-06-10] VITALS: Ht 162.6 cm; Wt 125.9 kg
[~2019-06-10 05:35] MED LIST changes: -CATHETER FLUSH 10 ML SYR IV PRN
[2019-06-11] MEDS ORDERED: ACHD5005 PO (11:25)
[2019-06-11] MEDS ORDERED: DOCU-143 PO (11:25)
== END 2019-06-10 12:15 | disposition home or self-care (01) ==
LOC: PREOP 05:35
PROVIDERS: ATTEND Surgery
DX: Z01.818 Encounter for other preprocedural examination (principal)

== ENCOUNTER 2022-03-13 06:23 | Outpatient (CLI) | payer MEDICARE, MEDICAID ==
[~2022-03-13] VITALS: Ht 162.6 cm; Wt 119.3 kg
[~2022-03-13 06:23] MED LIST changes: +ACHD5005 PO; +DOCU-143 PO
[2022-03-13] MEDS ORDERED: DICY10CA12 PO (14:39)
[2022-03-13] MEDS ORDERED: LOPE2CAP PO (14:39)
== END 2022-03-13 14:41 | disposition home or self-care (01) ==
LOC: PREOP 06:23
PROVIDERS: ATTEND Surgery
DX: Z01.818 Encounter for other preprocedural examination (principal)

== ENCOUNTER 2022-03-26 11:27 | Day surgery (SDC) | payer MEDICAID, MEDICARE ==
[~2022-03-26] VITALS: Ht 162 cm; Wt 119.3 kg
[~2022-03-26 11:27] MED LIST changes: +DICY10CA12 PO; +LOPE2CAP PO
[2022-03-26] MEDS ORDERED: LACTATED RINGERS 1,000 ML IV ONE ×2 (11:58→13:16)
[2022-03-26 12:00] VITALS: BP 101/67
[2022-03-26] MEDS ORDERED: LACTATED RINGERS 1,000 ML IV STA (12:08)
[2022-03-26] MEDS ORDERED: MIDAZOLAM 2 MG/2 ML (VERSED) VIAL ONE (13:15)
[2022-03-26] MEDS ORDERED: proPOfol 200 MG/20 ML (DIPRIVAN) VIAL IV ONE ×2 (13:15→13:34)
[2022-03-26] MEDS ORDERED: LACTATED RINGERS 1,000 ML IV SCH (13:30)
--- NOTE | 2022-03-26 13:39 | Discharge Inst-Simple/Standard ---
Discharge Inst-Standard Reconcile Patient Problems Problems Reviewed?: Yes Patient Instructions/Follow Up Plan of Care/Instructions/FU: F/u 2 weeks Morris Activity as Tolerated: Yes Discharge Diet: Regular Diet BILL MURRAY DO Mar 26, 2022 13:39
[2022-03-26 13:40] VITALS: BP 106/56
--- NOTE | 2022-03-26 13:43 | Anesthesia-General Post-Op ---
MAC Patient Condition Mental Status/LOC: Same as Preop Cardiovascular: Satisfactory Nausea/Vomiting: Absent Respiratory: Satisfactory Pain: Controlled Complications: Absent Post Op Complications Complications None Follow Up Care/Instructions Patient Instructions None needed. Anesthesiology Discharge Order Discharge Order Patient is doing well, no complaints, stable vital signs, no apparent adverse anesthesia problems. No complications reported per nursing. BANG CASILLAS CRNA Mar 26, 2022 13:43
[2022-03-26 13:45] VITALS: BP 102/57
[2022-03-26 14:20] VITALS: BP 102/57
--- NOTE | 2022-03-26 21:39 | OPERATIVE REPORT ---
DATE OF SERVICE: 03/26/2022 PREOPERATIVE DIAGNOSIS: Altered bowel dysfunction. POSTOPERATIVE DIAGNOSIS: Normal colon. PROCEDURE: Colonoscopy with random cold biopsies. SURGEON: Bill Caceres DO ANESTHESIA: Per SILVER SERVICE WAITER. ESTIMATED BLOOD LOSS: None. COMPLICATIONS: None. INDICATIONS: The patient is a 26-year-old female with change in bowel habits, having lots of diarrhea. She understands risks and benefits of procedure and wishes to proceed. Consent was signed in the chart. DESCRIPTION OF PROCEDURE: The patient was taken to the endoscopy suite, placed in left lateral recumbent position. Timeout was performed. Digital rectal exam was performed. No palpable polyps, masses or ulcerations. Scope was inserted in the rectum and advanced all the way to cecum with minimal difficulty. Prep was adequate. Scope was slowly retracted back. No polyps, masses or ulcerations within the cecum, ascending, transverse, descending and sigmoid colon. Once in the rectum, scope was retroflexed As the scope was being retracted, multiple random cold biopsies were obtained. Scope was slowly retracted back until completely removed. The patient tolerated procedure well without any complications. She was taken to recovery room in stable condition. RECOMMENDATIONS: The patient will follow up in 2 weeks to discuss pathology results. We would also recommend repeat colonoscopy per screening guidelines, which would be at age 46 currently. Any issues before that be reevaluated at that time. Job ID: [id number] DocumentID: [id number] Dictated Date: 03/26/2022 13:40:03 Scorekeeper Date: 03/26/2022 21:38:47 Dictated By: BILL CACERES DO
== END 2022-03-26 14:20 | disposition home or self-care (01) ==
LOC: ENDO 11:27
PROVIDERS: ATTEND Surgery
DX: R19.4 Change in bowel habit (principal); E66.9 Obesity, unspecified; Z68.42 Body mass index [BMI] 45.0-49.9, adult; F17.200 Nicotine dependence, unspecified, uncomplicated
CPT/HCPCS: 84703

== ENCOUNTER 2022-08-10 13:32 | Emergency (ER) | payer MEDICARE, MEDICAID ==
[~2022-08-10] VITALS: Ht 162 cm; Wt 121.0 kg
--- NOTE | 2022-08-10 14:03 | ED Lower Extremity ---
General Chief Complaint: Lower Extremity Stated Complaint: LEFT LEG PAIN Nursing Triage Note: pt states lt calf/foot pain, swelling and cool, 19 wks Source: patient Exam Limitations: no limitations (SAVANNA RODRIGES) History of Present Illness Date Seen by Provider: Aug 10, 2022 Time Seen by Provider: 14:01 Initial Comments Patient is a 27-year-old female who is 19 weeks presents ED with left leg pain. Pain started last night with a sharp pain that started on the left dorsum foot. This pain has migrated up to her left mid thigh. Described as numbness and tingling with sharp pain with walking. Pain is constant worse with movement. Denies of any trauma, falls. She does have some lower leg swelling but she states this could be due to her . No long travels, recent tia geries. Denies chest pain, cough, shortness of breath, nausea, vomit, abdominal pain, vaginal bleeding, diarrhea fever, chills. Patient has been taken Tylenol. Patient is concerned for DVT. (SAVANNA RODRIGES) Allergies and Home Medications Allergies Coded Allergies: No Known Drug Allergies (Unverified , 06/14/18) Patient Home Medication List Home Medication List Reviewed: Yes (SAVANNA RODRIGES) Dicyclomine HCl (Dicyclomine HCl) 10 Mg Capsule, 10 MG PO TID, (Reported) Entered as Reported by: FLORENCIO LEWIS on 03/13/22 1439 Loperamide HCl (Loperamide) 2 Mg Capsule, 2 MG PO DAILY, (Reported) Entered as Reported by: FLORENCIO LEWIS on 03/13/22 1439 Review of Systems Constitutional: No chills, No malaise, No weakness EENTM: No blurred vision, No double vision Respiratory: No cough, No dyspnea on exertion Cardiovascular: No chest pain Gastrointestinal: No abdominal pain Genitourinary: No decreased output, No discharge Musculoskeletal: No back pain, No joint pain; muscle pain, muscle stiffness, other (leg swelling) Skin: No change in color, No change in hair/nails (SAVANNA RODRIGES) All Other Systems Reviewed Negative Unless Noted: Yes (SAVANNA RODRIGES) Past Nbfmths-Wjdqna-Juxsrw Hx Patient Social History Tobacco Use?: Yes Tobacco type used: Cigarettes Smoking Status: Current Everyday Smoker Substance use?: No Alcohol Use?: No (SAVANNA RODRIGES) Immunizations Up To Date Tetanus Booster (TDap): Less than 5yrs First/Initial COVID19 Vaccinat: yes Second COVID19 Vaccination Ashutosh: yes Third COVID19 Vaccination Date: NO (SAVANNA RODRIGES) Seasonal Allergies Seasonal Allergies: Yes (SAVANNA RODRIGES) Past Medical History Surgery/Hospitalization HX: tonsils, lt hip surgery x's 2, rt knee, juanita, Surgeries: Yes (L hip x2, R knee surgery 2013, wisdom teeth extraction) Tonsillectomy Respiratory: No Cardiac: No Neurological: Yes Headaches /Migraines Expected Date of Delivery: Dec 30, 2022 Last Menstrual Period: Mar 25, 2022 Genitourinary: No Gastrointestinal: Yes Gall Bladder Disease Musculoskeletal: Yes (Born with Legg-Perthes ) Endocrine: No HEENT: No Cancer: No Psychosocial: Yes Anxiety, Bipolar, Depression Integumentary: No Blood Disorders: No (SAVANNA RODRIGES) Family Medical History Diabetes mellitus 19 MOTHER Hypertension 19 MOTHER Psychosocial problem 19 MOTHER Thalassemia 19 FATHER G8 BROTHER Physical Exam Vital Signs Vital Signs - First Documented 08/10/22 13:38 Temp 36.9 Pulse 105 Resp 20 B/P (MAP) 158/107 (124) Pulse Ox 97 O2 Delivery Room Air ([facility]) Vital Signs Capillary Refill : Less Than 3 Seconds (SAVANNA RODRIGES) Height, Weight, BMI Height: 5'4.00" Weight: 285lbs. 6.0oz. 129.750919cl; 46.00 BMI Method: General Appearance: WD/WN, no apparent distress HEENT: PERRL/EOMI, normal ENT inspection, TMs normal, pharynx normal Neck: non-tender, full range of motion Cardiovascular: regular rate, rhythm, no edema, no gallop, no JVD Respiratory: chest non-tender, lungs clear, normal breath sounds, no re spiratory distress, no accessory muscle use Gastrointestinal: normal bowel sounds, non tender, soft, no organomegaly Back: normal inspection, no CVA tenderness Legs: right leg pain (Right calf tenderness.), right leg soft tissue tenderness, right leg swelling (Mild swelling noted to the left calf, left foot. No ecchymosis or erythema), right leg other (Dorsalis pedis +2, posterior tibialis +2. Cap refill less than 2. Normal active range of motion of left ankle and toes) Neurologic/Psychiatric: gis programmer II-XII nml as tested, no motor/sensory deficits, alert, normal mood/affect, oriented x 3 Skin: normal color, warm/dry (SAVANNA RODRIGES) Progress/Results/Core Measures Results/Orders Lab Results Laboratory Tests Test 08/10/22 14:07 Range/Units White Blood Count 10.8 4.3-11.0 10^3/uL Red Blood Count 4.64 3.80-5.11 10^6/uL Hemoglobin 12.7 11.5-16.0 g/dL Hematocrit 38 35-52 % Mean Corpuscular Volume 82 80-99 fL Mean Corpuscular Hemoglobin 27 25-34 pg Mean Corpuscular Hemoglobin Concent 34 32-36 g/dL Red Cell Distribution Width 12.2 10.0-14.5 % Platelet Count 301 130-400 10^3/uL Mean Platelet Volume 8.1 L 9.0-12.2 fL Immature Granulocyte % (Auto) 0 % Neutrophils (%) (Auto) 72 42-75 % Lymphocytes (%) (Auto) 22 12-44 % Monocytes (%) (Auto) 5 0-12 % Eosinophils (%) (Auto) 0 0-10 % Basophils (%) (Auto) 0 0-10 % Neutrophils # (Auto) 7.8 1.8-7.8 10^3/uL Lymphocytes # (Auto) 2.4 1.0-4.0 10^3/uL Monocytes # (Auto) 0.6 0.0-1.0 10^3/uL Eosinophils # (Auto) 0.0 0.0-0.3 10^3/uL Basophils # (Auto) 0.0 0.0-0.1 10^3/uL Immature Granulocyte # (Auto) 0.0 0.0-0.1 10^3/uL Prothrombin Time 12.7 12.2-14.7 SEC INR Comment 0.9 0.8-1.4 Activated Partial Thromboplast Time 27 24-35 SEC D-Dimer 0.28 0.00-0.49 UG/ML Sodium Level 138 135-145 MMOL/L Potassium Level 3.8 3.6-5.0 MMOL/L Chloride Level 110 H 98-107 MMOL/L Carbon Dioxide Level 18 L 21-32 MMOL/L Anion Gap 10 5-14 MMOL/L Blood Urea Nitrogen 8 7-18 MG/DL Creatinine 0.64 0.60-1.30 MG/DL Estimat Glomerular Filtration Rate 125 BUN/Creatinine Ratio 13 Glucose Level 115 H 70-105 MG/DL Calcium Level 9.3 8.5-10.1 MG/DL Corrected Calcium 9.7 8.5-10.1 MG/DL Total Bilirubin 0.2 0.1-1.0 MG/DL Aspartate Amino Transf (AST/SGOT) 9 5-34 U/L Alanine Aminotransferase (ALT/SGPT) 12 0-55 U/L Alkaline Phosphatase 49 40-136 U/L Total Protein 6.9 6.4-8.2 GM/DL Albumin 3.5 3.2-4.5 GM/DL (JAMARNICHOLASA [employer] DO) Vital Signs/I&O 08/10/22 08/10/22 13:38 15:10 Temp 36.9 36.9 Pulse 105 105 Resp 20 20 B/P (MAP) 158/107 (124) 158/107 Pulse Ox 97 97 O2 Delivery Room Air Room Air (JAMAR,AMOR [employer] DO) Blood Pressure Mean: 124 Departure Communication (PCP) Patient is G3, P1 with a history of miscarriage. Complaining of left leg pain. Denies of any trauma. On exam she did have some swelling bilateral very mild. She had no posterior knee pain. No erythema, warmth or bruising. No evidence of varicose veins. She did have significant tenderness on palpation of the calf. Normal active range of motion of the ankles bilateral with +2 dorsalis pedis, posterior tibialis. Cap refill less than 2. Warm extremities. No evidence of ischemic limb. Pain appears to be radiating from the foot to the thigh. Denies of any low back pain or pain rating from the buttock to the leg. She has no abdominal tenderness. Denies any vaginal bleeding. Currently following with Dr. Oh gynecology. Due to her current presentation, CBC, CMP, coags and D-dimer was ordered. Patient D-dimer 0.28. Patient hematology and chemistry was otherwise unremarkable. Blood sugar 119. She states she did eat Malaysian last night. She has reported some leg swelling since her . A ble to rule out DVT with negative D-dimer. Discussed other potential etiologies such as muscle strain, Gonzalez's cyst rupture, sciatica from , vitamin deficiency. Continue with the prenatals at this time. Discussed stretching, warm compresses. Elevate feet at night. She is scheduled follow-up on Friday with her home health clinician. Discussed return precautions with patient. Patient denies chest pain or shortness of breath. Patient initial blood pressure was 150/107. She was in mild amount of pain. Refused anything for pain. Recheck BP 136/87 before discharge. Discussed continue monitoring blood pressure and discuss with pcp. Follow-up on Friday with blood pressure. (SAVANNA RODRIGES) Impression Primary Impression: Leg pain Disposition: HOME, SELF-CARE Condition: Stable Departure-Patient Inst. Decision time for Depature: 15:03 (SAVANNA RODRIGES) [facility]: [facility] [place] Primary Care Physician TRICE OH MD (Family) Primary Care Physician Patient Instructions: Leg Muscle Strain ED Add. Discharge Instructions: Recommend elevating legs at night. Avoid sodium. Tylenol for pain. Follow-up with your home health clinician on Friday. Recommend stretching. Warm compresses. Return back to ED if symptoms worsen All discharge instructions reviewed with patient and/or family. Voiced understanding. Work/School Note: Work Release Form Date Seen in the Emergency Department: Aug 10, 2022 Return to Work: Aug 12, 2022 ATTENDING PHYSICIAN NOTE: I WAS PHYSICALLY PRESENT ER PHYSICIAN, BUT I WAS NOT INVOLVED IN ANY DECISION MAKING OR ANY CARE OF THIS PATIENT, AND I AM NOT COLLABORATING PHYSICIAN. (AMOR ROLDAN DO) SAVANNA RODRIGES Aug 10, 2022 14:03 AMOR ROLDAN DO Aug 11, 2022 06:39
[2022-08-10 14:15] LABS: BASOPHILS % (AUTO) 0 % (0-10); EOSINOPHILS % (AUTO) 0 % (0-10); HEMATOCRIT 38 % (35-52); HEMOGLOBIN 12.7 g/dL (11.5-16.0); LYMPHOCYTES # (AUTO) 2.4 10^3/uL (1.0-4.0); LYMPHOCYTES % (AUTO) 22 % (12-44); MEAN CORPUSCULAR HEMOGLOBIN 27 pg (25-34); MEAN CORPUSCULAR HGB CONC 34 g/dL (32-36); MEAN CORPUSCULAR VOLUME 82 fL (80-99); MEAN PLATELET VOLUME 8.1 fL (9.0-12.2); MONOCYTES # (AUTO) 0.6 10^3/uL (0.0-1.0); MONOCYTES % (AUTO) 5 % (0-12); NEUTROPHILS # (AUTO) 7.8 10^3/uL (1.8-7.8); NEUTROPHILS % (AUTO) 72 % (42-75); PLATELET COUNT 301 10^3/uL (130-400); WHITE BLOOD COUNT 10.8 10^3/uL (4.3-11.0)
[2022-08-10 14:27] LABS: ALBUMIN 3.5 GM/DL (3.2-4.5); POTASSIUM 3.8 MMOL/L (3.6-5.0)
[2022-08-10 14:28] LABS: CALCIUM 9.3 MG/DL (8.5-10.1)
[2022-08-10 14:29] LABS: TOTAL PROTEIN 6.9 GM/DL (6.4-8.2)
[2022-08-10 14:31] LABS: BILIRUBIN,TOTAL 0.2 MG/DL (0.1-1.0)
[2022-08-10 14:33] LABS: CREATININE SERUM 0.64 MG/DL (0.60-1.30)
[2022-08-10 14:40] LABS: FIBRIN DEGRADATION PRODUCTS 0.28 UG/ML (0.00-0.49); INR 0.9 (0.8-1.4); PROTHROMBIN TIME PATIENT 12.7 SEC (12.2-14.7)
[2022-08-10 15:10] VITALS: BP 158/107
== END 2022-08-10 15:10 | disposition home or self-care (01) ==
LOC: EDUNIT# 13:32 → ER 13:34
DX: O99.891 Other specified diseases and conditions complicating pregnancy (principal); M79.605 Pain in left leg; O99.332 Smoking (tobacco) complicating pregnancy, second trimester; F17.210 Nicotine dependence, cigarettes, uncomplicated; Z3A.19 19 weeks gestation of pregnancy
CPT/HCPCS: 36415; 80053; 85025; 85379; 85610; 85730

== ENCOUNTER 2022-08-20 13:52 | Outpatient (CLI) | payer MEDICARE, MEDICAID ==
[2022-08-20] VITALS (11 sets, daily range): BP systolic 113–137; BP diastolic 55–79
[~2022-08-20] VITALS: Ht 162.6 cm; Wt 124.6 kg
[2022-08-20 14:14] LABS: BILIRUBIN,URINE NEGATIVE (NEGATIVE); CLARITY,URINE CLEAR; COLOR,URINE YELLOW; GLUCOSE, URINE (UA) NEGATIVE (NEGATIVE); KETONES,URINE TRACE (NEGATIVE); LEUKOCYTE ESTERASE ,URINE 1+ (NEGATIVE); NITRITE,URINE NEGATIVE (NEGATIVE); PROTEIN,URINE NEGATIVE (NEGATIVE)
[2022-08-20 14:20] LABS: BACTERIA,URINE TRACE /HPF
[2022-08-20 14:42] LABS: BASOPHILS % (AUTO) 0 % (0-10); EOSINOPHILS % (AUTO) 0 % (0-10); HEMATOCRIT 35 % (35-52); HEMOGLOBIN 11.7 g/dL (11.5-16.0); LYMPHOCYTES # (AUTO) 1.9 10^3/uL (1.0-4.0); LYMPHOCYTES % (AUTO) 21 % (12-44); MEAN CORPUSCULAR HEMOGLOBIN 28 pg (25-34); MEAN CORPUSCULAR HGB CONC 34 g/dL (32-36); MEAN CORPUSCULAR VOLUME 82 fL (80-99); MEAN PLATELET VOLUME 8.2 fL (9.0-12.2); MONOCYTES # (AUTO) 0.5 10^3/uL (0.0-1.0); MONOCYTES % (AUTO) 5 % (0-12); NEUTROPHILS # (AUTO) 6.5 10^3/uL (1.8-7.8); NEUTROPHILS % (AUTO) 73 % (42-75); PLATELET COUNT 274 10^3/uL (130-400); WHITE BLOOD COUNT 8.9 10^3/uL (4.3-11.0)
[2022-08-20 14:51] LABS: ALBUMIN 3.3 GM/DL (3.2-4.5); POTASSIUM 3.3 MMOL/L (3.6-5.0)
[2022-08-20 14:52] LABS: CALCIUM 8.8 MG/DL (8.5-10.1)
[2022-08-20 14:54] LABS: TOTAL PROTEIN 6.5 GM/DL (6.4-8.2)
[2022-08-20 14:55] LABS: BILIRUBIN,TOTAL 0.2 MG/DL (0.1-1.0)
[2022-08-20 14:57] LABS: CREATININE SERUM 0.66 MG/DL (0.60-1.30)
[2022-08-20 15:00] LABS: URIC ACID 6.2 MG/DL (2.6-7.2)
[2022-08-20] MEDS ORDERED: PREN1TAB79 PO (15:57)
--- NOTE | 2022-08-21 07:59 | Physician Query-Final Dx ---
RIVAS,08/21/22 0759: Clinic Account Progress/Dx Physician Query: Please give diagnosis Please include # weeks gestation Date of Service Aug 20, 2022 at 13:52 TRICE OH MD 08/21/22 1150: Clinic Account Progress/Dx DIAGNOSIS: Diagnosis Second trimester 21 weeks gestation Elevated blood pressure complicating RIVAS,MayAug 21, 2022 07:59 TRICE OH MD Aug 21, 2022 11:50
== END 2022-08-20 16:08 | disposition home or self-care (01) ==
LOC: LDRP 13:52 → WSo 13:52
PROVIDERS: ATTEND Family Medicine
DX: O13.2 Gestational [pregnancy-induced] hypertension without significant proteinuria, second trimester (principal); Z3A.21 21 weeks gestation of pregnancy
CPT/HCPCS: 36415; 80053; 81000; 82570; 83615; 84156; 84550; 85025; 99213

== ENCOUNTER 2022-09-20 17:00 | Outpatient (CLI) | payer MEDICARE, MEDICAID ==
[~2022-09-20] VITALS: Ht 162.6 cm; Wt 126.9 kg
[~2022-09-20 17:00] MED LIST changes: +PREN1TAB79 PO
[2022-09-20 17:30] VITALS: BP 139/78
--- NOTE | 2022-09-23 08:07 | Physician Query-Final Dx ---
RIVAS09/23/22 0807: Clinic Account Progress/Dx Physician Query: Please give diagnosis Please include # weeks gestation Date of Service Sep 20, 2022 at 17:00 CLARKE AL DO 09/24/22 1731: Clinic Account Progress/Dx DIAGNOSIS: Diagnosis 25 wk GA decreased movement w/ reassuring FHT RIVAS,MaySeptember 23, 2022 08:07 CLARKE AL DO September 24, 2022 17:31
== END 2022-09-20 18:15 | disposition home or self-care (01) ==
LOC: LDRP 17:00 → WSo 17:00
PROVIDERS: ATTEND Family Medicine
DX: O36.8120 Decreased fetal movements, second trimester, not applicable or unspecified (principal); Z3A.25 25 weeks gestation of pregnancy
CPT/HCPCS: 99213

== ENCOUNTER 2022-11-13 12:07 | Outpatient (CLI) | payer MEDICARE, MEDICAID ==
[~2022-11-13] VITALS: Ht 162.6 cm; Wt 132.4 kg
[2022-11-13 12:44] VITALS: BP 129/75
[2022-11-13] MEDS ORDERED: ESCI20TA PO (12:53)
[2022-11-13] MEDS ORDERED: AMOX500C2 PO (12:54)
[2022-11-13 13:03] LABS: HEMATOCRIT 37 % (35-52); HEMOGLOBIN 11.9 g/dL (11.5-16.0); MEAN CORPUSCULAR HEMOGLOBIN 26 pg (25-34); MEAN CORPUSCULAR HGB CONC 33 g/dL (32-36); MEAN CORPUSCULAR VOLUME 80 fL (80-99); MEAN PLATELET VOLUME 8.2 fL (9.0-12.2); PLATELET COUNT 295 10^3/uL (130-400); WHITE BLOOD COUNT 11.8 10^3/uL (4.3-11.0)
[2022-11-13 13:07] VITALS: BP 128/69
[2022-11-13 13:20] LABS: ALBUMIN 3.2 GM/DL (3.2-4.5); BILIRUBIN,TOTAL 0.3 MG/DL (0.1-1.0); CALCIUM 8.8 MG/DL (8.5-10.1); CREATININE SERUM 0.61 MG/DL (0.60-1.30); TOTAL PROTEIN 6.6 GM/DL (6.4-8.2); URIC ACID 6.5 MG/DL (2.6-7.2)
[2022-11-13 13:30] VITALS: BP 128/69
[2022-11-13 14:05] VITALS: BP 128/69
--- NOTE | 2022-11-13 15:31 | Short Stay Summary ---
History of Present Illness History of Present Illness Reason for visit/HPI 27 yo at 33w2d presented to clinic for BP check due to worsened swelling this morning and intermittent headaches over the last week. She also admits spots in vision at times. She denies upper abdominal pain. She has a history of chronic hypertension that has not required treatment up until now in her . Her BP at clinic was 150/100 and 140s/90s, so she was sent for preeclampsia work-up. At labor and delivery her BP has been below 130/85 and her preeclampsia labs are unremarkable. Date of Admission 11/13/22 Date of Discharge 11/13/22 Time Seen by Provider: 13:30 Attending Physician Eunice/[facility] Admitting Physician Admitting Physician: Attending Physician: Trice Ricci MD Consult Allergies and Home Medications Allergies Coded Allergies: No Known Drug Allergies (Unverified , 06/14/18) Patient Home Medication List Home Medication List Reviewed: Yes Amoxicillin (Amoxicillin) 500 Mg Capsule, 500 MG PO Q8H, (Reported) Entered as Reported by: CHARI FARRELL on 11/13/22 1254 Last Action: Reviewed Escitalopram Oxalate (Lexapro) 20 Mg Tablet, 20 MG PO DAILY, (Reported) Entered as Reported by: CHARI FARRELL on 11/13/22 1253 Last Action: Reviewed Vit W-Ca,Fe,FA(<1 mg) ( Vitamins) 27 Mg Iron-800 Mcg Tablet, 1 EACH PO, (Reported) Entered as Reported by: RY HOLLAND on 08/20/22 1557 Last Action: Reviewed Past Rcxlnpm-Rgydpi-Zwinew Hx Patient Social History Number of Children: 1 Number of living children: 1 Smoking Status: Current Someday Smoker (vapes) 2nd Hand Smoke Exposure: Yes Recent Hopitalizations: No Alcohol Use?: No Immunizations Up To Date Tetanus Booster (TDap): Less than 5yrs (10/22/2022) Date of Influenza Vaccine: Mar 23, 2020 Seasonal Allergies Seasonal Allergies: Yes Surgeries Yes (L hip x2, R knee surgery 2013, wisdom teeth extraction) Tonsillectomy Respiratory No Cardiovascular No Neurological Yes Headaches /Migraines Reproductive System Expected Date of Delivery: Dec 30, 2022 Last Menstrual Period: Mar 16, 2022 Hx : 3 Hx Para: 1 Hx Total # of Abortions (Spona: 1 Genitourinary No Gastrointestinal Yes Gall Bladder Disease Musculoskeletal Yes (Born with Legg-Perthes ) Endocrine History of Endocrine Disorders: No HEENT History of HEENT Disorders: No Cancer No Psychosocial History of Psychiatric Problem: Yes Behavioral Health Disorders: Anxiety, Bipolar, Depression Integumentary History of Skin or Integumenta: No Blood Transfusions History of Blood Disorders: No Reviewed Nursing Assessment Reviewed/Agree w Nursing PMH: Yes Family Medical History Family Hx: Diabetes mellitus 19 MOTHER Hypertension 19 MOTHER Psychosocial problem 19 MOTHER Thalassemia 19 FATHER G8 BROTHER Review of Systems Constitutional: No fever EENTM: see HPI Respiratory: no symptoms reported Cardiovascular: no symptoms reported Gastrointestinal: see HPI Genitourinary: no symptoms reported : Yes Musculoskeletal: no symptoms reported Skin: no symptoms reported Psychiatric/Neurological: No Symptoms Reported Physical Exam Vital Signs Vital Signs - First Documented 11/13/22 12:44 Temp 36.4 Pulse 102 Resp 20 B/P (MAP) 129/75 (93) Pulse Ox 98 O2 Delivery Room Air Capillary Refill : Less Than 3 Seconds Height, Weight, BMI Height: 5'4.00" Weight: 285lbs. 6.0oz. 129.316858kb; 50.07 BMI Method: General Appearance: No Apparent Distress, WD/WN, Obese Respiratory: Lungs Clear, Normal Breath Sounds Cardiovascular: Regular Rate, Rhythm, No Murmur Gastrointestinal: Non Tender, Other (gravid) Extremity: No Pedal Edema Neurologic/Psychiatric: Alert, Normal Mood/Affect Short Stay Diagnosis Discharge Diagnosis-Short Stay Admission Diagnosis: Elevated blood pressure in third trimester 33 weeks gestation History of chronic hypertension Final Discharge Diagnosis: No signficant hypertension, no preeclampsia Conclusion Labs Laboratory Tests 11/13/22 12:20: Urine Protein 20H, Urine Creatinine 165H, Urine Protein/Creatinine Ratio 0.12 11/13/22 12:53: White Blood Count 11.8H, Red Blood Count 4.58, Hemoglobin 11.9, Hematocrit 37, Mean Corpuscular Volume 80, Mean Corpuscular Hemoglobin 26, Mean Corpuscular Hemoglobin Concent 33, Red Cell Distribution Width 12.8, Platelet Count 295, Mean Platelet Volume 8.2L, Sodium Level 136, Potassium Level 4.0, Chloride Level 110H, Carbon Dioxide Level 17L, Anion Gap 9, Blood Urea Nitrogen 9, Creatinine 0.61, Estimat Glomerular Filtration Rate 126, BUN/Creatinine Ratio 15, Glucose Level 81, Uric Acid 6.5, Calcium Level 8.8, Corrected Calcium 9.4, Total Bilirubin 0.3, Aspartate Amino Transf (AST/SGOT) 13, Alanine Aminotransferase (ALT/SGPT) 12, Alkaline Phosphatase 103, Total Protein 6.6, Albumin 3.2 Conclusion/Plan Discussed relative rest and avoiding strenuous activities, has follow up appointment in 5 days, monitor symptoms closely. TRICE RICCI MD Nov 13, 2022 15:31
== END 2022-11-13 14:05 | disposition home or self-care (01) ==
LOC: LDRP 12:07 → WSo 12:07
PROVIDERS: ATTEND Family Medicine
DX: O16.9 Unspecified maternal hypertension, unspecified trimester (principal); Z3A.00 Weeks of gestation of pregnancy not specified
CPT/HCPCS: 36415; 80053; 82570; 84156; 84550; 85027; 99212

== ENCOUNTER → 2022-11-18 | Outpatient (CLI) | payer MEDICARE, MEDICAID ==
[~2022-11-18] MED LIST changes: +AMOX500C2 PO; +ESCI20TA PO; +NIFE-25 PO
[2022-11-18 13:28] LABS: BASOPHILS % (AUTO) 0 % (0-10); EOSINOPHILS % (AUTO) 0 % (0-10); HEMATOCRIT 37 % (35-52); HEMOGLOBIN 12.6 g/dL (11.5-16.0); LYMPHOCYTES # (AUTO) 2.4 10^3/uL (1.0-4.0); LYMPHOCYTES % (AUTO) 21 % (12-44); MEAN CORPUSCULAR HEMOGLOBIN 27 pg (25-34); MEAN CORPUSCULAR HGB CONC 34 g/dL (32-36); MEAN CORPUSCULAR VOLUME 79 fL (80-99); MEAN PLATELET VOLUME 8.3 fL (9.0-12.2); MONOCYTES # (AUTO) 0.7 10^3/uL (0.0-1.0); MONOCYTES % (AUTO) 6 % (0-12); NEUTROPHILS # (AUTO) 8.2 10^3/uL (1.8-7.8); NEUTROPHILS % (AUTO) 72 % (42-75); PLATELET COUNT 308 10^3/uL (130-400); WHITE BLOOD COUNT 11.4 10^3/uL (4.3-11.0)
[2022-11-18 13:48] LABS: ALBUMIN 3.3 GM/DL (3.2-4.5); BILIRUBIN,TOTAL 0.4 MG/DL (0.1-1.0); CALCIUM 9.1 MG/DL (8.5-10.1); CREATININE SERUM 0.64 MG/DL (0.60-1.30); POTASSIUM 4.2 MMOL/L (3.6-5.0); TOTAL PROTEIN 6.7 GM/DL (6.4-8.2); URIC ACID 7.2 MG/DL (2.6-7.2)
== END ==
LOC: LAB 13:11
PROVIDERS: ATTEND Family Medicine
DX: O10.919 Unspecified pre-existing hypertension complicating pregnancy, unspecified trimester (principal); Z3A.00 Weeks of gestation of pregnancy not specified
CPT/HCPCS: 36415; 80053; 82570; 83615; 84156; 84550; 85025

== ENCOUNTER 2022-11-20 14:32 | Outpatient (CLI) | payer MEDICARE, MEDICAID ==
[2022-11-20] VITALS (16 sets, daily range): BP systolic 119–170; BP diastolic 58–83
[~2022-11-20] VITALS: Ht 162.6 cm; Wt 133.9 kg
[~2022-11-20 14:32] MED LIST changes: -NIFE-25 PO
[2022-11-20] MEDS ORDERED: NIFEdipine 10 MG CAPS (WOMEN'S SERVICES ONLY!!!) PO PRN (14:45)
[2022-11-20 15:03] LABS: BASOPHILS % (AUTO) 0 % (0-10); EOSINOPHILS % (AUTO) 0 % (0-10); HEMATOCRIT 36 % (35-52); LYMPHOCYTES # (AUTO) 2.4 10^3/uL (1.0-4.0); LYMPHOCYTES % (AUTO) 21 % (12-44); MEAN CORPUSCULAR HEMOGLOBIN 26 pg (25-34); MEAN CORPUSCULAR HGB CONC 33 g/dL (32-36); MEAN CORPUSCULAR VOLUME 79 fL (80-99); MEAN PLATELET VOLUME 8.3 fL (9.0-12.2); MONOCYTES # (AUTO) 0.8 10^3/uL (0.0-1.0); MONOCYTES % (AUTO) 8 % (0-12); NEUTROPHILS # (AUTO) 7.8 10^3/uL (1.8-7.8); NEUTROPHILS % (AUTO) 70 % (42-75); PLATELET COUNT 305 10^3/uL (130-400); WHITE BLOOD COUNT 11.1 10^3/uL (4.3-11.0)
[2022-11-20 15:14] LABS: ALBUMIN 3.1 GM/DL (3.2-4.5); POTASSIUM 3.9 MMOL/L (3.6-5.0)
[2022-11-20 15:15] LABS: CALCIUM 9.3 MG/DL (8.5-10.1)
[2022-11-20 15:17] LABS: TOTAL PROTEIN 6.4 GM/DL (6.4-8.2)
[2022-11-20 15:18] LABS: BILIRUBIN,TOTAL 0.1 MG/DL (0.1-1.0)
[2022-11-20 15:20] LABS: CREATININE SERUM 0.68 MG/DL (0.60-1.30)
[2022-11-20 15:23] LABS: URIC ACID 7.1 MG/DL (2.6-7.2)
[2022-11-20] MEDS ORDERED: ACETAMINOPHEN 500 MG TAB (TYLENOL) ONE (18:26)
[2022-11-20] MEDS ORDERED: ACETAMINOPHEN 500 MG TAB (TYLENOL) PO ONE (18:30)
[2022-11-20] MEDS ORDERED: ACETAMINOPHEN 500 MG TAB (TYLENOL) PO PRN (19:45)
[2022-11-20 20:40] LABS: BILIRUBIN,URINE NEGATIVE (NEGATIVE); CLARITY,URINE TURBID; COLOR,URINE YELLOW; GLUCOSE, URINE (UA) TRACE (NEGATIVE); KETONES,URINE NEGATIVE (NEGATIVE); LEUKOCYTE ESTERASE ,URINE NEGATIVE (NEGATIVE); NITRITE,URINE NEGATIVE (NEGATIVE); PH,URINE 5.5 (5-9); PROTEIN,URINE NEGATIVE (NEGATIVE)
[2022-11-20] MEDS: NIFEdipine ER 30 MG (PROCARDIA XL) TAB PO SCH (21:01)
[2022-11-20 21:13] LABS: AMORPHOUS SEDIMENT,UR LARGE AMOR URATES /LPF; BACTERIA,URINE NEGATIVE /HPF; CALCIUM OXALATE CRYSTALS,UR FEW /LPF
[2022-11-20] MEDS ORDERED: CALCIUM CARBONATE 500 MG (TUMS) TAB.CHEW PO PRN (21:15)
--- NOTE | 2022-11-20 21:41 | History & Physical-OB ---
OB - Chief Complaint & HPI Date/Time Date of Admission: Date of Admission: 11/20/22 Date seen by a Provider: Nov 20, 2022 Time Seen by a Provider: 15:30 Chief Complaint/History OB-Reason for Admission/Chief: Obstetrical Complication Hx : 3 Hx Para: 1011 Expected Date of Delivery: Dec 30, 2022 Gestational Age in Weeks: 34 Gestational Age in Days: 2 Indication for induction: medical complication Other reason for admission: at 34w2d with complicated by chronic hypertension that was typically 130s/80s without medication until 09/23 when she had a BP of 144/76 at office visit and preeclampsa labs and growth US were ordered which were unremarkable. BP then normal at next visit. 11/05 she had diastolic BP of 90 when she was seen by ENGRAVING PRESS OPERATOR and was asymptomatic. 11/13 she was seen on Labor and Delivery for complaint of elevated BP, but on the floor her BP remained in the 130s/80s and her preeclampsia labs were negative. On Friday (11/18) she had BP at office visit of 142/96 and preeclampsia labs were repeated and normal and she had BPP that was 8/8 with EFW at 70%. She presented to clinic today for repeat BP check and blood pressure was 160/118 so she was sent to the hospital. She has been taking it easy at home in general and does have a BP cuff at home and has been monitoring there. She admits headache, but has had persistent headaches prior to her severe range blood pressures. She does also admits some spots in edges of vision. She has occasionally had epigastric pain, but not persistent, currently has more complaint of pelvic pain than upper abdominal. Denies shortness of breath. She endorses normal movement, denies vaginal bleeding, leaking fluid or contractions. Allergies and Home Medications Allergies Coded Allergies: No Known Drug Allergies (Unverified , 06/14/18) Patient Home Medication List Home Medication List Reviewed: Yes Escitalopram Oxalate (Lexapro) 20 Mg Tablet, 20 MG PO DAILY, (Reported) Entered as Reported by: CHARI FARRELL on 11/13/22 1253 Last Action: Reviewed Vit W-Ca,Fe,FA(<1 mg) ( Vitamins) 27 Mg Iron-800 Mcg Tablet, 1 EACH PO, (Reported) Entered as Reported by: RY HOLLAND on 08/20/22 8277 Last Action: Reviewed Discontinued Medications Amoxicillin (Amoxicillin) 500 Mg Capsule, 500 MG PO Q8H, (Reported) Entered as Reported by: CHARI FARRELL on 11/13/22 7211 Last Action: Discontinued OB - History Hx of Present Care: Yes Ultrasounds: Normal mid trimester US Obstetrical Complications: Other (chronic hypertension, depression) Information Induced Hypertension: Yes Maternal Gestational Diabetes: No Hemorrhage: No Obstetrical History Hx : 3 Hx Para: 1 Hx # Term Pregnancies: 1 Hx # Pregnancies: 0 Number of Living Children: 1 Hx Termination: No Hx Total # of Abortions (Spona: 1 Hx Multiple Gestation: No Hx Ectopic : No Hx Stillbirth: No Hx Complication: Yes Hx Induced Hypertens: Yes (chronic hypertension) Hx Maternal Gestational Diabet: No Hx Hemorrhage: No Delivery History Hx Dystocia: No Hx Forceps Assisted Delivery: No Hx Vacuum Extraction Assisted: No Hx Placenta Abnormality: No Hx Distress: No Hx Large For Gestational Age I: No Hx Small for Gestational Age I: No Hx Section: No Hx Vaginal Delivery Post C-Sec: No Hx Blood Disorders: No Adverse Rxn to Tranfusion: No Patient Past Medical History Wuri-Drfsv-Hmetce s/p L hip surgical intervention Chronic Hypertension Bipolar depression SurgHx: Left hip surgery x 2 Right knee surgery [place] teeth extraction Tonsillectomy Cholecystectomy Social History/Family History Alcohol Use: Rarely Uses Recreational Drug Use: No Smoking Cessation: Current some day smoker (vapes) 2nd Hand Smoke Exposure: Yes Immunizations First/Initial COVID19 Vaccine: yes Second COVID19 Vaccination: yes Third COVID19 Vaccination Date: NO Tetanus Booster (TDap): Less than 5yrs OB - Admission Exam Physical Exam Vitals: Vital Signs 11/20/22 11/20/22 14:35 20:15 Temp 36.6 Pulse 81 Resp 18 B/P (MAP) 145/72 (96) Pulse Ox 94 O2 Delivery Room Air HEENT: NCAT Heart: Rhythm Normal Lungs: Clear Abdomen: Non tender Extremities: Edema (trace) Reflexes: Normal Labs Laboratory Tests Test 11/20/22 15:01 Range/Units White Blood Count 11.1 H 4.3-11.0 10^3/uL Red Blood Count 4.59 3.80-5.11 10^6/uL Hemoglobin 12.0 11.5-16.0 g/dL Hematocrit 36 35-52 % Mean Corpuscular Volume 79 L 80-99 fL Mean Corpuscular Hemoglobin 26 25-34 pg Mean Corpuscular Hemoglobin Concent 33 32-36 g/dL Red Cell Distribution Width 13.0 10.0-14.5 % Platelet Count 305 130-400 10^3/uL Mean Platelet Volume 8.3 L 9.0-12.2 fL Immature Granulocyte % (Auto) 0 % Neutrophils (%) (Auto) 70 42-75 % Lymphocytes (%) (Auto) 21 12-44 % Monocytes (%) (Auto) 8 0-12 % Eosinophils (%) (Auto) 0 0-10 % Basophils (%) (Auto) 0 0-10 % Neutrophils # (Auto) 7.8 1.8-7.8 10^3/uL Lymphocytes # (Auto) 2.4 1.0-4.0 10^3/uL Monocytes # (Auto) 0.8 0.0-1.0 10^3/uL Eosinophils # (Auto) 0.0 0.0-0.3 10^3/uL Basophils # (Auto) 0.0 0.0-0.1 10^3/uL Immature Granulocyte # (Auto) 0.0 0.0-0.1 10^3/uL Urine Color YELLOW Urine Clarity TURBID Urine pH 5.5 5-9 Urine Specific [place] >=1.030 1.016-1.022 Urine Protein NEGATIVE NEGATIVE Urine Glucose (UA) TRACE H NEGATIVE Urine Ketones NEGATIVE NEGATIVE Urine Nitrite NEGATIVE NEGATIVE Urine Bilirubin NEGATIVE NEGATIVE Urine Urobilinogen 0.2 < = 1.0 MG/DL Urine Leukocyte Esterase NEGATIVE NEGATIVE Urine RBC (Auto) NEGATIVE NEGATIVE Urine RBC NONE /HPF Urine WBC NONE /HPF Urine Squamous Epithelial Cells 10-25 H /HPF Urine Crystals PRESENT H /LPF Urine Calcium Oxalate Crystals FEW H /LPF Urine Amorphous Sediment LARGE NATALIE URATES H /LPF Urine Bacteria NEGATIVE /HPF Urine Casts NONE /LPF Urine Mucus NEGATIVE /LPF Urine Culture Indicated NO Urine Creatinine 201 H 30-125 MG/DL Urine Protein/Creatinine Ratio 0.10 Sodium Level 139 135-145 MMOL/L Potassium Level 3.9 3.6-5.0 MMOL/L Chloride Level 111 H 98-107 MMOL/L Carbon Dioxide Level 18 L 21-32 MMOL/L Anion Gap 10 5-14 MMOL/L Blood Urea Nitrogen 11 7-18 MG/DL Creatinine 0.68 0.60-1.30 MG/DL Estimat Glomerular Filtration Rate 123 BUN/Creatinine Ratio 16 Glucose Level 83 70-105 MG/DL Uric Acid 7.1 2.6-7.2 MG/DL Calcium Level 9.3 8.5-10.1 MG/DL Corrected Calcium 10.0 8.5-10.1 MG/DL Total Bilirubin 0.1 0.1-1.0 MG/DL Aspartate Amino Transf (AST/SGOT) 18 5-34 U/L Alanine Aminotransferase (ALT/SGPT) 22 0-55 U/L Alkaline Phosphatase 121 40-136 U/L Total Protein 6.4 6.4-8.2 GM/DL Albumin 3.1 L 3.2-4.5 GM/DL OB - Assessment/Plan/Diagnosis Assessment Admission Dx Chronic hypertension complicating Third trimester 34 weeks gestation Admission Status: Observation Plan Problems: (1) Hypertension affecting Assessment & Plan: Suspect worsening of baseline chronic hypertension given slow progression over last few weeks. Preeclampsia labs negative, status reassuring with category I tracing, but given symptoms, will monitor overnight due to concern for superimposed preeclampsia, and recheck labs. Nifedipine PO given for initial BP above 160 systolic, now improved. Will start nifedipine ER for continued BP management of her chronic HTN. Qualifiers: Qualified Codes: O16.3 - Unspecified maternal hypertension, third trimester TRICE OH MD Nov 20, 2022 21:41
[2022-11-21 00:32] VITALS: BP 136/80
[2022-11-21 05:07] VITALS: BP 135/75
[2022-11-21 05:52] LABS: BASOPHILS % (AUTO) 0 % (0-10); EOSINOPHILS # (AUTO) 0.1 10^3/uL (0.0-0.3); EOSINOPHILS % (AUTO) 1 % (0-10); HEMATOCRIT 36 % (35-52); LYMPHOCYTES % (AUTO) 28 % (12-44); MEAN CORPUSCULAR HEMOGLOBIN 27 pg (25-34); MEAN CORPUSCULAR HGB CONC 33 g/dL (32-36); MEAN CORPUSCULAR VOLUME 80 fL (80-99); MEAN PLATELET VOLUME 8.6 fL (9.0-12.2); MONOCYTES # (AUTO) 0.6 10^3/uL (0.0-1.0); MONOCYTES % (AUTO) 6 % (0-12); NEUTROPHILS # (AUTO) 6.8 10^3/uL (1.8-7.8); NEUTROPHILS % (AUTO) 64 % (42-75); PLATELET COUNT 284 10^3/uL (130-400); WHITE BLOOD COUNT 10.5 10^3/uL (4.3-11.0)
[2022-11-21 05:54] LABS: ALBUMIN 2.8 GM/DL (3.2-4.5); POTASSIUM 3.6 MMOL/L (3.6-5.0)
[2022-11-21 05:57] LABS: TOTAL PROTEIN 5.8 GM/DL (6.4-8.2)
[2022-11-21 05:58] LABS: BILIRUBIN,TOTAL 0.2 MG/DL (0.1-1.0)
[2022-11-21 06:00] LABS: CREATININE SERUM 0.62 MG/DL (0.60-1.30)
[2022-11-21 08:17] VITALS: BP 133/88
[2022-11-21] MEDS: NIFEdipine ER 30 MG (PROCARDIA XL) TAB PO SCH (09:12)
[2022-11-21] MEDS ORDERED: NIFE-25 PO (09:24)
--- NOTE | 2022-11-21 09:24 | Short Stay Summary ---
Discharge Summary Hospital Course Problems/Dx: (1) Hypertension affecting Status: Chronic Qualifiers: Qualified Codes: O16.3 - Unspecified maternal hypertension, third trimester Final Diagnosis: see Problem List Hospital Course Date of Admission: Admission Diagnosis : 1. chronic hypertension of 2. 34wk GA 3. rule-out superimposed pre-eclampsia Family Physician/Provider: Gini Ricci MD Date of Discharge: 11/21/22 Discharge Diagnosis: 1. chronic hypertension of 2. 34wk GA 3. pre-eclampsia ruled out Hospital Course: Patient was admitted to L&D for observation for elevated blood pressure of 160s/100s. Patient has a history of chronic hypertension with the . Patient was treated with nifedipine with good response and was started on nifed ipine XL 30mg daily. Preeclampsia labs were normal. Protein:creatinine ratio was 0.1. BP at the time of discharge was 135/75. Labs and Pending Lab Test: Laboratory Tests 11/20/22 15:01: White Blood Count 11.1H, Red Blood Count 4.59, Hemoglobin 12.0, Hematocrit 36, Mean Corpuscular Volume 79L, Mean Corpuscular Hemoglobin 26, Mean Corpuscular Hemoglobin Concent 33, Red Cell Distribution Width 13.0, Platelet Count 305, Mean Platelet Volume 8.3L, Immature Granulocyte % (Auto) 0, Neutrophils (%) (Auto) 70, Lymphocytes (%) (Auto) 21, Monocytes (%) (Auto) 8, Eosinophils (%) (Auto) 0, Basophils (%) (Auto) 0, Neutrophils # (Auto) 7.8, Lymphocytes # (Auto) 2.4, Monocytes # (Auto) 0.8, Eosinophils # (Auto) 0.0, Basophils # (Auto) 0.0, Immature Granulocyte # (Auto) 0.0, Urine Color YELLOW, Urine Clarity TURBID, Urine pH 5.5, Urine Specific [place] >=1.030, Urine Protein NEGATIVE, Urine Glucose (UA) TRACEH, Urine Ketones NEGATIVE, Urine Nitrite NEGATIVE, Urine Bilirubin NEGATIVE, Urine Urobilinogen 0.2, Urine Leukocyte Esterase NEGATIVE, Urine RBC (Auto) NEGATIVE, Urine RBC NONE, Urine WBC NONE, Urine Squamous Epithelial Cells 10-25H, Urine Crystals PRESENTH, Urine Calcium Oxalate Crystals FEWH, Urine Amorphous Sediment LARGE NATALIE URATESH, Urine Bacteria NEGATIVE, Urine Casts NONE, Urine Mucus NEGATIVE, Urine Culture Indicated NO, Urine Creatinine 201H, Urine Protein/Creatinine Ratio 0.10, Sodium Level 139, Potassium Level 3.9, Chloride Level 111H, Carbon Dioxide Level 18L, Anion Gap 10, Blood Urea Nitrogen 11, Creatinine 0.68, Estimat Glomerular Filtration Rate 123, BUN/Creatinine Ratio 16, Glucose Level 83, Uric Acid 7.1, Calcium Level 9.3, Corrected Calcium 10.0, Total Bilirubin 0.1, Aspartate Amino Transf (AST/SGOT) 18, Alanine Aminotransferase (ALT/SGPT) 22, Alkaline Phosphatase 121, Total Protein 6.4, Albumin 3.1L 11/21/22 05:05: White Blood Count 10.5, Red Blood Count 4.52, Hemoglobin 12.0, Hematocrit 36, Mean Corpuscular Volume 80, Mean Corpuscular Hemoglobin 27, Mean Corpuscular Hemoglobin Concent 33, Red Cell Distribution Width 13.0, Platelet Count 284, Mean Platelet Volume 8.6L, Immature Granulocyte % (Auto) 1, Neutrophils (%) (Auto) 64, Lymphocytes (%) (Auto) 28, Monocytes (%) (Auto) 6, Eosinophils (%) (Auto) 1, Basophils (%) (Auto) 0, Neutrophils # (Auto) 6.8, Lymphocytes # (Auto) 3.0, Monocytes # (Auto) 0.6, Eosinophils # (Auto) 0.1, Basophils # (Auto) 0.0, Immature Granulocyte # (Auto) 0.1, Sodium Level 137, Potassium Level 3.6, Chloride Level 109H, Carbon Dioxide Level 18L, Anion Gap 10, Blood Urea Nitrogen 8, Creatinine 0.62, Estimat Glomerular Filtration Rate 126, BUN/Creatinine Ratio 13, Glucose Level 83, Uric Acid 7.0, Calcium Level 9.0, Corrected Calcium 10.0, Total Bilirubin 0.2, Aspartate Amino Transf (AST/SGOT) 16, Alanine Aminotransferase (ALT/SGPT) 21, Alkaline Phosphatase 113, Total Protein 5.8L, Albumin 2.8L, Lactate Dehydrogenase 136 11/21/22 05:15: Urine Protein 10, Urine Creatinine 102, Urine Protein/Creatinine Ratio 0.10 Home Meds Active Nifedipine ER (Nifedipine) 30 Mg Tab.er.24 30 Mg PO DAILY 30 Days Reported Lexapro (Escitalopram Oxalate) 20 Mg Tablet 20 Mg PO DAILY Vitamins ( Vit W-Ca,Fe,FA(<1 mg)) 27 Mg Iron-800 Mcg Tablet 1 Each PO Assessment/Pt Instructions Follow up with Dr. Ricci next week. Discharge Instructions Discharge Diet: No Restrictions Discharge Physical Examination General Appearance: Alert, Oriented X3, Cooperative Cardiovascular: Regular Rate Extremities: No Edema Neuro: Normal Gait, Normal Speech Allergies: Coded Allergies: latex (Verified Allergy, Unknown, 11/21/22) pt states just per vagina metformin (Verified Allergy, Unknown, 11/21/22) pt states makes her blood sugar too low Discharge Summary Date of Admission Date of Discharge Discharge Diagnosis (1) Hypertension affecting Status: Chronic Assessment & Plan: Suspect worsening of baseline chronic hypertension given slow progression over last few weeks. Preeclampsia labs negative, status reassuring with category I tracing, but given symptoms, will monitor overnight due to concern for superimposed preeclampsia, and recheck labs. Nifedipine PO given for initial BP above 160 systolic, now improved. Will start nifedipine ER for continued BP management of her chronic HTN. Qualifiers: Qualified Codes: O16.3 - Unspecified maternal hypertension, third trimester CLARKE AL DO Nov 21, 2022 09:24
[2022-11-21 09:53] VITALS: BP 136/78
== END 2022-11-21 10:00 | disposition home or self-care (01) ==
LOC: LDRP 14:32 → WSo 14:32
PROVIDERS: ATTEND Family Medicine
DX: O16.9 Unspecified maternal hypertension, unspecified trimester (principal); Z3A.00 Weeks of gestation of pregnancy not specified
CPT/HCPCS: 36415; 80053; 81000; 82570; 83615; 84156; 84550; 85025

== ENCOUNTER 2022-11-29 10:28 | Outpatient (CLI) | payer MEDICARE, MEDICAID ==
[2022-11-29] VITALS (10 sets, daily range): BP systolic 133–141; BP diastolic 72–82
[~2022-11-29] VITALS: Ht 162.5 cm; Wt 137.1 kg
[~2022-11-29 10:28] MED LIST changes: +NIFE-25 PO
[2022-11-29 11:13] LABS: BASOPHILS % (AUTO) 0 % (0-10); EOSINOPHILS % (AUTO) 0 % (0-10); HEMATOCRIT 35 % (35-52); HEMOGLOBIN 11.6 g/dL (11.5-16.0); LYMPHOCYTES # (AUTO) 2.2 10^3/uL (1.0-4.0); LYMPHOCYTES % (AUTO) 20 % (12-44); MEAN CORPUSCULAR HEMOGLOBIN 26 pg (25-34); MEAN CORPUSCULAR HGB CONC 33 g/dL (32-36); MEAN CORPUSCULAR VOLUME 79 fL (80-99); MEAN PLATELET VOLUME 8.4 fL (9.0-12.2); MONOCYTES # (AUTO) 0.5 10^3/uL (0.0-1.0); MONOCYTES % (AUTO) 4 % (0-12); NEUTROPHILS # (AUTO) 8.5 10^3/uL (1.8-7.8); NEUTROPHILS % (AUTO) 76 % (42-75); PLATELET COUNT 284 10^3/uL (130-400); WHITE BLOOD COUNT 11.2 10^3/uL (4.3-11.0)
[2022-11-29 11:23] LABS: ALBUMIN 2.9 GM/DL (3.2-4.5)
[2022-11-29 11:24] LABS: POTASSIUM 3.9 MMOL/L (3.6-5.0)
[2022-11-29 11:28] LABS: BILIRUBIN,TOTAL 0.2 MG/DL (0.1-1.0)
[2022-11-29 11:30] LABS: CREATININE SERUM 0.68 MG/DL (0.60-1.30)
[2022-11-29 11:32] LABS: URIC ACID 7.3 MG/DL (2.6-7.2)
--- NOTE | 2022-12-02 08:10 | Physician Query-Final Dx ---
Clinic Account Progress/Dx Physician Query: Please give diagnosis Please include # weeks gestation Date of Service Nov 29, 2022 at 10:28 RIVAS,MayDec 02, 2022 08:10
== END 2022-11-29 17:00 | disposition home or self-care (01) ==
LOC: WSo 10:28 → LDRP 10:28 → WSo 17:00
PROVIDERS: ATTEND Family Medicine
DX: O16.9 Unspecified maternal hypertension, unspecified trimester (principal)
CPT/HCPCS: 36415; 80053; 82570; 83615; 84112; 84156; 84550; 85025; 99213

== ENCOUNTER → 2022-12-05 | Outpatient (CLI) | payer MEDICARE, MEDICAID ==
[~2022-12-05] MED LIST changes: +FERR325T24 PO; +IBUP-1773 PO
[2022-12-05 12:30] LABS: BASOPHILS % (AUTO) 0 % (0-10); EOSINOPHILS % (AUTO) 0 % (0-10); HEMATOCRIT 38 % (35-52); HEMOGLOBIN 12.6 g/dL (11.5-16.0); LYMPHOCYTES # (AUTO) 2.5 10^3/uL (1.0-4.0); LYMPHOCYTES % (AUTO) 20 % (12-44); MEAN CORPUSCULAR HEMOGLOBIN 26 pg (25-34); MEAN CORPUSCULAR HGB CONC 33 g/dL (32-36); MEAN CORPUSCULAR VOLUME 78 fL (80-99); MEAN PLATELET VOLUME 8.4 fL (9.0-12.2); MONOCYTES # (AUTO) 0.6 10^3/uL (0.0-1.0); MONOCYTES % (AUTO) 5 % (0-12); NEUTROPHILS # (AUTO) 9.6 10^3/uL (1.8-7.8); NEUTROPHILS % (AUTO) 75 % (42-75); PLATELET COUNT 321 10^3/uL (130-400); WHITE BLOOD COUNT 12.8 10^3/uL (4.3-11.0)
[2022-12-05 12:50] LABS: ALBUMIN 3.3 GM/DL (3.2-4.5); POTASSIUM 4.1 MMOL/L (3.6-5.0)
[2022-12-05 12:52] LABS: CALCIUM 9.1 MG/DL (8.5-10.1)
[2022-12-05 12:53] LABS: TOTAL PROTEIN 6.9 GM/DL (6.4-8.2)
[2022-12-05 12:54] LABS: BILIRUBIN,TOTAL 0.2 MG/DL (0.1-1.0)
[2022-12-05 12:56] LABS: CREATININE SERUM 0.73 MG/DL (0.60-1.30)
[2022-12-05 12:59] LABS: URIC ACID 7.6 MG/DL (2.6-7.2)
== END ==
LOC: LAB 12:14
PROVIDERS: ATTEND Family Medicine
DX: O10.919 Unspecified pre-existing hypertension complicating pregnancy, unspecified trimester (principal); Z3A.00 Weeks of gestation of pregnancy not specified
CPT/HCPCS: 36415; 80053; 82570; 83615; 84156; 84550; 85025

== ENCOUNTER 2022-12-09 05:58 | Inpatient (IN) | payer MEDICARE, MEDICAID ==
[~2022-12-09] VITALS: Ht 162.6 cm; Wt 139.9 kg
[2022-12-09] VITALS (37 sets, daily range): BP systolic 128–211; BP diastolic 70–133
[~2022-12-09 05:58] MED LIST changes: -FERR325T24 PO; -IBUP-1773 PO
[2022-12-09] MEDS ORDERED: D5 LR IV SOLUTION 1,000 ML IV SCH (06:15)
[2022-12-09] MEDS ORDERED: OXYTOCIN PRE-MIX DRIP 500 ML IV SCH ×2 (06:15→12:00)
[2022-12-09] MEDS ORDERED: MINERAL OIL 30 ML UDC TOP PRN (06:15)
[2022-12-09 06:55] LABS: BASOPHILS % (AUTO) 0 % (0-10); EOSINOPHILS # (AUTO) 0.1 10^3/uL (0.0-0.3); EOSINOPHILS % (AUTO) 1 % (0-10); HEMATOCRIT 34 % (35-52); HEMOGLOBIN 11.4 g/dL (11.5-16.0); LYMPHOCYTES # (AUTO) 2.8 10^3/uL (1.0-4.0); LYMPHOCYTES % (AUTO) 26 % (12-44); MEAN CORPUSCULAR HEMOGLOBIN 27 pg (25-34); MEAN CORPUSCULAR HGB CONC 34 g/dL (32-36); MEAN CORPUSCULAR VOLUME 78 fL (80-99); MEAN PLATELET VOLUME 8.6 fL (9.0-12.2); MONOCYTES # (AUTO) 0.5 10^3/uL (0.0-1.0); MONOCYTES % (AUTO) 5 % (0-12); NEUTROPHILS # (AUTO) 7.1 10^3/uL (1.8-7.8); NEUTROPHILS % (AUTO) 67 % (42-75); PLATELET COUNT 301 10^3/uL (130-400); WHITE BLOOD COUNT 10.6 10^3/uL (4.3-11.0)
--- NOTE | 2022-12-09 07:02 | History & Physical-OB ---
OB - Chief Complaint & HPI Date/Time Date of Admission: Date of Admission: Dec 09, 2022 at 05:58 Date seen by a Provider: Dec 09, 2022 Time Seen by a Provider: 08:40 Chief Complaint/History OB-Reason for Admission/Chief: Medical Complication Hx : 3 Hx Para: 1 Expected Date of Delivery: Dec 30, 2022 Gestational Age in Weeks: 3 Gestational Age in Days: 1 Indication for induction: medical complication Other reason for admission: at 37w0d complicated by chronic hypertension, here for induction of labor due to difficult to control hypertension. Weekly BPP reassuring and growth US normal, had repeated negative preeclampsia labs. Admission Nurse Assessment Rev: Yes History of Labs See record. GBS neg. Allergies and Home Medications Allergies Coded Allergies: latex (Verified Allergy, Unknown, 11/21/22) pt states just per vagina metformin (Verified Allergy, Unknown, 11/21/22) pt states makes her blood sugar too low Patient Home Medication List Home Medication List Reviewed: Yes Escitalopram Oxalate (Lexapro) 20 Mg Tablet, 20 MG PO DAILY, (Reported) Entered as Reported by: CHARI FARRELL on 11/13/22 1253 Last Action: Converted Nifedipine (Nifedipine ER) 30 Mg Tab.er.24, 30 MG PO DAILY Prescribed by: CLARKE AL on 11/21/22 0924 Last Action: Continued Vit W-Ca,Fe,FA(<1 mg) ( Vitamins) 27 Mg Iron-800 Mcg Tablet, 1 EACH PO, (Reported) Entered as Reported by: RY HOLLAND on 08/20/22 1557 Last Action: Converted OB - History Hx of Present Care: Yes Ultrasounds: Normal mid trimester US Obstetrical Complications: Other (chronic hypertension, obesity) Information Induced Hypertension: Yes (chronic hypertension) Obstetrical History Hx : 3 Hx Para: 1 Hx # Term Pregnancies: 1 Hx # Pregnancies: 0 Number of Living Children: 1 Hx Termination: No Hx Multiple Gestation: No Hx Stillbirth: No Hx Complication: Yes Hx Induced Hypertens: Yes (chronic hypertension) Hx Maternal Gestational Diabet: No Hx Hemorrhage: No Delivery History Hx Dystocia: No Hx Forceps Assisted Delivery: No Hx Vacuum Extraction Assisted: No Hx Placenta Abnormality: No Hx Distress: No Hx Large For Gestational Age I: No Hx Small for Gestational Age I: No Hx Section: No Hx Vaginal Delivery Post C-Sec: No Hx Blood Disorders: No Adverse Rxn to Tranfusion: No Patient Past Medical History [id number] s/p L hip surgical intervention Chronic Hypertension Bipolar depression SurgHx: Left hip surgery x 2 Right knee surgery [place] teeth extraction Tonsillectomy Cholecystectomy Social History/Family History Alcohol Use: Denies Use Recreational Drug Use: No Smoking Cessation: Never smoker 2nd Hand Smoke Exposure: Yes Immunizations First/Initial COVID19 Vaccine: yes Second COVID19 Vaccination: yes Third COVID19 Vaccination Date: NO Tetanus Booster (TDap): Less than 5yrs Rubella: immune RPR/VDRL: Negative GBS Status: Negative HBsAG: Negative OB - Admission Exam Physical Exam HEENT: NCAT Heart: Rhythm Normal Lungs: Clear Abdomen: Gravid Cervical Dilatation: 5cm Effacement: 50% Station: -3 Membranes: Ruptured (AROM at time of exam) Heart Rate: 120's Accelerations: Accelerations Present Decelerations: No Decelerations Short Term Variability: Present [facility] Variability: Average (6-25) Contractions on Admission: 6-10 Minutes Apart Savage Scoring Tool (Modified) Dilation (cm): >5cm (3) Effacement (%): 51-79% (2) Descent/Station: -3 (0) Cervix Consistency: Soft (2) Cervix Position: Anterior (2) Add 1 point for: Each previous vaginal delivery (1) (10) Labs Laboratory Tests Test 12/09/22 06:30 Range/Units White Blood Count 10.6 4.3-11.0 10^3/uL Red Blood Count 4.30 3.80-5.11 10^6/uL Hemoglobin 11.4 L 11.5-16.0 g/dL Hematocrit 34 L 35-52 % Mean Corpuscular Volume 78 L 80-99 fL Mean Corpuscular Hemoglobin 27 25-34 pg Mean Corpuscular Hemoglobin Concent 34 32-36 g/dL Red Cell Distribution Width 13.6 10.0-14.5 % Platelet Count 301 130-400 10^3/uL Mean Platelet Volume 8.6 L 9.0-12.2 fL Immature Granulocyte % (Auto) 0 % Neutrophils (%) (Auto) 67 42-75 % Lymphocytes (%) (Auto) 26 12-44 % Monocytes (%) (Auto) 5 0-12 % Eosinophils (%) (Auto) 1 0-10 % Basophils (%) (Auto) 0 0-10 % Neutrophils # (Auto) 7.1 1.8-7.8 10^3/uL Lymphocytes # (Auto) 2.8 1.0-4.0 10^3/uL Monocytes # (Auto) 0.5 0.0-1.0 10^3/uL Eosinophils # (Auto) 0.1 0.0-0.3 10^3/uL Basophils # (Auto) 0.0 0.0-0.1 10^3/uL Immature Granulocyte # (Auto) 0.0 0.0-0.1 10^3/uL OB - Assessment/Plan/Diagnosis Assessment Admission Dx Term intrauterine 37 weeks gestation Chronic hypertension complicating Obesity complicating Admission Status: Inpatient Order (span 2 midnights) Reason for Inpatient Admission: Labor, delivery and course Plan Plan: Induction Induction Method: per Pitocin Protocol Other Plan AROM at time of exam with clear fluid Labetalol prn hypertension preeclampsia labs on admit Problems: (1) Chronic hypertension affecting Assessment & Plan: Reassing weekly BPPs and q4 week growth ultrasounds, repeated preeclampsia labs over last few weeks have remained negative, but BP has been difficult to control. TRICE OH MD Dec 09, 2022 07:02
[2022-12-09 07:34] LABS: ALBUMIN 2.8 GM/DL (3.2-4.5)
[2022-12-09 07:35] LABS: POTASSIUM 3.7 MMOL/L (3.6-5.0)
[2022-12-09 07:36] LABS: CALCIUM 8.6 MG/DL (8.5-10.1)
[2022-12-09 07:37] LABS: TOTAL PROTEIN 5.8 GM/DL (6.4-8.2)
[2022-12-09 07:39] LABS: BILIRUBIN,TOTAL 0.2 MG/DL (0.1-1.0)
[2022-12-09 07:41] LABS: CREATININE SERUM 0.67 MG/DL (0.60-1.30)
[2022-12-09] MEDS ORDERED: NON-FORMULARY MEDICATION 1 EA EA (Escitalopram Oxalate (Lexapro) 20 MG) PO SCH (09:00)
[2022-12-09] MEDS ORDERED: fentaNYL 2 mcg/ml BUPIVA 0.125 0 ML ONE (09:20)
[2022-12-09] MEDS: NIFEdipine ER 30 MG (PROCARDIA XL) TAB PO SCH (09:27)
[2022-12-09] MEDS ORDERED: LABETALOL HCL 20 MG/4 ML VIAL ONE ×2 (09:50→11:03)
[2022-12-09] MEDS: LABETALOL HCL 20 MG/4 ML VIAL IV PRN ×3 (09:59→11:13)
[2022-12-09] MEDS ORDERED: LABETALOL HCL 20 MG/4 ML VIAL IV NR (10:00)
[2022-12-09] MEDS ORDERED: hydrALAZINE (APESOLINE) 20 MG/ML VIAL IV PRN (10:00)
[2022-12-09] MEDS ORDERED: TERBUTALINE INJ 1 MG/ML (BRETHINE) AMP ONE (11:17)
--- NOTE | 2022-12-09 11:59 | OB Labor & Delivery Record ---
Vag Delivery Note Vag Delivery Note Date of Delivery: 12/09/22 Preoperative Diagnosis: Risa Baxter is a (27 /Para 3 / 1, Gestational Age (wks) 37 weeks Postoperative Diagnosis: Same Surgeon: TRICE OH Anesthesia: none Delivery Type: Findings: Viable male infant, apgars 7/9, weight 7#5 Lacerations: perineal and right labial abrasion Intact placenta with 3 vessel cord. No nuchal cord, body cord or shoulder dystocia Estimated Blood Loss: 200 ml Complications: None Condition: Stable Description of Procedure: The patient is a 27 year old female who presented for IOL. She was admitted and informed consent was obtained. Her labor course was remarkable for recurrent prolonged decels near completion and with pushing as well as severe level hypertension requiring labetalol 20 mg, 40 mg and then was given 60 mg due to a ll the labetalol supply remaining available, BP did improve after hydralazine 10 mg IV. She progressed to complete dilatation and began to push. She was then set up for delivery. The infant's head was delivered atraumatically in the SHAYLA position. The shoulders and remainder of the infant's body were then delivered without difficulty. Upon delivery, the infant was vigorous and placed on maternal chest and the mouth and nares were bulb suctioned. After a delay cord was doubly clamped and cut and the infant remained on maternal chest. An intact placenta with 3-vessel cord delivered via Mer and there was found to be minimal bleeding.~ Vigorous fundal massage was performed and the fundus was found to be firm. IV oxytocin was given. Examination of the vagina and perineum revealed no lacerations requiring repair. Following the delivery, sponge, instrument and needle counts were correct. Mom and baby were both in stable condition in the labor suite. Vitals - Labs Vital Signs - I&O Vital Signs Date Time Temp Pulse Resp B/P (MAP) Pulse Ox O2 Delivery O2 Flow Rate FiO2 12/09/22 06:27 36.7 97 18 96 Room Air Labs Laboratory Tests 12/09/22 06:30: White Blood Count 10.6, Red Blood Count 4.30, Hemoglobin 11.4L, Hematocrit 34L, Mean Corpuscular Volume 78L, Mean Corpuscular Hemoglobin 27, Mean Corpuscular Hemoglobin Concent 34, Red Cell Distribution Width 13.6, Platelet Count 301, Mean Platelet Volume 8.6L, Immature Granulocyte % (Auto) 0, Neutrophils (%) (Auto) 67, Lymphocytes (%) (Auto) 26, Monocytes (%) (Auto) 5, Eosinophils (%) (Auto) 1, Basophils (%) (Auto) 0, Neutrophils # (Auto) 7.1, Lymphocytes # (Auto) 2.8, Monocytes # (Auto) 0.5, Eosinophils # (Auto) 0.1, Basophils # (Auto) 0.0, Immature Granulocyte # (Auto) 0.0, Urine Protein 24H, Urine Creatinine 125, Urine Protein/Creatinine Ratio 0.19, Syphilis Total Antibody Negative 12/09/22 07:13: Sodium Level 136, Potassium Level 3.7, Chloride Level 110H, Carbon Dioxide Level 18L, Anion Gap 8, Blood Urea Nitrogen 9, Creatinine 0.67, Estimat Glomerular Filtration Rate 124, BUN/Creatinine Ratio 13, Glucose Level 93, Calcium Level 8.6, Corrected Calcium 9.6, Total Bilirubin 0.2, Aspartate Amino Transf (AST/SGOT) 14, Alanine Aminotransferase (ALT/SGPT) 12, Alkaline Phosphatase 156H , Total Protein 5.8L, Albumin 2.8L TRICE OH MD Dec 09, 2022 11:59
[2022-12-09] MEDS ORDERED: TETANUS,DIPTH,PERTUSS P/F (BOOSTRIX) 0.5 ML VIAL IM ONE (12:00)
[2022-12-09] MEDS ORDERED: WITCH HAZEL(TUCKS) 40 EA JAR TOP PRN (12:00)
[2022-12-09] MEDS ORDERED: BENZOCAINE/MENTHOL (DERMOPLAST) 56 ML CAN TP PRN (12:00)
[2022-12-09] MEDS ORDERED: HYDROcodone/APAP 5 MG/325 MG (LORTAB) TAB PO PRN (12:15)
[2022-12-09] MEDS ORDERED: CATHETER FLUSH 10 ML SYR IV SCH ×2 (14:00)
[2022-12-09] MEDS: ACETAMINOPHEN 500 MG TAB (TYLENOL) PO PRN ×2 (15:50→21:30)
[2022-12-09] MEDS ORDERED: hydrALAZINE (APESOLINE) 20 MG/ML VIAL IV ONE (16:00)
[2022-12-09] MEDS: DOCUSATE SODIUM 100 MG (COLACE) CAP PO SCH (21:30)
[2022-12-10 01:55] VITALS: BP 137/80
[2022-12-10 05:14] VITALS: BP 138/94
[2022-12-10] MEDS: ACETAMINOPHEN 500 MG TAB (TYLENOL) PO PRN (05:14)
[2022-12-10 05:32] LABS: BASOPHILS % (AUTO) 0 % (0-10); EOSINOPHILS % (AUTO) 0 % (0-10); HEMATOCRIT 32 % (35-52); HEMOGLOBIN 10.3 g/dL (11.5-16.0); LYMPHOCYTES # (AUTO) 3.7 10^3/uL (1.0-4.0); LYMPHOCYTES % (AUTO) 28 % (12-44); MEAN CORPUSCULAR HEMOGLOBIN 26 pg (25-34); MEAN CORPUSCULAR HGB CONC 33 g/dL (32-36); MEAN CORPUSCULAR VOLUME 80 fL (80-99); MEAN PLATELET VOLUME 8.5 fL (9.0-12.2); MONOCYTES # (AUTO) 0.8 10^3/uL (0.0-1.0); MONOCYTES % (AUTO) 6 % (0-12); NEUTROPHILS # (AUTO) 8.7 10^3/uL (1.8-7.8); NEUTROPHILS % (AUTO) 65 % (42-75); PLATELET COUNT 254 10^3/uL (130-400); WHITE BLOOD COUNT 13.3 10^3/uL (4.3-11.0)
[2022-12-10] MEDS ORDERED: FERR325T24 PO (06:47)
[2022-12-10] MEDS ORDERED: IBUP-1773 PO (06:47)
[2022-12-10 10:00] VITALS: BP 141/93
[2022-12-10] MEDS: PRENATAL VITAMIN 1 EA TAB PO SCH ×2 (10:15→14:35)
[2022-12-10] MEDS: IBUPROFEN 600 MG (MOTRIN) TAB PO PRN ×3 (10:15→22:54)
[2022-12-10] MEDS: FERROUS SULF 325 MG (IRON) TAB PO SCH (10:15)
[2022-12-10] MEDS: NIFEdipine ER 30 MG (PROCARDIA XL) TAB PO SCH (10:15)
[2022-12-10] MEDS: DOCUSATE SODIUM 100 MG (COLACE) CAP PO SCH ×2 (10:15→21:33)
[2022-12-10 16:30] VITALS: BP 153/80
[2022-12-10 20:15] VITALS: BP 145/20
--- NOTE | 2022-12-10 20:25 | Postpartum Progress Note ---
Note Note Day # 1 Subjective: Patient is without complaints. Ambulating, voiding. Tolerating a regular diet without nausea or vomiting. Normal lochia. Pain is well controlled with oral pain medications. Breast feeding. Objective: Vital Signs 12/09/22 12/10/22 11:25 16:30 Temp 36.9 Pulse 84 Resp 18 B/P (MAP) 153/80 (104) Pulse Ox 98 O2 Delivery Room Air O2 Flow Rate 15.00 Physical Exam: General - Alert and oriented, no apparent distress Abdomen - Soft, appropriately tender to palpation, non-distended, fundus firm at umbilicus Extremities - 1+ edema bilaterally Assessment: Post- day # 1, status post spontaneous vaginal delivery, complicated by chronic HTN. Recovering well, hemodynamically stable Plan: Routine care. Encourage breast feeding. Encourage ambulation. Ferrous sulfate supplementation. Continue nifedipine, monitor BP closely. Plan for discharge tomorrow. Vitals - Labs Vital Signs - I&O Vital Signs Date Time Temp Pulse Resp B/P (MAP) Pulse Ox O2 Delivery O2 Flow Rate FiO2 12/10/22 16:30 36.9 84 18 153/80 (104) 98 Room Air 12/10/22 10:00 36.3 78 18 141/93 (109) 97 Room Air 12/10/22 05:14 36.1 79 18 138/94 (109) 99 Room Air 12/10/22 01:55 36.2 80 18 137/80 (99) 98 Room Air 12/09/22 21:31 36.8 85 18 145/70 (95) 98 Room Air I & O 12/10/22 06:59 Intake Total 1500 ml Balance 1500 ml Labs Laboratory Tests 12/10/22 05:09: White Blood Count 13.3H, Red Blood Count 3.98, Hemoglobin 10.3L, Hematocrit 32L, Mean Corpuscular Volume 80, Mean Corpuscular Hemoglobin 26, Mean Corpuscular Hemoglobin Concent 33, Red Cell Distribution Width 13.7, Platelet Count 254, Mean Platelet Volume 8.5L, Immature Granulocyte % (Auto) 1, Neutrophils (%) (Auto) 65, Lymphocytes (%) (Auto) 28, Monocytes (%) (Auto) 6, Eosinophils (%) (Auto) 0, Basophils (%) (Auto) 0, Neutrophils # (Auto) 8.7H, Lymphocytes # (Auto) 3.7, Monocytes # (Auto) 0.8, Eosinophils # (Auto) 0.0, Basophils # (Auto) 0.0, Immature Granulocyte # (Auto) 0.1 TRICE OH MD Dec 10, 2022 20:25
[2022-12-11 02:10] VITALS: BP 115/67
[2022-12-11] MEDS: FERROUS SULF 325 MG (IRON) TAB PO SCH (06:42)
--- NOTE | 2022-12-11 06:42 | Discharge Summary ---
Discharge Summary Hospital Course Hospital Course Date of Admission: Dec 09, 2022 at 05:58 Admission Diagnosis : Chronic hypertension complicating 37 weeks gestation Obesity complicating Family Physician/Provider: Trice Ricci MD Date of Discharge: 12/11/22 Discharge Diagnosis: Chronic hypertension s/p spontaneous vaginal delivery Hospital Course: Pt admitted for induction of labor due to chronic HTN. She had fairly rapid labor and delivery. She did require IV labetalol and hydralazine prior to delivery. she was continued on her [employer] nifedipine and initially had reasonably controlled BP, but shortly before d/c started trending up, given extra dose of nifedipine which didn't help, then oral labetaolol and lasix after which her BP was normal. She was requesting d/c, instructed to follow up for BP check in the morning. Labs and Pending Lab Test: Home Meds Active Ibuprofen 600 Mg Tablet 600 Mg PO Q6H PRN Ferosul (Ferrous Sulfate) 325 Mg (65 Mg Iron) Tablet 325 Mg PO DAILY@0700 Nifedipine ER (Nifedipine) 30 Mg Tab.er.24 30 Mg PO DAILY 30 Days Reported Lexapro (Escitalopram Oxalate) 20 Mg Tablet 20 Mg PO DAILY Vitamins ( Vit W-Ca,Fe,FA(<1 mg)) 27 Mg Iron-800 Mcg Tablet 1 Each PO Assessment/Pt DC Instructions Follow up with Dr. Ricci in 6 weeks for visit Discharge Diet: Regular Diet Activity as Tolerated: Yes Discharge Physical Examination Allergies: Coded Allergies: latex (Verified Allergy, Unknown, 11/21/22) pt states just per vagina metformin (Verified Allergy, Unknown, 11/21/22) pt states makes her blood sugar too low General Appearance: No Apparent Distress, WD/WN Respiratory: Lungs Clear, Normal Breath Sounds Cardiovascular: Regular Rate, Rhythm Gastrointestinal: Other (fundus firm below umbilicus) Extremity: Pedal Edema Skin: Normal Color, Warm/Dry TRICE RICCI MD Dec 11, 2022 06:42
[2022-12-11] MEDS: PRENATAL VITAMIN 1 EA TAB PO SCH ×2 (06:43→08:22)
[2022-12-11 08:10] VITALS: BP 157/96
[2022-12-11] MEDS: DOCUSATE SODIUM 100 MG (COLACE) CAP PO SCH (08:21)
[2022-12-11] MEDS: NIFEdipine ER 30 MG (PROCARDIA XL) TAB PO SCH (08:22)
[2022-12-11] MEDS ORDERED: NIFEdipine ER 30 MG (PROCARDIA XL) TAB PO ONE (11:30)
[2022-12-11 13:30] VITALS: BP 163/103
[2022-12-11] MEDS ORDERED: LABETALOL 200 MG (NORMODYNE) TAB PO ONE (14:30)
[2022-12-11] MEDS ORDERED: FUROSEMIDE 40 MG (LASIX) TAB PO NR (14:45)
[2022-12-11 16:25] VITALS: BP 143/92
== END 2022-12-11 18:50 | disposition home or self-care (01) | DRG 807 ==
LOC: LDRP 05:58
PROVIDERS: ADMIT Family Medicine; ATTEND Family Medicine
PROC: 10E0XZZ Delivery of Products of Conception, External Approach (ICD-10-PCS; principal; 2022-12-09)
PROC: 10907ZC Drainage of Amniotic Fluid, Therapeutic from Products of Conception, Via Natural or Artificial Opening (ICD-10-PCS; 2022-12-09)
PROC: 3E033VJ Introduction of Other Hormone into Peripheral Vein, Percutaneous Approach (ICD-10-PCS; 2022-12-09)
DX: O10.92 Unspecified pre-existing hypertension complicating childbirth (principal); Z37.0 Single live birth; O70.0 First degree perineal laceration during delivery; O99.214 Obesity complicating childbirth; Z3A.37 37 weeks gestation of pregnancy; Z88.8 Allergy status to other drugs, medicaments and biological substances
CPT/HCPCS: 36415; 80053; 82570; 84156; 85025; 86780; 86850; 86900; 86901